=== PATIENT | female | born 1990 | race American Indian/Alaskan Native ===

== ENCOUNTER 2018-06-09 01:00 | Inpatient (IN) | payer MEDICAID ==
[2018-06-09] MEDS ORDERED: NACL 0.9% 1000 ML 1,000 ML IV ONE ×2 (01:14→07:24)
[2018-06-09 02:08] LABS: Basophils % (Auto) 0.2 % (0.0-1.8); Eosinophils % (Auto) 0.2 % (0.0-4.3); Hematocrit 37.5 % (30.3-42.9); Lymphocytes # (Auto) 1.6 K/mm3 (1.2-5.4); Lymphocytes % (Auto) 8.1 % (13.4-35.0); Mean Corpuscular HGB Conc 35 % (30-34); Mean Corpuscular Volume 82 fl (79-97); Monocytes # (Auto) 0.8 K/mm3 (0.0-0.8); Monocytes % (Auto) 4.1 % (0.0-7.3); Platelet Count 373 K/mm3 (140-440); Red Blood Count 4.61 M/mm3 (3.65-5.03); Red Cell Distribution Width 14.1 % (13.2-15.2)
[2018-06-09 02:34] LABS: Alanine Aminotransferase 7 units/L (7-56); Albumin 4.1 g/dL (3.9-5); BUN/Creatinine Ratio 11; Blood Urea Nitrogen 8 mg/dL (7-17); Calcium 9.5 mg/dL (8.4-10.2); Hemolysis Index 4
[2018-06-09 05:39] LABS: Bilirubin,Urine NEG (Negative); Blood,Urine LG (Negative); Color,Urine Amber (Yellow); Hyaline Casts,Urine 14 /LPF; Mucus,Urine 3+ /HPF
[2018-06-09 05:40] LABS: Protein,Urine >500 mg/dL (Negative)
[2018-06-09] MEDS ORDERED: MORPHINE IV ONE (07:24)
[2018-06-09] MEDS ORDERED: ZOFRAN IV ONE (07:24)
--- NOTE | 2018-06-09 07:38 | Emergency Department Report ---
<FELIBERTO BRIGHT - Last Filed: 06/09/18 09:35> ED Abdominal Pain HPI - General Chief Complaint: Abdominal Pain Stated Complaint: GENERAL ILLNESS x3 DAYS Time Seen by Provider: 06/09/18 07:15 - Related Data Allergies Allergy/AdvReac Type Severity Reaction Status Date / Time No Known Allergies Allergy Unverified 06/09/18 01:13 ED Medical Decision Making - Lab Data Result diagrams: 06/09/18 01:41 06/09/18 01:41 - Medical Decision Making Ms. Alonso is a 28 years old female with no significant past medical history. Patient presented to the emergency room with 3 day history of nausea vomiting an d abdominal pain. Patient found to have a white blood cells of 20,000 and significant abdominal tenderness. His CT abdomen and pelvis with IV contrast showed a right colon perforation. Patient received Zosyn. I discussed the patient with Dr. Handley, surgeon automotive collision estimator. He advised to admit the patient to a critical care bed and he stated that he is coming to examine the patient. Dr. Elliott will be admitting the patient. I personally examined the patient and took history from this patient. Critical Care Time: Yes Critical care time in (mins) excluding proc time.: 30 ED Disposition Clinical Impression: Colon perforation Disposition: - OP ADMIT IP TO THIS HOSP Condition: Stable Referrals: PRIMARY CARE, [Primary Care Provider] - 3-5 Days <JANAK KIM - Last Filed: 06/09/18 09:45> ED Abdominal Pain HPI - General Source: patient Mode of arrival: Ambulatory Limitations: No Limitations - History of Present Illness Initial Comments: This is a 28-year-old female nontoxic, well nourished in appearance, no acute signs of distress presents to the ED with c/o of nausea and vomiting and abdominal pain 3 days. Patient describes vomiting as food content and yellow gastric acid. Patient describes abdominal pain as cramping and aching with level of 8/10 diffuse. Patient denies chest pain, short of breath, fever, chills, headache, stiff neck, numbness or tingling. Patient denies any diarrhea or constipation. Patient denies any recent travels. Patient denies any allergies. MD Complaint: abdominal pain -: days(s) (3) Location: diffuse Radiation: none Migration to: no migration Severity: mild Severity scale (0 -10): 8 Quality: cramping, aching Consistency: constant Improves With: nothing Worsens With: nothing Associated Symptoms: nausea, vomiting. denies: diarrhea, fever, chills, constipation, dysuria, hematemesis, hematochezia, melena, hematuria, anorexia, syncope ED Review of Systems ROS: Stated complaint: GENERAL ILLNESS x3 DAYS Other details as noted in HPI Constitutional: denies: chills, fever Eyes: denies: eye pain, eye discharge, vision change ENT: denies: ear pain, throat pain Respiratory: denies: cough, shortness of breath, wheezing Cardiovascular: denies: chest pain, palpitations Endocrine: no symptoms reported Gastrointestinal: abdominal pain, nausea, vomiting. denies: diarrhea Genitourinary: denies: urgency, dysuria, discharge Musculoskeletal: denies: back pain, joint swelling, arthralgia Skin: denies: rash, lesions Neurological: denies: headache, weakness, paresthesias Psychiatric: denies: anxiety, depression Hematological/Lymphatic: denies: easy bleeding, easy bruising ED Past Medical Hx - Past Medical History Previous Medical History?: Yes Additional medical history: Sickle Cell Trait - Surgical History Past Surgical History?: No - Social History Smoking Status: Never Smoker Substance Use Type: None ED Physical Exam - General Limitations: No Limitations General appearance: alert, in no apparent distress - Head Head exam: Present: atraumatic, normocephalic - Eye Eye exam: Present: normal appearance - Neck Neck exam: Present: normal inspection, full ROM. Absent: tenderness, meningismus, lymphadenopathy - Respiratory Respiratory exam: Present: normal lung sounds bilaterally. Absent: respiratory distress, wheezes, rales, rhonchi, stridor, chest wall tenderness, accessory muscle use, decreased breath sounds, prolonged expiratory - Cardiovascular Cardiovascular Exam: Present: regular rate, normal rhythm, normal heart sounds. Absent: irregular rhythm, systolic murmur, diastolic murmur, rubs, gallop - GI/Abdominal GI/Abdominal exam: Present: soft, tenderness (diffuse), normal bowel sounds. Absent: distended, guarding, rebound, rigid, diminished bowel sounds - Expanded GI/Abdominal Exam Expanded GI/Abdominal exam: Absent: psoas sign, Moore's sign, Rovsing's sign, tenderness at Mcburney's Point, ascites - Extremities Exam Extremities exam: Present: normal inspection, full ROM, normal capillary refill - Back Exam Back exam: Present: normal inspection, full ROM. Absent: tenderness, CVA tenderness (R), CVA tenderness (L), muscle spasm, paraspinal tenderness, vertebral tenderness, rash noted - Neurological Exam Neurological exam: Present: alert, oriented X3, normal gait - Psychiatric Psychiatric exam: Present: normal affect, normal mood - Skin Skin exam: Present: warm, dry, intact, normal color. Absent: rash ED Course Vital Signs 06/09/18 06/09/18 01:04 08:09 Temperature 98.1 F 98.2 F Pulse Rate 118 H 92 H Respiratory 18 16 Rate Blood Pressure 132/91 Blood Pressure 104/68 [Left] O2 Sat by Pulse 99 92 Oximetry - Reevaluation(s) Reevaluation #1: 06/09/18 07:43 Patient is speaking in full sentences with no signs of distress noted. ED Medical Decision Making - Lab Data Result diagrams: 06/09/18 01:41 06/09/18 01:41 - Medical Decision Making This is a 28-year-old female that presents with right colon perforation. Patient is currently stable. I put patient nothing by mouth. Zosyn IV ordered. Sepsis protocol has been initiated with IV fluids and pain medication. Laboratory obtained. Patient was discussed with Dr. Bright and agrees to the ED plan of care. PAtient was discussed with Dr. Handley and agrees to the ED plan of care. Patient was discussed with Dr. Elliott (hospitalist) and accepts patient to services with bridge orders to critical care with admission and Dr. Paige. At time of admission, the patient does not seem toxic or ill in appearance. No acute signs of distress noted. Patient agrees to admission treatment plan of care. No further questions noted by the patient. Critical care attestation.: If time is entered above; I have spent that time in minutes in the direct care of this critically ill patient, excluding procedure time. ED Disposition Is pt being admited?: Yes
[2018-06-09] MEDS ORDERED: NACL 0.9% 1000 ML IV ONE (07:46)
[2018-06-09] MEDS ORDERED: ZOSYN/NS 4.5GM/100ML 4.5 GM/100 ML VIAL IV ONE (09:12)
--- NOTE | 2018-06-09 09:17 | Cat Scan Report ---
PROCEDURE: CT ABDOMEN PELVIS W CON TECHNIQUE: Computerized axial tomography of the abdomen and pelvis was performed after the IV inject ion of iodinated nonionic contrast. CT DOSE LENGTH PRODUCT: 1065.9 mGycm HISTORY: abd pain COMPARISONS: None . FINDINGS: Partially visualized intrathoracic contents are unremarkable. The liver, gallbladder, pancreas, spleen, and adrenal glands are unremarkable. Kidneys show no worrisome lesions, hydronephrosis, or calculi. Urinary bladder is unremarkable. Antev erted lobular uterus with multiple fibroids The right colon is perforated approximately 6 cm superior to the ileocecal valve on coronal images 42 -47. A trapped area of stool adjacent to the perforation measures 3.1 x 3 x 3.6 cm. Surrounding indur ated fat. No jenn pneumoperitoneum. Appendix is normal. No other focal abnormality seen within the g astrointestinal tract. Aorta is normal in course and caliber. Superficial soft tissues are unremarkable. No acute or aggressive appearing skeletal findings. IMPRESSION: Right colonic perforation with trapped area of stool measuring 3.6 x 3.1 x 3 cm. Abscess formation at this location is expected. No jenn pneumoperitoneum. No other focal abnormalities within the gastro intestinal tract are identified. Consider underlying immunocompromised state or inflammatory bowel di sease as potential etiologies. Dr. Ramirez discussed findings with Camilo Gonzáles NP at [address] Time on 06/09/2018 7:07 BATTERY RECHARGER immed iately following the examination. This document is electronically signed by Weston Ramirez MD., June 09 2018 09:15:35 AM ET
[2018-06-09] MEDS ORDERED: DILAUDID IV ONE (09:57)
[2018-06-09] MEDS ORDERED: DILAUDID ONE (10:01)
--- NOTE | 2018-06-09 10:52 | History and Physical Report ---
History of Present Illness Date of examination: 06/09/18 Date of admission: 06/09/18 Chief complaint: Abdominal pain History of present illness: Ms. Alonso is a 28 years old female with no significant past medical history presented to the emergency room with 3 day history of nausea vomiting and RLQ intense abdominal pain. Patient found to have a white blood cells of 20,000 and significant abdominal tenderness. Her CT abdomen and pelvis with IV contrast showed a right colon perforation. Patient was given Zosyn in the ER. Consulted Dr. Handley, surgeon in the ER. Patient is being admitted for further evaluation and management. Past medical History: h/o sickle cell trait Past surgical History: None Social History: Lives with family, denies any smoking, drinking and elicit drug abuse. Family History: No Significant for diabetes hypertension cancer or stroke Review of System: Constitutional: no fever, no chills, no weight loss Ears, eyes, nose, mouth and throat: no nasal congestion, no nasal discharge, no sinus pressure, no vision change, no red eye. Neck: No neck pain or rigidity. Cardiovascular: No chest pain, no orthopnea, no palpitations, no leg swelling Respiratory: No shortness of breath, no cough, no congestion, no wheezing Gastrointestinal: + abdominal pain, + nausea, + vomiting Genitourinary : no dysuria, no hematuria Musculoskeletal: no joint swelling or muscle ache Integumentary: no rash, no pruritis Neurological: no parathesias, no numbness, no tingling Endocrine: no cold or heat intolerance, no polyuria or polydipsia Hematologic/Lymphatic: no easy bruising, no easy bleeding, no gland swelling Allergic/Immunologic: no urticaria, no angioedema. Medications and Allergies Allergies Allergy/AdvReac Type Severity Reaction Status Date / Time No Known Allergies Allergy Unverified 06/09/18 01:13 Home Medications Medication Instructions Recorded Confirmed Last Taken Type No Known Home Medications [No 06/09/18 06/09/18 Unknown History Reported Home Medications] Exam - Constitutional Vitals: Temp Pulse Resp BP Pulse Ox 98.2 F 78 18 113/77 96 06/09/18 08:09 06/09/18 10:04 06/09/18 10:04 06/09/18 10:04 06/09/18 10:04 General appearance: Present: mild distress - EENT Eyes: Present: PERRL ENT: hearing intact, clear oral mucosa - Neck Neck: Present: supple, normal ROM - Respiratory Respiratory effort: normal Respiratory: bilateral: CTA - Cardiovascular Heart Sounds: Present: S1 & S2. Absent: rub, click - Extremities Extremities: pulses symmetrical, No edema Peripheral Pulses: within normal limits - Abdominal General gastrointestinal: Present: soft, non-distended, other (diminished BS) Localized gastrointestinal: guarding: RUQ - Integumentary Integumentary: Present: clear, warm, dry - Musculoskeletal Musculoskeletal: gait normal, strength equal bilaterally - Psychiatric Psychiatric: appropriate mood/affect, intact judgment & insight - Neurologic Neurologic: CNII-XII intact, moves all extremities Results - Labs CBC & Chem 7: 06/10/18 09:35 06/10/18 03:49 Labs: Abnormal lab results 06/09/18 06/09/18 06/09/18 Range/Units 01:41 01:41 04:41 WBC 19.5 H (4.5-11.0) K/mm3 MCHC 35 H (30-34) % Lymph % (Auto) 8.1 L (13.4-35.0) % Seg Neutrophils % 87.4 H (40.0-70.0) % Seg Neutrophils # 17.0 H (1.8-7.7) K/mm3 VBG pH (7.320-7.420) Sodium 135 L (137-145) mmol/L Potassium 3.4 L (3.6-5.0) mmol/L Chloride 96.7 L (98-107) mmol/L Carbon Dioxide 17 L (22-30) mmol/L Total Protein 8.8 H (6.3-8.2) g/dL Ur Specific [place] 1.040 H (1.003-1.030) Urine WBC (Auto) 9.0 H (0.0-6.0) /HPF 06/09/18 Range/Units 08:48 WBC (4.5-11.0) K/mm3 MCHC (30-34) % Lymph % (Auto) (13.4-35.0) % Seg Neutrophils % (40.0-70.0) % Seg Neutrophils # (1.8-7.7) K/mm3 VBG pH 7.318 L (7.320-7.420) Sodium (137-145) mmol/L Potassium (3.6-5.0) mmol/L Chloride (98-107) mmol/L Carbon Dioxide (22-30) mmol/L Total Protein (6.3-8.2) g/dL Ur Specific [place] (1.003-1.030) Urine WBC (Auto) (0.0-6.0) /HPF - Imaging and Cardiology CT scan - abdomen: report reviewed Assessment and Plan Microperforation of the right colon Hypokalemia, likely due to GI loss Sepsis, due to organ perforation Sickle cell trait DVT Px - admit to ICU - consult GS, cont iv abx, cont iv fluid - replete Kcl, ordered blood cx - monitor CBC, BMP - lovenox for DVT Px Radiological data: CT abdomen/pelvis; Right colonic perforation with trapped area of stool measuring 3.6 x 3.1 x 3 cm. Abscess formation at this location is expected. No jenn pneumoperitoneum. No other focal abnormalities within the gastrointestinal tract are identified. Consider underlying immunocompromised state or inflammatory bowel disease as potential etiologies.
[2018-06-09] MEDS ORDERED: NORMODYNE IV PRN (10:54)
[2018-06-09] MEDS ORDERED: ZOFRAN ONE (12:06)
[2018-06-09] MEDS: ZOFRAN IV PRN (12:06)
[2018-06-09] MEDS: D5W/NS W/KCL 20MEQ 20 MEQ/1,000 ML BAG IV SCH ×2 (14:20→22:20)
--- NOTE | 2018-06-09 14:47 | Progress Note ---
Assessment and Plan Full consult dictated. 28 y/o healthy female (sickle cell trait). 4 day hx of constipation. then significant abd pain. CT - contained cecal perforation. no free air or fluid. 20,000 wbc. pt currently comfortable. localized RLQ tenderness. L side of abd soft, non tender imp as above. pt prior to this episode, completely healthy. no previous hx of abd pain, constipation, diarrhea, hematochezia, wt loss etc. microperf of cecum secondary to ?. (appendix wnl on CT). rec: keep npo IVF hydration IV antibiotics ID eval may need CT guided drainage if abscess develops will hold off on any immediate surgical drainage as long as pt continues to clinically improve will follow Selected Entries 06/09/18 06/09/18 08:09 12:44 Temperature 98.2 F Pulse Rate 84 Respiratory 16 Rate Blood Pressure 117/96 [Left] Laboratory Tests 06/09/18 06/09/18 06/09/18 01:41 01:41 08:48 WBC 19.5 H Hgb 13.0 Hct 37.5 Sodium 135 L Potassium 3.4 L Chloride 96.7 L Carbon Dioxide 17 L BUN 8 Creatinine 0.7 Total Bilirubin 1.00 AST 11 ALT 7 Alkaline Phosphatase 65 Lipase 21 Objective Vital Signs - 12hr 06/09/18 06/09/18 06/09/18 08:09 09:47 10:04 Temperature 98.2 F Pulse Rate 92 H 78 Respiratory 16 20 18 Rate Blood Pressure 104/68 113/77 [Left] O2 Sat by Pulse 92 99 96 Oximetry 06/09/18 12:44 Temperature Pulse Rate 84 Respiratory 16 Rate Blood Pressure 117/96 [Left] O2 Sat by Pulse 97 Oximetry - Labs 06/09/18 01:41 06/09/18 01:41 Diabetes panel 06/09/18 Range/Units 01:41 Sodium 135 L (137-145) mmol/L Potassium 3.4 L (3.6-5.0) mmol/L Chloride 96.7 L (98-107) mmol/L Carbon Dioxide 17 L (22-30) mmol/L BUN 8 (7-17) mg/dL Creatinine 0.7 (0.7-1.2) mg/dL Glucose 89 (65-100) mg/dL Calcium 9.5 (8.4-10.2) mg/dL AST 11 (5-40) units/L ALT 7 (7-56) units/L Alkaline Phosphatase 65 (35-129) units/L Total Protein 8.8 H (6.3-8.2) g/dL Albumin 4.1 (3.9-5) g/dL Calcium panel 06/09/18 Range/Units 01:41 Calcium 9.5 (8.4-10.2) mg/dL Albumin 4.1 (3.9-5) g/dL Pituitary panel 06/09/18 Range/Units 01:41 Sodium 135 L (137-145) mmol/L Potassium 3.4 L (3.6-5.0) mmol/L Chloride 96.7 L (98-107) mmol/L Carbon Dioxide 17 L (22-30) mmol/L BUN 8 (7-17) mg/dL Creatinine 0.7 (0.7-1.2) mg/dL Glucose 89 (65-100) mg/dL Calcium 9.5 (8.4-10.2) mg/dL Adrenal panel 06/09/18 Range/Units 01:41 Sodium 135 L (137-145) mmol/L Potassium 3.4 L (3.6-5.0) mmol/L Chloride 96.7 L (98-107) mmol/L Carbon Dioxide 17 L (22-30) mmol/L BUN 8 (7-17) mg/dL Creatinine 0.7 (0.7-1.2) mg/dL Glucose 89 (65-100) mg/dL Calcium 9.5 (8.4-10.2) mg/dL Total Bilirubin 1.00 (0.1-1.2) mg/dL AST 11 (5-40) units/L ALT 7 (7-56) units/L Alkaline Phosphatase 65 (35-129) units/L Total Protein 8.8 H (6.3-8.2) g/dL Albumin 4.1 (3.9-5) g/dL
[2018-06-09] MEDS: ZOSYN/NS 3.375GM/50ML 3.375 GM/50 ML BAG IV SCH (18:59)
--- NOTE | 2018-06-09 23:06 | Consultation ---
REASON FOR CONSULTATION: Rule out contained a cecal perforation. HISTORY OF PRESENT ILLNESS: The patient is a pleasant 28-year-old female, who has been complaining of approximately 4-day history of constipation prior to her arrival to the emergency room. She states she had not moved her bowels in 4 days and then began taking some stool softener with minimal results. Subsequent to this, the patient's pain increased and thus her arrival to the Emergency Room. On arrival to the Emergency Room, a CBC showed a white count of approximately 20,000. A CT scan of the abdomen was also performed by which revealed what appears to be a contained cecal perforation. The appendix itself was described as normal. There is no evidence of any free air or free fluid in the peritoneal cavity. Thus, the perforation again being contained. PAST MEDICAL HISTORY: Pertinent for sickle cell trait. PAST SURGICAL HISTORY: Negative. ALLERGIES: No known allergies. MEDICATIONS: No medications. FAMILY HISTORY: Negative. The patient is adopted. SOCIAL HISTORY: Does smoke some marijuana. Occasional and very rare ethanol intake. Denies any cigarette smoking. PHYSICAL EXAMINATION: GENERAL: At this time reveals the patient to be awake, alert, cooperative, in no apparent distress. The patient states she is when she came in. VITAL SIGNS: Temperature is 98.2, blood pressure 117/96, pulse of 84, and respirations 16. ABDOMEN: Examination of the abdomen reveals localized right lower quadrant tenderness, some tenderness also noted in the right upper quadrant. The left side of the abdomen is soft and nontender at present. Bowel sounds are hypoactive to absent. LABORATORY DATA: Lab work at present includes a CBC, which shows a white count of 19.5, H and H is 13 and 37. Electrolytes are just borderline low with a sodium of 135, potassium 3.4, chloride is 96.7, and CO2 of 17. BUN is 8, creatinine is 0.7. Lactic acid is 0.8 that being within normal limits. LFTs were also within normal limits. Lipase is 21. CT scan of the abdomen was done, results of which have mentioned. IMPRESSION: 1. At this time is that of a previously healthy 28-year-old female other than her sickle cell trait history. 2. Contained microperforation of the cecum secondary to?. Again, appendix is described as normal on the CT. Possible inflammatory bowel disease?. Possible malignancy?. Possible ruptured diverticula?. RECOMMENDATIONS: At this time, would keep the patient n.p.o. Start IV fluid hydration as well as IV antibiotics. We will obtain Infectious Disease evaluation. The patient may need CT-guided drainage of the area of a true abscess develops. At present, would hold off of any immediate surgical intervention as the patient is clinically stable and the area appears to be contained. We will monitor closely with you. Thank you very much for consultation. JOB# [id number] ALAYNA/MASOUD
[2018-06-10] MEDS: ZOSYN/NS 3.375GM/50ML 3.375 GM/50 ML BAG IV SCH ×2 (01:41→10:35)
[2018-06-10] MEDS: ZOFRAN IV PRN ×3 (02:55→22:17)
[2018-06-10 04:31] LABS: Basophils % (Auto) 0.1 % (0.0-1.8); Eosinophils % (Auto) 0.1 % (0.0-4.3); Hematocrit 29.6 % (30.3-42.9); Hemoglobin 10.3 gm/dl (10.1-14.3); Lymphocytes # (Auto) 1.7 K/mm3 (1.2-5.4); Lymphocytes % (Auto) 9.9 % (13.4-35.0); Mean Corpuscular HGB Conc 35 % (30-34); Mean Corpuscular Volume 81 fl (79-97); Monocytes # (Auto) 0.8 K/mm3 (0.0-0.8); Monocytes % (Auto) 4.9 % (0.0-7.3); Platelet Count 303 K/mm3 (140-440); Red Blood Count 3.67 M/mm3 (3.65-5.03)
[2018-06-10 04:44] LABS: BUN/Creatinine Ratio 3; Blood Urea Nitrogen 2 mg/dL (7-17); Hemolysis Index 12
[2018-06-10] MEDS: D5W/NS W/KCL 20MEQ 20 MEQ/1,000 ML BAG IV SCH ×2 (06:52→17:43)
[2018-06-10] MEDS: MORPHINE IV PRN ×3 (07:32→22:12)
--- NOTE | 2018-06-10 08:00 | Progress Note ---
Assessment and Plan Pt sitting on commode. c/o localized RLQ abd pain Abd soft. localized RLQ tenderness reviewed CT [facility] radiologist. no diverticulae seen around ascending colon area. r/o inflammatory bowel disease? r/o colitis? lowered h/h and hypokalemia noted. repeat h/h this am supplement K as per PCP continue present care (NPO, IV antibiotics, clinical monitoring) await ID eval nothing to drain at present as everything appears to be inflammatory at present. no true fluid collection or abscess seen. will need f/u CT in 5 -7 days Selected Entries 06/10/18 06/10/18 06:15 06:51 Temperature 99.4 F Pulse Rate 95 H Respiratory 12 Rate Blood Pressure 119/80 Laboratory Tests 06/09/18 06/09/18 06/10/18 01:41 07:56 03:49 WBC 19.5 H 16.9 H Hgb 13.0 10.3 Hct 37.5 29.6 L D Potassium Lactic Acid 0.80 06/10/18 03:49 WBC Hgb Hct Potassium 3.2 L Lactic Acid Objective Vital Signs - 12hr 06/09/18 06/09/18 06/09/18 20:00 20:11 20:21 Temperature Pulse Rate 85 92 H 98 H Pulse Rate [ Apical] Pulse Rate [ Left Radial] Respiratory 18 19 15 Rate Blood Pressure 119/71 119/71 118/64 O2 Sat by Pulse 98 100 100 Oximetry 06/09/18 06/09/18 06/09/18 20:30 20:41 20:51 Temperature Pulse Rate 90 95 H 93 H Pulse Rate [ Apical] Pulse Rate [ Left Radial] Respiratory 22 14 20 Rate Blood Pressure 123/81 123/81 125/81 O2 Sat by Pulse 100 99 99 Oximetry 06/09/18 06/09/18 06/09/18 21:00 21:11 21:21 Temperature Pulse Rate 102 H 102 H 100 H Pulse Rate [ Apical] Pulse Rate [ Left Radial] Respiratory 19 19 18 Rate Blood Pressure 118/73 118/73 129/83 O2 Sat by Pulse 98 99 100 Oximetry 06/09/18 06/09/18 06/09/18 21:30 21:40 21:51 Temperature Pulse Rate 105 H 100 H 100 H Pulse Rate [ Apical] Pulse Rate [ Left Radial] Respiratory 18 21 18 Rate Blood Pressure 129/81 129/81 138/89 O2 Sat by Pulse 100 99 100 Oximetry 06/09/18 06/09/18 06/09/18 22:00 22:11 22:21 Temperature Pulse Rate 99 H 100 H 111 H Pulse Rate [ 109 H Apical] Pulse Rate [ 109 H Left Radial] Respiratory 19 21 18 Rate Blood Pressure 119/68 119/68 125/68 O2 Sat by Pulse 100 99 99 Oximetry 06/09/18 06/09/18 06/09/18 22:30 22:41 22:51 Temperature Pulse Rate 107 H 98 H 111 H Pulse Rate [ Apical] Pulse Rate [ Left Radial] Respiratory 20 22 23 Rate Blood Pressure 132/72 132/72 134/71 O2 Sat by Pulse 98 97 97 Oximetry 06/09/18 06/09/18 06/09/18 23:01 23:11 23:21 Temperature Pulse Rate 118 H 113 H 127 H Pulse Rate [ Apical] Pulse Rate [ Left Radial] Respiratory 15 21 16 Rate Blood Pressure 112/62 112/62 117/58 O2 Sat by Pulse 97 97 97 Oximetry 06/09/18 06/09/18 06/09/18 23:30 23:41 23:51 Temperature Pulse Rate 116 H 117 H 112 H Pulse Rate [ Apical] Pulse Rate [ Left Radial] Respiratory 21 23 21 Rate Blood Pressure 121/77 121/77 115/72 O2 Sat by Pulse 98 97 97 Oximetry 06/10/18 06/10/18 06/10/18 00:00 00:11 00:21 Temperature Pulse Rate 110 H 112 H 112 H Pulse Rate [ 111 H Apical] Pulse Rate [ 111 H Left Radial] Respiratory 18 22 23 Rate Blood Pressure 133/73 133/73 115/72 O2 Sat by Pulse 98 98 96 Oximetry 06/10/18 06/10/18 06/10/18 00:30 00:41 00:51 Temperature Pulse Rate 109 H 113 H 111 H Pulse Rate [ Apical] Pulse Rate [ Left Radial] Respiratory 18 22 23 Rate Blood Pressure 113/72 113/72 116/77 O2 Sat by Pulse 98 97 97 Oximetry 06/10/18 06/10/18 06/10/18 01:00 01:11 01:21 Temperature Pulse Rate 117 H 114 H 118 H Pulse Rate [ Apical] Pulse Rate [ Left Radial] Respiratory 17 22 22 Rate Blood Pressure 120/74 120/74 113/75 O2 Sat by Pulse 98 97 98 Oximetry 06/10/18 06/10/18 06/10/18 01:30 01:41 01:51 Temperature Pulse Rate 109 H 100 H 96 H Pulse Rate [ Apical] Pulse Rate [ Left Radial] Respiratory 20 12 14 Rate Blood Pressure 113/69 113/69 113/75 O2 Sat by Pulse 99 98 99 Oximetry 06/10/18 06/10/18 06/10/18 02:00 02:11 02:15 Temperature 100.5 F H Pulse Rate 103 H 108 H Pulse Rate [ 110 H Apical] Pulse Rate [ 110 H Left Radial] Respiratory 17 14 Rate Blood Pressure 118/73 117/70 O2 Sat by Pulse 96 99 Oximetry 06/10/18 06/10/18 06/10/18 02:21 02:30 02:41 Temperature Pulse Rate 103 H 112 H 115 H Pulse Rate [ Apical] Pulse Rate [ Left Radial] Respiratory 12 15 17 Rate Blood Pressure 122/80 118/70 118/70 O2 Sat by Pulse 98 99 98 Oximetry 06/10/18 06/10/18 06/10/18 02:51 03:00 03:11 Temperature Pulse Rate 108 H 94 H 103 H Pulse Rate [ Apical] Pulse Rate [ Left Radial] Respiratory 23 17 18 Rate Blood Pressure 122/80 117/75 117/75 O2 Sat by Pulse 100 99 98 Oximetry 06/10/18 06/10/18 06/10/18 03:21 03:30 03:41 Temperature Pulse Rate 107 H 102 H 106 H Pulse Rate [ Apical] Pulse Rate [ Left Radial] Respiratory 17 20 22 Rate Blood Pressure 117/75 129/88 129/88 O2 Sat by Pulse 100 99 99 Oximetry 06/10/18 06/10/18 06/10/18 03:51 04:00 04:11 Temperature Pulse Rate 116 H 103 H 99 H Pulse Rate [ Apical] Pulse Rate [ Left Radial] Respiratory 16 19 22 Rate Blood Pressure 129/88 118/71 118/71 O2 Sat by Pulse 97 99 98 Oximetry 06/10/18 06/10/18 06/10/18 04:21 04:30 04:41 Temperature Pulse Rate 101 H 104 H 108 H Pulse Rate [ Apical] Pulse Rate [ Left Radial] Respiratory 23 22 21 Rate Blood Pressure 118/68 123/73 123/73 O2 Sat by Pulse 98 96 98 Oximetry 06/10/18 06/10/18 06/10/18 04:51 05:00 05:11 Temperature Pulse Rate 105 H 109 H 104 H Pulse Rate [ Apical] Pulse Rate [ Left Radial] Respiratory 22 19 14 Rate Blood Pressure 113/76 123/82 123/82 O2 Sat by Pulse 97 97 99 Oximetry 06/10/18 06/10/18 06/10/18 05:21 05:30 05:41 Temperature Pulse Rate 108 H 119 H 104 H Pulse Rate [ Apical] Pulse Rate [ Left Radial] Respiratory 18 16 15 Rate Blood Pressure 133/107 130/88 130/88 O2 Sat by Pulse 99 98 97 Oximetry 06/10/18 06/10/18 06/10/18 05:51 06:00 06:11 Temperature Pulse Rate 97 H 96 H 102 H Pulse Rate [ Apical] Pulse Rate [ Left Radial] Respiratory 16 17 19 Rate Blood Pressure 111/67 111/70 111/70 O2 Sat by Pulse 98 98 99 Oximetry 06/10/18 06/10/18 06/10/18 06:12 06:15 06:21 Temperature 99.4 F Pulse Rate 94 H Pulse Rate [ 110 H Apical] Pulse Rate [ 110 H Left Radial] Respiratory 20 11 L Rate Blood Pressure 120/84 O2 Sat by Pulse 99 96 Oximetry 06/10/18 06/10/18 06/10/18 06:30 06:41 06:51 Temperature Pulse Rate 99 H 100 H 95 H Pulse Rate [ Apical] Pulse Rate [ Left Radial] Respiratory 15 24 12 Rate Blood Pressure 125/94 125/94 119/80 O2 Sat by Pulse 98 98 99 Oximetry 06/10/18 06/10/18 06/10/18 07:00 07:11 07:21 Temperature Pulse Rate 109 H 93 H 96 H Pulse Rate [ Apical] Pulse Rate [ Left Radial] Respiratory 18 10 L 19 Rate Blood Pressure 131/96 131/96 131/91 O2 Sat by Pulse 98 98 98 Oximetry 06/10/18 06/10/18 07:30 07:41 Temperature Pulse Rate 94 H 92 H Pulse Rate [ Apical] Pulse Rate [ Left Radial] Respiratory 14 17 Rate Blood Pressure 133/93 133/93 O2 Sat by Pulse 98 99 Oximetry - Labs 06/10/18 03:49 06/10/18 03:49 Diabetes panel 06/10/18 Range/Units 03:49 Sodium 142 D (137-145) mmol/L Potassium 3.2 L (3.6-5.0) mmol/L Chloride 108.9 H (98-107) mmol/L Carbon Dioxide 22 (22-30) mmol/L BUN 2 L (7-17) mg/dL Creatinine 0.7 (0.7-1.2) mg/dL Glucose 127 H (65-100) mg/dL Calcium 8.0 L D (8.4-10.2) mg/dL Calcium panel 06/10/18 Range/Units 03:49 Calcium 8.0 L D (8.4-10.2) mg/dL Pituitary panel 06/10/18 Range/Units 03:49 Sodium 142 D (137-145) mmol/L Potassium 3.2 L (3.6-5.0) mmol/L Chloride 108.9 H (98-107) mmol/L Carbon Dioxide 22 (22-30) mmol/L BUN 2 L (7-17) mg/dL Creatinine 0.7 (0.7-1.2) mg/dL Glucose 127 H (65-100) mg/dL Calcium 8.0 L D (8.4-10.2) mg/dL Adrenal panel 06/10/18 Range/Units 03:49 Sodium 142 D (137-145) mmol/L Potassium 3.2 L (3.6-5.0) mmol/L Chloride 108.9 H (98-107) mmol/L Carbon Dioxide 22 (22-30) mmol/L BUN 2 L (7-17) mg/dL Creatinine 0.7 (0.7-1.2) mg/dL Glucose 127 H (65-100) mg/dL Calcium 8.0 L D (8.4-10.2) mg/dL
[2018-06-10 09:50] LABS: Hematocrit 29.4 % (30.3-42.9); Hemoglobin 10.2 gm/dl (10.1-14.3); Mean Corpuscular HGB Conc 35 % (30-34); Mean Corpuscular Volume 81 fl (79-97); Platelet Count 295 K/mm3 (140-440); Red Blood Count 3.66 M/mm3 (3.65-5.03)
--- NOTE | 2018-06-10 11:50 | Consultation ---
History of Present Illness - Reason for Consult Consult date: 06/10/18 contained colon perf Requesting physician: ABELINO ALEXANDER - History of Present Illness 28 y/o female with history marihuana use; admitted on due to 3-day history of nausea, vomiting and abdominal pain. Patient reports she noted RLQ abdominal pain started 3 days before admission associated with nausea and vomiting x 1. Also noted SOB and dry cough for 24 hour before admission. 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 Denies tob, Etoh, drug abuse except for marihuana use. She denies history of previous diverticulitis or inflammatory bowel disease. No history of trauma or ingestion of foreign bodies. In the ED, temp 98.1, HR 118, R 19, O2 sat 99%, BP 132/91. WBC 19.5, Hg 13, Plat 373. Creat 0.7. LFTs normal. Lipase normal. UA neg. Blood culture 06/09/[address] abdomen showed perforated right colon approximately 6 cm superior to the ileocecal valve with trapped area of stool adjacent to the perforation measures 3.1 x 3 x 3.6 cm. Surrounding indurated fat. No jenn pneumoperitoneum. Review of Systems: General: no fever, chills, nightsweats, unintentional weight change, or change in appetite Cutaneous: no rash, pruritus Head: no headaches or injury Eyes: no changes in vision, eye pain, double vision Ears: no ear pain, ear discharge, ringing or hearing loss Nose: no nose bleeding, stuffiness Mouth & throat: no bleeding gums, no horseness, no dental problems, or swollen glands Neck: no pain, node enlargement/lumps, tyroid enlargement or tenderness Respiratory: no cough, wheezing, sputum, hemoptysis, pleuritic chest pain Cardiovascular: no chest pain, leg edema, cyanosis, WHITE, orthopnea Musculoskeletal: no decreased joint motion, bone or joint pain, joint swelling, muscle aches Gastrointestinal: + nausea, + vomiting, + abdominal pain, no hematemesis, diarrhea, constipation, melena, bright red blood in stools, fecal incontinence, jaundice Genitourinary/Reproductive: no frequent urination, dysuria, hematuria, incontinence Neurogical: no seizures, no headaches, no weakness, no paresthesias, no loss of speech or vision; no memory loss, no vertigo, no tremors, no numbness Psychiatric: stable mood; no excessive anxiety, sadness or moodiness Medications and Allergies Allergies Allergy/AdvReac Type Severity Reaction Status Date / Time No Known Allergies Allergy Unverified 06/09/18 01:13 Home Medications Medication Instructions Recorded Confirmed Last Taken Type No Known Home Medications [No 06/09/18 06/09/18 Unknown History Reported Home Medications] Active Meds: Active Medications Hydralazine HCl (Apresoline) 5 mg IV Q30MIN PRN PRN Reason: Hypertension Potassium Chloride/Dextrose/Sod Cl (D5w/Ns W/Kcl 20meq) 20 meq in 1,000 mls @ 125 mls/hr IV DIRECT DONNELL Last Admin: 06/10/18 06:52 Dose: 125 mls/hr Documented by: Piperacillin Sod/Tazobactam Sod (Zosyn/Ns 3.375gm/50ml) 3.375 gm in 50 mls @ 100 mls/hr IV Q8H DONNELL; Protocol Last Admin: 06/10/18 10:35 Dose: 100 mls/hr Documented by: Labetalol HCl (Normodyne) 10 mg IV Q4H PRN PRN Reason: Hypertension Morphine Sulfate (Morphine) 2 mg IV Q4H PRN PRN Reason: Pain, Moderate (4-6) Last Admin: 06/10/18 07:32 Dose: 2 mg Documented by: Ondansetron HCl (Zofran) 4 mg IV Q8H PRN PRN Reason: N/V unrelieved by Reglan Last Admin: 06/10/18 02:55 Dose: 4 mg Documented by: Physical Examination - Physical Exam Narrative exam: General appearance: Alert in NAD, conversant Eyes: anicteric sclerae, moist conjunctivae; no lid-lag; PERRLA HENT: Atraumatic; oropharynx clear with moist mucous membranes and no mucosal ulcerations/no oral thrush; normal hard and soft palate. Normal external ears. Neck: Trachea midline; supple, no thyromegaly or lymphadenopathy Lungs: CTA CV: RRR, no murmurs Abdomen: Soft, tender to palpation diffusely; no masses or hepatosplenomegaly Extremities: No peripheral edema or extremity lymphadenopathy Skin: Normal temperature, turgor and texture; no rash, ulcers or subcutaneous nodules Psych: Appropriate affect, alert and oriented to person, place and time. Neuro: alert and oriented x 3. Moving all extermities - Constitutional Vitals: Vital Signs Temp Pulse Resp BP Pulse Ox 99.4 F 90 19 110/72 98 06/10/18 06:15 06/10/18 10:11 06/10/18 10:11 06/10/18 10:11 06/10/18 10:11 Temperature -Last 24 Hours Temperature 99.4 F Temperature 100.5 F Temperature 98.2 F Results - Labs CBC & Chem 7: 06/10/18 09:35 06/10/18 03:49 Labs: Abnormal lab results 06/10/18 06/10/18 06/10/18 Range/Units 03:49 03:49 09:35 WBC 16.9 H 21.2 H (4.5-11.0) K/mm3 Hct 29.6 L D 29.4 L (30.3-42.9) % MCHC 35 H 35 H (30-34) % Lymph % (Auto) 9.9 L (13.4-35.0) % Seg Neutrophils % 85.0 H (40.0-70.0) % Seg Neutrophils # 14.4 H (1.8-7.7) K/mm3 Potassium 3.2 L (3.6-5.0) mmol/L Chloride 108.9 H (98-107) mmol/L BUN 2 L (7-17) mg/dL Glucose 127 H (65-100) mg/dL Calcium 8.0 L D (8.4-10.2) mg/dL Assessment and Plan Cultures: Blood culture 06/09/2018 no growth today Assessment: 28 y/o female with history marihuana use; admitted on due to 3-day history of nausea, vomiting and abdominal pain: 1) Sepsis: Present on admission, manifested by tachycardia, leukocytosis. Etiology most likely right colonic perforation. 2) Right colonic perforation: of unclear etiology. Patient denies history of previous diverticulitis or inflammatory bowel disease. No history of trauma or ingestion of foreign bodies. CT abdomen showed perforated right colon approximately 6 cm superior to the ileocecal valve with trapped area of stool adjacent to the perforation measures 3.1 x 3 x 3.6 cm. Surrounding indurated fat. No jenn pneumoperitoneum. No evidence of intra-abdominal abscess or fistula. Among infectious diseases causes of right sided colonic perforation are typhoid (no history of diarrhea), schistosomiasis (no recent travels to tropical areas), CMV. Other non ID etiologies: malignancy, connective tissue disease, vasculitis. Recommendations: - follow-up blood cultures - obtain procalcitonin, C-reactive protein (CRP) - check CARLOS MANUEL with reflex, C3, C4, ANCA - check HIV and CMV DNA PCR - agree with repeating CT in 3-5 days - stop zosyn (no need to cover Pseudomonas) - start ceftriaxone and flagyl Will follow. Zahra Fowler MD Infectious Diseases [facility] ([facility] M [phone] O [phone] colonic [phone]
[2018-06-10] MEDS ORDERED: KCL 10MEQ/100ML 10 MEQ/100 ML BAG IV ONE (13:00)
[2018-06-10] MEDS ORDERED: ROCEPHIN/NS 2 GM/100 ML 2 GM/100 ML BAG IV SCH (13:00)
--- NOTE | 2018-06-10 14:01 | Consultation ---
History of Present Illness Consult date: 06/10/18 Requesting physician: NARCISA STEPHENS Reason for consult: other (Perforated Viscus) History of present illness: PULMONARY/CCM CONSULT NOTE (Full dictation # [id number]) Please see dictated notes for full details Medications and Allergies Allergies Allergy/AdvReac Type Severity Reaction Status Date / Time No Known Allergies Allergy Unverified 06/09/18 01:13 Home Medications Medication Instructions Recorded Confirmed Last Taken Type No Known Home Medications [No 06/09/18 06/09/18 Unknown History Reported Home Medications] Active Meds: Active Medications Enoxaparin Sodium (Lovenox) 40 mg SUB-Q QDAY@2200 DONNELL Hydralazine HCl (Apresoline) 5 mg IV Q30MIN PRN PRN Reason: Hypertension Potassium Chloride/Dextrose/Sod Cl (D5w/Ns W/Kcl 20meq) 20 meq in 1,000 mls @ 125 mls/hr IV DIRECT DONNELL Last Admin: 06/10/18 06:52 Dose: 125 mls/hr Documented by: Ceftriaxone Sodium (Rocephin/Ns 2 Gm/100 Ml) 2 gm in 100 mls @ 200 mls/hr IV Q24HR DONNELL; Protocol Metronidazole (Flagyl 500 Mg/100 Ml) 500 mg in 100 mls @ 100 mls/hr IV Q8HR DONNELL; Protocol Labetalol HCl (Normodyne) 10 mg IV Q4H PRN PRN Reason: Hypertension Morphine Sulfate (Morphine) 2 mg IV Q4H PRN PRN Reason: Pain, Moderate (4-6) Last Admin: 06/10/18 07:32 Dose: 2 mg Documented by: Ondansetron HCl (Zofran) 4 mg IV Q8H PRN PRN Reason: N/V unrelieved by Reglan Last Admin: 06/10/18 02:55 Dose: 4 mg Documented by: Physical Examination Vital signs: Vital Signs Temp Pulse Resp BP Pulse Ox 98.1 F 118 H 18 132/91 99 06/09/18 01:04 06/09/18 01:04 06/09/18 01:04 06/09/18 01:04 06/09/18 01:04 Results - Laboratory Findings CBC and BMP: 06/10/18 09:35 06/10/18 03:49 Abnormal lab findings: Abnormal Labs 06/09/18 06/09/18 06/09/18 01:41 01:41 04:41 WBC 19.5 H Hct MCHC 35 H Lymph % (Auto) 8.1 L Seg Neutrophils % 87.4 H Seg Neutrophils # 17.0 H VBG pH Sodium 135 L Potassium 3.4 L Chloride 96.7 L Carbon Dioxide 17 L BUN Glucose Calcium C-Reactive Protein Total Protein 8.8 H Ur Specific [place] 1.040 H Urine WBC (Auto) 9.0 H 06/09/18 06/10/18 06/10/18 08:48 03:49 03:49 WBC 16.9 H Hct 29.6 L D MCHC 35 H Lymph % (Auto) 9.9 L Seg Neutrophils % 85.0 H Seg Neutrophils # 14.4 H VBG pH 7.318 L Sodium Potassium 3.2 L Chloride 108.9 H Carbon Dioxide BUN 2 L Glucose 127 H Calcium 8.0 L D C-Reactive Protein Total Protein Ur Specific [place] Urine WBC (Auto) 06/10/18 06/10/18 03:49 09:35 WBC 21.2 H Hct 29.4 L MCHC 35 H Lymph % (Auto) Seg Neutrophils % Seg Neutrophils # VBG pH Sodium Potassium Chloride Carbon Dioxide BUN Glucose Calcium C-Reactive Protein 14.90 H Total Protein Ur Specific [place] Urine WBC (Auto)
[2018-06-10 14:36] LABS: Band Neutrophils # (Manual) 0.2 K/mm3; Basophils % (Manual) 0 % (0.0-1.8); Platelet Estimate Consistent w Auto; Target Cells 1+; Total Cells Counted 100
[2018-06-10] MEDS: FLAGYL 500 MG/100 ML 500 MG/100 ML BAG IV SCH ×2 (14:54→22:12)
[2018-06-10] MEDS ORDERED: TYLENOL PR PRN (15:39)
[2018-06-10] MEDS: ROCEPHIN/NS 2 GM/100 ML 2 GM/100 ML BAG IV SCH (17:00)
--- NOTE | 2018-06-10 17:36 | Progress Note ---
Assessment and Plan Microperforation of the right colon Hypokalemia, likely due to GI loss Sepsis, due to organ perforation Sickle cell trait DVT Px - transfer to IMCU, keep NPO - consulted GS recommended medical Mx, cont iv abx, cont iv fluid - consulted ID for abx recommendation - cont to replete Kcl, follow blood cx - monitor CBC, BMP - lovenox for DVT Px Radiological data: CT abdomen/pelvis; Right colonic perforation with trapped area of stool measuring 3.6 x 3.1 x 3 cm. Abscess formation at this location is expected. No jenn pneumoperitoneum. No other focal abnormalities within the gastrointestinal tract are identified. Consider underlying immunocompromised state or inflammatory bowel disease as potential etiologies. Brief History: Ms. Alonso is a 28 years old female with no significant past medical history presented to the emergency room with 3 day history of nausea vomiting and RLQ intense abdominal pain. Patient found to have a white blood cells of 20,000 and significant abdominal tenderness. Her CT abdomen and pelvis with IV contrast showed a right colon perforation. Patient was given Zosyn in the ER. Consulted Dr. Handley, surgeon in the ER. Patient is being admitted for further evaluation and management. Subjective Date of service: 06/10/18 Interval history: Patient seen and examined cont to c/o abdominal pain, nausea spiking temp Objective - Exam Narrative Exam: General appearance: Present: mild distress - EENT Eyes: Present: PERRL ENT: hearing intact, clear oral mucosa - Neck Neck: Present: supple, normal ROM - Respiratory Respiratory effort: normal Respiratory: bilateral: CTA - Cardiovascular Heart Sounds: Present: S1 & S2. Absent: rub, click - Extremities Extremities: pulses symmetrical, No edema Peripheral Pulses: within normal limits - Abdominal General gastrointestinal: Present: soft, non-distended, other (diminished BS) Localized gastrointestinal: guarding: RUQ - Integumentary Integumentary: Present: clear, warm, dry - Musculoskeletal Musculoskeletal: gait normal, strength equal bilaterally - Psychiatric Psychiatric: appropriate mood/affect, intact judgment & insight - Neurologic Neurologic: CNII-XII intact, moves all extremities - Constitutional Vitals: Vital Signs - 12hr 06/10/18 06/10/18 06/10/18 05:41 05:51 06:00 Temperature Pulse Rate 104 H 97 H 96 H Pulse Rate [ Apical] Pulse Rate [ Left Radial] Respiratory 15 16 17 Rate Blood Pressure 130/88 111/67 111/70 O2 Sat by Pulse 97 98 98 Oximetry 06/10/18 06/10/18 06/10/18 06:11 06:12 06:15 Temperature 99.4 F Pulse Rate 102 H Pulse Rate [ 110 H Apical] Pulse Rate [ 110 H Left Radial] Respiratory 19 20 Rate Blood Pressure 111/70 O2 Sat by Pulse 99 99 Oximetry 06/10/18 06/10/18 06/10/18 06:21 06:30 06:41 Temperature Pulse Rate 94 H 99 H 100 H Pulse Rate [ Apical] Pulse Rate [ Left Radial] Respiratory 11 L 15 24 Rate Blood Pressure 120/84 125/94 125/94 O2 Sat by Pulse 96 98 98 Oximetry 06/10/18 06/10/18 06/10/18 06:51 07:00 07:11 Temperature Pulse Rate 95 H 109 H 93 H Pulse Rate [ Apical] Pulse Rate [ Left Radial] Respiratory 12 18 10 L Rate Blood Pressure 119/80 131/96 131/96 O2 Sat by Pulse 99 98 98 Oximetry 06/10/18 06/10/18 06/10/18 07:21 07:30 07:41 Temperature Pulse Rate 96 H 94 H 92 H Pulse Rate [ Apical] Pulse Rate [ Left Radial] Respiratory 19 14 17 Rate Blood Pressure 131/91 133/93 133/93 O2 Sat by Pulse 98 98 99 Oximetry 06/10/18 06/10/18 06/10/18 07:51 08:00 08:11 Temperature 98.5 F Pulse Rate 101 H 105 H 104 H Pulse Rate [ Apical] Pulse Rate [ Left Radial] Respiratory 11 L 22 19 Rate Blood Pressure 131/97 130/107 130/107 O2 Sat by Pulse Oximetry 06/10/18 06/10/18 06/10/18 08:15 08:21 08:31 Temperature Pulse Rate 90 93 H Pulse Rate [ Apical] Pulse Rate [ Left Radial] Respiratory 18 21 Rate Blood Pressure 125/74 130/107 O2 Sat by Pulse 99 98 99 Oximetry 06/10/18 06/10/18 06/10/18 08:41 08:51 09:00 Temperature Pulse Rate 92 H 113 H 98 H Pulse Rate [ Apical] Pulse Rate [ Left Radial] Respiratory 21 17 17 Rate Blood Pressure 130/107 130/107 121/80 O2 Sat by Pulse 98 99 100 Oximetry 0406/10/18 06/10/18 09:11 09:21 09:31 Temperature Pulse Rate 98 H 113 H 100 H Pulse Rate [ Apical] Pulse Rate [ Left Radial] Respiratory 19 21 18 Rate Blood Pressure 121/80 121/80 121/80 O2 Sat by Pulse 99 98 99 Oximetry 06/10/18 06/10/18 06/10/18 09:41 09:51 10:00 Temperature Pulse Rate 111 H 88 95 H Pulse Rate [ Apical] Pulse Rate [ Left Radial] Respiratory 18 20 16 Rate Blood Pressure 121/80 121/80 110/72 O2 Sat by Pulse 99 98 98 Oximetry 06/10/18 06/10/18 06/10/18 10:11 10:21 10:31 Temperature Pulse Rate 90 93 H 104 H Pulse Rate [ Apical] Pulse Rate [ Left Radial] Respiratory 19 20 20 Rate Blood Pressure 110/72 110/72 110/72 O2 Sat by Pulse 98 97 99 Oximetry 06/10/18 06/10/18 06/10/18 10:41 10:51 11:00 Temperature Pulse Rate 96 H 88 88 Pulse Rate [ Apical] Pulse Rate [ Left Radial] Respiratory 18 23 18 Rate Blood Pressure 110/72 110/72 112/72 O2 Sat by Pulse 98 100 99 Oximetry 06/10/18 06/10/18 06/10/18 11:11 11:21 11:31 Temperature Pulse Rate 89 80 86 Pulse Rate [ Apical] Pulse Rate [ Left Radial] Respiratory 20 20 24 Rate Blood Pressure 112/72 112/72 112/72 O2 Sat by Pulse 99 100 98 Oximetry 06/10/18 06/10/18 06/10/18 11:41 11:51 12:00 Temperature 100.6 F H Pulse Rate 85 95 H 102 H Pulse Rate [ Apical] Pulse Rate [ Left Radial] Respiratory 18 18 14 Rate Blood Pressure 112/72 112/72 126/86 O2 Sat by Pulse 99 98 100 Oximetry 06/10/18 06/10/18 06/10/18 12:11 12:21 12:31 Temperature Pulse Rate 96 H 98 H 99 H Pulse Rate [ Apical] Pulse Rate [ Left Radial] Respiratory 20 18 18 Rate Blood Pressure 112/72 112/72 112/72 O2 Sat by Pulse 99 100 99 Oximetry 06/10/18 06/10/18 06/10/18 12:41 12:51 13:00 Temperature Pulse Rate 87 87 98 H Pulse Rate [ Apical] Pulse Rate [ Left Radial] Respiratory 19 17 18 Rate Blood Pressure 126/86 126/86 120/83 O2 Sat by Pulse 100 100 100 Oximetry 06/10/18 06/10/18 06/10/18 13:11 13:21 13:31 Temperature Pulse Rate 110 H 117 H 95 H Pulse Rate [ Apical] Pulse Rate [ Left Radial] Respiratory 20 19 17 Rate Blood Pressure 120/83 120/83 120/83 O2 Sat by Pulse 99 98 99 Oximetry 06/10/18 06/10/18 06/10/18 13:41 13:51 14:01 Temperature Pulse Rate 101 H 124 H 114 H Pulse Rate [ Apical] Pulse Rate [ Left Radial] Respiratory 13 17 25 H Rate Blood Pressure 120/83 120/83 120/83 O2 Sat by Pulse 99 100 98 Oximetry 06/10/18 06/10/18 06/10/18 14:11 14:21 14:31 Temperature Pulse Rate 102 H 94 H 94 H Pulse Rate [ Apical] Pulse Rate [ Left Radial] Respiratory 18 23 23 Rate Blood Pressure 120/83 120/83 120/83 O2 Sat by Pulse 99 99 100 Oximetry 06/10/18 06/10/18 06/10/18 14:41 14:51 15:01 Temperature Pulse Rate 109 H 106 H 89 Pulse Rate [ Apical] Pulse Rate [ Left Radial] Respiratory 19 24 28 H Rate Blood Pressure 120/83 120/83 120/83 O2 Sat by Pulse 99 100 99 Oximetry 06/10/18 06/10/18 06/10/18 15:11 15:21 16:00 Temperature 101.2 F H Pulse Rate 92 H 91 H Pulse Rate [ Apical] Pulse Rate [ Left Radial] Respiratory 21 24 Rate Blood Pressure 118/78 118/78 O2 Sat by Pulse 99 99 Oximetry - Labs CBC & Chem 7: 06/10/18 09:35 06/10/18 03:49 Labs: Abnormal lab results 06/10/18 06/10/18 06/10/18 Range/Units 03:49 03:49 03:49 WBC 16.9 H (4.5-11.0) K/mm3 Hct 29.6 L D (30.3-42.9) % MCHC 35 H (30-34) % Lymph % (Auto) 9.9 L (13.4-35.0) % Seg Neutrophils % 85.0 H (40.0-70.0) % Seg Neuts % (Manual) (40.0-70.0) % Lymphocytes % (Manual) (13.4-35.0) % Seg Neutrophils # 14.4 H (1.8-7.7) K/mm3 Seg Neutrophils # Man (1.8-7.7) K/mm3 Lymphocytes # (Manual) (1.2-5.4) K/mm3 Potassium 3.2 L (3.6-5.0) mmol/L Chloride 108.9 H (98-107) mmol/L BUN 2 L (7-17) mg/dL Glucose 127 H (65-100) mg/dL Calcium 8.0 L D (8.4-10.2) mg/dL C-Reactive Protein 14.90 H (0.00-1.30) mg/dL 06/10/18 Range/Units 09:35 WBC 21.2 H (4.5-11.0) K/mm3 Hct 29.4 L (30.3-42.9) % MCHC 35 H (30-34) % Lymph % (Auto) (13.4-35.0) % Seg Neutrophils % (40.0-70.0) % Seg Neuts % (Manual) 92.0 H (40.0-70.0) % Lymphocytes % (Manual) 4.0 L (13.4-35.0) % Seg Neutrophils # (1.8-7.7) K/mm3 Seg Neutrophils # Man 19.5 H (1.8-7.7) K/mm3 Lymphocytes # (Manual) 0.8 L (1.2-5.4) K/mm3 Potassium (3.6-5.0) mmol/L Chloride (98-107) mmol/L BUN (7-17) mg/dL Glucose (65-100) mg/dL Calcium (8.4-10.2) mg/dL C-Reactive Protein (0.00-1.30) mg/dL
[2018-06-10] MEDS: KCL 10MEQ/100ML 10 MEQ/100 ML BAG IV SCH ×3 (17:53→22:35)
[2018-06-10] MEDS: LOVENOX SUB-Q SCH (22:12)
--- NOTE | 2018-06-10 23:03 | Consultation ---
PULMONARY CRITICAL CARE CONSULTATION NOTE CONSULTING PHYSICIAN: Rama Wei MD REASON FOR CONSULTATION: Perforated bowel. CHIEF COMPLAINT AND HISTORY OF PRESENT ILLNESS: The patient is a 28-year-old -[place] female with past medical history significant only for a diagnosis of sickle cell trait, who came into the Emergency Room complaining of a 3-day history of nausea, vomiting, abdominal pain. It was worse in the right lower quadrant area. She stated that she was taking [id number] medications to try and help things at home, but ultimately she had to come into the Emergency Room. In the Emergency Room, she was found to have leukocytosis, white cell count of greater than 20,000. A CT of the abdomen and pelvis was done, which revealed a right colonic perforation. Surgeon was called to assess the patient. After assessment, there was no acute indication for taking her to the OR for an exploratory laparotomy. In fact, the risk/benefit ratio suggested that a relatively conservative management is required. However, considering the real risk of acute deterioration, ICU admission was requested. When I stopped by to see her, she was sitting on the side of bed. She was having bowel movements that were nonbloody. She was still having intermittent pain diffusely, but mostly in the right lower quadrant. She denies fevers or chills. She denies any history of tobacco use or abuse whatsoever. This really is as much of the history of presentation as I have. She denied any trauma also. PAST MEDICAL HISTORY: Sickle cell trait. PAST SURGICAL HISTORY: Denies. MEDICATIONS: She was on at the time I stopped by to see her were reviewed. Pertinent medications included the following: Rocephin 1 gram IV daily, Lovenox 40 mg subQ daily, hydralazine p.r.n., labetalol 10 mg IV q.4 hours p.r.n. hypertension, Flagyl 500 mg IV q.8 hours, morphine 2 mg IV q.4 hours p.r.n. moderate pain, Zofran 4 mg IV q. 8 hours p.r.n. nausea and vomiting. She was on a dextrose saline drip with 20 mEq of KCl per liter run at 125 mL per hour. She received Zosyn earlier in the ER I believe. ALLERGIES: No known drug allergies. DIET: Well-built lady. Denied acute weight loss or gain in the preceding few weeks to months. FAMILY AND SOCIAL HISTORY: Apparently lives in the community. Denies alcohol, tobacco, or illicit drug use or abuse. Family history, otherwise, noncontributory in this context. REVIEW OF SYSTEMS: No loss of consciousness. No new onset seizures. No new onset focal weakness. No gross hematochezia or melena. No gross hematuria or dysuria. She denies hematemesis. She had episodes of emesis. No chest pains, no palpitations, no polydipsia or polyuria. She denies heat or cold intolerance. She denies any new onset focal weakness. No new onset seizures. She has the abdominal pain, nausea and vomiting. She denied any diarrhea. Complete 13-system review of systems is obtained. Pertinent positives and/or negatives are as in body of the history above. Otherwise, they are noncontributory. PHYSICAL EXAMINATION: VITAL SIGNS: At presentation, she was afebrile, temperature 98.1 degrees Fahrenheit with a pulse of 118, respiratory rate of 18, blood pressure 132/91, oxygen sats were 99%. Inspired oxygen concentration at that time was not recorded. When I stopped by to see her, her O2 sats were 98% and that was on room air. GENERAL: She is a young -[place] female, normocephalic, atraumatic, talking to me in slightly interrupted sentences with mild nonrespiratory distress. HEAD, EYES, EARS, NOSE AND THROAT: She was anicteric. No conjunctival erythema. Oropharynx was dry. Mallampati 2 oropharynx. NECK: No jugular venous distention, no thyromegaly. Grossly, there were no palpable lymph nodes in the supraclavicular or submandibular lymph node chains. LUNGS: Auscultations of both lung chester were unremarkable. Lungs were clear bilaterally. HEART: Heart sounds 1 and 2 were heard. They were regular in rate and rhythm at the time of my evaluation without rubs or murmurs. ABDOMEN: Soft, full, bowel sounds are hypoactive. She is diffusely mildly tender, but in particular in the right lower quadrant, she has moderate to severe tenderness without overt rebound. No palpable hepatosplenomegaly as best as I could evaluate. EXTREMITIES: Without overt digital clubbing, no cyanosis, no pedal edema. Pedal pulses are strong and palpable bilaterally. NEUROLOGIC: Pupils equal, round, about 4 mm, reactive to light. Extraocular muscle movements are intact. She moves all 4 extremities spontaneously. The skin is of normal turgor without overt cellulitis or rash. PSYCHIATRIC: Her mood is depressed. Affect is anxious. LABORATORY DATA: From my review are as follows: Admission white cell count 19,500 with a hemoglobin of 13, hematocrit of 37.5, platelet count 373. No manual differential. No band forms. Serum sodium was 135, potassium 3.4, chloride 97, bicarbonate 17, BUN 8, creatinine was 0.7, glucose was 89. Venous blood gas showed a pH of 7.32. At that time, lactic acid level was within normal limits. Liver function tests essentially within normal limits. Urine test was negative. Urinalysis showed large blood. However, it was negative for nitrites and leukocyte esterase, 9 white cells per high power field. Two sets of blood cultures were drawn, no growth to date. A CT scan of the abdomen and pelvis was done. It was reported as a right colonic perforation with the trapped area of stool measuring 3.6 x 3.1 x 3 cm. Abscess formation at this location was expected. No jenn pneumoperitoneum. ASSESSMENT AND PLAN: 1. Acute abdomen with right colonic perforation. 2. Systemic inflammatory response syndrome. 3. Leukocytosis. 4. Abdominal pain. 5. Mild metabolic acidosis at presentation. 6. Hyponatremia, present on arrival. 7. Hypokalemia, present on arrival. 7. Abnormal urinalysis. PLAN: I have discussed the case at length with the surgeon. We did watch her overnight in the intensive care unit. She has remained hemodynamically stable. She is on appropriate antibiotics. I believe the Infectious Disease physician has been consulted and they have seen her. The plan will be to move her to a step-down unit and continue to watch her closely with continuous hemodynamic monitoring. Otherwise, she has been started on GI prophylaxis. DVT prophylaxis will be in the form of SCDs. Flu and pneumonia vaccination will be addressed per protocol. We will continue the empiric antibiotic therapy. Deescalate based on results of clinical and microbiologic data. Thank you very much for the consult, Dr. Wei. We will follow along and will make further recommendations as picture progresses/becomes clearer. JOB# [id number] DRE/MASOUD CORONADO
[2018-06-11] MEDS ORDERED: NACL 0.9% IR ONE
[2018-06-11] MEDS: MORPHINE IV PRN ×4 (02:39→23:32)
[2018-06-11] MEDS: ZOFRAN IV PRN ×2 (02:40→07:50)
[2018-06-11] MEDS: D5W/NS W/KCL 20MEQ 20 MEQ/1,000 ML BAG IV SCH ×2 (02:41→19:40)
[2018-06-11 05:05] LABS: Hematocrit 29.2 % (30.3-42.9); Mean Corpuscular HGB Conc 34 % (30-34); Mean Corpuscular Volume 81 fl (79-97); Platelet Count 286 K/mm3 (140-440); Red Blood Count 3.62 M/mm3 (3.65-5.03); Red Cell Distribution Width 14.4 % (13.2-15.2)
[2018-06-11 05:27] LABS: Alanine Aminotransferase 6 units/L (7-56); Albumin 2.8 g/dL (3.9-5); Calcium 8.4 mg/dL (8.4-10.2); Hemolysis Index 3
[2018-06-11 05:31] LABS: BUN/Creatinine Ratio 2; Blood Urea Nitrogen < 1 mg/dL (7-17)
[2018-06-11] MEDS: KCL 10MEQ/100ML 10 MEQ/100 ML BAG IV SCH ×4 (07:51→16:52)
[2018-06-11 08:25] LABS: Basophils % (Manual) 0 % (0.0-1.8); Eosinophils % (Manual) 0 % (0.0-4.3); Total Cells Counted 100
[2018-06-11 08:26] LABS: Anisocytosis 1+; Platelet Estimate Consistent w Auto; Poikilocytosis 1+; Target Cells 1+
[2018-06-11] MEDS: ROCEPHIN/NS 2 GM/100 ML 2 GM/100 ML BAG IV SCH (09:30)
--- NOTE | 2018-06-11 10:07 | Progress Note ---
Assessment and Plan Cultures: Blood culture 06/09/2018 no growth today Assessment: 28 y/o female with history marihuana use; admitted on due to 3-day history of nausea, vomiting and abdominal pain: 1) Sepsis: still high fever, tachycardia and worsening leukocytosis. CRP=14. Etiology most likely right colonic perforation. 2) Right colonic perforation: of unclear etiology. Patient denies history of previous diverticulitis or inflammatory bowel disease. No history of trauma or ingestion of foreign bodies. CT abdomen showed perforated right colon approximately 6 cm superior to the ileocecal valve with trapped area of stool adjacent to the perforation measures 3.1 x 3 x 3.6 cm. Surrounding indurated fat. No jenn pneumoperitoneum. No evidence of intra-abdominal abscess or fistula. Among infectious diseases causes of right sided colonic perforation are typhoid (no history of diarrhea), schistosomiasis (no recent travels to tropical areas), CMV. Other non ID etiologies: malignancy, connective tissue disease, vasculitis. Recommendations: - repeat abdominal CT in light of worsening sepsis - follow-up blood cultures - follow-up CARLOS MANUEL with reflex, C3, C4, ANCA - follow-up HIV and CMV DNA PCR - continue ceftriaxone and flagyl D2 - add fluconazole IV Called Dr Handley's office, left message to call me. Will follow. Zahra Fowler MD Infectious Diseases [facility] ([facility] M [phone] O [phone] colonic [phone] Subjective Date of service: 06/11/18 Principal diagnosis: colonic perf Interval history: Remains feeling sick c/o abdominal pain, fever 101.9, tachycardic on monitor ROS: denies N/V/D. Objective - Exam Narrative Exam: General appearance: Alert in NAD, conversant Eyes: anicteric sclerae, moist conjunctivae; no lid-lag; PERRLA HENT: Atraumatic; oropharynx clear with moist mucous membranes and no mucosal ulcerations/no oral thrush; normal hard and soft palate. Normal external ears. Neck: Trachea midline; supple, no thyromegaly or lymphadenopathy Lungs: CTA CV: tachy Abdomen: Soft, tender to palpation diffusely; no masses or hepatosplenomegaly Extremities: No peripheral edema or extremity lymphadenopathy Skin: Normal temperature, turgor and texture; no rash, ulcers or subcutaneous nodules Psych: Appropriate affect, alert and oriented to person, place and time. Neuro: alert and oriented x 3. Moving all extermities - Constitutional Vitals: Vital Signs Temp Pulse Resp BP Pulse Ox 100.3 F H 96 H 15 118/80 100 06/11/18 07:52 06/11/18 08:30 06/11/18 08:30 06/11/18 08:30 06/11/18 08:30 Temperature -Last 24 Hours Temperature 100.3 F Temperature 101.4 F Temperature 101.5 F Temperature 101.9 F Temperature 101.2 F Temperature 100.6 F - Labs CBC & Chem 7: 06/11/18 04:44 06/11/18 04:44 Labs: Abnormal lab results 06/10/18 06/10/18 06/10/18 Range/Units 03:49 09:35 12:33 WBC 21.2 H (4.5-11.0) K/mm3 RBC (3.65-5.03) M/mm3 Hgb (10.1-14.3) gm/dl Hct 29.4 L (30.3-42.9) % MCHC 35 H (30-34) % Seg Neuts % (Manual) 92.0 H (40.0-70.0) % Lymphocytes % (Manual) 4.0 L (13.4-35.0) % Seg Neutrophils # Man 19.5 H (1.8-7.7) K/mm3 Lymphocytes # (Manual) 0.8 L (1.2-5.4) K/mm3 Potassium (3.6-5.0) mmol/L Chloride (98-107) mmol/L Carbon Dioxide (22-30) mmol/L BUN (7-17) mg/dL Creatinine (0.7-1.2) mg/dL Glucose (65-100) mg/dL POC Glucose 141 H (70-105) ALT (7-56) units/L C-Reactive Protein 14.90 H (0.00-1.30) mg/dL Albumin (3.9-5) g/dL 06/10/18 06/11/18 06/11/18 Range/Units 23:30 04:44 04:44 WBC 22.8 H (4.5-11.0) K/mm3 RBC 3.62 L (3.65-5.03) M/mm3 Hgb 10.0 L (10.1-14.3) gm/dl Hct 29.2 L (30.3-42.9) % MCHC (30-34) % Seg Neuts % (Manual) 97.0 H (40.0-70.0) % Lymphocytes % (Manual) 2.0 L (13.4-35.0) % Seg Neutrophils # Man 22.1 H (1.8-7.7) K/mm3 Lymphocytes # (Manual) 0.5 L (1.2-5.4) K/mm3 Potassium 3.2 L (3.6-5.0) mmol/L Chloride 108.3 H (98-107) mmol/L Carbon Dioxide 21 L (22-30) mmol/L BUN < 1 L (7-17) mg/dL Creatinine 0.6 L (0.7-1.2) mg/dL Glucose 128 H (65-100) mg/dL POC Glucose 106 H (70-105) ALT 6 L (7-56) units/L C-Reactive Protein (0.00-1.30) mg/dL Albumin 2.8 L (3.9-5) g/dL
--- NOTE | 2018-06-11 10:40 | Progress Note ---
Assessment and Plan Pt feeling worse. increased pain. elevated wbc. tachycardic Abd - increased tenderness and distention. imp - clincially worsening r/o sepsis and peritonitis will proceed with emergency expl lap. possible R hemicolectomy with distal ileal resection. possible ileostomy. High risks, indications and procedure reviewed with pt who understands and has signed her consent. condition guarded. Selected Entries 06/11/18 06/11/18 06/11/18 07:20 07:50 07:52 Temperature 100.3 F H Pulse Rate 105 H Respiratory 23 Rate Blood Pressure 118/80 Laboratory Tests 06/11/18 06/11/18 04:44 04:44 WBC 22.8 H Hgb 10.0 L Hct 29.2 L Sodium 141 Potassium 3.2 L Chloride 108.3 H Carbon Dioxide 21 L BUN < 1 L Creatinine 0.6 L Objective Vital Signs - 12hr 06/10/18 06/10/18 06/10/18 22:41 22:51 23:00 Temperature Pulse Rate 97 H 103 H 97 H Respiratory 21 10 L 18 Rate Blood Pressure 119/80 119/80 114/79 O2 Sat by Pulse 98 99 98 Oximetry 06/10/18 06/10/18 06/10/18 23:02 23:05 23:11 Temperature 101.5 F H Pulse Rate 94 H 98 H Respiratory 20 19 Rate Blood Pressure 114/79 114/79 O2 Sat by Pulse 98 99 Oximetry 06/10/18 06/10/18 06/10/18 23:21 23:30 23:41 Temperature Pulse Rate 94 H 95 H 88 Respiratory 17 15 20 Rate Blood Pressure 114/79 131/94 131/94 O2 Sat by Pulse 98 100 100 Oximetry 06/10/18 06/11/18 06/11/18 23:51 00:00 00:11 Temperature Pulse Rate 93 H 95 H 91 H Respiratory 20 18 21 Rate Blood Pressure 131/94 127/97 127/97 O2 Sat by Pulse 99 99 100 Oximetry 06/11/18 06/11/18 06/11/18 00:21 00:30 00:41 Temperature Pulse Rate 93 H 102 H 103 H Respiratory 22 18 23 Rate Blood Pressure 127/97 122/89 122/89 O2 Sat by Pulse 99 98 99 Oximetry 06/11/18 06/11/18 06/11/18 00:51 01:00 01:11 Temperature Pulse Rate 108 H 106 H 101 H Respiratory 18 18 22 Rate Blood Pressure 122/89 122/86 122/86 O2 Sat by Pulse 98 99 100 Oximetry 06/11/18 06/11/18 06/11/18 01:21 01:30 01:41 Temperature Pulse Rate 106 H 104 H 112 H Respiratory 29 H 24 21 Rate Blood Pressure 122/86 118/82 118/82 O2 Sat by Pulse 100 99 99 Oximetry 06/11/18 06/11/18 06/11/18 01:51 02:00 02:11 Temperature Pulse Rate 106 H 117 H 111 H Respiratory 20 21 23 Rate Blood Pressure 118/82 127/88 127/88 O2 Sat by Pulse 99 98 99 Oximetry 06/11/18 06/11/18 06/11/18 02:21 02:30 02:41 Temperature Pulse Rate 122 H 110 H 105 H Respiratory 15 14 12 Rate Blood Pressure 127/88 126/88 126/88 O2 Sat by Pulse 100 100 100 Oximetry 06/11/18 06/11/18 06/11/18 02:51 03:07 03:10 Temperature Pulse Rate 104 H 101 H 102 H Respiratory 26 H 21 21 Rate Blood Pressure 126/88 O2 Sat by Pulse 98 99 99 Oximetry 06/11/18 06/11/18 06/11/18 03:20 03:30 03:40 Temperature Pulse Rate 98 H 100 H 99 H Respiratory 20 19 20 Rate Blood Pressure 119/68 135/95 135/95 O2 Sat by Pulse 100 99 99 Oximetry 06/11/18 06/11/18 06/11/18 03:50 04:00 04:10 Temperature 101.4 F H Pulse Rate 102 H 101 H 91 H Respiratory 20 20 19 Rate Blood Pressure 135/95 132/92 132/92 O2 Sat by Pulse 99 100 100 Oximetry 06/11/18 06/11/18 06/11/18 04:20 04:30 04:40 Temperature Pulse Rate 96 H 101 H 101 H Respiratory 19 19 21 Rate Blood Pressure 132/92 130/89 130/89 O2 Sat by Pulse 100 99 99 Oximetry 06/11/18 06/11/18 06/11/18 04:50 05:00 05:10 Temperature Pulse Rate 111 H 107 H 103 H Respiratory 21 24 20 Rate Blood Pressure 130/89 105/67 105/67 O2 Sat by Pulse 100 99 99 Oximetry 06/11/18 06/11/18 06/11/18 05:20 05:30 05:40 Temperature Pulse Rate 103 H 109 H 105 H Respiratory 20 14 19 Rate Blood Pressure 105/67 127/90 127/90 O2 Sat by Pulse 98 99 100 Oximetry 06/11/18 06/11/18 06/11/18 05:50 06:00 06:10 Temperature Pulse Rate 122 H 96 H 94 H Respiratory 20 22 26 H Rate Blood Pressure 127/90 133/85 133/85 O2 Sat by Pulse 84 100 98 Oximetry 06/11/18 06/11/18 06/11/18 06:20 06:30 06:40 Temperature Pulse Rate 94 H 99 H 112 H Respiratory 22 19 12 Rate Blood Pressure 133/85 138/91 138/91 O2 Sat by Pulse 99 99 99 Oximetry 06/11/18 06/11/18 06/11/18 06:50 07:00 07:10 Temperature Pulse Rate 107 H 101 H 99 H Respiratory 16 18 23 Rate Blood Pressure 138/91 128/86 128/86 O2 Sat by Pulse 100 100 100 Oximetry 06/11/18 06/11/18 06/11/18 07:20 07:30 07:40 Temperature Pulse Rate 95 H 103 H 98 H Respiratory 23 18 21 Rate Blood Pressure 128/86 118/80 118/80 O2 Sat by Pulse 99 98 98 Oximetry 06/11/18 06/11/18 06/11/18 07:50 07:52 08:00 Temperature 100.3 F H Pulse Rate 105 H 116 H Respiratory 20 15 Rate Blood Pressure 118/80 129/87 O2 Sat by Pulse 98 99 Oximetry 06/11/18 06/11/18 06/11/18 08:10 08:20 08:30 Temperature Pulse Rate 110 H 112 H 96 H Respiratory 15 22 15 Rate Blood Pressure 129/87 129/87 118/80 O2 Sat by Pulse 100 99 100 Oximetry - Labs 06/11/18 04:44 06/11/18 04:44 Diabetes panel 06/11/18 Range/Units 04:44 Sodium 141 (137-145) mmol/L Potassium 3.2 L (3.6-5.0) mmol/L Chloride 108.3 H (98-107) mmol/L Carbon Dioxide 21 L (22-30) mmol/L BUN < 1 L (7-17) mg/dL Creatinine 0.6 L (0.7-1.2) mg/dL Glucose 128 H (65-100) mg/dL Calcium 8.4 (8.4-10.2) mg/dL AST 10 (5-40) units/L ALT 6 L (7-56) units/L Alkaline Phosphatase 55 (35-129) units/L Total Protein 6.6 D (6.3-8.2) g/dL Albumin 2.8 L (3.9-5) g/dL Calcium panel 06/11/18 Range/Units 04:44 Calcium 8.4 (8.4-10.2) mg/dL Albumin 2.8 L (3.9-5) g/dL Pituitary panel 06/11/18 Range/Units 04:44 Sodium 141 (137-145) mmol/L Potassium 3.2 L (3.6-5.0) mmol/L Chloride 108.3 H (98-107) mmol/L Carbon Dioxide 21 L (22-30) mmol/L BUN < 1 L (7-17) mg/dL Creatinine 0.6 L (0.7-1.2) mg/dL Glucose 128 H (65-100) mg/dL Calcium 8.4 (8.4-10.2) mg/dL Adrenal panel 06/11/18 Range/Units 04:44 Sodium 141 (137-145) mmol/L Potassium 3.2 L (3.6-5.0) mmol/L Chloride 108.3 H (98-107) mmol/L Carbon Dioxide 21 L (22-30) mmol/L BUN < 1 L (7-17) mg/dL Creatinine 0.6 L (0.7-1.2) mg/dL Glucose 128 H (65-100) mg/dL Calcium 8.4 (8.4-10.2) mg/dL Total Bilirubin 0.30 (0.1-1.2) mg/dL AST 10 (5-40) units/L ALT 6 L (7-56) units/L Alkaline Phosphatase 55 (35-129) units/L Total Protein 6.6 D (6.3-8.2) g/dL Albumin 2.8 L (3.9-5) g/dL
[2018-06-11 11:05] LABS: INR 1.56 (0.87-1.13); Partial Thromboplastin Time 29.6 Sec. (24.2-36.6)
[2018-06-11] MEDS ORDERED: SUBLIMAZE ONE ×3 (11:17→13:09)
[2018-06-11] MEDS ORDERED: DIPRIVAN 10 MG/ML IV ONE (11:18)
[2018-06-11 11:52] LABS: HCG Qualitative,Urine Negative (Negative)
[2018-06-11] MEDS ORDERED: SUBLIMAZE IV PRN (12:00)
[2018-06-11] MEDS ORDERED: ZOFRAN IV PRN (12:00)
[2018-06-11] MEDS ORDERED: VERSED ONE (12:00)
[2018-06-11] MEDS ORDERED: DILAUDID IV PRN (12:00)
--- NOTE | 2018-06-11 12:00 | Anesthesia Day of Surgery ---
Anesthesia Day of Surgery - Day of Surgery Patient Examined: Yes Patient H&P Reviewed: Yes Patient is NPO: Yes (X 6 days. Emergent case)
--- NOTE | 2018-06-11 12:02 | Anesthesia Consultation ---
Anesthesia Consult and Med Hx Date of service: 06/11/18 (Emergent Surgery) - Airway Anesthetic Teeth Evaluation: Chipped ROM Head & Neck: Adequate Mental/Hyoid Distance: Adequate Mallampati Class: Class II Intubation Access Assessment: Probably Good - Pre-Operative Health Status ASA Pre-Surgery Classification: ASA2, Emergency Proposed Anesthetic Plan: General - Pulmonary Hx Asthma: No COPD: No Hx Pneumonia: No - Central Nervous System Hx Psychiatric Problems: No - Endocrine Hx End Stage Renal Disease: No - Hematic Hx Anemia: No Hx Sickle Cell Disease: Yes (SC Trait)
[2018-06-11] MEDS ORDERED: DILAUDID ONE ×2 (12:57→14:02)
[2018-06-11] MEDS ORDERED: BREVIBLOC IV ONE (13:18)
--- NOTE | 2018-06-11 13:47 | Progress Note ---
Assessment and Plan Microperforation of the right colon Hypokalemia, likely due to GI loss Sepsis, due to organ perforation Sickle cell trait DVT Px - transfer to IMCU, keep NPO - consulted GS initially recommended medical Mx, cont iv abx, cont iv fluid - but has more pain tenderness and distension today - plan to take OR for exploratory laparotomy - consulted ID for abx recommendation - cont to replete Kcl, follow blood cx - monitor CBC, BMP - lovenox for DVT Px Radiological data: CT abdomen/pelvis; Right colonic perforation with trapped area of stool measuring 3.6 x 3.1 x 3 cm. Abscess formation at this location is expected. No jenn pneumoperitoneum. No other focal abnormalities within the gastrointestinal tract are identified. Consider underlying immunocompromised state or inflammatory bowel disease as potential etiologies. Brief History: Ms. Alonso is a 28 years old female with no significant past medical history presented to the emergency room with 3 day history of nausea vomiting and RLQ intense abdominal pain. Patient found to have a white blood cells of 20,000 and significant abdominal tenderness. Her CT abdomen and pelvis with IV contrast showed a right colon perforation. Patient was given Zosyn in the ER. Consulted Dr. Handley, surgeon in the ER. Patient is being admitted for further evaluation and management. Subjective Date of service: 06/11/18 Principal diagnosis: colonic perf Interval history: Patient seen and examined cont to c/o abdominal pain, nausea spiking temp, plan for OR today Objective - Exam Narrative Exam: General appearance: Present: mild distress - EENT Eyes: Present: PERRL ENT: hearing intact, clear oral mucosa - Neck Neck: Present: supple, normal ROM - Respiratory Respiratory effort: normal Respiratory: bilateral: CTA - Cardiovascular Heart Sounds: Present: S1 & S2. Absent: rub, click - Extremities Extremities: pulses symmetrical, No edema Peripheral Pulses: within normal limits - Abdominal General gastrointestinal: Present: tender, distended, other (diminished BS) Localized gastrointestinal: guarding: RUQ - Integumentary Integumentary: Present: clear, warm, dry - Musculoskeletal Musculoskeletal: gait normal, strength equal bilaterally - Psychiatric Psychiatric: appropriate mood/affect, intact judgment & insight - Neurologic Neurologic: CNII-XII intact, moves all extremities - Constitutional Vitals: Vital Signs - 12hr 06/11/18 06/11/18 06/11/18 01:51 02:00 02:11 Temperature Pulse Rate 106 H 117 H 111 H Respiratory 20 21 23 Rate Blood Pressure 118/82 127/88 127/88 O2 Sat by Pulse 99 98 99 Oximetry 06/11/18 06/11/18 06/11/18 02:21 02:30 02:41 Temperature Pulse Rate 122 H 110 H 105 H Respiratory 15 14 12 Rate Blood Pressure 127/88 126/88 126/88 O2 Sat by Pulse 100 100 100 Oximetry 06/11/18 06/11/18 06/11/18 02:51 03:07 03:10 Temperature Pulse Rate 104 H 101 H 102 H Respiratory 26 H 21 21 Rate Blood Pressure 126/88 O2 Sat by Pulse 98 99 99 Oximetry 06/11/18 06/11/18 06/11/18 03:20 03:30 03:40 Temperature Pulse Rate 98 H 100 H 99 H Respiratory 20 19 20 Rate Blood Pressure 119/68 135/95 135/95 O2 Sat by Pulse 100 99 99 Oximetry 06/11/18 06/11/18 06/11/18 03:50 04:00 04:10 Temperature 101.4 F H Pulse Rate 102 H 101 H 91 H Respiratory 20 20 19 Rate Blood Pressure 135/95 132/92 132/92 O2 Sat by Pulse 99 100 100 Oximetry 06/11/18 06/11/18 06/11/18 04:20 04:30 04:40 Temperature Pulse Rate 96 H 101 H 101 H Respiratory 19 19 21 Rate Blood Pressure 132/92 130/89 130/89 O2 Sat by Pulse 100 99 99 Oximetry 06/11/18 06/11/18 06/11/18 04:50 05:00 05:10 Temperature Pulse Rate 111 H 107 H 103 H Respiratory 21 24 20 Rate Blood Pressure 130/89 105/67 105/67 O2 Sat by Pulse 100 99 99 Oximetry 06/11/18 06/11/18 06/11/18 05:20 05:30 05:40 Temperature Pulse Rate 103 H 109 H 105 H Respiratory 20 14 19 Rate Blood Pressure 105/67 127/90 127/90 O2 Sat by Pulse 98 99 100 Oximetry 06/11/18 06/11/18 06/11/18 05:50 06:00 06:10 Temperature Pulse Rate 122 H 96 H 94 H Respiratory 20 22 26 H Rate Blood Pressure 127/90 133/85 133/85 O2 Sat by Pulse 84 100 98 Oximetry 06/11/18 06/11/18 06/11/18 06:20 06:30 06:40 Temperature Pulse Rate 94 H 99 H 112 H Respiratory 22 19 12 Rate Blood Pressure 133/85 138/91 138/91 O2 Sat by Pulse 99 99 99 Oximetry 06/11/18 06/11/18 06/11/18 06:50 07:00 07:10 Temperature Pulse Rate 107 H 101 H 99 H Respiratory 16 18 23 Rate Blood Pressure 138/91 128/86 128/86 O2 Sat by Pulse 100 100 100 Oximetry 06/11/18 06/11/18 06/11/18 07:20 07:30 07:40 Temperature Pulse Rate 95 H 103 H 98 H Respiratory 23 18 21 Rate Blood Pressure 128/86 118/80 118/80 O2 Sat by Pulse 99 98 98 Oximetry 06/11/18 06/11/18 06/11/18 07:50 07:52 08:00 Temperature 100.3 F H Pulse Rate 105 H 116 H Respiratory 20 15 Rate Blood Pressure 118/80 129/87 O2 Sat by Pulse 98 99 Oximetry 06/11/18 06/11/18 06/11/18 08:10 08:20 08:30 Temperature Pulse Rate 110 H 112 H 96 H Respiratory 15 22 15 Rate Blood Pressure 129/87 129/87 118/80 O2 Sat by Pulse 100 99 100 Oximetry 06/11/18 06/11/18 06/11/18 08:40 08:50 09:00 Temperature Pulse Rate 104 H 112 H 108 H Respiratory 22 15 15 Rate Blood Pressure 118/80 118/80 129/87 O2 Sat by Pulse 100 100 100 Oximetry 06/11/18 06/11/18 06/11/18 09:10 09:20 09:30 Temperature Pulse Rate 101 H 94 H 105 H Respiratory 22 25 H 19 Rate Blood Pressure 139/95 139/95 139/95 O2 Sat by Pulse 100 100 100 Oximetry 06/11/18 06/11/18 06/11/18 09:40 09:50 10:00 Temperature Pulse Rate 102 H 91 H 98 H Respiratory 19 22 21 Rate Blood Pressure 139/95 139/95 139/95 O2 Sat by Pulse 100 98 97 Oximetry 06/11/18 06/11/18 06/11/18 10:10 10:20 10:30 Temperature Pulse Rate 96 H 112 H 98 H Respiratory 25 H 23 16 Rate Blood Pressure 139/95 139/95 140/91 O2 Sat by Pulse 98 100 100 Oximetry 06/11/18 06/11/18 06/11/18 10:40 10:50 11:00 Temperature Pulse Rate 102 H 108 H 101 H Respiratory 21 11 L 16 Rate Blood Pressure 140/91 140/91 140/91 O2 Sat by Pulse 99 100 100 Oximetry 06/11/18 06/11/18 06/11/18 11:10 11:20 11:30 Temperature Pulse Rate 105 H 103 H 102 H Respiratory 14 18 14 Rate Blood Pressure 140/91 140/91 140/91 O2 Sat by Pulse 100 100 100 Oximetry - Labs CBC & Chem 7: 06/11/18 04:44 06/11/18 04:44 Labs: Abnormal lab results 06/10/18 06/10/18 06/10/18 Range/Units 09:35 12:33 23:30 WBC (4.5-11.0) K/mm3 RBC (3.65-5.03) M/mm3 Hgb (10.1-14.3) gm/dl Hct (30.3-42.9) % Seg Neuts % (Manual) 92.0 H (40.0-70.0) % Lymphocytes % (Manual) 4.0 L (13.4-35.0) % Seg Neutrophils # Man 19.5 H (1.8-7.7) K/mm3 Lymphocytes # (Manual) 0.8 L (1.2-5.4) K/mm3 PT (12.2-14.9) Sec. INR (0.87-1.13) Potassium (3.6-5.0) mmol/L Chloride (98-107) mmol/L Carbon Dioxide (22-30) mmol/L BUN (7-17) mg/dL Creatinine (0.7-1.2) mg/dL Glucose (65-100) mg/dL POC Glucose 141 H 106 H (70-105) ALT (7-56) units/L Albumin (3.9-5) g/dL 06/11/18 06/11/18 06/11/18 Range/Units 04:44 04:44 10:41 WBC 22.8 H (4.5-11.0) K/mm3 RBC 3.62 L (3.65-5.03) M/mm3 Hgb 10.0 L (10.1-14.3) gm/dl Hct 29.2 L (30.3-42.9) % Seg Neuts % (Manual) 97.0 H (40.0-70.0) % Lymphocytes % (Manual) 2.0 L (13.4-35.0) % Seg Neutrophils # Man 22.1 H (1.8-7.7) K/mm3 Lymphocytes # (Manual) 0.5 L (1.2-5.4) K/mm3 PT 19.7 H (12.2-14.9) Sec. INR 1.56 H (0.87-1.13) Potassium 3.2 L (3.6-5.0) mmol/L Chloride 108.3 H (98-107) mmol/L Carbon Dioxide 21 L (22-30) mmol/L BUN < 1 L (7-17) mg/dL Creatinine 0.6 L (0.7-1.2) mg/dL Glucose 128 H (65-100) mg/dL POC Glucose (70-105) ALT 6 L (7-56) units/L Albumin 2.8 L (3.9-5) g/dL
--- NOTE | 2018-06-11 13:48 | Progress Note ---
Assessment and Plan Acute abdomen with right colonic micro-perforation. Systemic inflammatory response syndrome. Leukocytosis. Abdominal pain. Sickle cell trait Mild metabolic acidosis at presentation. Hyponatremia, present on arrival. Hypokalemia, present on arrival. Abnormal urinalysis. - to OR today for Ex-lap - continue prn supplemental oxygen to keep sat's > 90% - continue NGT to LIS and keep NPO - continue empiric AB's per ID rec's - continue prn analgesia - continue IVF - continue GI & VTE prophylaxis with Pepcid & lovenox - PT/OT as tolerated ... re-evaluate post-op Subjective Date of service: 06/11/18 Principal diagnosis: Acute abdomen/R. colonic perforation; SIRS; Leukocytosis; Abd. pain Interval history: Patient is seen today for: Acute abdomen with right colonic perforation; S ystemic inflammatory response syndrome; Leukocytosis; Abdominal pain; Mild metabolic acidosis at presentation. Seen and examined at bedside; 24hour events reviewed; nursing and respiratory care staff consulted; no adverse overnight events reported to me; still with abdominal pain; still with leucocytosis; + nausea but no overt emesis; hemodynamically stable so far today though but tentatively to go to OR. Objective Vital Signs - 12hr 06/11/18 06/11/18 06/11/18 01:51 02:00 02:11 Temperature Pulse Rate 106 H 117 H 111 H Respiratory 20 21 23 Rate Blood Pressure 118/82 127/88 127/88 O2 Sat by Pulse 99 98 99 Oximetry 06/11/18 06/11/18 06/11/18 02:21 02:30 02:41 Temperature Pulse Rate 122 H 110 H 105 H Respiratory 15 14 12 Rate Blood Pressure 127/88 126/88 126/88 O2 Sat by Pulse 100 100 100 Oximetry 06/11/18 06/11/18 06/11/18 02:51 03:07 03:10 Temperature Pulse Rate 104 H 101 H 102 H Respiratory 26 H 21 21 Rate Blood Pressure 126/88 O2 Sat by Pulse 98 99 99 Oximetry 06/11/18 06/11/18 06/11/18 03:20 03:30 03:40 Temperature Pulse Rate 98 H 100 H 99 H Respiratory 20 19 20 Rate Blood Pressure 119/68 135/95 135/95 O2 Sat by Pulse 100 99 99 Oximetry 06/11/18 06/11/18 06/11/18 03:50 04:00 04:10 Temperature 101.4 F H Pulse Rate 102 H 101 H 91 H Respiratory 20 20 19 Rate Blood Pressure 135/95 132/92 132/92 O2 Sat by Pulse 99 100 100 Oximetry 06/11/18 06/11/18 06/11/18 04:20 04:30 04:40 Temperature Pulse Rate 96 H 101 H 101 H Respiratory 19 19 21 Rate Blood Pressure 132/92 130/89 130/89 O2 Sat by Pulse 100 99 99 Oximetry 06/11/18 06/11/18 06/11/18 04:50 05:00 05:10 Temperature Pulse Rate 111 H 107 H 103 H Respiratory 21 24 20 Rate Blood Pressure 130/89 105/67 105/67 O2 Sat by Pulse 100 99 99 Oximetry 06/11/18 06/11/18 06/11/18 05:20 05:30 05:40 Temperature Pulse Rate 103 H 109 H 105 H Respiratory 20 14 19 Rate Blood Pressure 105/67 127/90 127/90 O2 Sat by Pulse 98 99 100 Oximetry 06/11/18 06/11/18 06/11/18 05:50 06:00 06:10 Temperature Pulse Rate 122 H 96 H 94 H Respiratory 20 22 26 H Rate Blood Pressure 127/90 133/85 133/85 O2 Sat by Pulse 84 100 98 Oximetry 06/11/18 06/11/18 06/11/18 06:20 06:30 06:40 Temperature Pulse Rate 94 H 99 H 112 H Respiratory 22 19 12 Rate Blood Pressure 133/85 138/91 138/91 O2 Sat by Pulse 99 99 99 Oximetry 06/11/18 06/11/18 06/11/18 06:50 07:00 07:10 Temperature Pulse Rate 107 H 101 H 99 H Respiratory 16 18 23 Rate Blood Pressure 138/91 128/86 128/86 O2 Sat by Pulse 100 100 100 Oximetry 06/11/18 06/11/18 06/11/18 07:20 07:30 07:40 Temperature Pulse Rate 95 H 103 H 98 H Respiratory 23 18 21 Rate Blood Pressure 128/86 118/80 118/80 O2 Sat by Pulse 99 98 98 Oximetry 06/11/18 06/11/18 06/11/18 07:50 07:52 08:00 Temperature 100.3 F H Pulse Rate 105 H 116 H Respiratory 20 15 Rate Blood Pressure 118/80 129/87 O2 Sat by Pulse 98 99 Oximetry 06/11/18 06/11/18 06/11/18 08:10 08:20 08:30 Temperature Pulse Rate 110 H 112 H 96 H Respiratory 15 22 15 Rate Blood Pressure 129/87 129/87 118/80 O2 Sat by Pulse 100 99 100 Oximetry 06/11/18 06/11/18 06/11/18 08:40 08:50 09:00 Temperature Pulse Rate 104 H 112 H 108 H Respiratory 22 15 15 Rate Blood Pressure 118/80 118/80 129/87 O2 Sat by Pulse 100 100 100 Oximetry 06/11/18 06/11/18 06/11/18 09:10 09:20 09:30 Temperature Pulse Rate 101 H 94 H 105 H Respiratory 22 25 H 19 Rate Blood Pressure 139/95 139/95 139/95 O2 Sat by Pulse 100 100 100 Oximetry 06/11/18 06/11/18 06/11/18 09:40 09:50 10:00 Temperature Pulse Rate 102 H 91 H 98 H Respiratory 19 22 21 Rate Blood Pressure 139/95 139/95 139/95 O2 Sat by Pulse 100 98 97 Oximetry 06/11/18 06/11/18 06/11/18 10:10 10:20 10:30 Temperature Pulse Rate 96 H 112 H 98 H Respiratory 25 H 23 16 Rate Blood Pressure 139/95 139/95 140/91 O2 Sat by Pulse 98 100 100 Oximetry 06/11/18 06/11/18 06/11/18 10:40 10:50 11:00 Temperature Pulse Rate 102 H 108 H 101 H Respiratory 21 11 L 16 Rate Blood Pressure 140/91 140/91 140/91 O2 Sat by Pulse 99 100 100 Oximetry 06/11/18 06/11/18 06/11/18 11:10 11:20 11:30 Temperature Pulse Rate 105 H 103 H 102 H Respiratory 14 18 14 Rate Blood Pressure 140/91 140/91 140/91 O2 Sat by Pulse 100 100 100 Oximetry Constitutional: alert, appears uncomfortable, other (young AAF sitting uo in bed in moderate non-respiratory distress) Eyes: non-icteric ENT: oropharynx dry, other (Mallampati 2) Neck: supple, no lymphadenopathy, no JVD, other (no thyromegaly) Effort: mildly labored Ascultation: Bilateral: clear Percussion: Bilateral: not dull Cardiovascular: regular rate and rhythm Gastrointestinal: hypoactive bowel sounds, soft, tender (moderate), non- distended Integumentary: normal Extremities: no cyanosis, no edema, pulses normal, no ischemia or petechiae Neurologic: normal mental status, non-focal exam, pupils equal and round, CN II- XII normal, motor strength normal and Psychiatric: mood appropriate, anxious CBC and BMP: 06/12/18 05:41 06/12/18 05:41 ABG, PT/INR, D-dimer: PT/INR, D-dimer PT 19.7 Sec. (12.2-14.9) H 06/11/18 10:41 INR 1.56 (0.87-1.13) H 06/11/18 10:41 Abnormal lab findings: Abnormal Labs 06/09/18 06/09/18 06/09/18 01:41 01:41 04:41 WBC 19.5 H RBC Hgb Hct MCHC 35 H Lymph % (Auto) 8.1 L Seg Neutrophils % 87.4 H Seg Neuts % (Manual) Lymphocytes % (Manual) Seg Neutrophils # 17.0 H Seg Neutrophils # Man Lymphocytes # (Manual) PT INR VBG pH Sodium 135 L Potassium 3.4 L Chloride 96.7 L Carbon Dioxide 17 L BUN Creatinine Glucose POC Glucose Calcium ALT C-Reactive Protein Total Protein 8.8 H Albumin Ur Specific [place] 1.040 H Urine WBC (Auto) 9.0 H 06/09/18 06/10/18 06/10/18 08:48 03:49 03:49 WBC 16.9 H RBC Hgb Hct 29.6 L D MCHC 35 H Lymph % (Auto) 9.9 L Seg Neutrophils % 85.0 H Seg Neuts % (Manual) Lymphocytes % (Manual) Seg Neutrophils # 14.4 H Seg Neutrophils # Man Lymphocytes # (Manual) PT INR VBG pH 7.318 L Sodium Potassium 3.2 L Chloride 108.9 H Carbon Dioxide BUN 2 L Creatinine Glucose 127 H POC Glucose Calcium 8.0 L D ALT C-Reactive Protein Total Protein Albumin Ur Specific [place] Urine WBC (Auto) 06/10/18 06/10/18 06/10/18 03:49 09:35 12:33 WBC 21.2 H RBC Hgb Hct 29.4 L MCHC 35 H Lymph % (Auto) Seg Neutrophils % Seg Neuts % (Manual) 92.0 H Lymphocytes % (Manual) 4.0 L Seg Neutrophils # Seg Neutrophils # Man 19.5 H Lymphocytes # (Manual) 0.8 L PT INR VBG pH Sodium Potassium Chloride Carbon Dioxide BUN Creatinine Glucose POC Glucose 141 H Calcium ALT C-Reactive Protein 14.90 H Total Protein Albumin Ur Specific [place] Urine WBC (Auto) 06/10/18 06/11/18 06/11/18 23:30 04:44 04:44 WBC 22.8 H RBC 3.62 L Hgb 10.0 L Hct 29.2 L MCHC Lymph % (Auto) Seg Neutrophils % Seg Neuts % (Manual) 97.0 H Lymphocytes % (Manual) 2.0 L Seg Neutrophils # Seg Neutrophils # Man 22.1 H Lymphocytes # (Manual) 0.5 L PT INR VBG pH Sodium Potassium 3.2 L Chloride 108.3 H Carbon Dioxide 21 L BUN < 1 L Creatinine 0.6 L Glucose 128 H POC Glucose 106 H Calcium ALT 6 L C-Reactive Protein Total Protein Albumin 2.8 L Ur Specific [place] Urine WBC (Auto) 06/11/18 10:41 WBC RBC Hgb Hct MCHC Lymph % (Auto) Seg Neutrophils % Seg Neuts % (Manual) Lymphocytes % (Manual) Seg Neutrophils # Seg Neutrophils # Man Lymphocytes # (Manual) PT 19.7 H INR 1.56 H VBG pH Sodium Potassium Chloride Carbon Dioxide BUN Creatinine Glucose POC Glucose Calcium ALT C-Reactive Protein Total Protein Albumin Ur Specific [place] Urine WBC (Auto) Allied health notes reviewed: nursing
[2018-06-11] MEDS ORDERED: KCL 10MEQ/100ML 10 MEQ/100 ML BAG IV SCH ×2 (14:00→17:00)
--- NOTE | 2018-06-11 14:42 | Operative Report ---
PREOPERATIVE DIAGNOSIS: Rule out perforated cecum. POSTOPERATIVE DIAGNOSES: Very large cecal mass obstructing the colon. The mass extended out into the retroperitoneum as well as adjacent to the duodenum and kidney and superiorly adjacent to the stomach. PROCEDURE: Extended right hemicolectomy. SURGEON: Mario Handley MD CLAIM PROCESSOR: Dr. Ponce. ANESTHESIA: General. ESTIMATED BLOOD LOSS: 300 mL. DESCRIPTION OF PROCEDURE: The case was technically challenging and difficult due to the large size of the mass and the surrounding inflammatory process. The patient was taken up to the operating room, prepped and draped in usual sterile fashion. Midline incision was made and abdomen entered. Upon entrance into the abdomen, a large pericolonic mass was noted in the area of the hepatic flexure. The mass extended just proximal to the middle colic and inferiorly extended down towards the duodenum and kidney. The right colon was then slowly mobilized to an area past the mass. The mass had to be slowly and carefully dissected free from the duodenum and the stomach. Once completely mobilized, the GIAs were used to transect the transverse colon distal to the mass in the ileum proximal to the ileocolic valve. A mesentery was then secured with Harmonic scalpel. The ileocolic vessel as well as the right colic vessels were isolated and also secured with double ligatures. The middle colic also had to be transected and again secured with 2-0 Vicryl ties. The specimen was then removed and opened in a separate field, appeared to be an area of perforation with some tumor or mass extending through all layers of the colon. I am not sure if this was soft tissue/sarcoma type tumor or was a perforation with extensive inflammatory process sealing it off. Gloves were then changed. Ileocolic and functional end-to-end anastomosis was then performed using a LATONYA and a TA-55. The lumen was then palpated and noted to be wide open. A good blood supply was also seen and no tension noted. The anastomosis was also secured with some 3-0 Vicryl ties to reduce any tension on the staple lines, though none was seen. The mesentery was closed with interrupted 2-0 Vicryl suture. The entire abdomen was then copiously irrigated and suctioned dry. Checked for hemostasis and noted to be dry. NG tube was palpated and noted to be in proper position. The rest of the colon was palpated. No other gross masses noted. No other gross pathology was seen within the peritoneal cavity. The fascia was then closed with interrupted #1 Vicryl suture. Subcutaneous tissues irrigated and skin closed with estuardo. During the procedure, no stool or purulence was noted. Some transudate fluid was noted along the colonic gutter and aerobic and anaerobic cultures were taken. The patient tolerated the procedure well and left the OR in stable condition. [facility]# [id number] FP/NTS
[2018-06-11] MEDS ORDERED: LACTATED RINGERS 1,000 ML ONE (14:53)
[2018-06-11] MEDS: PEPCID IV SCH ×2 (16:24→21:40)
[2018-06-11] MEDS: FLAGYL 500 MG/100 ML 500 MG/100 ML BAG IV SCH ×5 (16:25→21:40)
[2018-06-11] MEDS: DIFLUCAN 200 ML IV SCH (16:41)
[2018-06-11] MEDS ORDERED: CEPACOL X STRENGTH ONE (20:04)
[2018-06-11] MEDS: APRESOLINE IV PRN (21:39)
[2018-06-11] MEDS: LOVENOX SUB-Q SCH (21:40)
[2018-06-12] MEDS: ZOFRAN IV PRN (01:29)
[2018-06-12] MEDS ORDERED: MORPHINE IV PRN ×2 (02:40→11:48)
[2018-06-12] MEDS: MORPHINE IV PRN ×2 (02:42→08:09)
[2018-06-12] MEDS: FLAGYL 500 MG/100 ML 500 MG/100 ML BAG IV SCH ×3 (05:42→21:41)
[2018-06-12 06:02] LABS: Hematocrit 28.6 % (30.3-42.9); Hemoglobin 9.8 gm/dl (10.1-14.3); Mean Corpuscular HGB Conc 34 % (30-34); Mean Corpuscular Volume 82 fl (79-97); Platelet Count 306 K/mm3 (140-440); Red Cell Distribution Width 14.7 % (13.2-15.2)
[2018-06-12 06:23] LABS: BUN/Creatinine Ratio 6; Blood Urea Nitrogen 3 mg/dL (7-17); Calcium 7.9 mg/dL (8.4-10.2); Hemolysis Index 2
[2018-06-12 07:06] LABS: Band Neutrophils # (Manual) 0.6 K/mm3; Basophils % (Manual) 0 % (0.0-1.8); Eosinophils % (Manual) 0 % (0.0-4.3); Platelet Estimate Consistent w Auto; Target Cells 1+; Total Cells Counted 100
--- NOTE | 2018-06-12 08:05 | Progress Note ---
Assessment and Plan Cultures: Blood culture 06/09/2018 no growth today Assessment: 28 y/o female with history marihuana use; admitted on due to 3-day history of nausea, vomiting and abdominal pain: 1) Sepsis: fever is better still tachycardia and leukocytosis. CRP=14. Etiology most likely right colonic mass and perforation. 2) Right large cecal mass with perforation: of unclear etiology. Patient denies history of previous diverticulitis or inflammatory bowel disease. No history of trauma or ingestion of foreign bodies. CT abdomen showed perforated right colon approximately 6 cm superior to the ileocecal valve with trapped area of stool adjacent to the perforation measures 3.1 x 3 x 3.6 cm. Surrounding indurated fat. No jenn pneumoperitoneum. No evidence of intra-abdominal abscess or fistula. Among infectious diseases causes of right sided colonic perforation are typhoid (no history of diarrhea), schistosomiasis (no recent travels to tropical areas), CMV. Other non ID etiologies: malignancy, connective tissue disease, vasculitis. S/p exlap on 06/12/2018 found to have a very large cecal mass. Recommendations: - follow-up path - follow-up CARLOS MANUEL with reflex, C3, C4, ANCA - follow-up HIV and CMV DNA PCR - continue ceftriaxone and flagyl D3 - continue fluconazole IV D2 Will follow. Zahra Fowler MD Infectious Diseases Motion Picture Narrator [facility] ([facility] M [phone] O [phone] colonic [phone] Subjective Date of service: 06/12/18 Principal diagnosis: colonic perf Interval history: Feels some better, went to the OR yesterday, c/o anuria, still abdominal pain, no fever for 12 h ROS: denies N/V/D. Objective - Exam Narrative Exam: General appearance: Alert in NAD, conversant Eyes: anicteric sclerae, moist conjunctivae; no lid-lag; PERRLA HENT: Atraumatic; oropharynx clear with moist mucous membranes and no mucosal ulcerations/no oral thrush; normal hard and soft palate. Normal external ears. Neck: Trachea midline; supple, no thyromegaly or lymphadenopathy Lungs: CTA CV: tachy Abdomen: Soft,midline wound with surg dressings Extremities: No peripheral edema or extremity lymphadenopathy Skin: Normal temperature, turgor and texture; no rash, ulcers or subcutaneous nodules Psych: Appropriate affect, alert and oriented to person, place and time. Neuro: alert and oriented x 3. Moving all extermities - Constitutional Vitals: Vital Signs Temp Pulse Resp BP Pulse Ox 98.9 F 71 17 154/106 100 06/12/18 00:00 06/12/18 06:00 06/12/18 06:00 06/12/18 06:00 06/12/18 06:00 Temperature -Last 24 Hours Temperature 98.9 F Temperature 97.8 F Temperature 97.8 F Temperature 98.9 F Temperature 98.9 F Temperature 98.9 F - Labs CBC & Chem 7: 06/12/18 05:41 06/12/18 05:41 Labs: Abnormal lab results 06/11/18 06/11/18 06/11/18 Range/Units 04:44 10:41 17:54 WBC (4.5-11.0) K/mm3 RBC (3.65-5.03) M/mm3 Hgb (10.1-14.3) gm/dl Hct (30.3-42.9) % Seg Neuts % (Manual) 97.0 H (40.0-70.0) % Lymphocytes % (Manual) 2.0 L (13.4-35.0) % Seg Neutrophils # Man 22.1 H (1.8-7.7) K/mm3 Lymphocytes # (Manual) 0.5 L (1.2-5.4) K/mm3 PT 19.7 H (12.2-14.9) Sec. INR 1.56 H (0.87-1.13) Potassium (3.6-5.0) mmol/L BUN (7-17) mg/dL Creatinine (0.7-1.2) mg/dL Glucose (65-100) mg/dL POC Glucose 151 H (70-105) Calcium (8.4-10.2) mg/dL 06/11/18 06/12/18 06/12/18 Range/Units 23:43 05:27 05:41 WBC 21.5 H (4.5-11.0) K/mm3 RBC 3.50 L (3.65-5.03) M/mm3 Hgb 9.8 L (10.1-14.3) gm/dl Hct 28.6 L (30.3-42.9) % Seg Neuts % (Manual) 92.0 H (40.0-70.0) % Lymphocytes % (Manual) 4.0 L (13.4-35.0) % Seg Neutrophils # Man 19.8 H (1.8-7.7) K/mm3 Lymphocytes # (Manual) 0.9 L (1.2-5.4) K/mm3 PT (12.2-14.9) Sec. INR (0.87-1.13) Potassium (3.6-5.0) mmol/L BUN (7-17) mg/dL Creatinine (0.7-1.2) mg/dL Glucose (65-100) mg/dL POC Glucose 168 H 160 H (70-105) Calcium (8.4-10.2) mg/dL 06/12/18 Range/Units 05:41 WBC (4.5-11.0) K/mm3 RBC (3.65-5.03) M/mm3 Hgb (10.1-14.3) gm/dl Hct (30.3-42.9) % Seg Neuts % (Manual) (40.0-70.0) % Lymphocytes % (Manual) (13.4-35.0) % Seg Neutrophils # Man (1.8-7.7) K/mm3 Lymphocytes # (Manual) (1.2-5.4) K/mm3 PT (12.2-14.9) Sec. INR (0.87-1.13) Potassium 3.5 L (3.6-5.0) mmol/L BUN 3 L (7-17) mg/dL Creatinine 0.5 L (0.7-1.2) mg/dL Glucose 159 H (65-100) mg/dL POC Glucose (70-105) Calcium 7.9 L (8.4-10.2) mg/dL
[2018-06-12] MEDS: D5W/NS W/KCL 20MEQ 20 MEQ/1,000 ML BAG IV SCH ×2 (08:36→19:30)
[2018-06-12] MEDS: ROCEPHIN/NS 2 GM/100 ML 2 GM/100 ML BAG IV SCH (11:07)
[2018-06-12] MEDS: DIFLUCAN 200 ML IV SCH (11:08)
[2018-06-12] MEDS: PEPCID IV SCH ×2 (11:08→21:40)
[2018-06-12] MEDS: APRESOLINE IV PRN (11:39)
--- NOTE | 2018-06-12 11:51 | Progress Note ---
Assessment and Plan POD # 1 Pt overall feeling well. c/o incisional pain Abd 1+ distended. dressings dry -BS h/h stable s/p extended R hemicolectomy. Large R colon mass await path await intra -op cults continue present care. Selected Entries 06/12/18 06/12/18 06/12/18 08:00 10:00 11:39 Temperature 98.4 F Pulse Rate 73 Respiratory 17 Rate Blood Pressure 179/104 Laboratory Tests 06/11/18 06/12/18 06/12/18 04:44 05:41 05:41 WBC 22.8 H 21.5 H Hgb 10.0 L 9.8 L Hct 29.2 L 28.6 L Sodium 139 Potassium 3.5 L Chloride 105.8 Carbon Dioxide 24 Anion Gap 13 BUN 3 L Creatinine 0.5 L Objective Vital Signs - 12hr 06/12/18 06/12/18 06/12/18 00:00 00:02 00:30 Temperature 98.9 F Pulse Rate 95 H 96 H Pulse Rate [ Apical] Pulse Rate [ 97 H Right Radial] Respiratory 16 24 16 Rate Blood Pressure 146/101 148/106 O2 Sat by Pulse 99 99 Oximetry 06/12/18 06/12/18 06/12/18 01:00 01:30 02:00 Temperature Pulse Rate 101 H 91 H 101 H Pulse Rate [ Apical] Pulse Rate [ Right Radial] Respiratory 17 23 17 Rate Blood Pressure 148/106 154/103 143/97 O2 Sat by Pulse 99 100 100 Oximetry 06/12/18 06/12/18 06/12/18 02:30 02:42 03:00 Temperature Pulse Rate 91 H 82 Pulse Rate [ Apical] Pulse Rate [ Right Radial] Respiratory 17 24 15 Rate Blood Pressure 160/105 150/99 O2 Sat by Pulse 99 99 Oximetry 06/12/18 06/12/18 06/12/18 03:12 03:30 04:00 Temperature Pulse Rate 96 H 84 Pulse Rate [ Apical] Pulse Rate [ 91 H Right Radial] Respiratory 17 16 18 Rate Blood Pressure 157/110 155/100 O2 Sat by Pulse 99 100 Oximetry 06/12/18 06/12/18 06/12/18 04:30 05:00 05:30 Temperature Pulse Rate 81 96 H 75 Pulse Rate [ Apical] Pulse Rate [ Right Radial] Respiratory 17 20 15 Rate Blood Pressure 148/104 153/102 157/100 O2 Sat by Pulse 99 99 99 Oximetry 06/12/18 06/12/18 06/12/18 06:00 06:30 07:00 Temperature Pulse Rate 71 85 80 Pulse Rate [ Apical] Pulse Rate [ Right Radial] Respiratory 17 19 13 Rate Blood Pressure 154/106 155/104 149/107 O2 Sat by Pulse 100 99 99 Oximetry 06/12/18 06/12/18 06/12/18 07:30 08:00 08:30 Temperature 98.4 F Pulse Rate 83 75 86 Pulse Rate [ 71 Apical] Pulse Rate [ Right Radial] Respiratory 17 23 17 Rate Blood Pressure 145/101 145/101 162/108 O2 Sat by Pulse 99 100 98 Oximetry 06/12/18 06/12/18 06/12/18 09:00 09:30 10:00 Temperature Pulse Rate 73 71 88 Pulse Rate [ Apical] Pulse Rate [ Right Radial] Respiratory 20 16 17 Rate Blood Pressure 153/101 162/105 153/113 O2 Sat by Pulse 99 100 99 Oximetry 06/12/18 11:39 Temperature Pulse Rate 73 Pulse Rate [ Apical] Pulse Rate [ Right Radial] Respiratory Rate Blood Pressure 179/104 O2 Sat by Pulse Oximetry - Labs 06/12/18 05:41 06/12/18 05:41 Diabetes panel 06/12/18 Range/Units 05:41 Sodium 139 (137-145) mmol/L Potassium 3.5 L (3.6-5.0) mmol/L Chloride 105.8 (98-107) mmol/L Carbon Dioxide 24 (22-30) mmol/L BUN 3 L (7-17) mg/dL Creatinine 0.5 L (0.7-1.2) mg/dL Glucose 159 H (65-100) mg/dL Calcium 7.9 L (8.4-10.2) mg/dL Calcium panel 06/12/18 Range/Units 05:41 Calcium 7.9 L (8.4-10.2) mg/dL Pituitary panel 06/12/18 Range/Units 05:41 Sodium 139 (137-145) mmol/L Potassium 3.5 L (3.6-5.0) mmol/L Chloride 105.8 (98-107) mmol/L Carbon Dioxide 24 (22-30) mmol/L BUN 3 L (7-17) mg/dL Creatinine 0.5 L (0.7-1.2) mg/dL Glucose 159 H (65-100) mg/dL Calcium 7.9 L (8.4-10.2) mg/dL Adrenal panel 06/12/18 Range/Units 05:41 Sodium 139 (137-145) mmol/L Potassium 3.5 L (3.6-5.0) mmol/L Chloride 105.8 (98-107) mmol/L Carbon Dioxide 24 (22-30) mmol/L BUN 3 L (7-17) mg/dL Creatinine 0.5 L (0.7-1.2) mg/dL Glucose 159 H (65-100) mg/dL Calcium 7.9 L (8.4-10.2) mg/dL
[2018-06-12] MEDS ORDERED: APRESOLINE IV PRN (12:02)
--- NOTE | 2018-06-12 12:37 | Progress Note ---
Assessment and Plan Microperforation of the right colon Hypokalemia, likely due to GI loss Sepsis, due to organ perforation Sickle cell trait DVT Px - transfer to IMCU, keep NPO - consulted GS initially recommended medical Mx, cont iv abx, cont iv fluid - but has more pain tenderness and distension today - s/p OR for exploratory laparotomy on 06/11/18 - consulted ID for abx recommendation - cont to replete Kcl, follow blood cx - monitor CBC, BMP - lovenox for DVT Px Radiological data: CT abdomen/pelvis; Right colonic perforation with trapped area of stool measuring 3.6 x 3.1 x 3 cm. Abscess formation at this location is expected. No jenn pneumoperitoneum. No other focal abnormalities within the gastrointestinal tract are identified. Consider underlying immunocompromised state or inflammatory bowel disease as potential etiologies. Brief History: Ms. Alonso is a 28 years old female with no significant past medical history presented to the emergency room with 3 day history of nausea vomiting and RLQ intense abdominal pain. Patient found to have a white blood cells of 20,000 and significant abdominal tenderness. Her CT abdomen and pelvis with IV contrast showed a right colon perforation. Patient was given Zosyn in the ER. Consulted Dr. Handley, surgeon in the ER. Patient is being admitted for further evaluation and management. Subjective Date of service: 06/12/18 Principal diagnosis: colonic perf Interval history: Patient seen and examined cont to c/o abdominal pain, nausea no acute issue o/n Objective - Exam Narrative Exam: General appearance: Present: mild distress - EENT Eyes: Present: PERRL ENT: hearing intact, clear oral mucosa - Neck Neck: Present: supple, normal ROM - Respiratory Respiratory effort: normal Respiratory: bilateral: CTA - Cardiovascular Heart Sounds: Present: S1 & S2. Absent: rub, click - Extremities Extremities: pulses symmetrical, No edema Peripheral Pulses: within normal limits - Abdominal General gastrointestinal: Present: tender, (diminished BS), surgical dressing on abdomen Localized gastrointestinal: guarding: RUQ - Integumentary Integumentary: Present: clear, warm, dry - Musculoskeletal Musculoskeletal: gait normal, strength equal bilaterally - Psychiatric Psychiatric: appropriate mood/affect, intact judgment & insight - Neurologic Neurologic: CNII-XII intact, moves all extremities - Constitutional Vitals: Vital Signs - 12hr 06/12/18 06/12/18 06/12/18 01:00 01:30 02:00 Temperature Pulse Rate 101 H 91 H 101 H Pulse Rate [ Apical] Pulse Rate [ Right Radial] Respiratory 17 23 17 Rate Blood Pressure 148/106 154/103 143/97 O2 Sat by Pulse 99 100 100 Oximetry 06/12/18 06/12/18 06/12/18 02:30 02:42 03:00 Temperature Pulse Rate 91 H 82 Pulse Rate [ Apical] Pulse Rate [ Right Radial] Respiratory 17 24 15 Rate Blood Pressure 160/105 150/99 O2 Sat by Pulse 99 99 Oximetry 06/12/18 06/12/18 06/12/18 03:12 03:30 04:00 Temperature Pulse Rate 96 H 84 Pulse Rate [ Apical] Pulse Rate [ 91 H Right Radial] Respiratory 17 16 18 Rate Blood Pressure 157/110 155/100 O2 Sat by Pulse 99 100 Oximetry 06/12/18 06/12/18 06/12/18 04:30 05:00 05:30 Temperature Pulse Rate 81 96 H 75 Pulse Rate [ Apical] Pulse Rate [ Right Radial] Respiratory 17 20 15 Rate Blood Pressure 148/104 153/102 157/100 O2 Sat by Pulse 99 99 99 Oximetry 06/12/18 06/12/18 06/12/18 06:00 06:30 07:00 Temperature Pulse Rate 71 85 80 Pulse Rate [ Apical] Pulse Rate [ Right Radial] Respiratory 17 19 13 Rate Blood Pressure 154/106 155/104 149/107 O2 Sat by Pulse 100 99 99 Oximetry 06/12/18 06/12/18 06/12/18 07:30 08:00 08:30 Temperature 98.4 F Pulse Rate 83 75 86 Pulse Rate [ 71 Apical] Pulse Rate [ Right Radial] Respiratory 17 23 17 Rate Blood Pressure 145/101 145/101 162/108 O2 Sat by Pulse 99 100 98 Oximetry 06/12/18 06/12/18 06/12/18 09:00 09:30 10:00 Temperature Pulse Rate 73 71 88 Pulse Rate [ Apical] Pulse Rate [ Right Radial] Respiratory 20 16 17 Rate Blood Pressure 153/101 162/105 153/113 O2 Sat by Pulse 99 100 99 Oximetry 06/12/18 06/12/18 11:39 12:00 Temperature 98.6 F Pulse Rate 73 Pulse Rate [ Apical] Pulse Rate [ Right Radial] Respiratory Rate Blood Pressure 179/104 O2 Sat by Pulse Oximetry - Labs CBC & Chem 7: 06/12/18 05:41 06/12/18 05:41 Labs: Abnormal lab results 06/11/18 06/11/18 06/12/18 Range/Units 17:54 23:43 05:27 WBC (4.5-11.0) K/mm3 RBC (3.65-5.03) M/mm3 Hgb (10.1-14.3) gm/dl Hct (30.3-42.9) % Seg Neuts % (Manual) (40.0-70.0) % Lymphocytes % (Manual) (13.4-35.0) % Seg Neutrophils # Man (1.8-7.7) K/mm3 Lymphocytes # (Manual) (1.2-5.4) K/mm3 Potassium (3.6-5.0) mmol/L BUN (7-17) mg/dL Creatinine (0.7-1.2) mg/dL Glucose (65-100) mg/dL POC Glucose 151 H 168 H 160 H (70-105) Calcium (8.4-10.2) mg/dL 06/12/18 06/12/18 06/12/18 Range/Units 05:41 05:41 12:04 WBC 21.5 H (4.5-11.0) K/mm3 RBC 3.50 L (3.65-5.03) M/mm3 Hgb 9.8 L (10.1-14.3) gm/dl Hct 28.6 L (30.3-42.9) % Seg Neuts % (Manual) 92.0 H (40.0-70.0) % Lymphocytes % (Manual) 4.0 L (13.4-35.0) % Seg Neutrophils # Man 19.8 H (1.8-7.7) K/mm3 Lymphocytes # (Manual) 0.9 L (1.2-5.4) K/mm3 Potassium 3.5 L (3.6-5.0) mmol/L BUN 3 L (7-17) mg/dL Creatinine 0.5 L (0.7-1.2) mg/dL Glucose 159 H (65-100) mg/dL POC Glucose 136 H (70-105) Calcium 7.9 L (8.4-10.2) mg/dL
[2018-06-12] MEDS: DILAUDID IV PRN ×2 (13:01→19:24)
[2018-06-12] MEDS: CEPACOL X STRENGTH MM PRN ×2 (13:06→19:45)
--- NOTE | 2018-06-12 13:18 | Progress Note ---
Assessment and Plan Acute abdomen with right colonic micro-perforation. Systemic inflammatory response syndrome. Leukocytosis. Abdominal pain. Sickle cell trait Mild metabolic acidosis at presentation. Hyponatremia, present on arrival. Hypokalemia, present on arrival. Abnormal urinalysis. - PT/OT/OOB to chair / increase ambulation as tolerated - Incentive spirometry - follow peritoneal cultures and path on cecal mass - replete electrolytes as indicated -continue prn supplemental oxygen to keep sat's > 90% -continue NGT to LIS and keep NPO - discontinue hurst catheter if ok with surgeon -Agree with evaluation for collagen vascular disease, and malignancy - continue prn analgesia - continue VTE prophylaxis lovenox - continue prn supplemental oxygen to keep sat's > 90% - continue NGT to LIS and keep NPO - continue empiric AB's per ID rec's - continue prn analgesia - continue IVF - continue GI & VTE prophylaxis with Pepcid & lovenox - continue other care per attending / other consultants ... re-evaluate in am & prn Subjective Date of service: 06/12/18 Principal diagnosis: Acute abdomen/R. colonic perforation; SIRS; Leukocytosis; Abd. pain Interval history: Patient is seen today for: Acute abdomen with right colonic perforation; Systemic inflammatory response syndrome; Leukocytosis; Abdominal pain; Mild me tabolic acidosis at presentation. Seen and examined at bedside; 24hour events reviewed; nursing and respiratory care staff consulted; no adverse overnight events reported to me; post-op day # 1; still with some abdominal pain; no vasopressors; denies N/V/F/C; no melena; denies acute chest pains or palpitations Objective Vital Signs - 12hr 06/12/18 06/12/18 06/12/18 01:30 02:00 02:30 Temperature Pulse Rate 91 H 101 H 91 H Pulse Rate [ Apical] Pulse Rate [ Right Radial] Respiratory 23 17 17 Rate Blood Pressure 154/103 143/97 160/105 O2 Sat by Pulse 100 100 99 Oximetry 06/12/18 06/12/18 06/12/18 02:42 03:00 03:12 Temperature Pulse Rate 82 Pulse Rate [ Apical] Pulse Rate [ Right Radial] Respiratory 24 15 17 Rate Blood Pressure 150/99 O2 Sat by Pulse 99 Oximetry 06/12/18 06/12/18 06/12/18 03:30 04:00 04:30 Temperature Pulse Rate 96 H 84 81 Pulse Rate [ Apical] Pulse Rate [ 91 H Right Radial] Respiratory 16 18 17 Rate Blood Pressure 157/110 155/100 148/104 O2 Sat by Pulse 99 100 99 Oximetry 06/12/18 06/12/18 06/12/18 05:00 05:30 06:00 Temperature Pulse Rate 96 H 75 71 Pulse Rate [ Apical] Pulse Rate [ Right Radial] Respiratory 20 15 17 Rate Blood Pressure 153/102 157/100 154/106 O2 Sat by Pulse 99 99 100 Oximetry 06/12/18 06/12/18 06/12/18 06:30 07:00 07:30 Temperature Pulse Rate 85 80 83 Pulse Rate [ Apical] Pulse Rate [ Right Radial] Respiratory 19 13 17 Rate Blood Pressure 155/104 149/107 145/101 O2 Sat by Pulse 99 99 99 Oximetry 06/12/18 06/12/18 06/12/18 08:00 08:30 09:00 Temperature 98.4 F Pulse Rate 75 86 73 Pulse Rate [ 71 Apical] Pulse Rate [ Right Radial] Respiratory 23 17 20 Rate Blood Pressure 145/101 162/108 153/101 O2 Sat by Pulse 100 98 99 Oximetry 06/12/18 06/12/18 06/12/18 09:30 10:00 11:39 Temperature Pulse Rate 71 88 73 Pulse Rate [ Apical] Pulse Rate [ Right Radial] Respiratory 16 17 Rate Blood Pressure 162/105 153/113 179/104 O2 Sat by Pulse 100 99 Oximetry 06/12/18 12:00 Temperature 98.6 F Pulse Rate Pulse Rate [ Apical] Pulse Rate [ Right Radial] Respiratory Rate Blood Pressure O2 Sat by Pulse Oximetry Constitutional: alert, appears uncomfortable, other (young AAF sitting uo in bed in moderate non-respiratory distress) Eyes: non-icteric ENT: oropharynx dry, other (Mallampati 2) Neck: supple, no lymphadenopathy, no JVD, other (no thyromegaly) Effort: mildly labored (non pulmonary distress) Ascultation: Bilateral: clear Percussion: Bilateral: not dull Cardiovascular: regular rate and rhythm Gastrointestinal: hypoactive bowel sounds, soft, tender (over operative site), non-distended Integumentary: normal Extremities: no cyanosis, no edema, pulses normal, no ischemia or petechiae Neurologic: normal mental status, non-focal exam, pupils equal and round, CN II- XII normal, motor strength normal and Psychiatric: mood appropriate, anxious CBC and BMP: 06/15/18 04:34 06/15/18 04:34 ABG, PT/INR, D-dimer: PT/INR, D-dimer PT 19.7 Sec. (12.2-14.9) H 06/11/18 10:41 INR 1.56 (0.87-1.13) H 06/11/18 10:41 Abnormal lab findings: Abnormal Labs 06/09/18 06/09/18 06/09/18 01:41 01:41 04:41 WBC 19.5 H RBC Hgb Hct MCHC 35 H Lymph % (Auto) 8.1 L Seg Neutrophils % 87.4 H Seg Neuts % (Manual) Lymphocytes % (Manual) Seg Neutrophils # 17.0 H Seg Neutrophils # Man Lymphocytes # (Manual) PT INR VBG pH Sodium 135 L Potassium 3.4 L Chloride 96.7 L Carbon Dioxide 17 L BUN Creatinine Glucose POC Glucose Calcium ALT C-Reactive Protein Total Protein 8.8 H Albumin Ur Specific Custer 1.040 H Urine WBC (Auto) 9.0 H 06/09/18 06/10/18 06/10/18 08:48 03:49 03:49 WBC 16.9 H RBC Hgb Hct 29.6 L D MCHC 35 H Lymph % (Auto) 9.9 L Seg Neutrophils % 85.0 H Seg Neuts % (Manual) Lymphocytes % (Manual) Seg Neutrophils # 14.4 H Seg Neutrophils # Man Lymphocytes # (Manual) PT INR VBG pH 7.318 L Sodium Potassium 3.2 L Chloride 108.9 H Carbon Dioxide BUN 2 L Creatinine Glucose 127 H POC Glucose Calcium 8.0 L D ALT C-Reactive Protein Total Protein Albumin Ur Specific [place] Urine WBC (Auto) 06/10/18 06/10/18 06/10/18 03:49 09:35 12:33 WBC 21.2 H RBC Hgb Hct 29.4 L MCHC 35 H Lymph % (Auto) Seg Neutrophils % Seg Neuts % (Manual) 92.0 H Lymphocytes % (Manual) 4.0 L Seg Neutrophils # Seg Neutrophils # Man 19.5 H Lymphocytes # (Manual) 0.8 L PT INR VBG pH Sodium Potassium Chloride Carbon Dioxide BUN Creatinine Glucose POC Glucose 141 H Calcium ALT C-Reactive Protein 14.90 H Total Protein Albumin Ur Specific [place] Urine WBC (Auto) 06/10/18 06/11/18 06/11/18 23:30 04:44 04:44 WBC 22.8 H RBC 3.62 L Hgb 10.0 L Hct 29.2 L MCHC Lymph % (Auto) Seg Neutrophils % Seg Neuts % (Manual) 97.0 H Lymphocytes % (Manual) 2.0 L Seg Neutrophils # Seg Neutrophils # Man 22.1 H Lymphocytes # (Manual) 0.5 L PT INR VBG pH Sodium Potassium 3.2 L Chloride 108.3 H Carbon Dioxide 21 L BUN < 1 L Creatinine 0.6 L Glucose 128 H POC Glucose 106 H Calcium ALT 6 L C-Reactive Protein Total Protein Albumin 2.8 L Ur Specific [place] Urine WBC (Auto) 06/11/18 06/11/18 06/11/18 10:41 17:54 23:43 WBC RBC Hgb Hct MCHC Lymph % (Auto) Seg Neutrophils % Seg Neuts % (Manual) Lymphocytes % (Manual) Seg Neutrophils # Seg Neutrophils # Man Lymphocytes # (Manual) PT 19.7 H INR 1.56 H VBG pH Sodium Potassium Chloride Carbon Dioxide BUN Creatinine Glucose POC Glucose 151 H 168 H Calcium ALT C-Reactive Protein Total Protein Albumin Ur Specific [place] Urine WBC (Auto) 06/12/18 06/12/18 06/12/18 05:27 05:41 05:41 WBC 21.5 H RBC 3.50 L Hgb 9.8 L Hct 28.6 L MCHC Lymph % (Auto) Seg Neutrophils % Seg Neuts % (Manual) 92.0 H Lymphocytes % (Manual) 4.0 L Seg Neutrophils # Seg Neutrophils # Man 19.8 H Lymphocytes # (Manual) 0.9 L PT INR VBG pH Sodium Potassium 3.5 L Chloride Carbon Dioxide BUN 3 L Creatinine 0.5 L Glucose 159 H POC Glucose 160 H Calcium 7.9 L ALT C-Reactive Protein Total Protein Albumin Ur Specific [place] Urine WBC (Auto) 06/12/18 12:04 WBC RBC Hgb Hct MCHC Lymph % (Auto) Seg Neutrophils % Seg Neuts % (Manual) Lymphocytes % (Manual) Seg Neutrophils # Seg Neutrophils # Man Lymphocytes # (Manual) PT INR VBG pH Sodium Potassium Chloride Carbon Dioxide BUN Creatinine Glucose POC Glucose 136 H Calcium ALT C-Reactive Protein Total Protein Albumin Ur Specific [place] Urine WBC (Auto) Allied health notes reviewed: nursing
[2018-06-12] MEDS ORDERED: LIDOCAINE VISCOUS 2% PO PRN (15:52)
[2018-06-12] MEDS: LOVENOX SUB-Q SCH (21:41)
[2018-06-13] MEDS: DILAUDID IV PRN ×5 (02:24→20:14)
[2018-06-13] MEDS: D5W/NS W/KCL 20MEQ 20 MEQ/1,000 ML BAG IV SCH ×2 (05:05→15:54)
[2018-06-13 05:26] LABS: Basophils % (Auto) 0.1 % (0.0-1.8); Hematocrit 25.2 % (30.3-42.9); Hemoglobin 8.7 gm/dl (10.1-14.3); Lymphocytes # (Auto) 1.9 K/mm3 (1.2-5.4); Mean Corpuscular HGB Conc 35 % (30-34); Mean Corpuscular Volume 82 fl (79-97); Monocytes # (Auto) 1.1 K/mm3 (0.0-0.8); Monocytes % (Auto) 5.8 % (0.0-7.3); Platelet Count 335 K/mm3 (140-440); Red Blood Count 3.09 M/mm3 (3.65-5.03); Red Cell Distribution Width 14.7 % (13.2-15.2)
[2018-06-13 05:38] LABS: BUN/Creatinine Ratio 6; Blood Urea Nitrogen 4 mg/dL (7-17); Hemolysis Index 1
[2018-06-13] MEDS: FLAGYL 500 MG/100 ML 500 MG/100 ML BAG IV SCH ×3 (06:08→23:44)
[2018-06-13] MEDS: CEPACOL X STRENGTH MM PRN (07:43)
--- NOTE | 2018-06-13 08:23 | Progress Note ---
Assessment and Plan Cultures: Blood culture 06/09/2018 no growth today Intraperitoneal culture 06/11/2018 no growth today Assessment: 28 y/o female with history marihuana use; admitted on due to 3-day history of nausea, vomiting and abdominal pain: 1) Sepsis: fever/tachycardia resolved and leukocytosis better. CRP=14. Etiology most likely right colonic mass and perforation. 2) Right large cecal mass with perforation: of unclear etiology. Patient denies history of previous diverticulitis or inflammatory bowel disease. No history of trauma or ingestion of foreign bodies. CT abdomen showed perforated right colon approximately 6 cm superior to the ileocecal valve with trapped area of stool adjacent to the perforation measures 3.1 x 3 x 3.6 cm. Surrounding indurated fat. No jenn pneumoperitoneum. No evidence of intra-abdominal abscess or fistula. Among infectious diseases causes of right sided colonic perforation are typhoid (no history of diarrhea), schistosomiasis (no recent travels to tropical areas), CMV. Other non ID etiologies: malignancy, connective tissue disease, vasculitis. S/p exlap on 06/12/2018 found to have a very large cecal mass. Recommendations: - follow-up path and intraperitoneal culture - follow-up CARLOS MANUEL with reflex, C3, C4, ANCA - follow-up HIV and CMV DNA PCR - continue ceftriaxone and flagyl D4 - continue fluconazole IV D3 Will follow. Zahra Fowler MD Infectious Diseases [place] [employer] ([facility]) M [phone] O [phone] colonic [phone] Subjective Date of service: 06/13/18 Principal diagnosis: colonic perf Interval history: Feels much better, abdominal pain is better, no fever for 48 h ROS: denies N/V/D. Objective - Exam Narrative Exam: General appearance: Alert in NAD, conversant Eyes: anicteric sclerae, moist conjunctivae; no lid-lag; PERRLA HENT: Atraumatic; oropharynx clear with moist mucous membranes and no mucosal ulcerations/no oral thrush; normal hard and soft palate. Normal external ears. Neck: Trachea midline; supple, no thyromegaly or lymphadenopathy Lungs: CTA CV: tachy Abdomen: Soft,midline wound with surg dressings Extremities: No peripheral edema or extremity lymphadenopathy Skin: Normal temperature, turgor and texture; no rash, ulcers or subcutaneous nodules Psych: Appropriate affect, alert and oriented to person, place and time. Neuro: alert and oriented x 3. Moving all extermities - Constitutional Vitals: Vital Signs Temp Pulse Resp BP Pulse Ox 98.1 F 72 17 141/92 98 06/13/18 04:00 06/13/18 05:00 06/13/18 05:00 06/13/18 05:00 06/13/18 05:00 Temperature -Last 24 Hours Temperature 98.1 F Temperature 98.2 F Temperature 98.7 F Temperature 98.2 F Temperature 98.6 F - Labs CBC & Chem 7: 06/13/18 04:47 06/13/18 04:47 Labs: Abnormal lab results 06/12/18 06/13/18 06/13/18 Range/Units 12:04 04:47 04:47 WBC 18.9 H (4.5-11.0) K/mm3 RBC 3.09 L (3.65-5.03) M/mm3 Hgb 8.7 L (10.1-14.3) gm/dl Hct 25.2 L (30.3-42.9) % MCHC 35 H (30-34) % Lymph % (Auto) 10.0 L (13.4-35.0) % [place] # 1.1 H (0.0-0.8) K/mm3 Seg Neutrophils % 84.1 H (40.0-70.0) % Seg Neutrophils # 15.9 H (1.8-7.7) K/mm3 Potassium 3.5 L (3.6-5.0) mmol/L BUN 4 L (7-17) mg/dL Glucose 104 H (65-100) mg/dL POC Glucose 136 H (70-105) Calcium 8.0 L (8.4-10.2) mg/dL
[2018-06-13] MEDS ORDERED: NACL 0.9% 500 ML 500 ML IV ONE ×2 (08:38→12:00)
--- NOTE | 2018-06-13 08:50 | Progress Note ---
Assessment and Plan POD # 2 Pt feeling better. less pain. Abd soft. dressings dry. neg BS stable lowering h/h transfuse I unit prbc today may transfer to surgical floor d/c aris davis c&s before d/c ambulate with PT as dominguez awaiting path report Selected Entries 06/13/18 06/13/18 04:00 05:00 Temperature 98.1 F Pulse Rate 72 Respiratory 17 Rate Blood Pressure 141/92 Laboratory Tests 06/12/18 06/13/18 06/13/18 05:41 04:47 04:47 WBC 21.5 H 18.9 H Hgb 9.8 L 8.7 L Hct 28.6 L 25.2 L Sodium 142 Potassium 3.5 L Chloride 106.7 Carbon Dioxide 26 Anion Gap 13 BUN 4 L Creatinine 0.7 Objective Vital Signs - 12hr 06/12/18 06/12/18 06/12/18 21:00 22:00 23:00 Temperature Pulse Rate 92 H 94 H 81 Respiratory 14 15 13 Rate Blood Pressure 123/79 126/81 121/83 O2 Sat by Pulse 99 99 99 Oximetry 06/13/18 06/13/18 06/13/18 00:00 00:01 01:00 Temperature 98.2 F Pulse Rate 81 75 Respiratory 14 14 Rate Blood Pressure 129/87 139/94 O2 Sat by Pulse 96 98 Oximetry 06/13/18 06/13/18 06/13/18 02:00 03:00 04:00 Temperature 98.1 F Pulse Rate 72 75 66 Respiratory 16 13 13 Rate Blood Pressure 135/96 111/80 117/78 O2 Sat by Pulse 98 97 97 Oximetry 06/13/18 05:00 Temperature Pulse Rate 72 Respiratory 17 Rate Blood Pressure 141/92 O2 Sat by Pulse 98 Oximetry - Labs 06/13/18 04:47 06/13/18 04:47 Diabetes panel 06/13/18 Range/Units 04:47 Sodium 142 (137-145) mmol/L Potassium 3.5 L (3.6-5.0) mmol/L Chloride 106.7 (98-107) mmol/L Carbon Dioxide 26 (22-30) mmol/L BUN 4 L (7-17) mg/dL Creatinine 0.7 (0.7-1.2) mg/dL Glucose 104 H (65-100) mg/dL Calcium 8.0 L (8.4-10.2) mg/dL Calcium panel 06/13/18 Range/Units 04:47 Calcium 8.0 L (8.4-10.2) mg/dL Pituitary panel 06/13/18 Range/Units 04:47 Sodium 142 (137-145) mmol/L Potassium 3.5 L (3.6-5.0) mmol/L Chloride 106.7 (98-107) mmol/L Carbon Dioxide 26 (22-30) mmol/L BUN 4 L (7-17) mg/dL Creatinine 0.7 (0.7-1.2) mg/dL Glucose 104 H (65-100) mg/dL Calcium 8.0 L (8.4-10.2) mg/dL Adrenal panel 06/13/18 Range/Units 04:47 Sodium 142 (137-145) mmol/L Potassium 3.5 L (3.6-5.0) mmol/L Chloride 106.7 (98-107) mmol/L Carbon Dioxide 26 (22-30) mmol/L BUN 4 L (7-17) mg/dL Creatinine 0.7 (0.7-1.2) mg/dL Glucose 104 H (65-100) mg/dL Calcium 8.0 L (8.4-10.2) mg/dL
--- NOTE | 2018-06-13 08:57 | Progress Note ---
Assessment and Plan Sepsis Acute abdomen with right colonic micro-perforation. Ceacal mass Leukocytosis. Abdominal pain. Sickle cell trait Mild metabolic acidosis at presentation. Hyponatremia, present on arrival. Hypokalemia, present on arrival. Abnormal urinalysis. Discontinue hurst catheter PT/OT/OOB to chair Incentive spirometry Follow peritoneal cultures and path on cecal mass -replete electrolytes as indicated -Nutritional consult,may need parenteral nutrition -continue prn supplemental oxygen to keep sat's > 90% -continue NGT to LIS and keep NPO - continue antibiotics per ID recommendations -Agree with evaluation for collagen vascular disease, and malignancy - continue prn analgesia - continue IVF - continue VTE prophylaxis lovenox Subjective Date of service: 06/13/18 Principal diagnosis: colonic perf Interval history: Patient is seen today for: Acute abdomen with right colonic perforation; S ystemic inflammatory response syndrome; Leukocytosis; Abdominal pain; Mild metabolic acidosis at presentation. Seen and examined at bedside; 24hour events reviewed; nursing and respiratory care staff consulted; no adverse overnight events reported to me;lying peacefully in bed, some abdominal pain, NGT to LIS, hurst catheter in place No fevers , no nausea or vomiting Objective Vital Signs - 12hr 06/12/18 06/12/18 06/12/18 21:00 22:00 23:00 Temperature Pulse Rate 92 H 94 H 81 Respiratory 14 15 13 Rate Blood Pressure 123/79 126/81 121/83 O2 Sat by Pulse 99 99 99 Oximetry 06/13/18 06/13/18 06/13/18 00:00 00:01 01:00 Temperature 98.2 F Pulse Rate 81 75 Respiratory 14 14 Rate Blood Pressure 129/87 139/94 O2 Sat by Pulse 96 98 Oximetry 06/13/18 06/13/18 06/13/18 02:00 03:00 04:00 Temperature 98.1 F Pulse Rate 72 75 66 Respiratory 16 13 13 Rate Blood Pressure 135/96 111/80 117/78 O2 Sat by Pulse 98 97 97 Oximetry 06/13/18 06/13/18 06/13/18 05:00 06:00 07:00 Temperature Pulse Rate 72 67 66 Respiratory 17 14 16 Rate Blood Pressure 141/92 141/92 133/88 O2 Sat by Pulse 98 98 98 Oximetry 06/13/18 08:00 Temperature Pulse Rate 75 Respiratory 12 Rate Blood Pressure 131/84 O2 Sat by Pulse 97 Oximetry Constitutional: alert, appears uncomfortable, other (young AAF lying in bed in no distress) Eyes: non-icteric ENT: oropharynx dry, other (NGT to LIS) Neck: supple, no lymphadenopathy, no JVD, other (no thyromegaly) Effort: mildly labored Ascultation: Bilateral: clear Percussion: Bilateral: not dull Cardiovascular: regular rate and rhythm Gastrointestinal: hypoactive bowel sounds, soft, tender (moderate), other (distended, clean dry dresing, hurst catheter) Integumentary: normal Extremities: no cyanosis, no edema, pulses normal, no ischemia or petechiae Neurologic: normal mental status, non-focal exam, pupils equal and round, CN II- XII normal, motor strength normal and Psychiatric: mood appropriate, anxious CBC and BMP: 06/13/18 04:47 06/13/18 04:47 ABG, PT/INR, D-dimer: PT/INR, D-dimer PT 19.7 Sec. (12.2-14.9) H 06/11/18 10:41 INR 1.56 (0.87-1.13) H 06/11/18 10:41 Abnormal lab findings: Abnormal Labs 06/09/18 06/09/18 06/09/18 01:41 01:41 04:41 WBC 19.5 H RBC Hgb Hct MCHC 35 H Lymph % (Auto) 8.1 L [place] # Seg Neutrophils % 87.4 H Seg Neuts % (Manual) Lymphocytes % (Manual) Seg Neutrophils # 17.0 H Seg Neutrophils # Man Lymphocytes # (Manual) PT INR VBG pH Sodium 135 L Potassium 3.4 L Chloride 96.7 L Carbon Dioxide 17 L BUN Creatinine Glucose POC Glucose Calcium ALT C-Reactive Protein Total Protein 8.8 H Albumin Ur Specific Oneco 1.040 H Urine WBC (Auto) 9.0 H Crossmatch 06/09/18 06/10/18 06/10/18 08:48 03:49 03:49 WBC 16.9 H RBC Hgb Hct 29.6 L D MCHC 35 H Lymph % (Auto) 9.9 L [place] # Seg Neutrophils % 85.0 H Seg Neuts % (Manual) Lymphocytes % (Manual) Seg Neutrophils # 14.4 H Seg Neutrophils # Man Lymphocytes # (Manual) PT INR VBG pH 7.318 L Sodium Potassium 3.2 L Chloride 108.9 H Carbon Dioxide BUN 2 L Creatinine Glucose 127 H POC Glucose Calcium 8.0 L D ALT C-Reactive Protein Total Protein Albumin Ur Specific Oneco Urine WBC (Auto) Crossmatch 06/10/18 06/10/18 06/10/18 03:49 09:35 12:33 WBC 21.2 H RBC Hgb Hct 29.4 L MCHC 35 H Lymph % (Auto) [place] # Seg Neutrophils % Seg Neuts % (Manual) 92.0 H Lymphocytes % (Manual) 4.0 L Seg Neutrophils # Seg Neutrophils # Man 19.5 H Lymphocytes # (Manual) 0.8 L PT INR VBG pH Sodium Potassium Chloride Carbon Dioxide BUN Creatinine Glucose POC Glucose 141 H Calcium ALT C-Reactive Protein 14.90 H Total Protein Albumin Ur Specific Oneco Urine WBC (Auto) Crossmatch 06/10/18 06/11/18 06/11/18 23:30 04:44 04:44 WBC 22.8 H RBC 3.62 L Hgb 10.0 L Hct 29.2 L MCHC Lymph % (Auto) [place] # Seg Neutrophils % Seg Neuts % (Manual) 97.0 H Lymphocytes % (Manual) 2.0 L Seg Neutrophils # Seg Neutrophils # Man 22.1 H Lymphocytes # (Manual) 0.5 L PT INR VBG pH Sodium Potassium 3.2 L Chloride 108.3 H Carbon Dioxide 21 L BUN < 1 L Creatinine 0.6 L Glucose 128 H POC Glucose 106 H Calcium ALT 6 L C-Reactive Protein Total Protein Albumin 2.8 L Ur Specific Oneco Urine WBC (Auto) Crossmatch 06/11/18 06/11/18 06/11/18 10:41 10:41 17:54 WBC RBC Hgb Hct MCHC Lymph % (Auto) [place] # Seg Neutrophils % Seg Neuts % (Manual) Lymphocytes % (Manual) Seg Neutrophils # Seg Neutrophils # Man Lymphocytes # (Manual) PT 19.7 H INR 1.56 H VBG pH Sodium Potassium Chloride Carbon Dioxide BUN Creatinine Glucose POC Glucose 151 H Calcium ALT C-Reactive Protein Total Protein Albumin Ur Specific Oneco Urine WBC (Auto) Crossmatch See Detail 06/11/18 06/12/18 06/12/18 23:43 05:27 05:41 WBC 21.5 H RBC 3.50 L Hgb 9.8 L Hct 28.6 L MCHC Lymph % (Auto) [place] # Seg Neutrophils % Seg Neuts % (Manual) 92.0 H Lymphocytes % (Manual) 4.0 L Seg Neutrophils # Seg Neutrophils # Man 19.8 H Lymphocytes # (Manual) 0.9 L PT INR VBG pH Sodium Potassium Chloride Carbon Dioxide BUN Creatinine Glucose POC Glucose 168 H 160 H Calcium ALT C-Reactive Protein Total Protein Albumin Ur Specific Oneco Urine WBC (Auto) Crossmatch 06/12/18 06/12/18 06/13/18 05:41 12:04 04:47 WBC 18.9 H RBC 3.09 L Hgb 8.7 L Hct 25.2 L MCHC 35 H Lymph % (Auto) 10.0 L [place] # 1.1 H Seg Neutrophils % 84.1 H Seg Neuts % (Manual) Lymphocytes % (Manual) Seg Neutrophils # 15.9 H Seg Neutrophils # Man Lymphocytes # (Manual) PT INR VBG pH Sodium Potassium 3.5 L Chloride Carbon Dioxide BUN 3 L Creatinine 0.5 L Glucose 159 H POC Glucose 136 H Calcium 7.9 L ALT C-Reactive Protein Total Protein Albumin Ur Specific Oneco Urine WBC (Auto) Crossmatch 06/13/18 04:47 WBC RBC Hgb Hct MCHC Lymph % (Auto) [place] # Seg Neutrophils % Seg Neuts % (Manual) Lymphocytes % (Manual) Seg Neutrophils # Seg Neutrophils # Man Lymphocytes # (Manual) PT INR VBG pH Sodium Potassium 3.5 L Chloride Carbon Dioxide BUN 4 L Creatinine Glucose 104 H POC Glucose Calcium 8.0 L ALT C-Reactive Protein Total Protein Albumin Ur Specific Oneco Urine WBC (Auto) Crossmatch Allied health notes reviewed: nursing
[2018-06-13] MEDS: DIFLUCAN 200 ML IV SCH (11:04)
[2018-06-13] MEDS: PEPCID IV SCH ×2 (11:04→21:51)
[2018-06-13] MEDS: ROCEPHIN/NS 2 GM/100 ML 2 GM/100 ML BAG IV SCH (11:04)
[2018-06-13 12:15] LABS: Bilirubin,Urine NEG (Negative); Blood,Urine SM (Negative); Color,Urine Yellow (Yellow); Mucus,Urine FEW /HPF; Protein,Urine <15 mg/dL mg/dL (Negative); Urobilinogen,Urine < 2.0 mg/dL (<2.0)
--- NOTE | 2018-06-13 14:09 | Progress Note ---
Assessment and Plan Microperforation of the right colon Hypokalemia, likely due to GI loss Sepsis, due to organ perforation Sickle cell trait DVT Px - transfer to IMCU, keep NPO - consulted GS initially recommended medical Mx, cont iv abx, cont iv fluid - but has more pain tenderness and distension today - s/p OR for exploratory laparotomy on 06/11/18 - consulted ID for abx recommendation - cont to replete Kcl, follow blood cx - monitor CBC, BMP - lovenox for DVT Px - transfer to surgical unit today Radiological data: CT abdomen/pelvis; Right colonic perforation with trapped area of stool measuring 3.6 x 3.1 x 3 cm. Abscess formation at this location is expected. No jenn pneumoperitoneum. No other focal abnormalities within the gastrointestinal tract are identified. Consider underlying immunocompromised state or inflammatory bowel disease as potential etiologies. Brief History: Ms. Alonso is a 28 years old female with no significant past medical history presented to the emergency room with 3 day history of nausea vomiting and RLQ intense abdominal pain. Patient found to have a white blood cells of 20,000 and significant abdominal tenderness. Her CT abdomen and pelvis with IV contrast showed a right colon perforation. Patient was given Zosyn in the ER. Consulted Dr. Handley, surgeon in the ER. Patient is being admitted for further evaluation and management. Subjective Date of service: 06/13/18 Principal diagnosis: colonic perf Interval history: Patient seen and examined improved abdominal pain and nausea no acute issue o/n Objective - Exam Narrative Exam: General appearance: Present: mild distress - EENT Eyes: Present: PERRL ENT: hearing intact, clear oral mucosa - Neck Neck: Present: supple, normal ROM - Respiratory Respiratory effort: normal Respiratory: bilateral: CTA - Cardiovascular Heart Sounds: Present: S1 & S2. Absent: rub, click - Extremities Extremities: pulses symmetrical, No edema Peripheral Pulses: within normal limits - Abdominal General gastrointestinal: Present: tender, (diminished BS), surgical dressing on abdomen Localized gastrointestinal: guarding: RUQ - Integumentary Integumentary: Present: clear, warm, dry - Musculoskeletal Musculoskeletal: gait normal, strength equal bilaterally - Psychiatric Psychiatric: appropriate mood/affect, intact judgment & insight - Neurologic Neurologic: CNII-XII intact, moves all extremities - Constitutional Vitals: Vital Signs - 12hr 06/13/18 06/13/18 06/13/18 03:00 04:00 05:00 Temperature 98.1 F Pulse Rate 75 66 72 Respiratory 13 13 17 Rate Blood Pressure 111/80 117/78 141/92 O2 Sat by Pulse 97 97 98 Oximetry 06/13/18 06/13/18 06/13/18 06:00 07:00 08:00 Temperature 97.6 F Pulse Rate 67 66 75 Respiratory 14 16 12 Rate Blood Pressure 141/92 133/88 131/84 O2 Sat by Pulse 98 98 97 Oximetry 06/13/18 06/13/18 06/13/18 08:56 09:00 10:00 Temperature Pulse Rate 73 72 Respiratory 15 12 Rate Blood Pressure 143/88 146/94 O2 Sat by Pulse 100 100 100 Oximetry 06/13/18 06/13/18 06/13/18 11:00 12:00 12:31 Temperature 97.7 F 97.7 F Pulse Rate 66 71 79 Respiratory 14 11 L 12 Rate Blood Pressure 158/92 149/93 139/92 O2 Sat by Pulse 99 100 100 Oximetry 06/13/18 06/13/18 06/13/18 12:45 12:46 13:00 Temperature 97.8 F Pulse Rate 75 81 Respiratory 13 12 13 Rate Blood Pressure 156/103 151/107 O2 Sat by Pulse 98 99 Oximetry 06/13/18 06/13/18 06/13/18 13:16 13:33 13:46 Temperature 98.1 F 97.8 F Pulse Rate 96 H 72 98 H Respiratory 17 21 Rate Blood Pressure 160/104 161/104 142/102 O2 Sat by Pulse 99 98 Oximetry - Labs CBC & Chem 7: 06/13/18 04:47 06/13/18 04:47 Labs: Abnormal lab results 06/11/18 06/13/18 06/13/18 Range/Units 10:41 04:47 04:47 WBC 18.9 H (4.5-11.0) K/mm3 RBC 3.09 L (3.65-5.03) M/mm3 Hgb 8.7 L (10.1-14.3) gm/dl Hct 25.2 L (30.3-42.9) % MCHC 35 H (30-34) % Lymph % (Auto) 10.0 L (13.4-35.0) % [place] # 1.1 H (0.0-0.8) K/mm3 Seg Neutrophils % 84.1 H (40.0-70.0) % Seg Neutrophils # 15.9 H (1.8-7.7) K/mm3 Potassium 3.5 L (3.6-5.0) mmol/L BUN 4 L (7-17) mg/dL Glucose 104 H (65-100) mg/dL Calcium 8.0 L (8.4-10.2) mg/dL Crossmatch See Detail
[2018-06-13] MEDS: ZOFRAN IV PRN (15:54)
[2018-06-13] MEDS ORDERED: TPN ADULT 2,400 ML IV SCH (20:00)
[2018-06-13] MEDS: LOVENOX SUB-Q SCH (21:50)
[2018-06-14] MEDS: DILAUDID IV PRN ×6 (03:13→21:37)
--- NOTE | 2018-06-14 03:28 | XRay Report ---
PROCEDURE: XR ABDOMEN 1V AP TECHNIQUE: A portable upright view of the abdomen was obtained. HISTORY: tube placement COMPARISONS: CT scan abdomen and pelvis 06/09/2018 FINDINGS: The NG tube is in good position in the upper stomach. The bowel gas pattern is unremarkable. There ar e skin estuardo noted. The lung bases are clear. IMPRESSION: Satisfactory placement of NG tube. Unremarkable postoperative bowel gas pattern.. This document is electronically signed by Tang Bearden MD., June 14 2018 03:26:31 AM ET
[2018-06-14] MEDS: FLAGYL 500 MG/100 ML 500 MG/100 ML BAG IV SCH ×3 (06:11→23:02)
[2018-06-14 06:33] LABS: Basophils % (Auto) 0.3 % (0.0-1.8); Eosinophils # (Auto) 0.1 K/mm3 (0.0-0.4); Eosinophils % (Auto) 0.4 % (0.0-4.3); Hematocrit 30.8 % (30.3-42.9); Hemoglobin 10.8 gm/dl (10.1-14.3); Lymphocytes # (Auto) 3.9 K/mm3 (1.2-5.4); Mean Corpuscular HGB Conc 35 % (30-34); Mean Corpuscular Volume 80 fl (79-97); Monocytes # (Auto) 1.3 K/mm3 (0.0-0.8); Monocytes % (Auto) 9.9 % (0.0-7.3); Platelet Count 372 K/mm3 (140-440); Red Blood Count 3.87 M/mm3 (3.65-5.03); Red Cell Distribution Width 14.9 % (13.2-15.2)
[2018-06-14 07:01] LABS: BUN/Creatinine Ratio 8; Blood Urea Nitrogen 5 mg/dL (7-17); Calcium 8.3 mg/dL (8.4-10.2); Hemolysis Index 5
[2018-06-14] MEDS: ZOFRAN IV PRN (09:20)
[2018-06-14] MEDS: PEPCID IV SCH ×2 (09:22→21:59)
--- NOTE | 2018-06-14 11:16 | Progress Note ---
Assessment and Plan Microperforation of the right colon Right Cecal Mass Hypokalemia, likely due to GI loss Sepsis, due to organ perforation Sickle cell trait DVT Px - keep NPO - cont iv abx, cont iv fluid/TPN - s/p OR for exploratory laparotomy on 06/11/18 with right hemicolectomy and cecal mass removal - consulted ID for abx recommendation - cont to replete Kcl, follow blood cx - monitor CBC, BMP - lovenox for DVT Px - transfer to surgical unit today Radiological data: CT abdomen/pelvis; Right colonic perforation with trapped area of stool measuring 3.6 x 3.1 x 3 cm. Abscess formation at this location is expected. No jenn pneumoperitoneum. No other focal abnormalities within the gastrointestinal tract are identified. Consider underlying immunocompromised state or inflammatory bowel disease as potential etiologies. Brief History: Ms. Alonso is a 28 years old female with no significant past medical history presented to the emergency room with 3 day history of nausea vomiting and RLQ intense abdominal pain. Patient found to have a white blood cells of 20,000 and significant abdominal tenderness. Her CT abdomen and pelvis with IV contrast showed a right colon perforation. Patient was given Zosyn in the ER. Consulted Dr. Handley, surgeon in the ER. Patient was admitted for further evaluation and management. Subjective Date of service: 06/14/18 Principal diagnosis: colonic perf Interval history: Patient seen and examined improved abdominal pain and nausea no acute issue o/n , started on TPN Objective - Exam Narrative Exam: General appearance: Present: mild distress - EENT Eyes: Present: PERRL ENT: hearing intact, clear oral mucosa - Neck Neck: Present: supple, normal ROM - Respiratory Respiratory effort: normal Respiratory: bilateral: CTA - Cardiovascular Heart Sounds: Present: S1 & S2. Absent: rub, click - Extremities Extremities: pulses symmetrical, No edema Peripheral Pulses: within normal limits - Abdominal General gastrointestinal: Present: tender, (diminished BS), surgical dressing on abdomen Localized gastrointestinal: guarding: RUQ - Integumentary Integumentary: Present: clear, warm, dry - Musculoskeletal Musculoskeletal: gait normal, strength equal bilaterally - Psychiatric Psychiatric: appropriate mood/affect, intact judgment & insight - Neurologic Neurologic: CNII-XII intact, moves all extremities - Constitutional Vitals: Vital Signs - 12hr 04/26/19 04/26/19 04/26/19 00:35 04:00 04:51 Temperature 97.4 F L 97.4 F L 97.7 F Pulse Rate [ 114 H 114 H 110 H Left] Respiratory 17 17 18 Rate Blood Pressure 140/94 140/94 137/93 O2 Sat by Pulse 98 98 97 Oximetry 06/14/18 06/14/18 07:20 08:43 Temperature 97.5 F L Pulse Rate [ 80 Left] Respiratory 20 Rate Blood Pressure 137/90 O2 Sat by Pulse 97 99 Oximetry - Labs CBC & Chem 7: 06/14/18 06:18 06/14/18 06:18 Labs: Abnormal lab results 06/11/18 06/11/18 06/14/18 Range/Units 08:27 10:41 06:18 WBC 13.5 H (4.5-11.0) K/mm3 MCHC 35 H (30-34) % [place] % (Auto) 9.9 H (0.0-7.3) % [place] # 1.3 H (0.0-0.8) K/mm3 Seg Neutrophils # 8.1 H (1.8-7.7) K/mm3 Potassium (3.6-5.0) mmol/L BUN (7-17) mg/dL Creatinine (0.7-1.2) mg/dL Calcium (8.4-10.2) mg/dL Miscellaneous Test Flexitest 1 H Crossmatch See Detail 06/14/18 Range/Units 06:18 WBC (4.5-11.0) K/mm3 MCHC (30-34) % [place] % (Auto) (0.0-7.3) % [place] # (0.0-0.8) K/mm3 Seg Neutrophils # (1.8-7.7) K/mm3 Potassium 3.2 L (3.6-5.0) mmol/L BUN 5 L (7-17) mg/dL Creatinine 0.6 L (0.7-1.2) mg/dL Calcium 8.3 L (8.4-10.2) mg/dL Miscellaneous Test Crossmatch
--- NOTE | 2018-06-14 11:50 | Progress Note ---
Assessment and Plan Sepsis Acute abdomen with right colonic micro-perforation. Ceacal mass Leukocytosis. Abdominal pain. Sickle cell trait Mild metabolic acidosis at presentation. Hyponatremia, present on arrival. Hypokalemia, present on arrival. Abnormal urinalysis. PT/OT/OOB to chair Incentive spirometry Follow peritoneal cultures (NGTD) and path on cecal mass( no malignancy) -I suspect she had an acute appendicitis, that ruptured and walled itself off. Nodes are also negative for any malignancy -replete electrolytes as indicated. Keep potassium at 4, for respiratory and digestive muscle function -Continue parenteral nutrition -continue prn supplemental oxygen to keep sat's > 90% -continue NGT to LIS and keep NPO - continue antibiotics per ID recommendations -Follow up on collagen vascular screening studies - continue prn analgesia - continue VTE prophylaxis lovenox Subjective Date of service: 06/14/18 Principal diagnosis: colonic perf Interval history: Patient is seen today for: Acute abdomen with right colonic perforation; Systemic inflammatory response syndrome; Leukocytosis; Abdominal pain; Mild metabolic acidosis at presentation. Seen and examined at bedside; 24hour events reviewed; nursing and respiratory care staff consulted; no adverse overnight events reported to me;lying peacefully in bed, some abdominal pain, NGT to LIS, ambulated with PT. Slept well last night. Wants to know when she can have NGT out. Nutritional support via PPN, RUExt midline line No fevers , no nausea or vomiting. Has not passed flatus or had a bowel movement Objective Vital Signs - 12hr 06/14/18 06/14/18 06/14/18 00:35 04:00 04:51 Temperature 97.4 F L 97.4 F L 97.7 F Pulse Rate [ 114 H 114 H 110 H Left] Respiratory 17 17 18 Rate Blood Pressure 140/94 140/94 137/93 O2 Sat by Pulse 98 98 97 Oximetry 06/14/18 06/14/18 07:20 08:43 Temperature 97.5 F L Pulse Rate [ 80 Left] Respiratory 20 Rate Blood Pressure 137/90 O2 Sat by Pulse 97 99 Oximetry Constitutional: alert, other (young AAF lying in bed in no distress) Eyes: non-icteric ENT: oropharynx dry, other (NGT to LIS) Neck: supple, no lymphadenopathy, no JVD, other (no thyromegaly) Effort: normal Ascultation: Bilateral: clear, diminished breath sounds (at the bases) Percussion: Bilateral: not dull Cardiovascular: regular rate and rhythm, other (S1,S2, no murmurs, gallops or rubs) Gastrointestinal: hypoactive bowel sounds, soft, tender (moderate), other (distended, clean dry dresing, hurst catheter) Integumentary: normal Extremities: no cyanosis, no edema, pulses normal, no ischemia or petechiae Neurologic: normal mental status, non-focal exam, pupils equal and round, CN II- XII normal, motor strength normal and Psychiatric: mood appropriate, affect normal CBC and BMP: 06/14/18 06:18 06/14/18 06:18 ABG, PT/INR, D-dimer: PT/INR, D-dimer PT 19.7 Sec. (12.2-14.9) H 06/11/18 10:41 INR 1.56 (0.87-1.13) H 06/11/18 10:41 Abnormal lab findings: Abnormal Labs 06/09/18 06/09/18 06/09/18 01:41 01:41 04:41 WBC 19.5 H RBC Hgb Hct MCHC 35 H Lymph % (Auto) 8.1 L [place] % (Auto) [place] # Seg Neutrophils % 87.4 H Seg Neuts % (Manual) Lymphocytes % (Manual) Seg Neutrophils # 17.0 H Seg Neutrophils # Man Lymphocytes # (Manual) PT INR VBG pH Sodium 135 L Potassium 3.4 L Chloride 96.7 L Carbon Dioxide 17 L BUN Creatinine Glucose POC Glucose Calcium ALT C-Reactive Protein Total Protein 8.8 H Albumin Ur Specific [place] 1.040 H Urine WBC (Auto) 9.0 H Miscellaneous Test Crossmatch 06/09/18 06/10/18 06/10/18 08:48 03:49 03:49 WBC 16.9 H RBC Hgb Hct 29.6 L D MCHC 35 H Lymph % (Auto) 9.9 L [place] % (Auto) [place] # Seg Neutrophils % 85.0 H Seg Neuts % (Manual) Lymphocytes % (Manual) Seg Neutrophils # 14.4 H Seg Neutrophils # Man Lymphocytes # (Manual) PT INR VBG pH 7.318 L Sodium Potassium 3.2 L Chloride 108.9 H Carbon Dioxide BUN 2 L Creatinine Glucose 127 H POC Glucose Calcium 8.0 L D ALT C-Reactive Protein Total Protein Albumin Ur Specific [place] Urine WBC (Auto) Miscellaneous Test Crossmatch 06/10/18 06/10/18 06/10/18 03:49 09:35 12:33 WBC 21.2 H RBC Hgb Hct 29.4 L MCHC 35 H Lymph % (Auto) [place] % (Auto) [place] # Seg Neutrophils % Seg Neuts % (Manual) 92.0 H Lymphocytes % (Manual) 4.0 L Seg Neutrophils # Seg Neutrophils # Man 19.5 H Lymphocytes # (Manual) 0.8 L PT INR VBG pH Sodium Potassium Chloride Carbon Dioxide BUN Creatinine Glucose POC Glucose 141 H Calcium ALT C-Reactive Protein 14.90 H Total Protein Albumin Ur Specific [place] Urine WBC (Auto) Miscellaneous Test Crossmatch 06/10/18 06/11/18 06/11/18 23:30 04:44 04:44 WBC 22.8 H RBC 3.62 L Hgb 10.0 L Hct 29.2 L MCHC Lymph % (Auto) [place] % (Auto) [place] # Seg Neutrophils % Seg Neuts % (Manual) 97.0 H Lymphocytes % (Manual) 2.0 L Seg Neutrophils # Seg Neutrophils # Man 22.1 H Lymphocytes # (Manual) 0.5 L PT INR VBG pH Sodium Potassium 3.2 L Chloride 108.3 H Carbon Dioxide 21 L BUN < 1 L Creatinine 0.6 L Glucose 128 H POC Glucose 106 H Calcium ALT 6 L C-Reactive Protein Total Protein Albumin 2.8 L Ur Specific [place] Urine WBC (Auto) Miscellaneous Test Crossmatch 06/11/18 06/11/18 06/11/18 08:27 10:41 10:41 WBC RBC Hgb Hct MCHC Lymph % (Auto) [place] % (Auto) [place] # Seg Neutrophils % Seg Neuts % (Manual) Lymphocytes % (Manual) Seg Neutrophils # Seg Neutrophils # Man Lymphocytes # (Manual) PT 19.7 H INR 1.56 H VBG pH Sodium Potassium Chloride Carbon Dioxide BUN Creatinine Glucose POC Glucose Calcium ALT C-Reactive Protein Total Protein Albumin Ur Specific [place] Urine WBC (Auto) Miscellaneous Test Flexitest 1 H Crossmatch See Detail 06/11/18 06/11/18 06/12/18 17:54 23:43 05:27 WBC RBC Hgb Hct MCHC Lymph % (Auto) [place] % (Auto) [place] # Seg Neutrophils % Seg Neuts % (Manual) Lymphocytes % (Manual) Seg Neutrophils # Seg Neutrophils # Man Lymphocytes # (Manual) PT INR VBG pH Sodium Potassium Chloride Carbon Dioxide BUN Creatinine Glucose POC Glucose 151 H 168 H 160 H Calcium ALT C-Reactive Protein Total Protein Albumin Ur Specific [place] Urine WBC (Auto) Miscellaneous Test Crossmatch 06/12/18 06/12/18 06/12/18 05:41 05:41 12:04 WBC 21.5 H RBC 3.50 L Hgb 9.8 L Hct 28.6 L MCHC Lymph % (Auto) [place] % (Auto) [place] # Seg Neutrophils % Seg Neuts % (Manual) 92.0 H Lymphocytes % (Manual) 4.0 L Seg Neutrophils # Seg Neutrophils # Man 19.8 H Lymphocytes # (Manual) 0.9 L PT INR VBG pH Sodium Potassium 3.5 L Chloride Carbon Dioxide BUN 3 L Creatinine 0.5 L Glucose 159 H POC Glucose 136 H Calcium 7.9 L ALT C-Reactive Protein Total Protein Albumin Ur Specific [place] Urine WBC (Auto) Miscellaneous Test Crossmatch 06/13/18 06/13/18 06/14/18 04:47 04:47 06:18 WBC 18.9 H 13.5 H RBC 3.09 L Hgb 8.7 L Hct 25.2 L MCHC 35 H 35 H Lymph % (Auto) 10.0 L [place] % (Auto) 9.9 H [place] # 1.1 H 1.3 H Seg Neutrophils % 84.1 H Seg Neuts % (Manual) Lymphocytes % (Manual) Seg Neutrophils # 15.9 H 8.1 H Seg Neutrophils # Man Lymphocytes # (Manual) PT INR VBG pH Sodium Potassium 3.5 L Chloride Carbon Dioxide BUN 4 L Creatinine Glucose 104 H POC Glucose Calcium 8.0 L ALT C-Reactive Protein Total Protein Albumin Ur Specific [place] Urine WBC (Auto) Miscellaneous Test Crossmatch 06/14/18 06:18 WBC RBC Hgb Hct MCHC Lymph % (Auto) [place] % (Auto) [place] # Seg Neutrophils % Seg Neuts % (Manual) Lymphocytes % (Manual) Seg Neutrophils # Seg Neutrophils # Man Lymphocytes # (Manual) PT INR VBG pH Sodium Potassium 3.2 L Chloride Carbon Dioxide BUN 5 L Creatinine 0.6 L Glucose POC Glucose Calcium 8.3 L ALT C-Reactive Protein Total Protein Albumin Ur Specific [place] Urine WBC (Auto) Miscellaneous Test Crossmatch Allied health notes reviewed: nursing
[2018-06-14] MEDS: ROCEPHIN/NS 2 GM/100 ML 2 GM/100 ML BAG IV SCH (12:28)
[2018-06-14] MEDS: KCL 10MEQ/100ML 10 MEQ/100 ML BAG IV SCH ×3 (13:51→15:58)
[2018-06-14] MEDS: CEPACOL X STRENGTH MM PRN ×2 (14:58→21:59)
--- NOTE | 2018-06-14 18:59 | Progress Note ---
Assessment and Plan Cultures: Blood culture 06/09/2018 no growth today Intraperitoneal culture 06/11/2018 no growth today Assessment: 28 y/o female with history marihuana use; admitted on due to 3-day history of nausea, vomiting and abdominal pain: 1) Sepsis: fever/tachycardia resolved and leukocytosis better. CRP=14. Etiology most likely right colonic mass and perforation. 2) Right large cecal mass with perforation: of unclear etiology. Patient denies history of previous diverticulitis or inflammatory bowel disease. No history of trauma or ingestion of foreign bodies. CT abdomen showed perforated right colon approximately 6 cm superior to the ileocecal valve with trapped area of stool adjacent to the perforation measures 3.1 x 3 x 3.6 cm. Surrounding indurated fat. No jenn pneumoperitoneum. No evidence of intra-abdominal abscess or fistula. Among infectious diseases causes of right sided colonic perforation are typhoid (no history of diarrhea), schistosomiasis (no recent travels to tropical areas), CMV. Other non ID etiologies: malignancy, connective tissue disease, vasculitis. S/p exlap on 06/12/2018 found to have a very large cecal mass. Recommendations: - follow-up intraperitoneal culture - follow-up CARLOS MANUEL with reflex, C3, C4, ANCA - follow-up HIV and CMV DNA PCR - continue ceftriaxone and flagyl D5 - continue fluconazole IV D4 Will follow. Zahra Fowler MD Infectious Diseases Latent Fingerprint Examiner [facility] M [phone] O [phone] colonic [phone] Subjective Date of service: 06/14/18 Principal diagnosis: colonic perf Interval history: Feels much better, some dysuria after hurst removed abdominal pain is better, no fever ROS: denies N/V/D. Objective - Exam Narrative Exam: General appearance: Alert in NAD, conversant Eyes: anicteric sclerae, moist conjunctivae; no lid-lag; PERRLA HENT: Atraumatic; oropharynx clear with moist mucous membranes and no mucosal ulcerations/no oral thrush; normal hard and soft palate. Normal external ears. Neck: Trachea midline; supple, no thyromegaly or lymphadenopathy Lungs: CTA CV: tachy Abdomen: Soft,midline wound with surg dressings Extremities: No peripheral edema or extremity lymphadenopathy Skin: Normal temperature, turgor and texture; no rash, ulcers or subcutaneous nodules Psych: Appropriate affect, alert and oriented to person, place and time. Neuro: alert and oriented x 3. Moving all extermities - Constitutional Vitals: Vital Signs Temp Pulse Resp BP Pulse Ox 98.3 F 81 18 131/87 97 06/14/18 15:50 06/14/18 15:50 06/14/18 15:50 06/14/18 15:50 06/14/18 15:50 Temperature -Last 24 Hours Temperature 98.3 F Temperature 98.1 F Temperature 97.5 F Temperature 97.7 F Temperature 97.4 F Temperature 97.4 F Temperature 99 F - Labs CBC & Chem 7: 06/14/18 06:18 06/14/18 06:18 Labs: Abnormal lab results 06/14/18 06/14/18 Range/Units 06:18 06:18 WBC 13.5 H (4.5-11.0) K/mm3 MCHC 35 H (30-34) % [place] % (Auto) 9.9 H (0.0-7.3) % [place] # 1.3 H (0.0-0.8) K/mm3 Seg Neutrophils # 8.1 H (1.8-7.7) K/mm3 Potassium 3.2 L (3.6-5.0) mmol/L BUN 5 L (7-17) mg/dL Creatinine 0.6 L (0.7-1.2) mg/dL Calcium 8.3 L (8.4-10.2) mg/dL
[2018-06-14] MEDS ORDERED: TPN ADULT 2,400 ML IV SCH (20:00)
--- NOTE | 2018-06-14 21:40 | Progress Note ---
Assessment and Plan POD # 3 Pt feeling better. less pain. neg flatus NG 250 cc/24 hrs Abd soft. dressings dry stable path - benign perforation. no malignancy noted. Great news! clinically stable ambulation supplement K continue present care Selected Entries 06/14/18 15:50 Temperature 98.3 F Pulse Rate [ 81 Left] Respiratory 18 Rate Blood Pressure 131/87 Laboratory Tests 06/13/18 06/14/18 06/14/18 04:47 06:18 06:18 WBC 13.5 H Hgb 8.7 L 10.8 Hct 25.2 L 30.8 Potassium 3.2 L Objective Vital Signs - 12hr 06/14/18 06/14/18 06/14/18 12:10 15:29 15:50 Temperature 98.1 F 98.3 F Pulse Rate [ 88 81 Left] Respiratory 24 18 18 Rate Blood Pressure 141/98 131/87 O2 Sat by Pulse 97 Oximetry - Labs 06/14/18 06:18 06/14/18 06:18 Diabetes panel 06/14/18 Range/Units 06:18 Sodium 142 (137-145) mmol/L Potassium 3.2 L (3.6-5.0) mmol/L Chloride 102.1 (98-107) mmol/L Carbon Dioxide 28 (22-30) mmol/L BUN 5 L (7-17) mg/dL Creatinine 0.6 L (0.7-1.2) mg/dL Glucose 90 (65-100) mg/dL Calcium 8.3 L (8.4-10.2) mg/dL Calcium panel 06/14/18 Range/Units 06:18 Calcium 8.3 L (8.4-10.2) mg/dL Phosphorus 3.70 (2.5-4.5) mg/dL Pituitary panel 06/14/18 Range/Units 06:18 Sodium 142 (137-145) mmol/L Potassium 3.2 L (3.6-5.0) mmol/L Chloride 102.1 (98-107) mmol/L Carbon Dioxide 28 (22-30) mmol/L BUN 5 L (7-17) mg/dL Creatinine 0.6 L (0.7-1.2) mg/dL Glucose 90 (65-100) mg/dL Calcium 8.3 L (8.4-10.2) mg/dL Adrenal panel 06/14/18 Range/Units 06:18 Sodium 142 (137-145) mmol/L Potassium 3.2 L (3.6-5.0) mmol/L Chloride 102.1 (98-107) mmol/L Carbon Dioxide 28 (22-30) mmol/L BUN 5 L (7-17) mg/dL Creatinine 0.6 L (0.7-1.2) mg/dL Glucose 90 (65-100) mg/dL Calcium 8.3 L (8.4-10.2) mg/dL
[2018-06-14] MEDS: DIFLUCAN 200 ML IV SCH (21:52)
[2018-06-14] MEDS: LOVENOX SUB-Q SCH (21:55)
[2018-06-15] MEDS: DILAUDID IV PRN ×7 (00:48→22:49)
[2018-06-15 04:49] LABS: Basophils # (Auto) 0.1 K/mm3 (0.0-0.1); Basophils % (Auto) 0.7 % (0.0-1.8); Eosinophils # (Auto) 0.1 K/mm3 (0.0-0.4); Hematocrit 34.2 % (30.3-42.9); Hemoglobin 11.7 gm/dl (10.1-14.3); Lymphocytes # (Auto) 3.2 K/mm3 (1.2-5.4); Lymphocytes % (Auto) 24.1 % (13.4-35.0); Mean Corpuscular HGB Conc 34 % (30-34); Mean Corpuscular Volume 81 fl (79-97); Monocytes % (Auto) 7.2 % (0.0-7.3); Platelet Count 455 K/mm3 (140-440); Red Blood Count 4.25 M/mm3 (3.65-5.03); Red Cell Distribution Width 14.6 % (13.2-15.2)
[2018-06-15 05:07] LABS: BUN/Creatinine Ratio 14; Blood Urea Nitrogen 7 mg/dL (7-17); Calcium 8.8 mg/dL (8.4-10.2); Hemolysis Index 2
[2018-06-15] MEDS: ZOFRAN IV PRN ×2 (06:06→20:46)
[2018-06-15] MEDS: FLAGYL 500 MG/100 ML 500 MG/100 ML BAG IV SCH ×3 (06:20→21:03)
[2018-06-15] MEDS: CEPACOL X STRENGTH MM PRN ×2 (09:18→20:23)
[2018-06-15] MEDS: ROCEPHIN/NS 2 GM/100 ML 2 GM/100 ML BAG IV SCH (09:20)
[2018-06-15] MEDS: PEPCID IV SCH ×2 (09:32→21:00)
[2018-06-15] MEDS: DIFLUCAN 200 ML IV SCH (11:16)
--- NOTE | 2018-06-15 12:51 | Progress Note ---
Assessment and Plan Acute abdomen with right colonic micro-perforation. Systemic inflammatory response syndrome. Leukocytosis. Abdominal pain. Sickle cell trait Mild metabolic acidosis at presentation. Hyponatremia, present on arrival. Hypokalemia, present on arrival. Abnormal urinalysis. - PT/OT/OOB to chair / increase ambulation as tolerated - Incentive spirometry - cecal mass pathology negative for malignancy - continue prn supplemental oxygen to keep sat's > 90% - continue NGT to LIS and keep NPO - continue prn analgesia - continue VTE prophylaxis lovenox - complete empiric antiinfective's per ID rec's (remains on diflucan) - continue prn analgesia - continue IVF - continue GI & VTE prophylaxis with Pepcid & lovenox - continue other care per attending / other consultants ... re-evaluate in am & prn Subjective Date of service: 06/15/18 Principal diagnosis: Acute abdomen/R. colonic perforation; SIRS; Leukocytosis; Abd. pain Interval history: Patient is seen today for: Acute abdomen with right colonic perforation; Systemic inflammatory response syndrome; Leukocytosis; Abdominal pain; Mild metabolic acidosis at presentation. Seen and examined at bedside; 24hour events reviewed; nursing and respiratory care staff consulted; no adverse overnight events reported to me; resting peac efully in bed; denies acute chest pains or palpitations; NO N/V/F/C; remains NPO and on TPN Objective Vital Signs - 12hr 06/15/18 06/15/18 04:07 07:37 Temperature 97.9 F 98.5 F Pulse Rate 90 95 H Respiratory 17 18 Rate Blood Pressure 133/98 125/88 O2 Sat by Pulse 98 95 Oximetry Constitutional: alert, appears uncomfortable, other (young AAF sitting uo in bed in moderate non-respiratory distress) Eyes: non-icteric ENT: oropharynx dry, other (Mallampati 2) Neck: supple, no lymphadenopathy, no JVD, other (no thyromegaly) Effort: normal Ascultation: Bilateral: clear, diminished breath sounds (at the bases) Percussion: Bilateral: not dull Cardiovascular: regular rate and rhythm Gastrointestinal: hypoactive bowel sounds, soft, tender (mild), non-distended Integumentary: normal Extremities: no cyanosis, no edema, pulses normal, no ischemia or petechiae Neurologic: normal mental status, non-focal exam, pupils equal and round, CN II- XII normal, motor strength normal and Psychiatric: mood appropriate, affect normal CBC and BMP: 06/15/18 04:34 06/16/18 04:32 ABG, PT/INR, D-dimer: PT/INR, D-dimer PT 19.7 Sec. (12.2-14.9) H 06/11/18 10:41 INR 1.56 (0.87-1.13) H 06/11/18 10:41 Abnormal lab findings: Abnormal Labs 06/09/18 06/09/18 06/09/18 01:41 01:41 04:41 WBC 19.5 H RBC Hgb Hct MCH MCHC 35 H Plt Count Lymph % (Auto) 8.1 L [place] % (Auto) [place] # Seg Neutrophils % 87.4 H Seg Neuts % (Manual) Lymphocytes % (Manual) Seg Neutrophils # 17.0 H Seg Neutrophils # Man Lymphocytes # (Manual) PT INR VBG pH Sodium 135 L Potassium 3.4 L Chloride 96.7 L Carbon Dioxide 17 L BUN Creatinine Glucose POC Glucose Calcium Phosphorus ALT C-Reactive Protein Total Protein 8.8 H Albumin Ur Specific [place] 1.040 H Urine WBC (Auto) 9.0 H Miscellaneous Test Crossmatch 06/09/18 06/10/18 06/10/18 08:48 03:49 03:49 WBC 16.9 H RBC Hgb Hct 29.6 L D MCH MCHC 35 H Plt Count Lymph % (Auto) 9.9 L [place] % (Auto) [place] # Seg Neutrophils % 85.0 H Seg Neuts % (Manual) Lymphocytes % (Manual) Seg Neutrophils # 14.4 H Seg Neutrophils # Man Lymphocytes # (Manual) PT INR VBG pH 7.318 L Sodium Potassium 3.2 L Chloride 108.9 H Carbon Dioxide BUN 2 L Creatinine Glucose 127 H POC Glucose Calcium 8.0 L D Phosphorus ALT C-Reactive Protein Total Protein Albumin Ur Specific [place] Urine WBC (Auto) Miscellaneous Test Crossmatch 06/10/18 06/10/18 06/10/18 03:49 09:35 12:33 WBC 21.2 H RBC Hgb Hct 29.4 L MCH MCHC 35 H Plt Count Lymph % (Auto) [place] % (Auto) [place] # Seg Neutrophils % Seg Neuts % (Manual) 92.0 H Lymphocytes % (Manual) 4.0 L Seg Neutrophils # Seg Neutrophils # Man 19.5 H Lymphocytes # (Manual) 0.8 L PT INR VBG pH Sodium Potassium Chloride Carbon Dioxide BUN Creatinine Glucose POC Glucose 141 H Calcium Phosphorus ALT C-Reactive Protein 14.90 H Total Protein Albumin Ur Specific [place] Urine WBC (Auto) Miscellaneous Test Crossmatch 06/10/18 06/11/18 06/11/18 23:30 04:44 04:44 WBC 22.8 H RBC 3.62 L Hgb 10.0 L Hct 29.2 L MCH MCHC Plt Count Lymph % (Auto) [place] % (Auto) [place] # Seg Neutrophils % Seg Neuts % (Manual) 97.0 H Lymphocytes % (Manual) 2.0 L Seg Neutrophils # Seg Neutrophils # Man 22.1 H Lymphocytes # (Manual) 0.5 L PT INR VBG pH Sodium Potassium 3.2 L Chloride 108.3 H Carbon Dioxide 21 L BUN < 1 L Creatinine 0.6 L Glucose 128 H POC Glucose 106 H Calcium Phosphorus ALT 6 L C-Reactive Protein Total Protein Albumin 2.8 L Ur Specific [place] Urine WBC (Auto) Miscellaneous Test Crossmatch 06/11/18 06/11/18 06/11/18 08:27 10:41 10:41 WBC RBC Hgb Hct MCH MCHC Plt Count Lymph % (Auto) [place] % (Auto) [place] # Seg Neutrophils % Seg Neuts % (Manual) Lymphocytes % (Manual) Seg Neutrophils # Seg Neutrophils # Man Lymphocytes # (Manual) PT 19.7 H INR 1.56 H VBG pH Sodium Potassium Chloride Carbon Dioxide BUN Creatinine Glucose POC Glucose Calcium Phosphorus ALT C-Reactive Protein Total Protein Albumin Ur Specific [place] Urine WBC (Auto) Miscellaneous Test Flexitest 1 H Crossmatch See Detail 06/11/18 06/11/18 06/12/18 17:54 23:43 05:27 WBC RBC Hgb Hct MCH MCHC Plt Count Lymph % (Auto) [place] % (Auto) [place] # Seg Neutrophils % Seg Neuts % (Manual) Lymphocytes % (Manual) Seg Neutrophils # Seg Neutrophils # Man Lymphocytes # (Manual) PT INR VBG pH Sodium Potassium Chloride Carbon Dioxide BUN Creatinine Glucose POC Glucose 151 H 168 H 160 H Calcium Phosphorus ALT C-Reactive Protein Total Protein Albumin Ur Specific [place] Urine WBC (Auto) Miscellaneous Test Crossmatch 04/06/12/18 06/12/18 05:41 05:41 12:04 WBC 21.5 H RBC 3.50 L Hgb 9.8 L Hct 28.6 L MCH MCHC Plt Count Lymph % (Auto) [place] % (Auto) [place] # Seg Neutrophils % Seg Neuts % (Manual) 92.0 H Lymphocytes % (Manual) 4.0 L Seg Neutrophils # Seg Neutrophils # Man 19.8 H Lymphocytes # (Manual) 0.9 L PT INR VBG pH Sodium Potassium 3.5 L Chloride Carbon Dioxide BUN 3 L Creatinine 0.5 L Glucose 159 H POC Glucose 136 H Calcium 7.9 L Phosphorus ALT C-Reactive Protein Total Protein Albumin Ur Specific [place] Urine WBC (Auto) Miscellaneous Test Crossmatch 06/13/18 06/13/18 06/14/18 04:47 04:47 06:18 WBC 18.9 H 13.5 H RBC 3.09 L Hgb 8.7 L Hct 25.2 L MCH MCHC 35 H 35 H Plt Count Lymph % (Auto) 10.0 L [place] % (Auto) 9.9 H [place] # 1.1 H 1.3 H Seg Neutrophils % 84.1 H Seg Neuts % (Manual) Lymphocytes % (Manual) Seg Neutrophils # 15.9 H 8.1 H Seg Neutrophils # Man Lymphocytes # (Manual) PT INR VBG pH Sodium Potassium 3.5 L Chloride Carbon Dioxide BUN 4 L Creatinine Glucose 104 H POC Glucose Calcium 8.0 L Phosphorus ALT C-Reactive Protein Total Protein Albumin Ur Specific [place] Urine WBC (Auto) Miscellaneous Test Crossmatch 06/14/18 06/15/18 06/15/18 06:18 04:34 04:34 WBC 13.5 H RBC Hgb Hct MCH 27 L MCHC Plt Count 455 H Lymph % (Auto) [place] % (Auto) [place] # 1.0 H Seg Neutrophils % Seg Neuts % (Manual) Lymphocytes % (Manual) Seg Neutrophils # 9.0 H Seg Neutrophils # Man Lymphocytes # (Manual) PT INR VBG pH Sodium Potassium 3.2 L 3.3 L Chloride 97.8 L Carbon Dioxide BUN 5 L Creatinine 0.6 L 0.5 L Glucose POC Glucose Calcium 8.3 L Phosphorus 5.00 H D ALT C-Reactive Protein Total Protein Albumin Ur Specific [place] Urine WBC (Auto) Miscellaneous Test Crossmatch Allied health notes reviewed: nursing
--- NOTE | 2018-06-15 14:25 | Progress Note ---
Assessment and Plan Assessment and plan: Patient is a 28 yo woman who is a [employer] without chronic medical problems who presented to [facility] ED on 06/09/18 with n/v/abd pains. In the ED, temp 98.1, HR 118, R 19, O2 sat 99%, BP 132/91. WBC 19.5, Hg 13, Plat 373. Creat 0.7. LFTs normal. Lipase normal. UA neg. Blood culture 06/09/[address] abdomen showed perforated right colon approximately 6 cm superior to the ileocecal valve with trapped area of stool adjacent to the perforation measures 3.1 x 3 x 3.6 cm. Surrounding indurated fat. No jenn pneumoperitoneum. She went for sugery on 06/11/[address] Handley found a very large cecal mass obstructing the colon, extending out into the retroperitoneum as well as adjacent to the duodenum, kidney and superiorly adjacent to the stomach, so he did a Extended right hemicolectomy. The pathology came back as non-cancerous. Microperforation of the right colon s/p right hemicolectomy: Keep NPO- cont iv abx, cont iv fluid/TPN Right Cecal Mass s/p resection: GS is following Hypokalemia, likely due to GI loss: replace in TPN, continue to monitor Sepsis, due to organ perforation- consulted ID for abx recommendation DVT Px History Interval history: Patient was seen and examined. Follow-up on current diagnosis. Overnight uneventful. Patient denies any chest pain, shortness breath, nausea/vomiting or severe headaches. Imaging, nursing note, chart, labs and old chart reviewed. Discussed with patient. Hospitalist Physical - Physical exam Narrative exam: Gen: thin frail, NAD, Awake, Alert, Orientated x 3 HEENT: NCAT, EOMI, PERRL, OP Clear Neck: supple, no adenopathy, no thyromegaly, no JVD CVS/Heart: Regular tachycardia, normal S1S2, pulses present bilaterally Chest/Lungs: CTA B, Symmetrical chest expansion, good air entry bilaterally GI/Abdomen: quite bowel sounds, binder and surgical dsg still in place /Bladder: no suprapubic tenderness, no CVA or paraspinal tenderness Extermity/Skin: no c/c/e, no obvious rash MSK: FROM x 4 Neuro: CN 2-12 grossly intact, no new focal deficits Psych: calm - Constitutional Vitals: Temp Pulse Resp BP Pulse Ox 97.9 F 103 H 18 137/101 95 06/15/18 11:50 06/15/18 11:50 06/15/18 11:50 06/15/18 11:50 06/15/18 11:50 General appearance: Present: mild distress Results - Labs CBC & Chem 7: 06/15/18 04:34 06/15/18 04:34 Labs: Laboratory Last Values WBC 13.5 K/mm3 (4.5-11.0) H 06/15/18 04:34 RBC 4.25 M/mm3 (3.65-5.03) 06/15/18 04:34 Hgb 11.7 gm/dl (10.1-14.3) 06/15/18 04:34 Hct 34.2 % (30.3-42.9) 06/15/18 04:34 MCV 81 fl (79-97) 06/15/18 04:34 MCH 27 pg (28-32) L 06/15/18 04:34 MCHC 34 % (30-34) 06/15/18 04:34 RDW 14.6 % (13.2-15.2) 06/15/18 04:34 Plt Count 455 K/mm3 (140-440) H 06/15/18 04:34 Lymph % (Auto) 24.1 % (13.4-35.0) 06/15/18 04:34 [place] % (Auto) 7.2 % (0.0-7.3) 06/15/18 04:34 Eos % (Auto) 1.0 % (0.0-4.3) 06/15/18 04:34 Baso % (Auto) 0.7 % (0.0-1.8) 06/15/18 04:34 Lymph # 3.2 K/mm3 (1.2-5.4) 06/15/18 04:34 [place] # 1.0 K/mm3 (0.0-0.8) H 06/15/18 04:34 Eos # 0.1 K/mm3 (0.0-0.4) 06/15/18 04:34 Baso # 0.1 K/mm3 (0.0-0.1) 06/15/18 04:34 Add Manual Diff Complete 06/12/18 05:41 Total Counted 100 06/12/18 05:41 Seg Neutrophils % 67.0 % (40.0-70.0) 06/15/18 04:34 Seg Neuts % (Manual) 92.0 % (40.0-70.0) H 06/12/18 05:41 Band Neutrophils % 3.0 % 06/12/18 05:41 Lymphocytes % (Manual) 4.0 % (13.4-35.0) L 06/12/18 05:41 Reactive Lymphs % (Man) 0 % 06/12/18 05:41 Monocytes % (Manual) 1.0 % (0.0-7.3) 06/12/18 05:41 Eosinophils % (Manual) 0 % (0.0-4.3) 06/12/18 05:41 Basophils % (Manual) 0 % (0.0-1.8) 06/12/18 05:41 Metamyelocytes % 0 % 06/12/18 05:41 Myelocytes % 0 % 06/12/18 05:41 Promyelocytes % 0 % 06/12/18 05:41 Blast Cells % 0 % 06/12/18 05:41 Nucleated RBC % Not Reportable 06/12/18 05:41 Seg Neutrophils # 9.0 K/mm3 (1.8-7.7) H 06/15/18 04:34 Seg Neutrophils # Man 19.8 K/mm3 (1.8-7.7) H 06/12/18 05:41 Band Neutrophils # 0.6 K/mm3 06/12/18 05:41 Lymphocytes # (Manual) 0.9 K/mm3 (1.2-5.4) L 06/12/18 05:41 Abs React Lymphs (Man) 0.0 K/mm3 06/12/18 05:41 Monocytes # (Manual) 0.2 K/mm3 (0.0-0.8) 06/12/18 05:41 Eosinophils # (Manual) 0.0 K/mm3 (0.0-0.4) 06/12/18 05:41 Basophils # (Manual) 0.0 K/mm3 (0.0-0.1) 06/12/18 05:41 Metamyelocytes # 0.0 K/mm3 06/12/18 05:41 Myelocytes # 0.0 K/mm3 06/12/18 05:41 Promyelocytes # 0.0 K/mm3 06/12/18 05:41 Blast Cells # 0.0 K/mm3 06/12/18 05:41 WBC Morphology Not Reportable 06/12/18 05:41 Hypersegmented Neuts Not Reportable 06/12/18 05:41 Hyposegmented Neuts Not Reportable 06/12/18 05:41 Hypogranular Neuts Not Reportable 06/12/18 05:41 Smudge Cells Not Reportable 06/12/18 05:41 Toxic Granulation Not Reportable 06/12/18 05:41 Toxic Vacuolation Not Reportable 06/12/18 05:41 Dohle Bodies Not Reportable 06/12/18 05:41 Pelger-Huet Anomaly Not Reportable 06/12/18 05:41 Verenice Rods Not Reportable 06/12/18 05:41 Platelet Estimate Consistent w auto 06/12/18 05:41 Clumped Platelets Not Reportable 06/12/18 05:41 Plt Clumps, EDTA Not Reportable 06/12/18 05:41 Large Platelets Not Reportable 06/12/18 05:41 Giant Platelets Not Reportable 06/12/18 05:41 Platelet Satelliting Not Reportable 06/12/18 05:41 Plt Morphology Comment Not Reportable 06/12/18 05:41 RBC Morphology Not Reportable 06/12/18 05:41 Dimorphic RBCs Not Reportable 06/12/18 05:41 Polychromasia Not Reportable 06/12/18 05:41 Hypochromasia Not Reportable 06/12/18 05:41 Poikilocytosis Not Reportable 06/12/18 05:41 Anisocytosis Not Reportable 06/12/18 05:41 Microcytosis Not Reportable 06/12/18 05:41 Macrocytosis Not Reportable 06/12/18 05:41 Spherocytes Not Reportable 06/12/18 05:41 Pappenheimer Bodies Not Reportable 06/12/18 05:41 Sickle Cells Not Reportable 06/12/18 05:41 Target Cells 1+ 06/12/18 05:41 Tear Drop Cells Not Reportable 06/12/18 05:41 Ovalocytes Not Reportable 06/12/18 05:41 Helmet Cells Not Reportable 06/12/18 05:41 [place] Bodies Not Reportable 06/12/18 05:41 Ruso Rings Not Reportable 06/12/18 05:41 Union Cells Not Reportable 06/12/18 05:41 Bite Cells Not Reportable 06/12/18 05:41 Crenated Cell Not Reportable 06/12/18 05:41 Elliptocytes Not Reportable 06/12/18 05:41 Acanthocytes (Spur) Not Reportable 06/12/18 05:41 Rouleaux Not Reportable 06/12/18 05:41 Hemoglobin C Crystals Not Reportable 06/12/18 05:41 Schistocytes Not Reportable 06/12/18 05:41 Malaria parasites Not Reportable 06/12/18 05:41 Tom Bodies Not Reportable 06/12/18 05:41 Hem Pathologist Commnt No 06/12/18 05:41 PT 19.7 Sec. (12.2-14.9) H 06/11/18 10:41 INR 1.56 (0.87-1.13) H 06/11/18 10:41 APTT 29.6 Sec. (24.2-36.6) 06/11/18 10:41 VBG pH 7.318 (7.320-7.420) L 06/09/18 08:48 Sodium 139 mmol/L (137-145) 06/15/18 04:34 Potassium 3.3 mmol/L (3.6-5.0) L 06/15/18 04:34 Chloride 97.8 mmol/L (98-107) L 06/15/18 04:34 Carbon Dioxide 29 mmol/L (22-30) 06/15/18 04:34 Anion Gap 16 mmol/L 06/15/18 04:34 BUN 7 mg/dL (7-17) 06/15/18 04:34 Creatinine 0.5 mg/dL (0.7-1.2) L 06/15/18 04:34 Estimated GFR > 60 ml/min 06/15/18 04:34 BUN/Creatinine Ratio 14 % 06/15/18 04:34 Glucose 89 mg/dL (65-100) 06/15/18 04:34 POC Glucose 90 (70-105) 06/15/18 07:43 Lactic Acid 0.80 mmol/L (0.7-2.0) 06/09/18 07:56 Calcium 8.8 mg/dL (8.4-10.2) 06/15/18 04:34 Phosphorus 5.00 mg/dL (2.5-4.5) H D 06/15/18 04:34 Magnesium 1.90 mg/dL (1.7-2.3) 06/15/18 04:34 Total Bilirubin 0.30 mg/dL (0.1-1.2) 06/11/18 04:44 AST 10 units/L (5-40) 06/11/18 04:44 ALT 6 units/L (7-56) L 06/11/18 04:44 Alkaline Phosphatase 55 units/L (35-129) 06/11/18 04:44 C-Reactive Protein 14.90 mg/dL (0.00-1.30) H 06/10/18 03:49 Total Protein 6.6 g/dL (6.3-8.2) D 06/11/18 04:44 Albumin 2.8 g/dL (3.9-5) L 06/11/18 04:44 Albumin/Globulin Ratio 0.7 % 06/11/18 04:44 Lipase 21 units/L (13-60) 06/09/18 08:48 HCG, Qual Negative (Negative) 06/09/18 01:41 Urine Color Yellow (Yellow) 06/13/18 11:30 Urine Turbidity Clear (Clear) 06/13/18 11:30 Urine pH 7.0 (5.0-7.0) 06/13/18 11:30 Ur Specific [place] 1.020 (1.003-1.030) 06/13/18 11:30 Urine Protein <15 mg/dl mg/dL (Negative) 06/13/18 11:30 Urine Glucose (UA) Neg mg/dL (Negative) 06/13/18 11:30 Urine Ketones Neg mg/dL (Negative) 06/13/18 11:30 Urine Blood Sm (Negative) 06/13/18 11:30 Urine Nitrite Neg (Negative) 06/13/18 11:30 Urine Bilirubin Neg (Negative) 06/13/18 11:30 Urine Urobilinogen < 2.0 mg/dL (<2.0) 06/13/18 11:30 Ur Leukocyte Esterase Sm (Negative) 06/13/18 11:30 Urine WBC (Auto) 6.0 /HPF (0.0-6.0) 06/13/18 11:30 Urine RBC (Auto) 16.0 /HPF (0.0-6.0) 06/13/18 11:30 U Epithel Cells (Auto) < 1.0 /HPF (0-13.0) 06/13/18 11:30 Hyaline Casts 14 /LPF 06/09/18 04:41 Urine Mucus Few /HPF 06/13/18 11:30 Urine HCG, Qual Negative (Negative) 06/11/18 11:30 Complement C3 178 mg/dL (83-193) 06/10/18 13:37 Complement C4 30 mg/dL (15-57) 06/10/18 13:37 Miscellaneous Test Flexitest 1 H 06/11/18 08:27 Blood Type B POSITIVE 06/11/18 10:41 Antibody Screen Negative 06/11/18 10:41 Crossmatch See Detail 06/11/18 10:41 Active Medications - Current Medications Current Medications: Generic Name Dose Route Start Last Admin Trade Name Freq PRN Reason Stop Dose Admin Acetaminophen 650 mg 06/10/18 15:39 Tylenol CO Q4H PRN Fever >101 Benzocaine/Menthol 1 each 06/11/18 20:17 06/15/18 09:18 Cepacol X Strength MM 1 each Q2HR PRN Administration Sore Throat Enoxaparin Sodium 40 mg 06/10/18 22:00 06/14/18 21:55 Lovenox SUB-Q 40 mg QDAY@2200 DONNELL Administration Famotidine 20 mg 06/11/18 16:00 06/15/18 09:32 Pepcid IV 20 mg BID DONNELL Administration Hydralazine HCl 10 mg 06/12/18 12:02 06/13/18 13:33 Apresoline IV 10 mg Q4HR PRN Administration Blood Pressure Hydromorphone HCl 1 mg 06/12/18 12:13 06/15/18 11:27 Dilaudid IV 1 mg Q2H PRN Administration Pain , Severe (7-10) Metronidazole 500 mg in 100 mls @ 100 mls/hr 06/10/18 14:00 06/15/18 06:20 Flagyl 500 Mg/100 Ml IV 100 mls/hr Q8HR DONNELL Administration Protocol Ceftriaxone Sodium 2 gm in 100 mls @ 200 mls/hr 06/10/18 16:00 06/15/18 09:20 Rocephin/Ns 2 Gm/100 Ml IV 200 mls/hr Q24HR DONNELL Administration Protocol Fluconazole 200 mls @ 100 mls/hr 06/11/18 11:00 06/15/18 11:16 Diflucan IV 100 mls/hr Q24HR DONNELL Administration Protocol Amino Acids/Electrolytes/Dextrose 2,400 mls @ 100 mls/hr 06/14/18 20:00 06/14/18 21:40 Tpn Adult IV 06/15/18 19:59 100 mls/hr DAILY@1999 [facility] Administration Protocol Amino Acids/Electrolytes/Dextrose 2,016 mls @ 84 mls/hr 06/15/18 20:00 Tpn Adult IV 06/16/18 19:59 DAILY@1999 [facility] Protocol Labetalol HCl 10 mg 06/09/18 10:54 06/11/18 16:21 Normodyne IV 10 mg Q4H PRN Administration Hypertension Lidocaine HCl 15 ml 06/12/18 15:52 06/12/18 20:14 Lidocaine Viscous 2% PO 15 ml Q8HR PRN Administration Mouth Pain Morphine Sulfate 2 mg 06/09/18 10:54 06/12/18 08:09 Morphine IV 2 mg Q4H PRN Administration Pain, Moderate (4-6) Ondansetron HCl 4 mg 06/10/18 22:29 06/15/18 06:06 Zofran IV 4 mg Q4H PRN Administration Nausea And Vomiting Nutrition/Malnutrition Assess - Dietary Evaluation Nutrition/Malnutrition Findings: Nutrition Notes Start: 06/13/18 10:26 Freq: Status: Active Protocol: Document 06/15/18 10:30 LP (Rec: 06/15/18 10:35 LP [id number]) Nutrition Notes Initial or Follow up Reassessment Other Pertinent Diagnosis Large Colon Mass s/p extended hemicolectomy Current Diet PPN at 84ml/hr Labs/Tests K 3.3 Phos 5 Pertinent Medications Reviewed Height 5 ft 2 in Weight 60.555 kg [place] Body Weight (kg) 50.00 BMI 24.4 Subjective/Other Information PPN day 3. NGT to LIS. Pt complains of abdominal pain. Percent of energy/protein needs met: 50%/100% Burn Absent Trauma Absent #1 Nutrition Diagnosis Inadequate oral intake Diagnosis Progress(for reassessment Continues documentation) Is patient on ventilator? No Is Patient Ambulatory and/or Out of Bed No REE-([facility]-confined to bed) 1548.516 Calculation Used for Recommendations [facility] Additional Notes Protein:73-91g/day (1.2-1.5g/ kg) Fluid: 1 ml/kcal Nutrition Intervention Change Diet Order: PPN Nutrition Support: Reduce PPN to 84ml/hr: 6% dextrose, 4.5% amino acid, 84mEq Na, 99mEq K, 8mEq Mg, 4mEq Ca, 0mmol phos, MVI. Thiamine Kcal 772 Protein (gm) 91 Carbohydrates (gm) 120 Fat (gm) 0 Fluid (mL) 2,016 Fiber (gm) 0 Goal #1 Meet at least 75% of kcal and pro needs via PPN or as best as possible Anticipated Discharge Needs: unable to determine at this time Follow-Up By: 06/16/18 Additional Comments Labs in AM: BMP, Mg, phos
[2018-06-15] MEDS ORDERED: TPN ADULT 2,016 ML IV SCH (20:00)
[2018-06-15] MEDS: LOVENOX SUB-Q SCH (21:01)
[2018-06-16] MEDS: DILAUDID IV PRN ×6 (02:01→20:53)
[2018-06-16] MEDS: CEPACOL X STRENGTH MM PRN ×5 (02:04→20:53)
[2018-06-16] MEDS: ZOFRAN IV PRN ×4 (02:06→17:20)
[2018-06-16 05:12] LABS: BUN/Creatinine Ratio 16; Blood Urea Nitrogen 11 mg/dL (7-17); Calcium 8.6 mg/dL (8.4-10.2); Hemolysis Index 0
[2018-06-16] MEDS: FLAGYL 500 MG/100 ML 500 MG/100 ML BAG IV SCH ×3 (05:21→21:01)
[2018-06-16] MEDS: ROCEPHIN/NS 2 GM/100 ML 2 GM/100 ML BAG IV SCH (09:49)
[2018-06-16] MEDS: PEPCID IV SCH ×2 (09:49→21:01)
[2018-06-16] MEDS: DIFLUCAN 200 ML IV SCH (10:40)
--- NOTE | 2018-06-16 12:05 | Progress Note ---
Assessment and Plan POD # 5 Pt feeling well. no compl. neg flatus "but can feel the gas moving" Abd non tender. hypoactive BS stable ambulate down halls continue present care Selected Entries 06/16/18 06/16/18 04:05 09:48 Temperature 97.6 F Pulse Rate 92 H Respiratory 20 Rate Blood Pressure 115/77 Laboratory Tests 06/15/18 06/16/18 04:34 04:32 WBC 13.5 H Potassium 3.9 Objective Vital Signs - 12hr 06/16/18 06/16/18 04:05 09:48 Temperature 97.6 F Pulse Rate 92 H Respiratory 18 20 Rate Blood Pressure 115/77 O2 Sat by Pulse 95 Oximetry - Labs 06/15/18 04:34 06/16/18 04:32 Diabetes panel 06/16/18 Range/Units 04:32 Sodium 140 (137-145) mmol/L Potassium 3.9 (3.6-5.0) mmol/L Chloride 100.4 (98-107) mmol/L Carbon Dioxide 29 (22-30) mmol/L BUN 11 (7-17) mg/dL Creatinine 0.7 (0.7-1.2) mg/dL Glucose 102 H (65-100) mg/dL Calcium 8.6 (8.4-10.2) mg/dL Calcium panel 06/16/18 Range/Units 04:32 Calcium 8.6 (8.4-10.2) mg/dL Phosphorus 4.30 (2.5-4.5) mg/dL Pituitary panel 06/16/18 Range/Units 04:32 Sodium 140 (137-145) mmol/L Potassium 3.9 (3.6-5.0) mmol/L Chloride 100.4 (98-107) mmol/L Carbon Dioxide 29 (22-30) mmol/L BUN 11 (7-17) mg/dL Creatinine 0.7 (0.7-1.2) mg/dL Glucose 102 H (65-100) mg/dL Calcium 8.6 (8.4-10.2) mg/dL Adrenal panel 06/16/18 Range/Units 04:32 Sodium 140 (137-145) mmol/L Potassium 3.9 (3.6-5.0) mmol/L Chloride 100.4 (98-107) mmol/L Carbon Dioxide 29 (22-30) mmol/L BUN 11 (7-17) mg/dL Creatinine 0.7 (0.7-1.2) mg/dL Glucose 102 H (65-100) mg/dL Calcium 8.6 (8.4-10.2) mg/dL
[2018-06-16 12:51] LABS: Myeloperoxidase Antibody <1.0 AI (<1.0)
--- NOTE | 2018-06-16 13:52 | Progress Note ---
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 In the ED, temp 98.1, HR 118, R 19, O2 sat 99%, BP 132/91. WBC 19.5, Hg 13, Plat 373. Creat 0.7. LFTs normal. Lipase normal. UA neg. Blood culture 06/09/[address] abdomen showed perforated right colon approximately 6 cm superior to the ileocecal valve with trapped area of stool adjacent to the perforation measures 3.1 x 3 x 3.6 cm. Surrounding indurated fat. No jenn pneumoperitoneum. She went for sugery on 06/11/[address] Handley found a very large cecal mass obstructing the colon, extending out into the retroperitoneum as well as adjacent to the duodenum, kidney and superiorly adjacent to the stomach, so he did a Extended right hemicolectomy. The pathology came back as non-cancerous. Microperforation of the right colon s/p right hemicolectomy: Keep NPO- cont iv abx, cont iv fluid/TPN Right Cecal Mass s/p resection: GS is following Hypokalemia, likely due to GI loss: replace in TPN, continue to monitor Sepsis, due to organ perforation- consulted ID for abx recommendation DVT Px History Interval history: Patient was seen and examined. Follow-up on current diagnosis. Overnight uneventful. Patient denies any chest pain, shortness breath, nausea/vomiting or severe headaches. Imaging, nursing note, chart, labs and old chart reviewed. Discussed with patient. Hospitalist Physical - Physical exam Narrative exam: Gen: thin frail, NAD, Awake, Alert, Orientated x 3 HEENT: NCAT, EOMI, PERRL, OP Clear Neck: supple, no adenopathy, no thyromegaly, no JVD CVS/Heart: Regular tachycardia, normal S1S2, pulses present bilaterally Chest/Lungs: CTA B, Symmetrical chest expansion, good air entry bilaterally GI/Abdomen: quite bowel sounds, binder and surgical dsg still in place /Bladder: no suprapubic tenderness, no CVA or paraspinal tenderness Extermity/Skin: no c/c/e, no obvious rash MSK: FROM x 4 Neuro: CN 2-12 grossly intact, no new focal deficits Psych: calm - Constitutional Vitals: Temp Pulse Resp BP Pulse Ox 97.6 F 92 H 20 115/77 95 06/16/18 04:05 06/16/18 04:05 06/16/18 13:31 06/16/18 04:05 06/16/18 04:05 Results - Labs CBC & Chem 7: 06/15/18 04:34 06/16/18 04:32 Labs: Laboratory Last Values WBC 13.5 K/mm3 (4.5-11.0) H 06/15/18 04:34 RBC 4.25 M/mm3 (3.65-5.03) 06/15/18 04:34 Hgb 11.7 gm/dl (10.1-14.3) 06/15/18 04:34 Hct 34.2 % (30.3-42.9) 06/15/18 04:34 MCV 81 fl (79-97) 06/15/18 04:34 MCH 27 pg (28-32) L 06/15/18 04:34 MCHC 34 % (30-34) 06/15/18 04:34 RDW 14.6 % (13.2-15.2) 06/15/18 04:34 Plt Count 455 K/mm3 (140-440) H 06/15/18 04:34 Lymph % (Auto) 24.1 % (13.4-35.0) 06/15/18 04:34 [place] % (Auto) 7.2 % (0.0-7.3) 06/15/18 04:34 Eos % (Auto) 1.0 % (0.0-4.3) 06/15/18 04:34 Baso % (Auto) 0.7 % (0.0-1.8) 06/15/18 04:34 Lymph # 3.2 K/mm3 (1.2-5.4) 06/15/18 04:34 [place] # 1.0 K/mm3 (0.0-0.8) H 06/15/18 04:34 Eos # 0.1 K/mm3 (0.0-0.4) 06/15/18 04:34 Baso # 0.1 K/mm3 (0.0-0.1) 06/15/18 04:34 Add Manual Diff Complete 06/12/18 05:41 Total Counted 100 06/12/18 05:41 Seg Neutrophils % 67.0 % (40.0-70.0) 06/15/18 04:34 Seg Neuts % (Manual) 92.0 % (40.0-70.0) H 06/12/18 05:41 Band Neutrophils % 3.0 % 06/12/18 05:41 Lymphocytes % (Manual) 4.0 % (13.4-35.0) L 06/12/18 05:41 Reactive Lymphs % (Man) 0 % 06/12/18 05:41 Monocytes % (Manual) 1.0 % (0.0-7.3) 06/12/18 05:41 Eosinophils % (Manual) 0 % (0.0-4.3) 06/12/18 05:41 Basophils % (Manual) 0 % (0.0-1.8) 06/12/18 05:41 Metamyelocytes % 0 % 06/12/18 05:41 Myelocytes % 0 % 06/12/18 05:41 Promyelocytes % 0 % 06/12/18 05:41 Blast Cells % 0 % 06/12/18 05:41 Nucleated RBC % Not Reportable 06/12/18 05:41 Seg Neutrophils # 9.0 K/mm3 (1.8-7.7) H 06/15/18 04:34 Seg Neutrophils # Man 19.8 K/mm3 (1.8-7.7) H 06/12/18 05:41 Band Neutrophils # 0.6 K/mm3 06/12/18 05:41 Lymphocytes # (Manual) 0.9 K/mm3 (1.2-5.4) L 06/12/18 05:41 Abs React Lymphs (Man) 0.0 K/mm3 06/12/18 05:41 Monocytes # (Manual) 0.2 K/mm3 (0.0-0.8) 06/12/18 05:41 Eosinophils # (Manual) 0.0 K/mm3 (0.0-0.4) 06/12/18 05:41 Basophils # (Manual) 0.0 K/mm3 (0.0-0.1) 06/12/18 05:41 Metamyelocytes # 0.0 K/mm3 06/12/18 05:41 Myelocytes # 0.0 K/mm3 06/12/18 05:41 Promyelocytes # 0.0 K/mm3 06/12/18 05:41 Blast Cells # 0.0 K/mm3 06/12/18 05:41 WBC Morphology Not Reportable 06/12/18 05:41 Hypersegmented Neuts Not Reportable 06/12/18 05:41 Hyposegmented Neuts Not Reportable 06/12/18 05:41 Hypogranular Neuts Not Reportable 06/12/18 05:41 Smudge Cells Not Reportable 06/12/18 05:41 Toxic Granulation Not Reportable 06/12/18 05:41 Toxic Vacuolation Not Reportable 06/12/18 05:41 Dohle Bodies Not Reportable 06/12/18 05:41 Pelger-Huet Anomaly Not Reportable 06/12/18 05:41 Verenice Rods Not Reportable 06/12/18 05:41 Platelet Estimate Consistent w auto 06/12/18 05:41 Clumped Platelets Not Reportable 06/12/18 05:41 Plt Clumps, EDTA Not Reportable 06/12/18 05:41 Large Platelets Not Reportable 06/12/18 05:41 Giant Platelets Not Reportable 06/12/18 05:41 Platelet Satelliting Not Reportable 06/12/18 05:41 Plt Morphology Comment Not Reportable 06/12/18 05:41 RBC Morphology Not Reportable 06/12/18 05:41 Dimorphic RBCs Not Reportable 06/12/18 05:41 Polychromasia Not Reportable 06/12/18 05:41 Hypochromasia Not Reportable 06/12/18 05:41 Poikilocytosis Not Reportable 06/12/18 05:41 Anisocytosis Not Reportable 06/12/18 05:41 Microcytosis Not Reportable 06/12/18 05:41 Macrocytosis Not Reportable 06/12/18 05:41 Spherocytes Not Reportable 06/12/18 05:41 Pappenheimer Bodies Not Reportable 06/12/18 05:41 Sickle Cells Not Reportable 06/12/18 05:41 Target Cells 1+ 06/12/18 05:41 Tear Drop Cells Not Reportable 06/12/18 05:41 Ovalocytes Not Reportable 06/12/18 05:41 Helmet Cells Not Reportable 06/12/18 05:41 [place] Bodies Not Reportable 06/12/18 05:41 [place] Rings Not Reportable 06/12/18 05:41 [place] Cells Not Reportable 06/12/18 05:41 Bite Cells Not Reportable 06/12/18 05:41 Crenated Cell Not Reportable 06/12/18 05:41 Elliptocytes Not Reportable 06/12/18 05:41 Acanthocytes (Spur) Not Reportable 06/12/18 05:41 Rouleaux Not Reportable 06/12/18 05:41 Hemoglobin C Crystals Not Reportable 06/12/18 05:41 Schistocytes Not Reportable 06/12/18 05:41 Malaria parasites Not Reportable 06/12/18 05:41 Tom Bodies Not Reportable 06/12/18 05:41 Hem Pathologist Commnt No 06/12/18 05:41 PT 19.7 Sec. (12.2-14.9) H 06/11/18 10:41 INR 1.56 (0.87-1.13) H 06/11/18 10:41 APTT 29.6 Sec. (24.2-36.6) 06/11/18 10:41 VBG pH 7.318 (7.320-7.420) L 06/09/18 08:48 Sodium 140 mmol/L (137-145) 06/16/18 04:32 Potassium 3.9 mmol/L (3.6-5.0) 06/16/18 04:32 Chloride 100.4 mmol/L (98-107) 06/16/18 04:32 Carbon Dioxide 29 mmol/L (22-30) 06/16/18 04:32 Anion Gap 15 mmol/L 06/16/18 04:32 BUN 11 mg/dL (7-17) 06/16/18 04:32 Creatinine 0.7 mg/dL (0.7-1.2) 06/16/18 04:32 Estimated GFR > 60 ml/min 06/16/18 04:32 BUN/Creatinine Ratio 16 % 06/16/18 04:32 Glucose 102 mg/dL (65-100) H 06/16/18 04:32 POC Glucose 91 (70-105) 06/16/18 12:32 Lactic Acid 0.80 mmol/L (0.7-2.0) 06/09/18 07:56 Calcium 8.6 mg/dL (8.4-10.2) 06/16/18 04:32 Phosphorus 4.30 mg/dL (2.5-4.5) 06/16/18 04:32 Magnesium 2.10 mg/dL (1.7-2.3) 06/16/18 04:32 Total Bilirubin 0.30 mg/dL (0.1-1.2) 06/11/18 04:44 AST 10 units/L (5-40) 06/11/18 04:44 ALT 6 units/L (7-56) L 06/11/18 04:44 Alkaline Phosphatase 55 units/L (35-129) 06/11/18 04:44 C-Reactive Protein 14.90 mg/dL (0.00-1.30) H 06/10/18 03:49 Total Protein 6.6 g/dL (6.3-8.2) D 06/11/18 04:44 Albumin 2.8 g/dL (3.9-5) L 06/11/18 04:44 Albumin/Globulin Ratio 0.7 % 06/11/18 04:44 Lipase 21 units/L (13-60) 06/09/18 08:48 HCG, Qual Negative (Negative) 06/09/18 01:41 Urine Color Yellow (Yellow) 06/13/18 11:30 Urine Turbidity Clear (Clear) 06/13/18 11:30 Urine pH 7.0 (5.0-7.0) 06/13/18 11:30 Ur Specific [place] 1.020 (1.003-1.030) 06/13/18 11:30 Urine Protein <15 mg/dl mg/dL (Negative) 06/13/18 11:30 Urine Glucose (UA) Neg mg/dL (Negative) 06/13/18 11:30 Urine Ketones Neg mg/dL (Negative) 06/13/18 11:30 Urine Blood Sm (Negative) 06/13/18 11:30 Urine Nitrite Neg (Negative) 06/13/18 11:30 Urine Bilirubin Neg (Negative) 06/13/18 11:30 Urine Urobilinogen < 2.0 mg/dL (<2.0) 06/13/18 11:30 Ur Leukocyte Esterase Sm (Negative) 06/13/18 11:30 Urine WBC (Auto) 6.0 /HPF (0.0-6.0) 06/13/18 11:30 Urine RBC (Auto) 16.0 /HPF (0.0-6.0) 06/13/18 11:30 U Epithel Cells (Auto) < 1.0 /HPF (0-13.0) 06/13/18 11:30 Hyaline Casts 14 /LPF 06/09/18 04:41 Urine Mucus Few /HPF 06/13/18 11:30 Urine HCG, Qual Negative (Negative) 06/11/18 11:30 Proteinase 3 (PR3) Ab <1.0 AI (<1.0) 06/10/18 13:37 Myeloperoxidase Ab <1.0 AI (<1.0) 06/10/18 13:37 Complement C3 178 mg/dL (83-193) 06/10/18 13:37 Complement C4 30 mg/dL (15-57) 06/10/18 13:37 Miscellaneous Test Flexitest 1 H 06/11/18 08:27 Blood Type B POSITIVE 06/11/18 10:41 Antibody Screen Negative 06/11/18 10:41 Crossmatch See Detail 06/11/18 10:41 Active Medications - Current Medications Current Medications: Generic Name Dose Route Start Last Admin Trade Name Freq PRN Reason Stop Dose Admin Acetaminophen 650 mg 06/10/18 15:39 Tylenol TN Q4H PRN Fever >101 Benzocaine/Menthol 1 each 06/11/18 20:17 06/16/18 13:29 Cepacol X Strength MM 1 each Q2HR PRN Administration Sore Throat Enoxaparin Sodium 40 mg 06/10/18 22:00 06/15/18 21:01 Lovenox SUB-Q 40 mg QDAY@2200 DONNELL Administration Famotidine 20 mg 06/11/18 16:00 06/16/18 09:49 Pepcid IV 20 mg BID DONNELL Administration Hydralazine HCl 10 mg 06/12/18 12:02 06/13/18 13:33 Apresoline IV 10 mg Q4HR PRN Administration Blood Pressure Hydromorphone HCl 1 mg 06/12/18 12:13 06/16/18 13:31 Dilaudid IV 1 mg Q2H PRN Administration Pain , Severe (7-10) Metronidazole 500 mg in 100 mls @ 100 mls/hr 06/10/18 14:00 06/16/18 13:29 Flagyl 500 Mg/100 Ml IV 100 mls/hr Q8HR DONNELL Administration Protocol Ceftriaxone Sodium 2 gm in 100 mls @ 200 mls/hr 06/10/18 16:00 06/16/18 09:49 Rocephin/Ns 2 Gm/100 Ml IV 200 mls/hr Q24HR DONNELL Administration Protocol Fluconazole 200 mls @ 100 mls/hr 06/11/18 11:00 06/16/18 10:40 Diflucan IV 100 mls/hr Q24HR DONNELL Administration Protocol Amino Acids/Electrolytes/Dextrose 2,016 mls @ 84 mls/hr 06/15/18 20:00 06/15/18 20:24 Tpn Adult IV 06/16/18 19:59 84 mls/hr DAILY@1999 [facility] Administration Protocol Amino Acids/Electrolytes/Dextrose 2,016 mls @ 84 mls/hr 06/16/18 20:00 Tpn Adult IV 06/17/18 19:59 DAILY@1999 [facility] Protocol Labetalol HCl 10 mg 06/09/18 10:54 06/11/18 16:21 Normodyne IV 10 mg Q4H PRN Administration Hypertension Lidocaine HCl 15 ml 06/12/18 15:52 06/12/18 20:14 Lidocaine Viscous 2% PO 15 ml Q8HR PRN Administration Mouth Pain Morphine Sulfate 2 mg 06/09/18 10:54 06/12/18 08:09 Morphine IV 2 mg Q4H PRN Administration Pain, Moderate (4-6) Ondansetron HCl 4 mg 06/10/18 22:29 06/16/18 09:49 Zofran IV 4 mg Q4H PRN Administration Nausea And Vomiting Nutrition/Malnutrition Assess - Dietary Evaluation Nutrition/Malnutrition Findings: Nutrition Notes Start: 06/13/18 10:26 Freq: Status: Active Protocol: Document 06/16/18 09:17 LP (Rec: 06/16/18 09:20 LP [id number]) Nutrition Notes Initial or Follow up Reassessment Other Pertinent Diagnosis Large Colon Mass s/p extended hemicolectomy Current Diet PPN at 84ml/hr Labs/Tests Reviewed Pertinent Medications Reviewed Height 5 ft 2 in Weight 60.555 kg [place] Body Weight (kg) 50.00 BMI 24.4 Subjective/Other Information PPN day 4. Percent of energy/protein needs met: 50%/100% Burn Absent Trauma Absent #1 Nutrition Diagnosis Inadequate oral intake Diagnosis Progress(for reassessment Continues documentation) Is patient on ventilator? No Is Patient Ambulatory and/or Out of Bed No REE-([facility]-confined to bed) 0338.516 Calculation Used for Recommendations [facility] Additional Notes Protein:73-91g/day (1.2-1.5g/ kg) Fluid: 1 ml/kcal Nutrition Intervention Change Diet Order: PPN Nutrition Support: Reduce PPN to 84ml/hr: 7% dextrose, 4mEq Mg, MVI. Kcal 823 Protein (gm) 91 Carbohydrates (gm) 120 Fat (gm) 0 Fluid (mL) 2,016 Fiber (gm) 0 Goal #1 Meet at least 75% of kcal and pro needs via PPN or as best as possible Anticipated Discharge Needs: unable to determine at this time Follow-Up By: 06/17/18 Additional Comments Labs in AM: BMP, Mg, Phos
--- NOTE | 2018-06-16 14:24 | Progress Note ---
Assessment and Plan Acute abdomen with right colonic micro-perforation. Systemic inflammatory response syndrome. Leukocytosis. Abdominal pain. Sickle cell trait Mild metabolic acidosis at presentation. Hyponatremia, present on arrival. Hypokalemia, present on arrival. Abnormal urinalysis. - continue NGT to LIS and keep NPO - TPN in short term - continue incentive spirometry - cecal mass pathology negative for malignancy - continue prn supplemental oxygen to keep sat's > 90% - PT/OT/OOB to chair / increase ambulation as tolerated - continue prn analgesia - continue VTE prophylaxis lovenox - complete empiric antiinfective's per ID rec's (remains on diflucan) - continue prn analgesia - continue IVF - continue GI & VTE prophylaxis with Pepcid & lovenox - continue other care per attending / other consultants ... re-evaluate in am & prn Subjective Date of service: 06/16/18 Principal diagnosis: Acute abdomen/R. colonic perforation; SIRS; Leukocytosis; Abd. pain Interval history: Patient is seen today for: Acute abdomen with right colonic perforation; Systemic inflammatory response syndrome; Leukocytosis; Abdominal pain; Mild metabolic acidosis at presentation. Seen and examined at bedside; 24hour events reviewed; nursing and respiratory care staff consulted; no adverse overnight events reported to me; resting peacefully in bed; still with intermittent abd pain and Nausea; no emesis; remains NPO; denies acute chest pains or palpitations Objective Vital Signs - 12hr 06/16/18 06/16/18 06/16/18 04:05 09:48 13:31 Temperature 97.6 F Pulse Rate 92 H Respiratory 18 20 20 Rate Blood Pressure 115/77 O2 Sat by Pulse 95 Oximetry Constitutional: alert, appears uncomfortable, other (young AAF sitting uo in bed in moderate non-respiratory distress) Eyes: non-icteric ENT: oropharynx dry, other (Mallampati 2) Neck: supple, no lymphadenopathy, no JVD, other (no thyromegaly) Effort: normal Ascultation: Bilateral: clear Percussion: Bilateral: not dull Cardiovascular: regular rate and rhythm Gastrointestinal: hypoactive bowel sounds, soft, tender (mild), non-distended Integumentary: normal Extremities: no cyanosis, no edema, pulses normal, no ischemia or petechiae Neurologic: normal mental status, non-focal exam, pupils equal and round, CN II- XII normal, motor strength normal and Psychiatric: mood appropriate, affect normal CBC and BMP: 06/19/18 00:52 06/20/18 07:08 ABG, PT/INR, D-dimer: PT/INR, D-dimer PT 19.7 Sec. (12.2-14.9) H 06/11/18 10:41 INR 1.56 (0.87-1.13) H 06/11/18 10:41 Abnormal lab findings: Abnormal Labs 06/09/18 06/09/18 06/09/18 01:41 01:41 04:41 WBC 19.5 H RBC Hgb Hct MCH MCHC 35 H Plt Count Lymph % (Auto) 8.1 L [place] % (Auto) [place] # Seg Neutrophils % 87.4 H Seg Neuts % (Manual) Lymphocytes % (Manual) Seg Neutrophils # 17.0 H Seg Neutrophils # Man Lymphocytes # (Manual) PT INR VBG pH Sodium 135 L Potassium 3.4 L Chloride 96.7 L Carbon Dioxide 17 L BUN Creatinine Glucose POC Glucose Calcium Phosphorus ALT C-Reactive Protein Total Protein 8.8 H Albumin Ur Specific [place] 1.040 H Urine WBC (Auto) 9.0 H Miscellaneous Test Crossmatch 06/09/18 06/10/18 06/10/18 08:48 03:49 03:49 WBC 16.9 H RBC Hgb Hct 29.6 L D MCH MCHC 35 H Plt Count Lymph % (Auto) 9.9 L [place] % (Auto) [place] # Seg Neutrophils % 85.0 H Seg Neuts % (Manual) Lymphocytes % (Manual) Seg Neutrophils # 14.4 H Seg Neutrophils # Man Lymphocytes # (Manual) PT INR VBG pH 7.318 L Sodium Potassium 3.2 L Chloride 108.9 H Carbon Dioxide BUN 2 L Creatinine Glucose 127 H POC Glucose Calcium 8.0 L D Phosphorus ALT C-Reactive Protein Total Protein Albumin Ur Specific [place] Urine WBC (Auto) Miscellaneous Test Crossmatch 06/10/18 06/10/18 06/10/18 03:49 09:35 12:33 WBC 21.2 H RBC Hgb Hct 29.4 L MCH MCHC 35 H Plt Count Lymph % (Auto) [place] % (Auto) [place] # Seg Neutrophils % Seg Neuts % (Manual) 92.0 H Lymphocytes % (Manual) 4.0 L Seg Neutrophils # Seg Neutrophils # Man 19.5 H Lymphocytes # (Manual) 0.8 L PT INR VBG pH Sodium Potassium Chloride Carbon Dioxide BUN Creatinine Glucose POC Glucose 141 H Calcium Phosphorus ALT C-Reactive Protein 14.90 H Total Protein Albumin Ur Specific [place] Urine WBC (Auto) Miscellaneous Test Crossmatch 06/10/18 06/11/18 06/11/18 23:30 04:44 04:44 WBC 22.8 H RBC 3.62 L Hgb 10.0 L Hct 29.2 L MCH MCHC Plt Count Lymph % (Auto) [place] % (Auto) [place] # Seg Neutrophils % Seg Neuts % (Manual) 97.0 H Lymphocytes % (Manual) 2.0 L Seg Neutrophils # Seg Neutrophils # Man 22.1 H Lymphocytes # (Manual) 0.5 L PT INR VBG pH Sodium Potassium 3.2 L Chloride 108.3 H Carbon Dioxide 21 L BUN < 1 L Creatinine 0.6 L Glucose 128 H POC Glucose 106 H Calcium Phosphorus ALT 6 L C-Reactive Protein Total Protein Albumin 2.8 L Ur Specific [place] Urine WBC (Auto) Miscellaneous Test Crossmatch 06/11/18 06/11/18 06/11/18 08:27 10:41 10:41 WBC RBC Hgb Hct MCH MCHC Plt Count Lymph % (Auto) [place] % (Auto) [place] # Seg Neutrophils % Seg Neuts % (Manual) Lymphocytes % (Manual) Seg Neutrophils # Seg Neutrophils # Man Lymphocytes # (Manual) PT 19.7 H INR 1.56 H VBG pH Sodium Potassium Chloride Carbon Dioxide BUN Creatinine Glucose POC Glucose Calcium Phosphorus ALT C-Reactive Protein Total Protein Albumin Ur Specific [place] Urine WBC (Auto) Miscellaneous Test Flexitest 1 H Crossmatch See Detail 06/11/18 06/11/18 06/12/18 17:54 23:43 05:27 WBC RBC Hgb Hct MCH MCHC Plt Count Lymph % (Auto) [place] % (Auto) [place] # Seg Neutrophils % Seg Neuts % (Manual) Lymphocytes % (Manual) Seg Neutrophils # Seg Neutrophils # Man Lymphocytes # (Manual) PT INR VBG pH Sodium Potassium Chloride Carbon Dioxide BUN Creatinine Glucose POC Glucose 151 H 168 H 160 H Calcium Phosphorus ALT C-Reactive Protein Total Protein Albumin Ur Specific [place] Urine WBC (Auto) Miscellaneous Test Crossmatch 06/12/18 06/12/18 06/12/18 05:41 05:41 12:04 WBC 21.5 H RBC 3.50 L Hgb 9.8 L Hct 28.6 L MCH MCHC Plt Count Lymph % (Auto) [place] % (Auto) [place] # Seg Neutrophils % Seg Neuts % (Manual) 92.0 H Lymphocytes % (Manual) 4.0 L Seg Neutrophils # Seg Neutrophils # Man 19.8 H Lymphocytes # (Manual) 0.9 L PT INR VBG pH Sodium Potassium 3.5 L Chloride Carbon Dioxide BUN 3 L Creatinine 0.5 L Glucose 159 H POC Glucose 136 H Calcium 7.9 L Phosphorus ALT C-Reactive Protein Total Protein Albumin Ur Specific [place] Urine WBC (Auto) Miscellaneous Test Crossmatch 06/13/18 06/13/18 06/14/18 04:47 04:47 06:18 WBC 18.9 H 13.5 H RBC 3.09 L Hgb 8.7 L Hct 25.2 L MCH MCHC 35 H 35 H Plt Count Lymph % (Auto) 10.0 L [place] % (Auto) 9.9 H [place] # 1.1 H 1.3 H Seg Neutrophils % 84.1 H Seg Neuts % (Manual) Lymphocytes % (Manual) Seg Neutrophils # 15.9 H 8.1 H Seg Neutrophils # Man Lymphocytes # (Manual) PT INR VBG pH Sodium Potassium 3.5 L Chloride Carbon Dioxide BUN 4 L Creatinine Glucose 104 H POC Glucose Calcium 8.0 L Phosphorus ALT C-Reactive Protein Total Protein Albumin Ur Specific [place] Urine WBC (Auto) Miscellaneous Test Crossmatch 06/14/18 06/15/18 06/15/18 06:18 04:34 04:34 WBC 13.5 H RBC Hgb Hct MCH 27 L MCHC Plt Count 455 H Lymph % (Auto) [place] % (Auto) [place] # 1.0 H Seg Neutrophils % Seg Neuts % (Manual) Lymphocytes % (Manual) Seg Neutrophils # 9.0 H Seg Neutrophils # Man Lymphocytes # (Manual) PT INR VBG pH Sodium Potassium 3.2 L 3.3 L Chloride 97.8 L Carbon Dioxide BUN 5 L Creatinine 0.6 L 0.5 L Glucose POC Glucose Calcium 8.3 L Phosphorus 5.00 H D ALT C-Reactive Protein Total Protein Albumin Ur Specific [place] Urine WBC (Auto) Miscellaneous Test Crossmatch 06/16/18 04:32 WBC RBC Hgb Hct MCH MCHC Plt Count Lymph % (Auto) [place] % (Auto) [place] # Seg Neutrophils % Seg Neuts % (Manual) Lymphocytes % (Manual) Seg Neutrophils # Seg Neutrophils # Man Lymphocytes # (Manual) PT INR VBG pH Sodium Potassium Chloride Carbon Dioxide BUN Creatinine Glucose 102 H POC Glucose Calcium Phosphorus ALT C-Reactive Protein Total Protein Albumin Ur Specific [place] Urine WBC (Auto) Miscellaneous Test Crossmatch Chest x-ray: image reviewed Allied health notes reviewed: nursing
[2018-06-16] MEDS ORDERED: TPN ADULT 2,016 ML IV SCH (20:00)
[2018-06-16] MEDS: LOVENOX SUB-Q SCH (21:01)
[2018-06-17] MEDS: DILAUDID IV PRN ×4 (02:03→21:53)
[2018-06-17] MEDS: FLAGYL 500 MG/100 ML 500 MG/100 ML BAG IV SCH ×3 (06:14→21:59)
[2018-06-17] MEDS ORDERED: DULCOLAX PR PRN (10:00)
[2018-06-17] MEDS: ROCEPHIN/NS 2 GM/100 ML 2 GM/100 ML BAG IV SCH (10:17)
[2018-06-17] MEDS: PEPCID IV SCH ×2 (10:38→21:59)
[2018-06-17 10:49] LABS: BUN/Creatinine Ratio 23; Blood Urea Nitrogen 14 mg/dL (7-17); Calcium 8.9 mg/dL (8.4-10.2); Hemolysis Index 2
--- NOTE | 2018-06-17 11:42 | Progress Note ---
<DELLA CLARK - Last Filed: 06/17/18 11:44> Assessment and Plan Assessment and plan: Ms. Alonso is a 28 y.o. -[place] woman who is a [employer] without chronic medical problems who presented to [facility] ED on 06/09/18 with n/v/ and abd pains. In the ED, temp 98.1, HR 118, R 19, O2 sat 99%, BP 132/91. WBC 19.5, Hg 13, Plat 373. Creat 0.7. LFTs normal. Lipase normal. UA neg. Blood culture 06/09/2018 no growth to date. CT abdomen showed perforated right colon approximately 6 cm superior to the ileocecal valve with trapped area of stool adjacent to the perforation measures 3.1 x 3 x 3.6 cm. Surrounding indurated fat. No jenn pneumoperitoneum. She went for sugery on 06/11/[address] Handley found a very large cecal mass obstructing the colon, extending out into the retroperitoneum as well as adjacent to the duodenum, kidney and superiorly adjacent to the stomach, so he did a Extended right hemicolectomy. The pathology came back as non-cancerous. Sepsis secondary to micro perforation of right colon On Rocephin 2gm daily, Flagyl 500mg daily, and Diflucan 400mg daily Leukocytosis resolving 13.5 ID Following and managing Micro perforation of right colon S/P right hemicolectomy on 06/12 Continue NPO Receving TPN NG to LIS Gen Surg following and managing Right Cecal Mass S/P resection on 06/12 Gen Surg following and managing Hypokalemia- resolved repleated potassium this am 3.9 Constipation Dulcolax suppository PRN DVT PPX On Lovenox History Interval history: Ms. Alonso is seen today on the surgical floor. Pt c/o of constipation and dry mouth overnight. Hospitalist Physical - Constitutional Vitals: Temp Pulse Resp BP Pulse Ox 97.8 F 160 H 18 173/116 98 06/16/18 20:39 06/16/18 20:36 06/16/18 20:36 06/16/18 20:36 06/16/18 20:36 General appearance: Present: no acute distress, mild distress - EENT Eyes: Present: PERRL, EOM intact ENT: hearing intact, clear oral mucosa, dentition normal - Neck Neck: Present: supple, normal ROM - Respiratory Respiratory effort: normal Respiratory: bilateral: CTA - Cardiovascular Heart rate: 90 (bpm) Rhythm: regular Heart Sounds: Present: S1 & S2. Absent: rub - Extremities Extremities: no ischemia, pulses intact - Abdominal General gastrointestinal: soft, tender, hypoactive bowel sounds Localized gastrointestinal: tender: diffuse - Integumentary Integumentary: Present: warm, dry - Psychiatric Psychiatric: cooperative, depressed - Neurologic Neurologic: CNII-XII intact, moves all extremities - Allied Health Allied health notes reviewed: nursing Results - Labs CBC & Chem 7: 06/15/18 04:34 06/17/18 10:09 Labs: Laboratory Last Values WBC 13.5 K/mm3 (4.5-11.0) H 06/15/18 04:34 RBC 4.25 M/mm3 (3.65-5.03) 06/15/18 04:34 Hgb 11.7 gm/dl (10.1-14.3) 06/15/18 04:34 Hct 34.2 % (30.3-42.9) 06/15/18 04:34 MCV 81 fl (79-97) 06/15/18 04:34 MCH 27 pg (28-32) L 06/15/18 04:34 MCHC 34 % (30-34) 06/15/18 04:34 RDW 14.6 % (13.2-15.2) 06/15/18 04:34 Plt Count 455 K/mm3 (140-440) H 06/15/18 04:34 Lymph % (Auto) 24.1 % (13.4-35.0) 06/15/18 04:34 Labette % (Auto) 7.2 % (0.0-7.3) 06/15/18 04:34 Eos % (Auto) 1.0 % (0.0-4.3) 06/15/18 04:34 Baso % (Auto) 0.7 % (0.0-1.8) 06/15/18 04:34 Lymph # 3.2 K/mm3 (1.2-5.4) 06/15/18 04:34 Labette # 1.0 K/mm3 (0.0-0.8) H 06/15/18 04:34 Eos # 0.1 K/mm3 (0.0-0.4) 06/15/18 04:34 Baso # 0.1 K/mm3 (0.0-0.1) 06/15/18 04:34 Add Manual Diff Complete 06/12/18 05:41 Total Counted 100 06/12/18 05:41 Seg Neutrophils % 67.0 % (40.0-70.0) 06/15/18 04:34 Seg Neuts % (Manual) 92.0 % (40.0-70.0) H 06/12/18 05:41 Band Neutrophils % 3.0 % 06/12/18 05:41 Lymphocytes % (Manual) 4.0 % (13.4-35.0) L 06/12/18 05:41 Reactive Lymphs % (Man) 0 % 06/12/18 05:41 Monocytes % (Manual) 1.0 % (0.0-7.3) 06/12/18 05:41 Eosinophils % (Manual) 0 % (0.0-4.3) 06/12/18 05:41 Basophils % (Manual) 0 % (0.0-1.8) 06/12/18 05:41 Metamyelocytes % 0 % 06/12/18 05:41 Myelocytes % 0 % 06/12/18 05:41 Promyelocytes % 0 % 06/12/18 05:41 Blast Cells % 0 % 06/12/18 05:41 Nucleated RBC % Not Reportable 06/12/18 05:41 Seg Neutrophils # 9.0 K/mm3 (1.8-7.7) H 06/15/18 04:34 Seg Neutrophils # Man 19.8 K/mm3 (1.8-7.7) H 06/12/18 05:41 Band Neutrophils # 0.6 K/mm3 06/12/18 05:41 Lymphocytes # (Manual) 0.9 K/mm3 (1.2-5.4) L 06/12/18 05:41 Abs React Lymphs (Man) 0.0 K/mm3 06/12/18 05:41 Monocytes # (Manual) 0.2 K/mm3 (0.0-0.8) 06/12/18 05:41 Eosinophils # (Manual) 0.0 K/mm3 (0.0-0.4) 06/12/18 05:41 Basophils # (Manual) 0.0 K/mm3 (0.0-0.1) 06/12/18 05:41 Metamyelocytes # 0.0 K/mm3 06/12/18 05:41 Myelocytes # 0.0 K/mm3 06/12/18 05:41 Promyelocytes # 0.0 K/mm3 06/12/18 05:41 Blast Cells # 0.0 K/mm3 06/12/18 05:41 WBC Morphology Not Reportable 06/12/18 05:41 Hypersegmented Neuts Not Reportable 06/12/18 05:41 Hyposegmented Neuts Not Reportable 06/12/18 05:41 Hypogranular Neuts Not Reportable 06/12/18 05:41 Smudge Cells Not Reportable 06/12/18 05:41 Toxic Granulation Not Reportable 06/12/18 05:41 Toxic Vacuolation Not Reportable 06/12/18 05:41 Dohle Bodies Not Reportable 06/12/18 05:41 Pelger-Huet Anomaly Not Reportable 06/12/18 05:41 Verenice Rods Not Reportable 06/12/18 05:41 Platelet Estimate Consistent w auto 06/12/18 05:41 Clumped Platelets Not Reportable 06/12/18 05:41 Plt Clumps, EDTA Not Reportable 06/12/18 05:41 Large Platelets Not Reportable 06/12/18 05:41 Giant Platelets Not Reportable 06/12/18 05:41 Platelet Satelliting Not Reportable 06/12/18 05:41 Plt Morphology Comment Not Reportable 06/12/18 05:41 RBC Morphology Not Reportable 06/12/18 05:41 Dimorphic RBCs Not Reportable 06/12/18 05:41 Polychromasia Not Reportable 06/12/18 05:41 Hypochromasia Not Reportable 06/12/18 05:41 Poikilocytosis Not Reportable 06/12/18 05:41 Anisocytosis Not Reportable 06/12/18 05:41 Microcytosis Not Reportable 06/12/18 05:41 Macrocytosis Not Reportable 06/12/18 05:41 Spherocytes Not Reportable 06/12/18 05:41 Pappenheimer Bodies Not Reportable 06/12/18 05:41 Sickle Cells Not Reportable 06/12/18 05:41 Target Cells 1+ 06/12/18 05:41 Tear Drop Cells Not Reportable 06/12/18 05:41 Ovalocytes Not Reportable 06/12/18 05:41 Helmet Cells Not Reportable 06/12/18 05:41 [place] Bodies Not Reportable 06/12/18 05:41 [place] Rings Not Reportable 06/12/18 05:41 Alyssa Cells Not Reportable 06/12/18 05:41 Bite Cells Not Reportable 06/12/18 05:41 Crenated Cell Not Reportable 06/12/18 05:41 Elliptocytes Not Reportable 06/12/18 05:41 Acanthocytes (Spur) Not Reportable 06/12/18 05:41 Rouleaux Not Reportable 06/12/18 05:41 Hemoglobin C Crystals Not Reportable 06/12/18 05:41 Schistocytes Not Reportable 06/12/18 05:41 Malaria parasites Not Reportable 06/12/18 05:41 Tom Bodies Not Reportable 06/12/18 05:41 Hem Pathologist Commnt No 06/12/18 05:41 PT 19.7 Sec. (12.2-14.9) H 06/11/18 10:41 INR 1.56 (0.87-1.13) H 06/11/18 10:41 APTT 29.6 Sec. (24.2-36.6) 06/11/18 10:41 VBG pH 7.318 (7.320-7.420) L 06/09/18 08:48 Sodium 140 mmol/L (137-145) 06/17/18 10:09 Potassium 4.0 mmol/L (3.6-5.0) 06/17/18 10:09 Chloride 99.2 mmol/L (98-107) 06/17/18 10:09 Carbon Dioxide 28 mmol/L (22-30) 06/17/18 10:09 Anion Gap 17 mmol/L 06/17/18 10:09 BUN 14 mg/dL (7-17) 06/17/18 10:09 Creatinine 0.6 mg/dL (0.7-1.2) L 06/17/18 10:09 Estimated GFR > 60 ml/min 06/17/18 10:09 BUN/Creatinine Ratio 23 % 06/17/18 10:09 Glucose 102 mg/dL (65-100) H 06/17/18 10:09 POC Glucose 101 (70-105) 06/16/18 22:46 Lactic Acid 0.80 mmol/L (0.7-2.0) 06/09/18 07:56 Calcium 8.9 mg/dL (8.4-10.2) 06/17/18 10:09 Phosphorus 3.60 mg/dL (2.5-4.5) 06/17/18 10:09 Magnesium 2.00 mg/dL (1.7-2.3) 06/17/18 10:09 Total Bilirubin 0.30 mg/dL (0.1-1.2) 06/11/18 04:44 AST 10 units/L (5-40) 06/11/18 04:44 ALT 6 units/L (7-56) L 06/11/18 04:44 Alkaline Phosphatase 55 units/L (35-129) 06/11/18 04:44 C-Reactive Protein 14.90 mg/dL (0.00-1.30) H 06/10/18 03:49 Total Protein 6.6 g/dL (6.3-8.2) D 06/11/18 04:44 Albumin 2.8 g/dL (3.9-5) L 06/11/18 04:44 Albumin/Globulin Ratio 0.7 % 06/11/18 04:44 Lipase 21 units/L (13-60) 06/09/18 08:48 HCG, Qual Negative (Negative) 06/09/18 01:41 Urine Color Yellow (Yellow) 06/13/18 11:30 Urine Turbidity Clear (Clear) 06/13/18 11:30 Urine pH 7.0 (5.0-7.0) 06/13/18 11:30 Ur Specific [place] 1.020 (1.003-1.030) 06/13/18 11:30 Urine Protein <15 mg/dl mg/dL (Negative) 06/13/18 11:30 Urine Glucose (UA) Neg mg/dL (Negative) 06/13/18 11:30 Urine Ketones Neg mg/dL (Negative) 06/13/18 11:30 Urine Blood Sm (Negative) 06/13/18 11:30 Urine Nitrite Neg (Negative) 06/13/18 11:30 Urine Bilirubin Neg (Negative) 06/13/18 11:30 Urine Urobilinogen < 2.0 mg/dL (<2.0) 06/13/18 11:30 Ur Leukocyte Esterase Sm (Negative) 06/13/18 11:30 Urine WBC (Auto) 6.0 /HPF (0.0-6.0) 06/13/18 11:30 Urine RBC (Auto) 16.0 /HPF (0.0-6.0) 06/13/18 11:30 U Epithel Cells (Auto) < 1.0 /HPF (0-13.0) 06/13/18 11:30 Hyaline Casts 14 /LPF 06/09/18 04:41 Urine Mucus Few /HPF 06/13/18 11:30 Urine HCG, Qual Negative (Negative) 06/11/18 11:30 Proteinase 3 (PR3) Ab <1.0 AI (<1.0) 06/10/18 13:37 Myeloperoxidase Ab <1.0 AI (<1.0) 06/10/18 13:37 Complement C3 178 mg/dL (83-193) 06/10/18 13:37 Complement C4 30 mg/dL (15-57) 06/10/18 13:37 Miscellaneous Test Flexitest 1 H 06/11/18 08:27 Blood Type B POSITIVE 06/11/18 10:41 Antibody Screen Negative 06/11/18 10:41 Crossmatch See Detail 06/11/18 10:41 BMP 06/17/18 10:09 Sodium 140 Potassium 4.0 Chloride 99.2 Carbon Dioxide 28 BUN 14 Creatinine 0.6 L Glucose 102 H Calcium 8.9 Active Medications - Current Medications Current Medications: Generic Name Dose Route Start Last Admin Trade Name Freq PRN Reason Stop Dose Admin Acetaminophen 650 mg 06/10/18 15:[address] Q4H PRN Fever >101 Benzocaine/Menthol 1 each 06/11/18 20:17 06/16/18 20:53 Cepacol X Strength MM 1 each Q2HR PRN Administration Sore Throat Bisacodyl 10 mg 06/17/18 10:00 06/17/18 10:[address] 10 mg QDAY PRN Administration Constipation Enoxaparin Sodium 40 mg 06/10/18 22:00 06/16/18 21:01 Lovenox SUB-Q 40 mg QDAY@2200 DONNELL Administration Famotidine 20 mg 06/11/18 16:00 06/17/18 10:38 Pepcid IV 20 mg BID DONNELL Administration Hydralazine HCl 10 mg 06/12/18 12:02 06/13/18 13:33 Apresoline IV 10 mg Q4HR PRN Administration Blood Pressure Hydromorphone HCl 1 mg 06/12/18 12:13 06/17/18 09:52 Dilaudid IV 1 mg Q2H PRN Administration Pain , Severe (7-10) Metronidazole 500 mg in 100 mls @ 100 mls/hr 06/10/18 14:00 06/17/18 06:14 Flagyl 500 Mg/100 Ml IV 100 mls/hr Q8HR DONNELL Administration Protocol Ceftriaxone Sodium 2 gm in 100 mls @ 200 mls/hr 06/10/18 16:00 06/17/18 10:17 Rocephin/Ns 2 Gm/100 Ml IV 200 mls/hr Q24HR DONNELL Administration Protocol Fluconazole 200 mls @ 100 mls/hr 06/11/18 11:00 06/16/18 10:40 Diflucan IV 100 mls/hr Q24HR DONNELL Administration Protocol Amino Acids/Electrolytes/Dextrose 2,016 mls @ 84 mls/hr 06/16/18 20:00 06/16/18 21:02 Tpn Adult IV 06/17/18 19:59 84 mls/hr DAILY@2000 DONNELL Administration Protocol Labetalol HCl 10 mg 06/09/18 10:54 06/11/18 16:21 Normodyne IV 10 mg Q4H PRN Administration Hypertension Lidocaine HCl 15 ml 06/12/18 15:52 06/12/18 20:14 Lidocaine Viscous 2% PO 15 ml Q8HR PRN Administration Mouth Pain Morphine Sulfate 2 mg 06/09/18 10:54 06/12/18 08:09 Morphine IV 2 mg Q4H PRN Administration Pain, Moderate (4-6) Ondansetron HCl 4 mg 06/10/18 22:29 06/16/18 17:20 Zofran IV 4 mg Q4H PRN Administration Nausea And Vomiting Nutrition/Malnutrition Assess - Dietary Evaluation Nutrition/Malnutrition Findings: Nutrition Notes Start: 06/13/18 10:26 Freq: Status: Active Protocol: Document 06/16/18 09:17 LP (Rec: 06/16/18 09:20 LP [id number]) Nutrition Notes Initial or Follow up Reassessment Other Pertinent Diagnosis Large Colon Mass s/p extended hemicolectomy Current Diet PPN at 84ml/hr Labs/Tests Reviewed Pertinent Medications Reviewed Height 5 ft 2 in Weight 60.555 kg [place] Body Weight (kg) 50.00 BMI 24.4 Subjective/Other Information PPN day 4. Percent of energy/protein needs met: 50%/100% Burn Absent Trauma Absent #1 Nutrition Diagnosis Inadequate oral intake Diagnosis Progress(for reassessment Continues documentation) Is patient on ventilator? No Is Patient Ambulatory and/or Out of Bed No REE-([facility]-confined to bed) 1548.516 Calculation Used for Recommendations [facility] Additional Notes Protein:73-91g/day (1.2-1.5g/ kg) Fluid: 1 ml/kcal Nutrition Intervention Change Diet Order: PPN Nutrition Support: Reduce PPN to 84ml/hr: 7% dextrose, 4mEq Mg, MVI. Kcal 823 Protein (gm) 91 Carbohydrates (gm) 120 Fat (gm) 0 Fluid (mL) 2,016 Fiber (gm) 0 Goal #1 Meet at least 75% of kcal and pro needs via PPN or as best as possible Anticipated Discharge Needs: unable to determine at this time Follow-Up By: 06/17/18 Additional Comments Labs in AM: BMP, Mg, Phos <DAYNE ROSALES R - Last Filed: 06/17/18 13:27> Assessment and Plan Assessment and plan: I saw and evaluated the patient. I agree with the findings and the plan of care as documented in the Nurse Practitioner's~note, with the following corrections and additions. had a very small bm this morning, she saved it in the trash. Hospitalist Physical - Constitutional Vitals: Temp Pulse Resp BP Pulse Ox 97.8 F 160 H 18 173/116 98 06/16/18 20:39 06/16/18 20:36 06/16/18 20:36 06/16/18 20:36 06/16/18 20:36 Results - Labs CBC & Chem 7: 06/15/18 04:34 06/17/18 10:09 Labs: Laboratory Last Values WBC 13.5 K/mm3 (4.5-11.0) H 06/15/18 04:34 RBC 4.25 M/mm3 (3.65-5.03) 06/15/18 04:34 Hgb 11.7 gm/dl (10.1-14.3) 06/15/18 04:34 Hct 34.2 % (30.3-42.9) 06/15/18 04:34 MCV 81 fl (79-97) 06/15/18 04:34 MCH 27 pg (28-32) L 06/15/18 04:34 MCHC 34 % (30-34) 06/15/18 04:34 RDW 14.6 % (13.2-15.2) 06/15/18 04:34 Plt Count 455 K/mm3 (140-440) H 06/15/18 04:34 Lymph % (Auto) 24.1 % (13.4-35.0) 06/15/18 04:34 Labette % (Auto) 7.2 % (0.0-7.3) 06/15/18 04:34 Eos % (Auto) 1.0 % (0.0-4.3) 06/15/18 04:34 Baso % (Auto) 0.7 % (0.0-1.8) 06/15/18 04:34 Lymph # 3.2 K/mm3 (1.2-5.4) 06/15/18 04:34 Labette # 1.0 K/mm3 (0.0-0.8) H 06/15/18 04:34 Eos # 0.1 K/mm3 (0.0-0.4) 06/15/18 04:34 Baso # 0.1 K/mm3 (0.0-0.1) 06/15/18 04:34 Add Manual Diff Complete 06/12/18 05:41 Total Counted 100 06/12/18 05:41 Seg Neutrophils % 67.0 % (40.0-70.0) 06/15/18 04:34 Seg Neuts % (Manual) 92.0 % (40.0-70.0) H 06/12/18 05:41 Band Neutrophils % 3.0 % 06/12/18 05:41 Lymphocytes % (Manual) 4.0 % (13.4-35.0) L 06/12/18 05:41 Reactive Lymphs % (Man) 0 % 06/12/18 05:41 Monocytes % (Manual) 1.0 % (0.0-7.3) 06/12/18 05:41 Eosinophils % (Manual) 0 % (0.0-4.3) 06/12/18 05:41 Basophils % (Manual) 0 % (0.0-1.8) 06/12/18 05:41 Metamyelocytes % 0 % 06/12/18 05:41 Myelocytes % 0 % 06/12/18 05:41 Promyelocytes % 0 % 06/12/18 05:41 Blast Cells % 0 % 06/12/18 05:41 Nucleated RBC % Not Reportable 06/12/18 05:41 Seg Neutrophils # 9.0 K/mm3 (1.8-7.7) H 06/15/18 04:34 Seg Neutrophils # Man 19.8 K/mm3 (1.8-7.7) H 06/12/18 05:41 Band Neutrophils # 0.6 K/mm3 06/12/18 05:41 Lymphocytes # (Manual) 0.9 K/mm3 (1.2-5.4) L 06/12/18 05:41 Abs React Lymphs (Man) 0.0 K/mm3 06/12/18 05:41 Monocytes # (Manual) 0.2 K/mm3 (0.0-0.8) 06/12/18 05:41 Eosinophils # (Manual) 0.0 K/mm3 (0.0-0.4) 06/12/18 05:41 Basophils # (Manual) 0.0 K/mm3 (0.0-0.1) 06/12/18 05:41 Metamyelocytes # 0.0 K/mm3 06/12/18 05:41 Myelocytes # 0.0 K/mm3 06/12/18 05:41 Promyelocytes # 0.0 K/mm3 06/12/18 05:41 Blast Cells # 0.0 K/mm3 06/12/18 05:41 WBC Morphology Not Reportable 06/12/18 05:41 Hypersegmented Neuts Not Reportable 06/12/18 05:41 Hyposegmented Neuts Not Reportable 06/12/18 05:41 Hypogranular Neuts Not Reportable 06/12/18 05:41 Smudge Cells Not Reportable 06/12/18 05:41 Toxic Granulation Not Reportable 06/12/18 05:41 Toxic Vacuolation Not Reportable 06/12/18 05:41 Dohle Bodies Not Reportable 06/12/18 05:41 Pelger-Huet Anomaly Not Reportable 06/12/18 05:41 Verencie Rods Not Reportable 06/12/18 05:41 Platelet Estimate Consistent w auto 06/12/18 05:41 Clumped Platelets Not Reportable 06/12/18 05:41 Plt Clumps, EDTA Not Reportable 06/12/18 05:41 Large Platelets Not Reportable 06/12/18 05:41 Giant Platelets Not Reportable 06/12/18 05:41 Platelet Satelliting Not Reportable 06/12/18 05:41 Plt Morphology Comment Not Reportable 06/12/18 05:41 RBC Morphology Not Reportable 06/12/18 05:41 Dimorphic RBCs Not Reportable 06/12/18 05:41 Polychromasia Not Reportable 06/12/18 05:41 Hypochromasia Not Reportable 06/12/18 05:41 Poikilocytosis Not Reportable 06/12/18 05:41 Anisocytosis Not Reportable 06/12/18 05:41 Microcytosis Not Reportable 06/12/18 05:41 Macrocytosis Not Reportable 06/12/18 05:41 Spherocytes Not Reportable 06/12/18 05:41 Pappenheimer Bodies Not Reportable 06/12/18 05:41 Sickle Cells Not Reportable 06/12/18 05:41 Target Cells 1+ 06/12/18 05:41 Tear Drop Cells Not Reportable 06/12/18 05:41 Ovalocytes Not Reportable 06/12/18 05:41 Helmet Cells Not Reportable 06/12/18 05:41 [place] Bodies Not Reportable 06/12/18 05:41 [place] Rings Not Reportable 06/12/18 05:41 Alyssa Cells Not Reportable 06/12/18 05:41 Bite Cells Not Reportable 06/12/18 05:41 Crenated Cell Not Reportable 06/12/18 05:41 Elliptocytes Not Reportable 06/12/18 05:41 Acanthocytes (Spur) Not Reportable 06/12/18 05:41 Rouleaux Not Reportable 06/12/18 05:41 Hemoglobin C Crystals Not Reportable 06/12/18 05:41 Schistocytes Not Reportable 06/12/18 05:41 Malaria parasites Not Reportable 06/12/18 05:41 Tom Bodies Not Reportable 06/12/18 05:41 Hem Pathologist Commnt No 06/12/18 05:41 PT 19.7 Sec. (12.2-14.9) H 06/11/18 10:41 INR 1.56 (0.87-1.13) H 06/11/18 10:41 APTT 29.6 Sec. (24.2-36.6) 06/11/18 10:41 VBG pH 7.318 (7.320-7.420) L 06/09/18 08:48 Sodium 140 mmol/L (137-145) 06/17/18 10:09 Potassium 4.0 mmol/L (3.6-5.0) 06/17/18 10:09 Chloride 99.2 mmol/L (98-107) 06/17/18 10:09 Carbon Dioxide 28 mmol/L (22-30) 06/17/18 10:09 Anion Gap 17 mmol/L 06/17/18 10:09 BUN 14 mg/dL (7-17) 06/17/18 10:09 Creatinine 0.6 mg/dL (0.7-1.2) L 06/17/18 10:09 Estimated GFR > 60 ml/min 06/17/18 10:09 BUN/Creatinine Ratio 23 % 06/17/18 10:09 Glucose 102 mg/dL (65-100) H 06/17/18 10:09 POC Glucose 101 (70-105) 06/16/18 22:46 Lactic Acid 0.80 mmol/L (0.7-2.0) 06/09/18 07:56 Calcium 8.9 mg/dL (8.4-10.2) 06/17/18 10:09 Phosphorus 3.60 mg/dL (2.5-4.5) 06/17/18 10:09 Magnesium 2.00 mg/dL (1.7-2.3) 06/17/18 10:09 Total Bilirubin 0.30 mg/dL (0.1-1.2) 06/11/18 04:44 AST 10 units/L (5-40) 06/11/18 04:44 ALT 6 units/L (7-56) L 06/11/18 04:44 Alkaline Phosphatase 55 units/L (35-129) 06/11/18 04:44 C-Reactive Protein 14.90 mg/dL (0.00-1.30) H 06/10/18 03:49 Total Protein 6.6 g/dL (6.3-8.2) D 06/11/18 04:44 Albumin 2.8 g/dL (3.9-5) L 06/11/18 04:44 Albumin/Globulin Ratio 0.7 % 06/11/18 04:44 Lipase 21 units/L (13-60) 06/09/18 08:48 HCG, Qual Negative (Negative) 06/09/18 01:41 Urine Color Yellow (Yellow) 06/13/18 11:30 Urine Turbidity Clear (Clear) 06/13/18 11:30 Urine pH 7.0 (5.0-7.0) 06/13/18 11:30 Ur Specific [place] 1.020 (1.003-1.030) 06/13/18 11:30 Urine Protein <15 mg/dl mg/dL (Negative) 06/13/18 11:30 Urine Glucose (UA) Neg mg/dL (Negative) 06/13/18 11:30 Urine Ketones Neg mg/dL (Negative) 06/13/18 11:30 Urine Blood Sm (Negative) 06/13/18 11:30 Urine Nitrite Neg (Negative) 06/13/18 11:30 Urine Bilirubin Neg (Negative) 06/13/18 11:30 Urine Urobilinogen < 2.0 mg/dL (<2.0) 06/13/18 11:30 Ur Leukocyte Esterase Sm (Negative) 06/13/18 11:30 Urine WBC (Auto) 6.0 /HPF (0.0-6.0) 06/13/18 11:30 Urine RBC (Auto) 16.0 /HPF (0.0-6.0) 06/13/18 11:30 U Epithel Cells (Auto) < 1.0 /HPF (0-13.0) 06/13/18 11:30 Hyaline Casts 14 /LPF 06/09/18 04:41 Urine Mucus Few /HPF 06/13/18 11:30 Urine HCG, Qual Negative (Negative) 06/11/18 11:30 Proteinase 3 (PR3) Ab <1.0 AI (<1.0) 06/10/18 13:37 Myeloperoxidase Ab <1.0 AI (<1.0) 06/10/18 13:37 Complement C3 178 mg/dL (83-193) 06/10/18 13:37 Complement C4 30 mg/dL (15-57) 06/10/18 13:37 Miscellaneous Test Flexitest 1 H 06/11/18 08:27 Blood Type B POSITIVE 06/11/18 10:41 Antibody Screen Negative 06/11/18 10:41 Crossmatch See Detail 06/11/18 10:41 Active Medications - Current Medications Current Medications: Generic Name Dose Route Start Last Admin Trade Name Freq PRN Reason Stop Dose Admin Acetaminophen 650 mg 06/10/18 15:[address] Q4H PRN Fever >101 Acetaminophen/Hydrocodone [place] 1 each 06/17/18 12:57 [place] 5/325 PO Q4H PRN Pain, Moderate (4-6) Benzocaine/Menthol 1 each 06/11/18 20:17 06/16/18 20:53 Cepacol X Strength MM 1 each Q2HR PRN Administration Sore Throat Bisacodyl 10 mg 06/17/18 10:00 06/17/18 10:[address] 10 mg QDAY PRN Administration Constipation Enoxaparin Sodium 40 mg 06/10/18 22:00 06/16/18 21:01 Lovenox SUB-Q 40 mg QDAY@2200 DONNELL Administration Famotidine 20 mg 06/11/18 16:00 06/17/18 10:38 Pepcid IV 20 mg BID DONNELL Administration Hydralazine HCl 10 mg 06/12/18 12:02 06/13/18 13:33 Apresoline IV 10 mg Q4HR PRN Administration Blood Pressure Hydromorphone HCl 1 mg 06/12/18 12:13 06/17/18 09:52 Dilaudid IV 1 mg Q2H PRN Administration Pain , Severe (7-10) Metronidazole 500 mg in 100 mls @ 100 mls/hr 06/10/18 14:00 06/17/18 06:14 Flagyl 500 Mg/100 Ml IV 100 mls/hr Q8HR DONNELL Administration Protocol Ceftriaxone Sodium 2 gm in 100 mls @ 200 mls/hr 06/10/18 16:00 06/17/18 10:17 Rocephin/Ns 2 Gm/100 Ml IV 200 mls/hr Q24HR DONNELL Administration Protocol Fluconazole 200 mls @ 100 mls/hr 06/11/18 11:00 06/16/18 10:40 Diflucan IV 100 mls/hr Q24HR DONNELL Administration Protocol Amino Acids/Electrolytes/Dextrose 2,016 mls @ 84 mls/hr 06/16/18 20:00 06/16/18 21:02 Tpn Adult IV 06/17/18 19:59 84 mls/hr DAILY@1999 [facility] Administration Protocol Amino Acids/Electrolytes/Dextrose 2,016 mls @ 84 mls/hr 06/17/18 20:00 Tpn Adult IV 06/18/18 19:59 DAILY@1999 [facility] Protocol Labetalol HCl 10 mg 06/09/18 10:54 06/11/18 16:21 Normodyne IV 10 mg Q4H PRN Administration Hypertension Lidocaine HCl 15 ml 06/12/18 15:52 06/12/18 20:14 Lidocaine Viscous 2% PO 15 ml Q8HR PRN Administration Mouth Pain Morphine Sulfate 2 mg 06/09/18 10:54 06/12/18 08:09 Morphine IV 2 mg Q4H PRN Administration Pain, Moderate (4-6) Ondansetron HCl 4 mg 06/10/18 22:29 06/16/18 17:20 Zofran IV 4 mg Q4H PRN Administration Nausea And Vomiting Nutrition/Malnutrition Assess - Dietary Evaluation Nutrition/Malnutrition Findings: Nutrition Notes Start: 06/13/18 10:26 Freq: Status: Active Protocol: Document 06/17/18 11:52 VENECIA (Rec: 06/17/18 11:56 VENECIA [id number]) Nutrition Notes Other Pertinent Diagnosis Large Colon Mass s/p extended hemicolectomy Current Diet PPN at 84ml/hr Labs/Tests Reviewed Pertinent Medications Reviewed Height 5 ft 2 in Weight 60.555 kg [place] Body Weight (kg) 50.00 BMI 24.4 Subjective/Other Information Day 5 PPN. Percent of energy/protein needs met: 48% energy 100% pro Burn Absent Trauma Absent #1 Nutrition Diagnosis Inadequate oral intake Diagnosis Progress(for reassessment Continues documentation) Is patient on ventilator? No Is Patient Ambulatory and/or Out of Bed Yes REE-([facility]-ambulatory/OOB) [ [id number] [id number]] Calculation Used for Recommendations [facility] Additional Notes Pro needs 1.2-1.5g/k-91g/ day Fluid needs 1ml/kcal Nutrition Intervention Nutrition Support: Continue PPN at 84ml/hr: MVI, 3.7% amino acids, 7.4% dextrose. Osmolality: 839 Kcal 810 Protein (gm) 75 Carbohydrates (gm) 150 Fat (gm) 0 Fluid (mL) 2,016 Fiber (gm) 0 Goal #1 Meet at least 75% of kcal and pro needs via PPN or as best as possible Follow-Up By: 06/18/18 Additional Comments Labs in am: CMP, Mg, Phos
--- NOTE | 2018-06-17 12:09 | Progress Note ---
Assessment and Plan Cultures: Blood culture 06/09/2018 no growth today Intraperitoneal culture 06/11/2018 no growth today Assessment: 28 y/o female with history marihuana use; admitted on due to 3-day history of nausea, vomiting and abdominal pain: 1) Sepsis: fever/tachycardia resolved and leukocytosis better. CRP=14. Etiology most likely right colonic mass and perforation. 2) Right large cecal mass with perforation: of unclear etiology. Patient denies history of previous diverticulitis or inflammatory bowel disease. No history of trauma or ingestion of foreign bodies. CT abdomen showed perforated right colon approximately 6 cm superior to the ileocecal valve with trapped area of stool adjacent to the perforation measures 3.1 x 3 x 3.6 cm. Surrounding indurated fat. No jenn pneumoperitoneum. No evidence of intra-abdominal abscess or fistula. Among infectious diseases causes of right sided colonic perforation are typhoid (no history of diarrhea), schistosomiasis (no recent travels to tropical areas), CMV. Other non ID etiologies: malignancy, connective tissue disease, vasculitis. S/p exlap on 06/12/2018 found to have a very large cecal mass. Pathology report shows benign perforated colonic mucosa with ulcer, adjacent ischenic changes, few thrombosis vessels at ulcer bed and ischemic areas, marked acute and chronic inflammation, edema and congestion extending to entire wall with abscess formation. Will send immunoassays for IgG and I gM antibodies to cardiolipin and beta2-glycoprotein I and functional assay for lupus anticoagulant to r/o antiphospholipid syndrome C3/C4 negative. Procal 0.11. Recommendations: - follow-up intraperitoneal culture - follow-up CARLOS MANUEL with reflex, C3, C4, ANCA - follow-up HIV and CMV DNA PCR - continue ceftriaxone and flagyl D5 - discontinue fluconazole IV D4 - Order CRP - send immunoassays for IgG and I gM antibodies to cardiolipin and beta2- glycoprotein I and functional assay for lupus anticoagulant to r/o antiphospholipid syndrome [facility] M: [phone] O:[phone] Subjective Date of service: 06/17/18 Principal diagnosis: Acute abdomen/R. colonic perforation; SIRS; Leukocytosis; Abd. pain Interval history: Patient seen and examined. Reports no generalized pain or SOB. No fevers. Objective - Exam Narrative Exam: General appearance: Alert in NAD, conversant Eyes: anicteric sclerae, moist conjunctivae; no lid-lag; PERRLA HENT: Atraumatic; oropharynx clear with moist mucous membranes and no mucosal ulcerations/no oral thrush; normal hard and soft palate. Normal external ears. Neck: Trachea midline; supple, no thyromegaly or lymphadenopathy Lungs: CTA CV: tachy Abdomen: Soft,midline wound with surg dressings Extremities: No peripheral edema or extremity lymphadenopathy Skin: Normal temperature, turgor and texture; no rash, ulcers or subcutaneous nodules Psych: Appropriate affect, alert and oriented to person, place and time. Neuro: alert and oriented x 3. Moving all extermities - Constitutional Vitals: Vital Signs Temp Pulse Resp BP Pulse Ox 97.8 F 160 H 18 173/116 98 06/16/18 20:39 06/16/18 20:36 06/16/18 20:36 06/16/18 20:36 06/16/18 20:36 Temperature -Last 24 Hours Temperature 97.8 F Temperature 98 F Temperature 98.0 F - Labs CBC & Chem 7: 06/15/18 04:34 06/17/18 10:09 Labs: Abnormal lab results 06/17/18 Range/Units 10:09 Creatinine 0.6 L (0.7-1.2) mg/dL Glucose 102 H (65-100) mg/dL
[2018-06-17] MEDS ORDERED: NORCO 5/325 PO PRN (12:57)
--- NOTE | 2018-06-17 12:57 | Progress Note ---
Assessment and Plan POD # 6 Pt feeling well. + flatus. + BM Abd soft. incision clean & dry stable d/c ng today probable cl liq in am if d/c of ng dominguez well Selected Entries 06/16/18 06/16/18 20:36 20:39 Temperature 97.8 F Respiratory 18 Rate O2 Sat by Pulse 98 Oximetry Laboratory Tests 06/17/18 10:09 Sodium 140 Potassium 4.0 Chloride 99.2 Carbon Dioxide 28 Anion Gap 17 BUN 14 Creatinine 0.6 L Objective - Labs 06/15/18 04:34 06/17/18 10:09 Diabetes panel 06/17/18 Range/Units 10:09 Sodium 140 (137-145) mmol/L Potassium 4.0 (3.6-5.0) mmol/L Chloride 99.2 (98-107) mmol/L Carbon Dioxide 28 (22-30) mmol/L BUN 14 (7-17) mg/dL Creatinine 0.6 L (0.7-1.2) mg/dL Glucose 102 H (65-100) mg/dL Calcium 8.9 (8.4-10.2) mg/dL Calcium panel 06/17/18 Range/Units 10:09 Calcium 8.9 (8.4-10.2) mg/dL Phosphorus 3.60 (2.5-4.5) mg/dL Pituitary panel 06/17/18 Range/Units 10:09 Sodium 140 (137-145) mmol/L Potassium 4.0 (3.6-5.0) mmol/L Chloride 99.2 (98-107) mmol/L Carbon Dioxide 28 (22-30) mmol/L BUN 14 (7-17) mg/dL Creatinine 0.6 L (0.7-1.2) mg/dL Glucose 102 H (65-100) mg/dL Calcium 8.9 (8.4-10.2) mg/dL Adrenal panel 06/17/18 Range/Units 10:09 Sodium 140 (137-145) mmol/L Potassium 4.0 (3.6-5.0) mmol/L Chloride 99.2 (98-107) mmol/L Carbon Dioxide 28 (22-30) mmol/L BUN 14 (7-17) mg/dL Creatinine 0.6 L (0.7-1.2) mg/dL Glucose 102 H (65-100) mg/dL Calcium 8.9 (8.4-10.2) mg/dL
--- NOTE | 2018-06-17 14:09 | Progress Note ---
Assessment and Plan /Sepsis secondary to micro perforation of right colon On Rocephin 2gm daily, Flagyl 500mg daily, and Diflucan 400mg daily Leukocytosis resolving 13.5 ID Following and managing /Micro perforation of right colon S/P right hemicolectomy on 06/12 Continue NPO Receving TPN NG to LIS - d/c today, if tolerates well plan to start clear liquid from tomorrow Gen Surg following and managing /Right Cecal Mass S/P resection on 06/12 Gen Surg following and managing /Hypokalemia- resolved repleated /Constipation Dulcolax suppository PRN /DVT PPX On Lovenox Radiological data: CT abdomen/pelvis; Right colonic perforation with trapped area of stool measuring 3.6 x 3.1 x 3 cm. Abscess formation at this location is expected. No jenn pneumoperitoneum. No other focal abnormalities within the gastrointestinal tract are identified. Consider underlying immunocompromised state or inflammatory bowel disease as potential etiologies. Brief History: Ms. Alonso is a 28 y.o. -[place] woman who is a [employer] without chronic medical problems who presented to [facility] ED on 06/09/18 with n/v/ and abd pains. In the ED, temp 98.1, HR 118, R 19, O2 sat 99%, BP 132/91. WBC 19.5, Hg 13, Plat 373. Creat 0.7. LFTs normal. Lipase normal. UA neg. Blood culture 06/09/2018 no growth to date. CT abdomen showed perforated right colon approximately 6 cm superior to the ileocecal valve with trapped area of stool adjacent to the perforation measures 3.1 x 3 x 3.6 cm. Surrounding indurated fat. No jenn pneumoperitoneum. She went for sugery on 06/11/[address] Handley found a very large cecal mass obstructing the colon, extending out into the retroperitoneum as well as adjacent to the duodenum, kidney and superiorly adjacent to the stomach, so he did a Extended right hemicolectomy. The pathology came back as non-cancerous. Subjective Date of service: 06/17/18 Principal diagnosis: Acute abdomen/R. colonic perforation; SIRS; Leukocytosis; Abd. pain Interval history: Patient seen and examined improved abdominal pain and nausea no acute issue o/n , off NG, had BM and passing gas Objective - Exam Narrative Exam: General appearance: Present: mild distress - EENT Eyes: Present: PERRL ENT: hearing intact, clear oral mucosa - Neck Neck: Present: supple, normal ROM - Respiratory Respiratory effort: normal Respiratory: bilateral: CTA - Cardiovascular Heart Sounds: Present: S1 & S2. Absent: rub, click - Extremities Extremities: pulses symmetrical, No edema Peripheral Pulses: within normal limits - Abdominal General gastrointestinal: Present: surgical dressing on abdomen Localized gastrointestinal: guarding: RUQ - Integumentary Integumentary: Present: clear, warm, dry - Musculoskeletal Musculoskeletal: gait normal, strength equal bilaterally - Psychiatric Psychiatric: appropriate mood/affect, intact judgment & insight - Neurologic Neurologic: CNII-XII intact, moves all extremities - Labs CBC & Chem 7: 06/15/18 04:34 06/18/18 05:28 Labs: Abnormal lab results 06/17/18 Range/Units 10:09 Creatinine 0.6 L (0.7-1.2) mg/dL Glucose 102 H (65-100) mg/dL
--- NOTE | 2018-06-17 14:21 | Progress Note ---
Assessment and Plan Patient awake. Resting on room air. No complaint of chest pain, shortness of breath or cough.O2 saturation 95% on room air. Obtaining chest xray PA and Lateral and ABGs on room air. - Patient Problems (1) Colon perforation Current Visit: Yes Status: Acute Plan to address problem: Patient undergone exploratory laporotomy and extensive right hemicolectomy for perforated colon. Patient is on metronidazole and ceftrioxone. Continue S/C Lovenox for DVT prophylaxis. Continue famotidine. Subjective Date of service: 06/17/18 Principal diagnosis: Acute abdomen/R. colonic perforation; SIRS; Leukocytosis; Abd. pain Interval history: Patient awake. Resting on room air. No complaint of chest pain, shortness of breath or cough.O2 saturation 95% on room air. Objective Constitutional: no acute distress, alert Eyes: non-icteric ENT: oropharynx dry, other (Mallampati 2) Neck: supple, no lymphadenopathy, no JVD, other (no thyromegaly) Effort: normal Ascultation: Bilateral: diminished breath sounds (at the bases) Percussion: Bilateral: not dull Cardiovascular: regular rate and rhythm Gastrointestinal: hypoactive bowel sounds, soft, tender (mild), non-distended Integumentary: normal Extremities: no cyanosis, no edema, pulses normal, no ischemia or petechiae Neurologic: normal mental status, non-focal exam, pupils equal and round, CN II- XII normal, motor strength normal and Psychiatric: mood appropriate, affect normal CBC and BMP: 06/15/18 04:34 06/17/18 10:09 ABG, PT/INR, D-dimer: PT/INR, D-dimer PT 19.7 Sec. (12.2-14.9) H 06/11/18 10:41 INR 1.56 (0.87-1.13) H 06/11/18 10:41 Abnormal lab findings: Abnormal Labs 06/09/18 06/09/18 06/09/18 01:41 01:41 04:41 WBC 19.5 H RBC Hgb Hct MCH MCHC 35 H Plt Count Lymph % (Auto) 8.1 L Addison % (Auto) Addison # Seg Neutrophils % 87.4 H Seg Neuts % (Manual) Lymphocytes % (Manual) Seg Neutrophils # 17.0 H Seg Neutrophils # Man Lymphocytes # (Manual) PT INR VBG pH Sodium 135 L Potassium 3.4 L Chloride 96.7 L Carbon Dioxide 17 L BUN Creatinine Glucose POC Glucose Calcium Phosphorus ALT C-Reactive Protein Total Protein 8.8 H Albumin Ur Specific [place] 1.040 H Urine WBC (Auto) 9.0 H Miscellaneous Test Crossmatch 06/09/18 06/10/18 06/10/18 08:48 03:49 03:49 WBC 16.9 H RBC Hgb Hct 29.6 L D MCH MCHC 35 H Plt Count Lymph % (Auto) 9.9 L [place]ison % (Auto) [place]ison # Seg Neutrophils % 85.0 H Seg Neuts % (Manual) Lymphocytes % (Manual) Seg Neutrophils # 14.4 H Seg Neutrophils # Man Lymphocytes # (Manual) PT INR VBG pH 7.318 L Sodium Potassium 3.2 L Chloride 108.9 H Carbon Dioxide BUN 2 L Creatinine Glucose 127 H POC Glucose Calcium 8.0 L D Phosphorus ALT C-Reactive Protein Total Protein Albumin Ur Specific [place] Urine WBC (Auto) Miscellaneous Test Crossmatch 06/10/18 06/10/18 06/10/18 03:49 09:35 12:33 WBC 21.2 H RBC Hgb Hct 29.4 L MCH MCHC 35 H Plt Count Lymph % (Auto) [place]ison % (Auto) [place] # Seg Neutrophils % Seg Neuts % (Manual) 92.0 H Lymphocytes % (Manual) 4.0 L Seg Neutrophils # Seg Neutrophils # Man 19.5 H Lymphocytes # (Manual) 0.8 L PT INR VBG pH Sodium Potassium Chloride Carbon Dioxide BUN Creatinine Glucose POC Glucose 141 H Calcium Phosphorus ALT C-Reactive Protein 14.90 H Total Protein Albumin Ur Specific [place] Urine WBC (Auto) Miscellaneous Test Crossmatch 06/10/18 06/11/18 06/11/18 23:30 04:44 04:44 WBC 22.8 H RBC 3.62 L Hgb 10.0 L Hct 29.2 L MCH MCHC Plt Count Lymph % (Auto) [place]ison % (Auto) [place] # Seg Neutrophils % Seg Neuts % (Manual) 97.0 H Lymphocytes % (Manual) 2.0 L Seg Neutrophils # Seg Neutrophils # Man 22.1 H Lymphocytes # (Manual) 0.5 L PT INR VBG pH Sodium Potassium 3.2 L Chloride 108.3 H Carbon Dioxide 21 L BUN < 1 L Creatinine 0.6 L Glucose 128 H POC Glucose 106 H Calcium Phosphorus ALT 6 L C-Reactive Protein Total Protein Albumin 2.8 L Ur Specific [place] Urine WBC (Auto) Miscellaneous Test Crossmatch 06/11/18 06/11/18 06/11/18 08:27 10:41 10:41 WBC RBC Hgb Hct MCH MCHC Plt Count Lymph % (Auto) [place]ison % (Auto) [place] # Seg Neutrophils % Seg Neuts % (Manual) Lymphocytes % (Manual) Seg Neutrophils # Seg Neutrophils # Man Lymphocytes # (Manual) PT 19.7 H INR 1.56 H VBG pH Sodium Potassium Chloride Carbon Dioxide BUN Creatinine Glucose POC Glucose Calcium Phosphorus ALT C-Reactive Protein Total Protein Albumin Ur Specific [place] Urine WBC (Auto) Miscellaneous Test Flexitest 1 H Crossmatch See Detail 06/11/18 06/11/18 06/12/18 17:54 23:43 05:27 WBC RBC Hgb Hct MCH MCHC Plt Count Lymph % (Auto) [place] % (Auto) [place] # Seg Neutrophils % Seg Neuts % (Manual) Lymphocytes % (Manual) Seg Neutrophils # Seg Neutrophils # Man Lymphocytes # (Manual) PT INR VBG pH Sodium Potassium Chloride Carbon Dioxide BUN Creatinine Glucose POC Glucose 151 H 168 H 160 H Calcium Phosphorus ALT C-Reactive Protein Total Protein Albumin Ur Specific [place] Urine WBC (Auto) Miscellaneous Test Crossmatch 06/12/18 06/12/18 06/12/18 05:41 05:41 12:04 WBC 21.5 H RBC 3.50 L Hgb 9.8 L Hct 28.6 L MCH MCHC Plt Count Lymph % (Auto) [place]ison % (Auto) [place] # Seg Neutrophils % Seg Neuts % (Manual) 92.0 H Lymphocytes % (Manual) 4.0 L Seg Neutrophils # Seg Neutrophils # Man 19.8 H Lymphocytes # (Manual) 0.9 L PT INR VBG pH Sodium Potassium 3.5 L Chloride Carbon Dioxide BUN 3 L Creatinine 0.5 L Glucose 159 H POC Glucose 136 H Calcium 7.9 L Phosphorus ALT C-Reactive Protein Total Protein Albumin Ur Specific [place] Urine WBC (Auto) Miscellaneous Test Crossmatch 06/13/18 06/13/18 06/14/18 04:47 04:47 06:18 WBC 18.9 H 13.5 H RBC 3.09 L Hgb 8.7 L Hct 25.2 L MCH MCHC 35 H 35 H Plt Count Lymph % (Auto) 10.0 L Addison % (Auto) 9.9 H Addison # 1.1 H 1.3 H Seg Neutrophils % 84.1 H Seg Neuts % (Manual) Lymphocytes % (Manual) Seg Neutrophils # 15.9 H 8.1 H Seg Neutrophils # Man Lymphocytes # (Manual) PT INR VBG pH Sodium Potassium 3.5 L Chloride Carbon Dioxide BUN 4 L Creatinine Glucose 104 H POC Glucose Calcium 8.0 L Phosphorus ALT C-Reactive Protein Total Protein Albumin Ur Specific [place] Urine WBC (Auto) Miscellaneous Test Crossmatch 06/14/18 06/15/18 06/15/18 06:18 04:34 04:34 WBC 13.5 H RBC Hgb Hct MCH 27 L MCHC Plt Count 455 H Lymph % (Auto) [place]ison % (Auto) Addison # 1.0 H Seg Neutrophils % Seg Neuts % (Manual) Lymphocytes % (Manual) Seg Neutrophils # 9.0 H Seg Neutrophils # Man Lymphocytes # (Manual) PT INR VBG pH Sodium Potassium 3.2 L 3.3 L Chloride 97.8 L Carbon Dioxide BUN 5 L Creatinine 0.6 L 0.5 L Glucose POC Glucose Calcium 8.3 L Phosphorus 5.00 H D ALT C-Reactive Protein Total Protein Albumin Ur Specific [place] Urine WBC (Auto) Miscellaneous Test Crossmatch 06/16/18 06/17/18 04:32 10:09 WBC RBC Hgb Hct MCH MCHC Plt Count Lymph % (Auto) [place] % (Auto) Addison # Seg Neutrophils % Seg Neuts % (Manual) Lymphocytes % (Manual) Seg Neutrophils # Seg Neutrophils # Man Lymphocytes # (Manual) PT INR VBG pH Sodium Potassium Chloride Carbon Dioxide BUN Creatinine 0.6 L Glucose 102 H 102 H POC Glucose Calcium Phosphorus ALT C-Reactive Protein Total Protein Albumin Ur Specific [place] Urine WBC (Auto) Miscellaneous Test Crossmatch Allied health notes reviewed: nursing
[2018-06-17] MEDS: DIFLUCAN 200 ML IV SCH (14:45)
[2018-06-17] MEDS ORDERED: TPN ADULT 2,016 ML IV SCH (20:00)
[2018-06-17] MEDS: LOVENOX SUB-Q SCH (21:59)
[2018-06-18] MEDS: DILAUDID IV PRN ×4 (04:16→14:37)
[2018-06-18] MEDS: FLAGYL 500 MG/100 ML 500 MG/100 ML BAG IV SCH ×3 (05:35→21:23)
[2018-06-18 06:38] LABS: Alanine Aminotransferase 15 units/L (7-56); BUN/Creatinine Ratio 22; Blood Urea Nitrogen 13 mg/dL (7-17); Calcium 8.8 mg/dL (8.4-10.2); Hemolysis Index 79
--- NOTE | 2018-06-18 07:52 | XRay Report ---
ROUTINE CHEST, TWO VIEWS: HISTORY: Postop changes. The trachea, heart, mediastinal contour, lung chester and bony thorax are unremarkable. A right arm PICC is partially visualized and terminates in the right axillary vein. IMPRESSION: Normal chest x-ray.
--- NOTE | 2018-06-18 09:22 | Progress Note ---
Assessment and Plan POD # 7 Pt feeling well. dominguez d/c of ng without compl. + BM Abd soft stable begin cl liq diet Selected Entries 06/18/18 06/18/18 04:13 07:00 Temperature 98.0 F Pulse Rate 90 Respiratory 19 Rate Blood Pressure 137/92 [Left] Laboratory Tests 06/18/18 05:28 Potassium 4.7 Objective Vital Signs - 12hr 06/17/18 06/18/18 06/18/18 23:28 04:13 07:00 Temperature 98.0 F 98.0 F 98.0 F Pulse Rate 88 90 112 H Respiratory 18 18 19 Rate Blood Pressure 102/73 114/77 Blood Pressure 137/92 [Left] O2 Sat by Pulse 97 97 97 Oximetry - Labs 06/15/18 04:34 06/18/18 05:28 Diabetes panel 06/17/18 06/18/18 Range/Units 10:09 05:28 Sodium 140 138 (137-145) mmol/L Potassium 4.0 4.7 (3.6-5.0) mmol/L Chloride 99.2 101.2 (98-107) mmol/L Carbon Dioxide 28 24 (22-30) mmol/L BUN 14 13 (7-17) mg/dL Creatinine 0.6 L 0.6 L (0.7-1.2) mg/dL Glucose 102 H 94 (65-100) mg/dL Calcium 8.9 8.8 (8.4-10.2) mg/dL AST < 2.0 L (5-40) units/L ALT 15 (7-56) units/L Alkaline Phosphatase 40 (35-129) units/L Total Protein 7.6 (6.3-8.2) g/dL Albumin 3.0 L (3.9-5) g/dL Calcium panel 06/17/18 06/18/18 Range/Units 10:09 05:28 Calcium 8.9 8.8 (8.4-10.2) mg/dL Phosphorus 3.60 3.90 (2.5-4.5) mg/dL Albumin 3.0 L (3.9-5) g/dL Pituitary panel 06/17/18 06/18/18 Range/Units 10:09 05:28 Sodium 140 138 (137-145) mmol/L Potassium 4.0 4.7 (3.6-5.0) mmol/L Chloride 99.2 101.2 (98-107) mmol/L Carbon Dioxide 28 24 (22-30) mmol/L BUN 14 13 (7-17) mg/dL Creatinine 0.6 L 0.6 L (0.7-1.2) mg/dL Glucose 102 H 94 (65-100) mg/dL Calcium 8.9 8.8 (8.4-10.2) mg/dL Adrenal panel 06/17/18 06/18/18 Range/Units 10:09 05:28 Sodium 140 138 (137-145) mmol/L Potassium 4.0 4.7 (3.6-5.0) mmol/L Chloride 99.2 101.2 (98-107) mmol/L Carbon Dioxide 28 24 (22-30) mmol/L BUN 14 13 (7-17) mg/dL Creatinine 0.6 L 0.6 L (0.7-1.2) mg/dL Glucose 102 H 94 (65-100) mg/dL Calcium 8.9 8.8 (8.4-10.2) mg/dL Total Bilirubin 0.20 (0.1-1.2) mg/dL AST < 2.0 L (5-40) units/L ALT 15 (7-56) units/L Alkaline Phosphatase 40 (35-129) units/L Total Protein 7.6 (6.3-8.2) g/dL Albumin 3.0 L (3.9-5) g/dL
[2018-06-18] MEDS: PEPCID IV SCH ×2 (09:25→21:28)
[2018-06-18] MEDS: ROCEPHIN/NS 2 GM/100 ML 2 GM/100 ML BAG IV SCH (09:26)
--- NOTE | 2018-06-18 10:50 | Progress Note ---
Assessment and Plan Cultures: Blood culture 06/09/2018 no growth today Intraperitoneal culture 06/11/2018 no growth today Assessment: 28 y/o female with history marihuana use; admitted on due to 3-day history of nausea, vomiting and abdominal pain: 1) Sepsis: fever/tachycardia resolved and leukocytosis better. CRP=14. Repeat CRP 3.1. Etiology most likely right colonic mass and perforation. 2) Right large cecal mass with perforation: of unclear etiology. Patient denies history of previous diverticulitis or inflammatory bowel disease. No history of trauma or ingestion of foreign bodies. CT abdomen showed perforated right colon approximately 6 cm superior to the ileocecal valve with trapped area of stool adjacent to the perforation measures 3.1 x 3 x 3.6 cm. Surrounding indurated fat. No jenn pneumoperitoneum. No evidence of intra-abdominal abscess or fistula. Among infectious diseases causes of right sided colonic perforation are typhoid (no history of diarrhea), schistosomiasis (no recent travels to tropical areas), CMV. Other non ID etiologies: malignancy, connective tissue disease, vasculitis. S/p exlap on 06/12/2018 found to have a very large cecal mass. Pathology report shows benign perforated colonic mucosa with ulcer, adjacent ischenic changes, few thrombosis vessels at ulcer bed and ischemic areas, marked acute and chronic inflammation, edema and congestion extending to entire wall with abscess formation. Will send immunoassays for IgG and I gM antibodies to cardiolipin and beta2-glycoprotein I and functional assay for lupus anticoagulant to r/o antiphospholipid syndrome C3/C4 negative. Procal 0.11. Recommendations: - follow-up intraperitoneal culture - follow-up CARLOS MANUEL with reflex,, ANCA - follow-up HIV and CMV DNA PCR - continue ceftriaxone and flagyl D7- last dose today - f/u mmunoassays for IgG and I gM antibodies to cardiolipin and beta2-glycopr otein I and functional assay for lupus anticoagulant to r/o antiphospholipid syndrome [facility] M: [phone] O:[phone] Subjective Date of service: 06/18/18 Principal diagnosis: Acute abdomen/R. colonic perforation; SIRS; Leukocytosis; Abd. pain Interval history: Patient seen and examined. Reports no generalized pain or SOB. No fevers. Objective - Exam Narrative Exam: General appearance: Alert in NAD, conversant Eyes: anicteric sclerae, moist conjunctivae; no lid-lag; PERRLA HENT: Atraumatic; oropharynx clear with moist mucous membranes and no mucosal ulcerations/no oral thrush; normal hard and soft palate. Normal external ears. Neck: Trachea midline; supple, no thyromegaly or lymphadenopathy Lungs: CTA CV: RRR Abdomen: Soft,midline wound with surg dressings Extremities: No peripheral edema or extremity lymphadenopathy Skin: Normal temperature, turgor and texture; no rash, ulcers or subcutaneous nodules Psych: Appropriate affect, alert and oriented to person, place and time. Neuro: alert and oriented x 3. Moving all extermities - Constitutional Vitals: Vital Signs Temp Pulse Resp BP Pulse Ox 98.0 F 112 H 19 137/92 97 06/18/18 07:00 06/18/18 07:00 06/18/18 07:00 06/18/18 07:00 06/18/18 07:00 Temperature -Last 24 Hours Temperature 98.0 F Temperature 98.0 F Temperature 98.0 F Temperature 97.6 F Temperature 98.2 F - Labs CBC & Chem 7: 06/15/18 04:34 06/18/18 05:28 Labs: Abnormal lab results 06/18/18 06/18/18 Range/Units 00:34 05:28 Creatinine 0.6 L (0.7-1.2) mg/dL AST < 2.0 L (5-40) units/L C-Reactive Protein 3.10 H (0.00-1.30) mg/dL Albumin 3.0 L (3.9-5) g/dL
--- NOTE | 2018-06-18 11:44 | Progress Note ---
<DELLA CLARK - Last Filed: 06/18/18 11:44> Assessment and Plan Assessment and plan: Ms. Alonso is a 28 y.o. 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 In the ED, temp 98.1, HR 118, R 19, O2 sat 99%, BP 132/91. WBC 19.5, Hg 13, Plat 373. Creat 0.7. LFTs normal. Lipase normal. UA neg. Blood culture 06/09/2018 no growth to date. CT abdomen showed perforated right colon approximately 6 cm superior to the ileocecal valve with trapped area of stool adjacent to the perforation measures 3.1 x 3 x 3.6 cm. Surrounding indurated fat. No jenn pneumoperitoneum. She went for sugery on 06/11/[address] Handley found a very large cecal mass obstructing the colon, extending out into the retroperitoneum as well as adjacent to the duodenum, kidney and superiorly adjacent to the stomach, so he did a Extended right hemicolectomy. The pathology came back as non-cancerous. Sepsis secondary to micro perforation of right colon On Rocephin 2gm daily to end today Continue Flagyl 500mg daily per ID Diflucan 400mg daily last dose 06/17 Leukocytosis resolving 13.5 ID Following and managing Micro perforation of right colon S/P right hemicolectomy on 06/12 Started on clear diet Receiving TPN Discontinued NG to LIS Gen Surg following and managing Right Cecal Mass S/P resection on 06/12 Gen Surg following and managing Hypokalemia- resolved repleated Constipation- resolving Dulcolax suppository PRN Pt had large BMx2 DVT PPX On Lovenox History Interval history: Ms. Alonso is seen today on the surgical floor. She is in better spirits today. There were no acute overnight events. Hospitalist Physical - Physical exam Narrative exam: General appearance: Present: no acute distress - EENT Eyes: Present: PERRL, EOM intact ENT: hearing intact, clear oral mucosa, dentition normal - Neck Neck: Present: supple, normal ROM - Respiratory Respiratory effort: normal Respiratory: bilateral: CTA - Cardiovascular Heart rate: 90 (bpm) Rhythm: regular Heart Sounds: Present: S1 & S2. Absent: rub, clicks - Extremities Extremities: no ischemia, pulses intact - Abdominal General gastrointestinal: soft, tender, active bowel sounds, abd binder Localized gastrointestinal: tender: diffuse - Integumentary Integumentary: Present: warm, dry - Psychiatric Psychiatric: cooperative, depressed - Neurologic Neurologic: CNII-XII intact, moves all extremities - Constitutional Vitals: Temp Pulse Resp BP Pulse Ox 98.0 F 112 H 19 137/92 97 06/18/18 07:00 06/18/18 07:00 06/18/18 07:00 06/18/18 07:00 06/18/18 07:00 General appearance: Present: no acute distress, mild distress Results - Labs CBC & Chem 7: 06/15/18 04:34 06/18/18 05:28 Labs: Laboratory Last Values WBC 13.5 K/mm3 (4.5-11.0) H 06/15/18 04:34 RBC 4.25 M/mm3 (3.65-5.03) 06/15/18 04:34 Hgb 11.7 gm/dl (10.1-14.3) 06/15/18 04:34 Hct 34.2 % (30.3-42.9) 06/15/18 04:34 MCV 81 fl (79-97) 06/15/18 04:34 MCH 27 pg (28-32) L 06/15/18 04:34 MCHC 34 % (30-34) 06/15/18 04:34 RDW 14.6 % (13.2-15.2) 06/15/18 04:34 Plt Count 455 K/mm3 (140-440) H 06/15/18 04:34 Lymph % (Auto) 24.1 % (13.4-35.0) 06/15/18 04:34 Fountain % (Auto) 7.2 % (0.0-7.3) 06/15/18 04:34 Eos % (Auto) 1.0 % (0.0-4.3) 06/15/18 04:34 Baso % (Auto) 0.7 % (0.0-1.8) 06/15/18 04:34 Lymph # 3.2 K/mm3 (1.2-5.4) 06/15/18 04:34 Fountain # 1.0 K/mm3 (0.0-0.8) H 06/15/18 04:34 Eos # 0.1 K/mm3 (0.0-0.4) 06/15/18 04:34 Baso # 0.1 K/mm3 (0.0-0.1) 06/15/18 04:34 Add Manual Diff Complete 06/12/18 05:41 Total Counted 100 06/12/18 05:41 Seg Neutrophils % 67.0 % (40.0-70.0) 06/15/18 04:34 Seg Neuts % (Manual) 92.0 % (40.0-70.0) H 06/12/18 05:41 Band Neutrophils % 3.0 % 06/12/18 05:41 Lymphocytes % (Manual) 4.0 % (13.4-35.0) L 06/12/18 05:41 Reactive Lymphs % (Man) 0 % 06/12/18 05:41 Monocytes % (Manual) 1.0 % (0.0-7.3) 06/12/18 05:41 Eosinophils % (Manual) 0 % (0.0-4.3) 06/12/18 05:41 Basophils % (Manual) 0 % (0.0-1.8) 06/12/18 05:41 Metamyelocytes % 0 % 06/12/18 05:41 Myelocytes % 0 % 06/12/18 05:41 Promyelocytes % 0 % 06/12/18 05:41 Blast Cells % 0 % 06/12/18 05:41 Nucleated RBC % Not Reportable 06/12/18 05:41 Seg Neutrophils # 9.0 K/mm3 (1.8-7.7) H 06/15/18 04:34 Seg Neutrophils # Man 19.8 K/mm3 (1.8-7.7) H 06/12/18 05:41 Band Neutrophils # 0.6 K/mm3 06/12/18 05:41 Lymphocytes # (Manual) 0.9 K/mm3 (1.2-5.4) L 06/12/18 05:41 Abs React Lymphs (Man) 0.0 K/mm3 06/12/18 05:41 Monocytes # (Manual) 0.2 K/mm3 (0.0-0.8) 06/12/18 05:41 Eosinophils # (Manual) 0.0 K/mm3 (0.0-0.4) 06/12/18 05:41 Basophils # (Manual) 0.0 K/mm3 (0.0-0.1) 06/12/18 05:41 Metamyelocytes # 0.0 K/mm3 06/12/18 05:41 Myelocytes # 0.0 K/mm3 06/12/18 05:41 Promyelocytes # 0.0 K/mm3 06/12/18 05:41 Blast Cells # 0.0 K/mm3 06/12/18 05:41 WBC Morphology Not Reportable 06/12/18 05:41 Hypersegmented Neuts Not Reportable 06/12/18 05:41 Hyposegmented Neuts Not Reportable 06/12/18 05:41 Hypogranular Neuts Not Reportable 06/12/18 05:41 Smudge Cells Not Reportable 06/12/18 05:41 Toxic Granulation Not Reportable 06/12/18 05:41 Toxic Vacuolation Not Reportable 06/12/18 05:41 Dohle Bodies Not Reportable 06/12/18 05:41 Pelger-Huet Anomaly Not Reportable 06/12/18 05:41 Verenice Rods Not Reportable 06/12/18 05:41 Platelet Estimate Consistent w auto 06/12/18 05:41 Clumped Platelets Not Reportable 06/12/18 05:41 Plt Clumps, EDTA Not Reportable 06/12/18 05:41 Large Platelets Not Reportable 06/12/18 05:41 Giant Platelets Not Reportable 06/12/18 05:41 Platelet Satelliting Not Reportable 06/12/18 05:41 Plt Morphology Comment Not Reportable 06/12/18 05:41 RBC Morphology Not Reportable 06/12/18 05:41 Dimorphic RBCs Not Reportable 06/12/18 05:41 Polychromasia Not Reportable 06/12/18 05:41 Hypochromasia Not Reportable 06/12/18 05:41 Poikilocytosis Not Reportable 06/12/18 05:41 Anisocytosis Not Reportable 06/12/18 05:41 Microcytosis Not Reportable 06/12/18 05:41 Macrocytosis Not Reportable 06/12/18 05:41 Spherocytes Not Reportable 06/12/18 05:41 Pappenheimer Bodies Not Reportable 06/12/18 05:41 Sickle Cells Not Reportable 06/12/18 05:41 Target Cells 1+ 06/12/18 05:41 Tear Drop Cells Not Reportable 06/12/18 05:41 Ovalocytes Not Reportable 06/12/18 05:41 Helmet Cells Not Reportable 06/12/18 05:41 Mendoza-Macclenny Bodies Not Reportable 06/12/18 05:41 Outlook Rings Not Reportable 06/12/18 05:41 Alyssa Cells Not Reportable 06/12/18 05:41 Bite Cells Not Reportable 06/12/18 05:41 Crenated Cell Not Reportable 06/12/18 05:41 Elliptocytes Not Reportable 06/12/18 05:41 Acanthocytes (Spur) Not Reportable 06/12/18 05:41 Rouleaux Not Reportable 06/12/18 05:41 Hemoglobin C Crystals Not Reportable 06/12/18 05:41 Schistocytes Not Reportable 06/12/18 05:41 Malaria parasites Not Reportable 06/12/18 05:41 Tom Bodies Not Reportable 06/12/18 05:41 Hem Pathologist Commnt No 06/12/18 05:41 PT 19.7 Sec. (12.2-14.9) H 06/11/18 10:41 INR 1.56 (0.87-1.13) H 06/11/18 10:41 APTT 29.6 Sec. (24.2-36.6) 06/11/18 10:41 VBG pH 7.318 (7.320-7.420) L 06/09/18 08:48 Sodium 138 mmol/L (137-145) 06/18/18 05:28 Potassium 4.7 mmol/L (3.6-5.0) 06/18/18 05:28 Chloride 101.2 mmol/L (98-107) 06/18/18 05:28 Carbon Dioxide 24 mmol/L (22-30) 06/18/18 05:28 Anion Gap 18 mmol/L 06/18/18 05:28 BUN 13 mg/dL (7-17) 06/18/18 05:28 Creatinine 0.6 mg/dL (0.7-1.2) L 06/18/18 05:28 Estimated GFR > 60 ml/min 06/18/18 05:28 BUN/Creatinine Ratio 22 % 06/18/18 05:28 Glucose 94 mg/dL (65-100) 06/18/18 05:28 POC Glucose 90 (70-105) 06/18/18 11:05 Lactic Acid 0.80 mmol/L (0.7-2.0) 06/09/18 07:56 Calcium 8.8 mg/dL (8.4-10.2) 06/18/18 05:28 Phosphorus 3.90 mg/dL (2.5-4.5) 06/18/18 05:28 Magnesium 1.80 mg/dL (1.7-2.3) 06/18/18 05:28 Total Bilirubin 0.20 mg/dL (0.1-1.2) 06/18/18 05:28 AST < 2.0 units/L (5-40) L 06/18/18 05:28 ALT 15 units/L (7-56) 06/18/18 05:28 Alkaline Phosphatase 40 units/L (35-129) 06/18/18 05:28 C-Reactive Protein 3.10 mg/dL (0.00-1.30) H 06/18/18 00:34 Total Protein 7.6 g/dL (6.3-8.2) 06/18/18 05:28 Albumin 3.0 g/dL (3.9-5) L 06/18/18 05:28 Albumin/Globulin Ratio 0.7 % 06/18/18 05:28 Lipase 21 units/L (13-60) 06/09/18 08:48 HCG, Qual Negative (Negative) 06/09/18 01:41 Urine Color Yellow (Yellow) 06/13/18 11:30 Urine Turbidity Clear (Clear) 06/13/18 11:30 Urine pH 7.0 (5.0-7.0) 06/13/18 11:30 Ur Specific [place] 1.020 (1.003-1.030) 06/13/18 11:30 Urine Protein <15 mg/dl mg/dL (Negative) 06/13/18 11:30 Urine Glucose (UA) Neg mg/dL (Negative) 06/13/18 11:30 Urine Ketones Neg mg/dL (Negative) 06/13/18 11:30 Urine Blood Sm (Negative) 06/13/18 11:30 Urine Nitrite Neg (Negative) 06/13/18 11:30 Urine Bilirubin Neg (Negative) 06/13/18 11:30 Urine Urobilinogen < 2.0 mg/dL (<2.0) 06/13/18 11:30 Ur Leukocyte Esterase Sm (Negative) 06/13/18 11:30 Urine WBC (Auto) 6.0 /HPF (0.0-6.0) 06/13/18 11:30 Urine RBC (Auto) 16.0 /HPF (0.0-6.0) 06/13/18 11:30 U Epithel Cells (Auto) < 1.0 /HPF (0-13.0) 06/13/18 11:30 Hyaline Casts 14 /LPF 06/09/18 04:41 Urine Mucus Few /HPF 06/13/18 11:30 Urine HCG, Qual Negative (Negative) 06/11/18 11:30 Proteinase 3 (PR3) Ab <1.0 AI (<1.0) 06/10/18 13:37 Myeloperoxidase Ab <1.0 AI (<1.0) 06/10/18 13:37 Complement C3 178 mg/dL (83-193) 06/10/18 13:37 Complement C4 30 mg/dL (15-57) 06/10/18 13:37 Miscellaneous Test Flexitest 1 H 06/11/18 08:27 Blood Type B POSITIVE 06/11/18 10:41 Antibody Screen Negative 06/11/18 10:41 Crossmatch See Detail 06/11/18 10:41 Active Medications - Current Medications Current Medications: Generic Name Dose Route Start Last Admin Trade Name Freq PRN Reason Stop Dose Admin Acetaminophen 650 mg 06/10/18 15:39 Tylenol MT Q4H PRN Fever >101 Acetaminophen/Hydrocodone Bitart 1 each 06/17/18 12:57 Sallis 5/325 PO Q4H PRN Pain, Moderate (4-6) Benzocaine/Menthol 1 each 06/11/18 20:17 06/16/18 20:53 Cepacol X Strength MM 1 each Q2HR PRN Administration Sore Throat Bisacodyl 10 mg 06/17/18 10:00 06/17/18 10:38 Dulcolax MT 10 mg QDAY PRN Administration Constipation Enoxaparin Sodium 40 mg 06/10/18 22:00 06/17/18 21:59 Lovenox SUB-Q 40 mg QDAY@2200 DONNELL Administration Famotidine 20 mg 06/11/18 16:00 06/18/18 09:25 Pepcid IV 20 mg BID DONNELL Administration Hydralazine HCl 10 mg 06/12/18 12:02 06/13/18 13:33 Apresoline IV 10 mg Q4HR PRN Administration Blood Pressure Hydromorphone HCl 1 mg 06/12/18 12:13 06/18/18 11:27 Dilaudid IV 1 mg Q2H PRN Administration Pain , Severe (7-10) Metronidazole 500 mg in 100 mls @ 100 mls/hr 06/10/18 14:00 06/18/18 05:35 Flagyl 500 Mg/100 Ml IV 100 mls/hr Q8HR DONNELL Administration Protocol Ceftriaxone Sodium 2 gm in 100 mls @ 200 mls/hr 06/10/18 16:00 06/18/18 09:26 Rocephin/Ns 2 Gm/100 Ml IV 200 mls/hr Q24HR DONNELL Administration Protocol Amino Acids/Electrolytes/Dextrose 2,016 mls @ 84 mls/hr 06/17/18 20:00 06/17/18 20:52 Tpn Adult IV 06/18/18 19:59 84 mls/hr DAILY@2000 [facility] Administration Protocol Labetalol HCl 10 mg 06/09/18 10:54 06/11/18 16:21 Normodyne IV 10 mg Q4H PRN Administration Hypertension Lidocaine HCl 15 ml 06/12/18 15:52 06/12/18 20:14 Lidocaine Viscous 2% PO 15 ml Q8HR PRN Administration Mouth Pain Morphine Sulfate 2 mg 06/09/18 10:54 06/12/18 08:09 Morphine IV 2 mg Q4H PRN Administration Pain, Moderate (4-6) Ondansetron HCl 4 mg 06/10/18 22:29 06/16/18 17:20 Zofran IV 4 mg Q4H PRN Administration Nausea And Vomiting Nutrition/Malnutrition Assess - Dietary Evaluation Nutrition/Malnutrition Findings: Nutrition Notes Start: 06/13/18 10:26 Freq: Status: Active Protocol: Document 06/18/18 08:16 CP (Rec: 06/18/18 08:35 CP [id number]) Co-Sign 06/18/18 08:16 LP Nutrition Notes Other Pertinent Diagnosis Large Colon Mass s/p extended hemicolectomy Current Diet PPN at 84ml/hr Labs/Tests Reviewed Pertinent Medications Reviewed Height 5 ft 2 in Weight 60.555 kg [place] Body Weight (kg) 50.00 BMI 24.4 Subjective/Other Information Day 6 PPN. Pt reported that she had been eating ice chips, but had not recceived her clear liquid diet for breakfast as ordered in the chart. Percent of energy/protein needs met: 48%/100% Burn Absent Trauma Absent #1 Nutrition Diagnosis Inadequate oral intake Diagnosis Progress(for reassessment Continues documentation) Is patient on ventilator? No Is Patient Ambulatory and/or Out of Bed Yes REE-(Sidney-St. Jeor-ambulatory/OOB) [ 1675.440 NUTR.MSJOOB] Calculation Used for Recommendations Sidney-St Jeor Additional Notes Pro needs 1.2-1.5g/k-91g/ day Fluid needs 1ml/kcal Nutrition Intervention Change Diet Order: PPN Nutrition Support: Continue PPN at 84ml/hr: MVI, trace element, 8.7% dextrose. Osmolality: 852 Kcal 895 Protein (gm) 75 Carbohydrates (gm) 175 Fat (gm) 0 Fluid (mL) 2,016 Fiber (gm) 0 Goal #1 Meet at least 75% of kcal and pro needs via PPN or as best as possible Anticipated Discharge Needs: unable to determine at this time Follow-Up By: 06/19/18 Additional Comments F/U: Labs in am: CMP, Mg, Phos , PO tolerance/possible need for ONS. <AMBER PAUL M - Last Filed: 06/21/18 14:18> Assessment and Plan Assessment and plan: I saw and evaluated the patient. I agree with the findings and the plan of care as documented in the Nurse Practitioner's~note, with the following corrections and additions. Patient has completed antibiotics, advance diet per general surgery History Interval history: Abdominal pain is improved, no chest pain or fever, no shortness of breath she is tolerating diet Hospitalist Physical - Constitutional Vitals: Temp Pulse Resp BP Pulse Ox 98.8 F 118 H 18 121/82 98 06/20/18 20:02 06/20/18 16:00 06/20/18 20:02 06/20/18 20:02 06/20/18 16:00 Results - Labs CBC & Chem 7: 06/19/18 00:52 06/20/18 07:08 Labs: Laboratory Last Values WBC 10.1 K/mm3 (4.5-11.0) 06/19/18 00:52 RBC 4.00 M/mm3 (3.65-5.03) 06/19/18 00:52 Hgb 11.2 gm/dl (10.1-14.3) 06/19/18 00:52 Hct 32.3 % (30.3-42.9) 06/19/18 00:52 MCV 81 fl (79-97) 06/19/18 00:52 MCH 28 pg (28-32) 06/19/18 00:52 MCHC 35 % (30-34) H 06/19/18 00:52 RDW 15.4 % (13.2-15.2) H 06/19/18 00:52 Plt Count 535 K/mm3 (140-440) H 06/19/18 00:52 Lymph % (Auto) 25.5 % (13.4-35.0) 06/19/18 00:52 Fountain % (Auto) 8.0 % (0.0-7.3) H 06/19/18 00:52 Eos % (Auto) 2.9 % (0.0-4.3) 06/19/18 00:52 Baso % (Auto) 0.3 % (0.0-1.8) 06/19/18 00:52 Lymph # 2.6 K/mm3 (1.2-5.4) 06/19/18 00:52 Fountain # 0.8 K/mm3 (0.0-0.8) 06/19/18 00:52 Eos # 0.3 K/mm3 (0.0-0.4) 06/19/18 00:52 Baso # 0.0 K/mm3 (0.0-0.1) 06/19/18 00:52 Add Manual Diff Complete 06/12/18 05:41 Total Counted 100 06/12/18 05:41 Seg Neutrophils % 63.3 % (40.0-70.0) 06/19/18 00:52 Seg Neuts % (Manual) 92.0 % (40.0-70.0) H 06/12/18 05:41 Band Neutrophils % 3.0 % 06/12/18 05:41 Lymphocytes % (Manual) 4.0 % (13.4-35.0) L 06/12/18 05:41 Reactive Lymphs % (Man) 0 % 06/12/18 05:41 Monocytes % (Manual) 1.0 % (0.0-7.3) 06/12/18 05:41 Eosinophils % (Manual) 0 % (0.0-4.3) 06/12/18 05:41 Basophils % (Manual) 0 % (0.0-1.8) 06/12/18 05:41 Metamyelocytes % 0 % 06/12/18 05:41 Myelocytes % 0 % 06/12/18 05:41 Promyelocytes % 0 % 06/12/18 05:41 Blast Cells % 0 % 06/12/18 05:41 Nucleated RBC % Not Reportable 06/12/18 05:41 Seg Neutrophils # 6.4 K/mm3 (1.8-7.7) 06/19/18 00:52 Seg Neutrophils # Man 19.8 K/mm3 (1.8-7.7) H 06/12/18 05:41 Band Neutrophils # 0.6 K/mm3 06/12/18 05:41 Lymphocytes # (Manual) 0.9 K/mm3 (1.2-5.4) L 06/12/18 05:41 Abs React Lymphs (Man) 0.0 K/mm3 06/12/18 05:41 Monocytes # (Manual) 0.2 K/mm3 (0.0-0.8) 06/12/18 05:41 Eosinophils # (Manual) 0.0 K/mm3 (0.0-0.4) 06/12/18 05:41 Basophils # (Manual) 0.0 K/mm3 (0.0-0.1) 06/12/18 05:41 Metamyelocytes # 0.0 K/mm3 06/12/18 05:41 Myelocytes # 0.0 K/mm3 06/12/18 05:41 Promyelocytes # 0.0 K/mm3 06/12/18 05:41 Blast Cells # 0.0 K/mm3 06/12/18 05:41 WBC Morphology Not Reportable 06/12/18 05:41 Hypersegmented Neuts Not Reportable 06/12/18 05:41 Hyposegmented Neuts Not Reportable 06/12/18 05:41 Hypogranular Neuts Not Reportable 06/12/18 05:41 Smudge Cells Not Reportable 06/12/18 05:41 Toxic Granulation Not Reportable 06/12/18 05:41 Toxic Vacuolation Not Reportable 06/12/18 05:41 Dohle Bodies Not Reportable 06/12/18 05:41 Pelger-Huet Anomaly Not Reportable 06/12/18 05:41 Verenice Rods Not Reportable 06/12/18 05:41 Platelet Estimate Consistent w auto 06/12/18 05:41 Clumped Platelets Not Reportable 06/12/18 05:41 Plt Clumps, EDTA Not Reportable 06/12/18 05:41 Large Platelets Not Reportable 06/12/18 05:41 Giant Platelets Not Reportable 06/12/18 05:41 Platelet Satelliting Not Reportable 06/12/18 05:41 Plt Morphology Comment Not Reportable 06/12/18 05:41 RBC Morphology Not Reportable 06/12/18 05:41 Dimorphic RBCs Not Reportable 06/12/18 05:41 Polychromasia Not Reportable 06/12/18 05:41 Hypochromasia Not Reportable 06/12/18 05:41 Poikilocytosis Not Reportable 06/12/18 05:41 Anisocytosis Not Reportable 06/12/18 05:41 Microcytosis Not Reportable 06/12/18 05:41 Macrocytosis Not Reportable 06/12/18 05:41 Spherocytes Not Reportable 06/12/18 05:41 Pappenheimer Bodies Not Reportable 06/12/18 05:41 Sickle Cells Not Reportable 06/12/18 05:41 Target Cells 1+ 06/12/18 05:41 Tear Drop Cells Not Reportable 06/12/18 05:41 Ovalocytes Not Reportable 06/12/18 05:41 Helmet Cells Not Reportable 06/12/18 05:41 Mendoza-Macclenny Bodies Not Reportable 06/12/18 05:41 Outlook Rings Not Reportable 06/12/18 05:41 [place] Cells Not Reportable 06/12/18 05:41 Bite Cells Not Reportable 06/12/18 05:41 Crenated Cell Not Reportable 06/12/18 05:41 Elliptocytes Not Reportable 06/12/18 05:41 Acanthocytes (Spur) Not Reportable 06/12/18 05:41 Rouleaux Not Reportable 06/12/18 05:41 Hemoglobin C Crystals Not Reportable 06/12/18 05:41 Schistocytes Not Reportable 06/12/18 05:41 Malaria parasites Not Reportable 06/12/18 05:41 Tom Bodies Not Reportable 06/12/18 05:41 Hem Pathologist Commnt No 06/12/18 05:41 PT 19.7 Sec. (12.2-14.9) H 06/11/18 10:41 INR 1.56 (0.87-1.13) H 06/11/18 10:41 APTT 29.6 Sec. (24.2-36.6) 06/11/18 10:41 VBG pH 7.318 (7.320-7.420) L 06/09/18 08:48 Sodium 138 mmol/L (137-145) 06/20/18 07:08 Potassium 4.3 mmol/L (3.6-5.0) 06/20/18 07:08 Chloride 99.1 mmol/L (98-107) 06/20/18 07:08 Carbon Dioxide 27 mmol/L (22-30) 06/20/18 07:08 Anion Gap 16 mmol/L 06/20/18 07:08 BUN 9 mg/dL (7-17) 06/20/18 07:08 Creatinine 0.6 mg/dL (0.7-1.2) L 06/20/18 07:08 Estimated GFR > 60 ml/min 06/20/18 07:08 BUN/Creatinine Ratio 15 % 06/20/18 07:08 Glucose 87 mg/dL (65-100) 06/20/18 07:08 POC Glucose 93 (70-105) 06/20/18 18:00 Lactic Acid 0.80 mmol/L (0.7-2.0) 06/09/18 07:56 Calcium 8.9 mg/dL (8.4-10.2) 06/20/18 07:08 Phosphorus 3.80 mg/dL (2.5-4.5) 06/20/18 07:08 Magnesium 2.00 mg/dL (1.7-2.3) 06/20/18 07:08 Total Bilirubin 0.30 mg/dL (0.1-1.2) 06/19/18 04:35 AST 13 units/L (5-40) 06/19/18 04:35 ALT 13 units/L (7-56) 06/19/18 04:35 Alkaline Phosphatase 41 units/L (35-129) 06/19/18 04:35 C-Reactive Protein 3.10 mg/dL (0.00-1.30) H 06/18/18 00:34 Total Protein 7.7 g/dL (6.3-8.2) 06/19/18 04:35 Albumin 3.4 g/dL (3.9-5) L 06/19/18 04:35 Albumin/Globulin Ratio 0.8 % 06/19/18 04:35 Lipase 21 units/L (13-60) 06/09/18 08:48 HCG, Qual Negative (Negative) 06/09/18 01:41 Urine Color Yellow (Yellow) 06/13/18 11:30 Urine Turbidity Clear (Clear) 06/13/18 11:30 Urine pH 7.0 (5.0-7.0) 06/13/18 11:30 Ur Specific [place] 1.020 (1.003-1.030) 06/13/18 11:30 Urine Protein <15 mg/dl mg/dL (Negative) 06/13/18 11:30 Urine Glucose (UA) Neg mg/dL (Negative) 06/13/18 11:30 Urine Ketones Neg mg/dL (Negative) 06/13/18 11:30 Urine Blood Sm (Negative) 06/13/18 11:30 Urine Nitrite Neg (Negative) 06/13/18 11:30 Urine Bilirubin Neg (Negative) 06/13/18 11:30 Urine Urobilinogen < 2.0 mg/dL (<2.0) 06/13/18 11:30 Ur Leukocyte Esterase Sm (Negative) 06/13/18 11:30 Urine WBC (Auto) 6.0 /HPF (0.0-6.0) 06/13/18 11:30 Urine RBC (Auto) 16.0 /HPF (0.0-6.0) 06/13/18 11:30 U Epithel Cells (Auto) < 1.0 /HPF (0-13.0) 06/13/18 11:30 Hyaline Casts 14 /LPF 06/09/18 04:41 Urine Mucus Few /HPF 06/13/18 11:30 Urine HCG, Qual Negative (Negative) 06/11/18 11:30 CARLOS MANUEL Screen Negative (Negative) 06/10/18 13:37 Proteinase 3 (PR3) Ab <1.0 AI (<1.0) 06/10/18 13:37 Myeloperoxidase Ab <1.0 AI (<1.0) 06/10/18 13:37 Complement C3 178 mg/dL (83-193) 06/10/18 13:37 Complement C4 30 mg/dL (15-57) 06/10/18 13:37 CMV DNA PCR log atomic spectroscopist/mL See scanned result 06/10/18 13:37 HIV 1&2 Antibody Rapid Non react (Non React) 06/18/18 17:15 HIV P24 Antigen Non react (Non React) 06/18/18 17:15 Miscellaneous Test Flexitest 1 H 06/11/18 08:27 Blood Type B POSITIVE 06/11/18 10:41 Antibody Screen Negative 06/11/18 10:41 Crossmatch See Detail 06/11/18 10:41 Nutrition/Malnutrition Assess - Dietary Evaluation Nutrition/Malnutrition Findings: Nutrition Notes Start: 06/13/18 10:26 Freq: Status: Discharge Protocol: Document 06/20/18 10:10 CP (Rec: 06/20/18 10:20 CP [id number]) Co-Sign 06/20/18 10:10 LP Nutrition Notes Other Pertinent Diagnosis Large Colon Mass s/p extended hemicolectomy Current Diet PPN at 84ml/hr Labs/Tests Reviewed Pertinent Medications Reviewed Height 5 ft 2 in Weight 60.555 kg [place] Body Weight (kg) 50.00 BMI 24.4 Subjective/Other Information Day 7 PPN. Pt is on a full liquid diet and has been tolerating it. Per RN and case management note, pt is being discharged today. TPN will be tapered off per MD request. Noted TPN infusing at goal rate during time of visit. Percent of energy/protein needs met: 68%/100% Burn Absent Trauma Absent #1 Nutrition Diagnosis Inadequate oral intake Diagnosis Progress(for reassessment Continues documentation) Is patient on ventilator? No Is Patient Ambulatory and/or Out of Bed Yes REE-([facility]-ambulatory/OOB) [ [id number] [id number]] Calculation Used for Recommendations [facility] Additional Notes Pro needs 1.2-1.5g/k-91g/ day Fluid needs 1ml/kcal Nutrition Intervention Change Diet Order: PPN Nutrition Support: Continue PPN at 84ml/hr: MVI, trace element, K 50. Osmolality: 884 Kcal 895 Protein (gm) 75 Carbohydrates (gm) 175 Fat (gm) 0 Fluid (mL) 2,016 Fiber (gm) 0 Add Supplement/Snack (indicate name/kcal D/C Ensure clear /protein ) Ensure Enlive Daily Provides kCal: 350 Provides Protein (gm) 20 Goal #1 Meet at least 75% of kcal and pro needs via PPN or as best as possible Anticipated Discharge Needs: unable to determine at this time Follow-Up By: 06/21/18 Additional Comments F/U: Labs in am: BMP, Mg, Phos , PO/ONS tolerance
--- NOTE | 2018-06-18 14:29 | Progress Note ---
Assessment and Plan Patient awake. Resting on room air. No complaint of chest pain, shortness of breath or cough. O2 saturation 98% on room air. Chest xray reported normal. ABG results pending. - Patient Problems (1) Colon perforation Current Visit: Yes Status: Acute Plan to address problem: Patient undergone exploratory laporotomy and extensive right hemicolectomy for perforated colon. Patient is on metronidazole and ceftrioxone. Continue S/C Lovenox for DVT prophylaxis. Continue famotidine. Subjective Date of service: 06/18/18 Principal diagnosis: Acute abdomen/R. colonic perforation; SIRS; Leukocytosis; Abd. pain Interval history: Patient awake. Resting on room air. No complaint of chest pain, shortness of breath or cough.O2 saturation 98% on room air. Chest xray reported normal. ABG results pending. Objective Vital Signs - 12hr 06/18/18 06/18/18 06/18/18 04:13 07:00 12:10 Temperature 98.0 F 98.0 F 97.4 F L Pulse Rate 90 112 H 85 Respiratory 18 19 18 Rate Blood Pressure 114/77 Blood Pressure 137/92 140/104 [Left] O2 Sat by Pulse 97 97 97 Oximetry Constitutional: no acute distress, alert Eyes: non-icteric ENT: oropharynx dry, other (Mallampati 2) Neck: supple, no lymphadenopathy, no JVD, other (no thyromegaly) Effort: normal Ascultation: Bilateral: diminished breath sounds (at the bases) Percussion: Bilateral: not dull Cardiovascular: regular rate and rhythm Gastrointestinal: hypoactive bowel sounds, soft, tender (mild), non-distended Integumentary: normal Extremities: no cyanosis, no edema, pulses normal, no ischemia or petechiae Neurologic: normal mental status, non-focal exam, pupils equal and round, CN II- XII normal, motor strength normal and Psychiatric: mood appropriate, affect normal CBC and BMP: 06/15/18 04:34 06/18/18 05:28 ABG, PT/INR, D-dimer: PT/INR, D-dimer PT 19.7 Sec. (12.2-14.9) H 06/11/18 10:41 INR 1.56 (0.87-1.13) H 06/11/18 10:41 Abnormal lab findings: Abnormal Labs 06/09/18 06/09/18 06/09/18 01:41 01:41 04:41 WBC 19.5 H RBC Hgb Hct MCH MCHC 35 H Plt Count Lymph % (Auto) 8.1 L [place] % (Auto) [place] # Seg Neutrophils % 87.4 H Seg Neuts % (Manual) Lymphocytes % (Manual) Seg Neutrophils # 17.0 H Seg Neutrophils # Man Lymphocytes # (Manual) PT INR VBG pH Sodium 135 L Potassium 3.4 L Chloride 96.7 L Carbon Dioxide 17 L BUN Creatinine Glucose POC Glucose Calcium Phosphorus AST ALT C-Reactive Protein Total Protein 8.8 H Albumin Ur Specific [employer] 1.040 H Urine WBC (Auto) 9.0 H Miscellaneous Test Crossmatch 06/09/18 06/10/18 06/10/18 08:48 03:49 03:49 WBC 16.9 H RBC Hgb Hct 29.6 L D MCH MCHC 35 H Plt Count Lymph % (Auto) 9.9 L [place] % (Auto) [place] # Seg Neutrophils % 85.0 H Seg Neuts % (Manual) Lymphocytes % (Manual) Seg Neutrophils # 14.4 H Seg Neutrophils # Man Lymphocytes # (Manual) PT INR VBG pH 7.318 L Sodium Potassium 3.2 L Chloride 108.9 H Carbon Dioxide BUN 2 L Creatinine Glucose 127 H POC Glucose Calcium 8.0 L D Phosphorus AST ALT C-Reactive Protein Total Protein Albumin Ur Specific [employer] Urine WBC (Auto) Miscellaneous Test Crossmatch 06/10/18 06/10/18 06/10/18 03:49 09:35 12:33 WBC 21.2 H RBC Hgb Hct 29.4 L MCH MCHC 35 H Plt Count Lymph % (Auto) [place] % (Auto) [place] # Seg Neutrophils % Seg Neuts % (Manual) 92.0 H Lymphocytes % (Manual) 4.0 L Seg Neutrophils # Seg Neutrophils # Man 19.5 H Lymphocytes # (Manual) 0.8 L PT INR VBG pH Sodium Potassium Chloride Carbon Dioxide BUN Creatinine Glucose POC Glucose 141 H Calcium Phosphorus AST ALT C-Reactive Protein 14.90 H Total Protein Albumin Ur Specific [employer] Urine WBC (Auto) Miscellaneous Test Crossmatch 06/10/18 06/11/18 06/11/18 23:30 04:44 04:44 WBC 22.8 H RBC 3.62 L Hgb 10.0 L Hct 29.2 L MCH MCHC Plt Count Lymph % (Auto) [place] % (Auto) [place] # Seg Neutrophils % Seg Neuts % (Manual) 97.0 H Lymphocytes % (Manual) 2.0 L Seg Neutrophils # Seg Neutrophils # Man 22.1 H Lymphocytes # (Manual) 0.5 L PT INR VBG pH Sodium Potassium 3.2 L Chloride 108.3 H Carbon Dioxide 21 L BUN < 1 L Creatinine 0.6 L Glucose 128 H POC Glucose 106 H Calcium Phosphorus AST ALT 6 L C-Reactive Protein Total Protein Albumin 2.8 L Ur Specific [employer] Urine WBC (Auto) Miscellaneous Test Crossmatch 06/11/18 06/11/18 06/11/18 08:27 10:41 10:41 WBC RBC Hgb Hct MCH MCHC Plt Count Lymph % (Auto) [place] % (Auto) [place] # Seg Neutrophils % Seg Neuts % (Manual) Lymphocytes % (Manual) Seg Neutrophils # Seg Neutrophils # Man Lymphocytes # (Manual) PT 19.7 H INR 1.56 H VBG pH Sodium Potassium Chloride Carbon Dioxide BUN Creatinine Glucose POC Glucose Calcium Phosphorus AST ALT C-Reactive Protein Total Protein Albumin Ur Specific [employer] Urine WBC (Auto) Miscellaneous Test Flexitest 1 H Crossmatch See Detail 06/11/18 06/11/18 06/12/18 17:54 23:43 05:27 WBC RBC Hgb Hct MCH MCHC Plt Count Lymph % (Auto) [place] % (Auto) [place] # Seg Neutrophils % Seg Neuts % (Manual) Lymphocytes % (Manual) Seg Neutrophils # Seg Neutrophils # Man Lymphocytes # (Manual) PT INR VBG pH Sodium Potassium Chloride Carbon Dioxide BUN Creatinine Glucose POC Glucose 151 H 168 H 160 H Calcium Phosphorus AST ALT C-Reactive Protein Total Protein Albumin Ur Specific [employer] Urine WBC (Auto) Miscellaneous Test Crossmatch 06/12/18 06/12/18 06/12/18 05:41 05:41 12:04 WBC 21.5 H RBC 3.50 L Hgb 9.8 L Hct 28.6 L MCH MCHC Plt Count Lymph % (Auto) [place] % (Auto) [place] # Seg Neutrophils % Seg Neuts % (Manual) 92.0 H Lymphocytes % (Manual) 4.0 L Seg Neutrophils # Seg Neutrophils # Man 19.8 H Lymphocytes # (Manual) 0.9 L PT INR VBG pH Sodium Potassium 3.5 L Chloride Carbon Dioxide BUN 3 L Creatinine 0.5 L Glucose 159 H POC Glucose 136 H Calcium 7.9 L Phosphorus AST ALT C-Reactive Protein Total Protein Albumin Ur Specific [employer] Urine WBC (Auto) Miscellaneous Test Crossmatch 06/13/18 06/13/18 06/14/18 04:47 04:47 06:18 WBC 18.9 H 13.5 H RBC 3.09 L Hgb 8.7 L Hct 25.2 L MCH MCHC 35 H 35 H Plt Count Lymph % (Auto) 10.0 L [place] % (Auto) 9.9 H [place] # 1.1 H 1.3 H Seg Neutrophils % 84.1 H Seg Neuts % (Manual) Lymphocytes % (Manual) Seg Neutrophils # 15.9 H 8.1 H Seg Neutrophils # Man Lymphocytes # (Manual) PT INR VBG pH Sodium Potassium 3.5 L Chloride Carbon Dioxide BUN 4 L Creatinine Glucose 104 H POC Glucose Calcium 8.0 L Phosphorus AST ALT C-Reactive Protein Total Protein Albumin Ur Specific [employer] Urine WBC (Auto) Miscellaneous Test Crossmatch 06/14/18 06/15/18 06/15/18 06:18 04:34 04:34 WBC 13.5 H RBC Hgb Hct MCH 27 L MCHC Plt Count 455 H Lymph % (Auto) [place] % (Auto) [place] # 1.0 H Seg Neutrophils % Seg Neuts % (Manual) Lymphocytes % (Manual) Seg Neutrophils # 9.0 H Seg Neutrophils # Man Lymphocytes # (Manual) PT INR VBG pH Sodium Potassium 3.2 L 3.3 L Chloride 97.8 L Carbon Dioxide BUN 5 L Creatinine 0.6 L 0.5 L Glucose POC Glucose Calcium 8.3 L Phosphorus 5.00 H D AST ALT C-Reactive Protein Total Protein Albumin Ur Specific [employer] Urine WBC (Auto) Miscellaneous Test Crossmatch 06/16/18 06/17/18 06/18/18 04:32 10:09 00:34 WBC RBC Hgb Hct MCH MCHC Plt Count Lymph % (Auto) [place] % (Auto) [place] # Seg Neutrophils % Seg Neuts % (Manual) Lymphocytes % (Manual) Seg Neutrophils # Seg Neutrophils # Man Lymphocytes # (Manual) PT INR VBG pH Sodium Potassium Chloride Carbon Dioxide BUN Creatinine 0.6 L Glucose 102 H 102 H POC Glucose Calcium Phosphorus AST ALT C-Reactive Protein 3.10 H Total Protein Albumin Ur Specific [employer] Urine WBC (Auto) Miscellaneous Test Crossmatch 06/18/18 05:28 WBC RBC Hgb Hct MCH MCHC Plt Count Lymph % (Auto) [place] % (Auto) [place] # Seg Neutrophils % Seg Neuts % (Manual) Lymphocytes % (Manual) Seg Neutrophils # Seg Neutrophils # Man Lymphocytes # (Manual) PT INR VBG pH Sodium Potassium Chloride Carbon Dioxide BUN Creatinine 0.6 L Glucose POC Glucose Calcium Phosphorus AST < 2.0 L ALT C-Reactive Protein Total Protein Albumin 3.0 L Ur Specific [employer] Urine WBC (Auto) Miscellaneous Test Crossmatch Chest x-ray: report reviewed (Normal chest xray.), image reviewed Allied health notes reviewed: nursing
[2018-06-18] MEDS ORDERED: TPN ADULT 2,016 ML IV SCH (20:00)
[2018-06-18] MEDS: MORPHINE IV PRN (20:22)
[2018-06-18] MEDS: LOVENOX SUB-Q SCH (21:28)
[2018-06-18] MEDS: ZOFRAN IV PRN (21:28)
[2018-06-18 21:49] LABS: ANA Screen, IFA Negative (Negative)
[2018-06-19 01:05] LABS: Basophils % (Auto) 0.3 % (0.0-1.8); Eosinophils # (Auto) 0.3 K/mm3 (0.0-0.4); Eosinophils % (Auto) 2.9 % (0.0-4.3); Hematocrit 32.3 % (30.3-42.9); Hemoglobin 11.2 gm/dl (10.1-14.3); Lymphocytes # (Auto) 2.6 K/mm3 (1.2-5.4); Lymphocytes % (Auto) 25.5 % (13.4-35.0); Mean Corpuscular HGB Conc 35 % (30-34); Mean Corpuscular Volume 81 fl (79-97); Monocytes # (Auto) 0.8 K/mm3 (0.0-0.8); Platelet Count 535 K/mm3 (140-440); Red Cell Distribution Width 15.4 % (13.2-15.2)
[2018-06-19] MEDS: DILAUDID IV PRN ×4 (04:17→21:01)
[2018-06-19 05:28] LABS: Alanine Aminotransferase 13 units/L (7-56); Albumin 3.4 g/dL (3.9-5); BUN/Creatinine Ratio 13; Blood Urea Nitrogen 8 mg/dL (7-17); Calcium 8.6 mg/dL (8.4-10.2); Hemolysis Index 3
[2018-06-19] MEDS: FLAGYL 500 MG/100 ML 500 MG/100 ML BAG IV SCH (05:48)
--- NOTE | 2018-06-19 08:48 | Progress Note ---
Assessment and Plan Cultures: Blood culture 06/09/2018 no growth today Intraperitoneal culture 06/11/2018 no growth today Assessment: 28 y/o female with history marihuana use; admitted on due to 3-day history of nausea, vomiting and abdominal pain: 1) Sepsis: fever/tachycardia resolved and leukocytosis better. CRP=14. Repeat CRP 3.1. Etiology most likely right colonic mass and perforation. 2) Right large cecal mass with perforation: of unclear etiology. Patient denies history of previous diverticulitis or inflammatory bowel disease. No history of trauma or ingestion of foreign bodies. CT abdomen showed perforated right colon approximately 6 cm superior to the ileocecal valve with trapped area of stool adjacent to the perforation measures 3.1 x 3 x 3.6 cm. Surrounding indurated fat. No jenn pneumoperitoneum. No evidence of intra-abdominal abscess or fistula. Among infectious diseases causes of right sided colonic perforation are typhoid (no history of diarrhea), schistosomiasis (no recent travels to tropical areas), CMV. Other non ID etiologies: malignancy, connective tissue disease, vasculitis. S/p exlap on 06/12/2018 found to have a very large cecal mass. Pathology report shows benign perforated colonic mucosa with ulcer, adjacent ischenic changes, few thrombosis vessels at ulcer bed and ischemic areas, marked acute and chronic inflammation, edema and congestion extending to entire wall with abscess formation. Will send immunoassays for IgG and I gM antibodies to cardiolipin and beta2-glycoprotein I and functional assay for lupus anticoagulant to r/o antiphospholipid syndrome C3/C4 negative. Procal 0.11. CARLOS MANUEL negative, CMV DNA PCR negative. HIV negative. Recommendations: - follow-up intraperitoneal culture - discontinue ceftriaxone and flagyl - clinically stable -monitor off antibiotics - f/u mmunoassays for IgG and I gM antibodies to cardiolipin and beta2- glycoprotein I and functional assay for lupus anticoagulant to r/o antiphospholipid syndrome -f/u office in 3 weeks ID is signing off [facility] M: [id number] O:[phone] Subjective Date of service: 06/19/18 Principal diagnosis: Acute abdomen/R. colonic perforation; SIRS; Leukocytosis; Abd. pain Interval history: Patient seen and examined. Reports no generalized pain or SOB. No fevers. Tolerating clears. Objective - Exam Narrative Exam: General appearance: Alert in NAD, conversant Eyes: anicteric sclerae, moist conjunctivae; no lid-lag; PERRLA HENT: Atraumatic; oropharynx clear with moist mucous membranes and no mucosal ulcerations/no oral thrush; normal hard and soft palate. Normal external ears. Neck: Trachea midline; supple, no thyromegaly or lymphadenopathy Lungs: CTA CV: RRR Abdomen: Soft,midline wound with surg dressings Extremities: No peripheral edema or extremity lymphadenopathy Skin: Normal temperature, turgor and texture; no rash, ulcers or subcutaneous nodules Psych: Appropriate affect, alert and oriented to person, place and time. Neuro: alert and oriented x 3. Moving all extermities - Constitutional Vitals: Vital Signs Temp Pulse Resp BP Pulse Ox 97.7 F 73 18 121/66 100 06/19/18 04:44 06/19/18 07:15 06/19/18 07:15 06/19/18 07:15 06/19/18 07:15 Temperature -Last 24 Hours Temperature 97.7 F Temperature 98.9 F Temperature 98.0 F Temperature 98.2 F Temperature 97.8 F Temperature 97.4 F - Labs CBC & Chem 7: 06/19/18 00:52 06/19/18 04:35 Labs: Abnormal lab results 06/19/18 06/19/18 Range/Units 00:52 04:35 MCHC 35 H (30-34) % RDW 15.4 H (13.2-15.2) % Plt Count 535 H (140-440) K/mm3 [place] % (Auto) 8.0 H (0.0-7.3) % Sodium 135 L (137-145) mmol/L Creatinine 0.6 L (0.7-1.2) mg/dL Albumin 3.4 L (3.9-5) g/dL
--- NOTE | 2018-06-19 10:07 | Progress Note ---
<DELLA CLARK - Last Filed: 06/19/18 14:02> Assessment and Plan Assessment and plan: Ms. Alonso is a 28 y.o. 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 ED on 06/09/18 with n/v/ and abd pains. In the ED, temp 98.1, HR 118, R 19, O2 sat 99%, BP 132/91. WBC 19.5, Hg 13, Plat 373. Creat 0.7. LFTs normal. Lipase normal. UA neg. Blood culture 06/09/2018 no growth to date. CT abdomen showed perforated right colon approximately 6 cm superior to the ileocecal valve with trapped area of stool adjacent to the perforation measures 3.1 x 3 x 3.6 cm. Surrounding indurated fat. No jenn pneumoperitoneum. She went for sugery on 06/11/[address] Handley found a very large cecal mass obstructing the colon, extending out into the retroperitoneum as well as adjacent to the duodenum, kidney and superiorly adjacent to the stomach, so he did a Extended right hemicolectomy. The pathology came back as non-cancerous. Sepsis secondary to micro perforation of right colon Completed Rocephin, Flagyl, and Diflucan 500mg Leukocytosis resolved; 10.1 ID Following and managing Micro perforation of right colon S/P right hemicolectomy on 06/12 Discontinued NG to LIS Remains of TPN with plans to d/c if able to tolerate full liquid deit Started on clear diet; advanced to full liquids today as per Gen Surg Gen Surg following and managing Right Cecal Mass S/P resection on 06/12 Gen Surg following and managing Hypokalemia- resolved repleated Constipation-resolved Dulcolax suppository PRN DVT PPX On Lovenox Disposition Plan: d/c to home once medically cleared History Interval history: Ms. Alonso is seen today on the surgical floor. She was able to tolerate liquid diet. There were no acute overnight events. Hospitalist Physical - Physical exam Narrative exam: General appearance: Present: no acute distress - EENT Eyes: Present: PERRL, EOM intact ENT: hearing intact, clear oral mucosa, dentition normal - Neck Neck: Present: supple, normal ROM - Respiratory Respiratory effort: normal Respiratory: bilateral: CTA - Cardiovascular Heart rate: 73 (bpm) Rhythm: regular Heart Sounds: Present: S1 & S2. Absent: rub, clicks - Extremities Extremities: no ischemia, pulses intact - Abdominal General gastrointestinal: soft, tender, active bowel sounds, abd binder Localized gastrointestinal: tender: diffuse - Integumentary Integumentary: Present: warm, dry - Psychiatric Psychiatric: cooperative, depressed - Neurologic Neurologic: CNII-XII intact, moves all extremities - Constitutional Vitals: Temp Pulse Resp BP Pulse Ox 97.7 F 73 18 121/66 100 06/19/18 04:44 06/19/18 07:15 06/19/18 07:15 06/19/18 07:15 06/19/18 07:15 Results - Labs CBC & Chem 7: 06/19/18 00:52 06/19/18 04:35 Labs: Laboratory Last Values WBC 10.1 K/mm3 (4.5-11.0) 06/19/18 00:52 RBC 4.00 M/mm3 (3.65-5.03) 06/19/18 00:52 Hgb 11.2 gm/dl (10.1-14.3) 06/19/18 00:52 Hct 32.3 % (30.3-42.9) 06/19/18 00:52 MCV 81 fl (79-97) 06/19/18 00:52 MCH 28 pg (28-32) 06/19/18 00:52 MCHC 35 % (30-34) H 06/19/18 00:52 RDW 15.4 % (13.2-15.2) H 06/19/18 00:52 Plt Count 535 K/mm3 (140-440) H 06/19/18 00:52 Lymph % (Auto) 25.5 % (13.4-35.0) 06/19/18 00:52 Wheeler % (Auto) 8.0 % (0.0-7.3) H 06/19/18 00:52 Eos % (Auto) 2.9 % (0.0-4.3) 06/19/18 00:52 Baso % (Auto) 0.3 % (0.0-1.8) 06/19/18 00:52 Lymph # 2.6 K/mm3 (1.2-5.4) 06/19/18 00:52 Wheeler # 0.8 K/mm3 (0.0-0.8) 06/19/18 00:52 Eos # 0.3 K/mm3 (0.0-0.4) 06/19/18 00:52 Baso # 0.0 K/mm3 (0.0-0.1) 06/19/18 00:52 Add Manual Diff Complete 06/12/18 05:41 Total Counted 100 06/12/18 05:41 Seg Neutrophils % 63.3 % (40.0-70.0) 06/19/18 00:52 Seg Neuts % (Manual) 92.0 % (40.0-70.0) H 06/12/18 05:41 Band Neutrophils % 3.0 % 06/12/18 05:41 Lymphocytes % (Manual) 4.0 % (13.4-35.0) L 06/12/18 05:41 Reactive Lymphs % (Man) 0 % 06/12/18 05:41 Monocytes % (Manual) 1.0 % (0.0-7.3) 06/12/18 05:41 Eosinophils % (Manual) 0 % (0.0-4.3) 06/12/18 05:41 Basophils % (Manual) 0 % (0.0-1.8) 06/12/18 05:41 Metamyelocytes % 0 % 06/12/18 05:41 Myelocytes % 0 % 06/12/18 05:41 Promyelocytes % 0 % 06/12/18 05:41 Blast Cells % 0 % 06/12/18 05:41 Nucleated RBC % Not Reportable 06/12/18 05:41 Seg Neutrophils # 6.4 K/mm3 (1.8-7.7) 06/19/18 00:52 Seg Neutrophils # Man 19.8 K/mm3 (1.8-7.7) H 06/12/18 05:41 Band Neutrophils # 0.6 K/mm3 06/12/18 05:41 Lymphocytes # (Manual) 0.9 K/mm3 (1.2-5.4) L 06/12/18 05:41 Abs React Lymphs (Man) 0.0 K/mm3 06/12/18 05:41 Monocytes # (Manual) 0.2 K/mm3 (0.0-0.8) 06/12/18 05:41 Eosinophils # (Manual) 0.0 K/mm3 (0.0-0.4) 06/12/18 05:41 Basophils # (Manual) 0.0 K/mm3 (0.0-0.1) 06/12/18 05:41 Metamyelocytes # 0.0 K/mm3 06/12/18 05:41 Myelocytes # 0.0 K/mm3 06/12/18 05:41 Promyelocytes # 0.0 K/mm3 06/12/18 05:41 Blast Cells # 0.0 K/mm3 06/12/18 05:41 WBC Morphology Not Reportable 06/12/18 05:41 Hypersegmented Neuts Not Reportable 06/12/18 05:41 Hyposegmented Neuts Not Reportable 06/12/18 05:41 Hypogranular Neuts Not Reportable 06/12/18 05:41 Smudge Cells Not Reportable 06/12/18 05:41 Toxic Granulation Not Reportable 06/12/18 05:41 Toxic Vacuolation Not Reportable 06/12/18 05:41 Dohle Bodies Not Reportable 06/12/18 05:41 Pelger-Huet Anomaly Not Reportable 06/12/18 05:41 Verenice Rods Not Reportable 06/12/18 05:41 Platelet Estimate Consistent w auto 06/12/18 05:41 Clumped Platelets Not Reportable 06/12/18 05:41 Plt Clumps, EDTA Not Reportable 06/12/18 05:41 Large Platelets Not Reportable 06/12/18 05:41 Giant Platelets Not Reportable 06/12/18 05:41 Platelet Satelliting Not Reportable 06/12/18 05:41 Plt Morphology Comment Not Reportable 06/12/18 05:41 RBC Morphology Not Reportable 06/12/18 05:41 Dimorphic RBCs Not Reportable 06/12/18 05:41 Polychromasia Not Reportable 06/12/18 05:41 Hypochromasia Not Reportable 06/12/18 05:41 Poikilocytosis Not Reportable 06/12/18 05:41 Anisocytosis Not Reportable 06/12/18 05:41 Microcytosis Not Reportable 06/12/18 05:41 Macrocytosis Not Reportable 06/12/18 05:41 Spherocytes Not Reportable 06/12/18 05:41 Pappenheimer Bodies Not Reportable 06/12/18 05:41 Sickle Cells Not Reportable 06/12/18 05:41 Target Cells 1+ 06/12/18 05:41 Tear Drop Cells Not Reportable 06/12/18 05:41 Ovalocytes Not Reportable 06/12/18 05:41 Helmet Cells Not Reportable 06/12/18 05:41 Mendoza-Indios Bodies Not Reportable 06/12/18 05:41 [place] Rings Not Reportable 06/12/18 05:41 Alyssa Cells Not Reportable 06/12/18 05:41 Bite Cells Not Reportable 06/12/18 05:41 Crenated Cell Not Reportable 06/12/18 05:41 Elliptocytes Not Reportable 06/12/18 05:41 Acanthocytes (Spur) Not Reportable 06/12/18 05:41 Rouleaux Not Reportable 06/12/18 05:41 Hemoglobin C Crystals Not Reportable 06/12/18 05:41 Schistocytes Not Reportable 06/12/18 05:41 Malaria parasites Not Reportable 06/12/18 05:41 Tom Bodies Not Reportable 06/12/18 05:41 Hem Pathologist Commnt No 06/12/18 05:41 PT 19.7 Sec. (12.2-14.9) H 06/11/18 10:41 INR 1.56 (0.87-1.13) H 06/11/18 10:41 APTT 29.6 Sec. (24.2-36.6) 06/11/18 10:41 VBG pH 7.318 (7.320-7.420) L 06/09/18 08:48 Sodium 135 mmol/L (137-145) L 06/19/18 04:35 Potassium 3.7 mmol/L (3.6-5.0) D 06/19/18 04:35 Chloride 99.5 mmol/L (98-107) 06/19/18 04:35 Carbon Dioxide 24 mmol/L (22-30) 06/19/18 04:35 Anion Gap 15 mmol/L 06/19/18 04:35 BUN 8 mg/dL (7-17) 06/19/18 04:35 Creatinine 0.6 mg/dL (0.7-1.2) L 06/19/18 04:35 Estimated GFR > 60 ml/min 06/19/18 04:35 BUN/Creatinine Ratio 13 % 06/19/18 04:35 Glucose 98 mg/dL (65-100) 06/19/18 04:35 POC Glucose 86 (70-105) 06/19/18 06:24 Lactic Acid 0.80 mmol/L (0.7-2.0) 06/09/18 07:56 Calcium 8.6 mg/dL (8.4-10.2) 06/19/18 04:35 Phosphorus 4.30 mg/dL (2.5-4.5) 06/19/18 04:35 Magnesium 1.70 mg/dL (1.7-2.3) 06/19/18 04:35 Total Bilirubin 0.30 mg/dL (0.1-1.2) 06/19/18 04:35 AST 13 units/L (5-40) 06/19/18 04:35 ALT 13 units/L (7-56) 06/19/18 04:35 Alkaline Phosphatase 41 units/L (35-129) 06/19/18 04:35 C-Reactive Protein 3.10 mg/dL (0.00-1.30) H 06/18/18 00:34 Total Protein 7.7 g/dL (6.3-8.2) 06/19/18 04:35 Albumin 3.4 g/dL (3.9-5) L 06/19/18 04:35 Albumin/Globulin Ratio 0.8 % 06/19/18 04:35 Lipase 21 units/L (13-60) 06/09/18 08:48 HCG, Qual Negative (Negative) 06/09/18 01:41 Urine Color Yellow (Yellow) 06/13/18 11:30 Urine Turbidity Clear (Clear) 06/13/18 11:30 Urine pH 7.0 (5.0-7.0) 06/13/18 11:30 Ur Specific [place] 1.020 (1.003-1.030) 06/13/18 11:30 Urine Protein <15 mg/dl mg/dL (Negative) 06/13/18 11:30 Urine Glucose (UA) Neg mg/dL (Negative) 06/13/18 11:30 Urine Ketones Neg mg/dL (Negative) 06/13/18 11:30 Urine Blood Sm (Negative) 06/13/18 11:30 Urine Nitrite Neg (Negative) 06/13/18 11:30 Urine Bilirubin Neg (Negative) 06/13/18 11:30 Urine Urobilinogen < 2.0 mg/dL (<2.0) 06/13/18 11:30 Ur Leukocyte Esterase Sm (Negative) 06/13/18 11:30 Urine WBC (Auto) 6.0 /HPF (0.0-6.0) 06/13/18 11:30 Urine RBC (Auto) 16.0 /HPF (0.0-6.0) 06/13/18 11:30 U Epithel Cells (Auto) < 1.0 /HPF (0-13.0) 06/13/18 11:30 Hyaline Casts 14 /LPF 06/09/18 04:41 Urine Mucus Few /HPF 06/13/18 11:30 Urine HCG, Qual Negative (Negative) 06/11/18 11:30 CARLOS MANUEL Screen Negative (Negative) 06/10/18 13:37 Proteinase 3 (PR3) Ab <1.0 AI (<1.0) 06/10/18 13:37 Myeloperoxidase Ab <1.0 AI (<1.0) 06/10/18 13:37 Complement C3 178 mg/dL (83-193) 06/10/18 13:37 Complement C4 30 mg/dL (15-57) 06/10/18 13:37 CMV DNA PCR log coppersmith helper/mL See scanned result 06/10/18 13:37 HIV 1&2 Antibody Rapid Non react (Non React) 06/18/18 17:15 HIV P24 Antigen Non react (Non React) 06/18/18 17:15 Miscellaneous Test Flexitest 1 H 06/11/18 08:27 Blood Type B POSITIVE 06/11/18 10:41 Antibody Screen Negative 06/11/18 10:41 Crossmatch See Detail 06/11/18 10:41 Active Medications - Current Medications Current Medications: Generic Name Dose Route Start Last Admin Trade Name Freq PRN Reason Stop Dose Admin Acetaminophen 650 mg 06/10/18 15:39 Tylenol OH Q4H PRN Fever >101 Acetaminophen/Hydrocodone Bitart 1 each 06/17/18 12:57 06/18/18 21:28 [place] 5/325 PO 1 each Q4H PRN Administration Pain, Moderate (4-6) Benzocaine/Menthol 1 each 06/11/18 20:17 06/16/18 20:53 Cepacol X Strength MM 1 each Q2HR PRN Administration Sore Throat Bisacodyl 10 mg 06/17/18 10:00 06/17/18 10:38 Dulcolax OH 10 mg QDAY PRN Administration Constipation Enoxaparin Sodium 40 mg 06/10/18 22:00 06/18/18 21:28 Lovenox SUB-Q 40 mg QDAY@2200 DONNELL Administration Famotidine 20 mg 06/11/18 16:00 06/18/18 21:28 Pepcid IV 20 mg BID DONNELL Administration Hydralazine HCl 10 mg 06/12/18 12:02 06/13/18 13:33 Apresoline IV 10 mg Q4HR PRN Administration Blood Pressure Hydromorphone HCl 1 mg 06/12/18 12:13 06/19/18 04:17 Dilaudid IV 1 mg Q2H PRN Administration Pain , Severe (7-10) Amino Acids/Electrolytes/Dextrose 2,016 mls @ 84 mls/hr 06/18/18 20:00 06/18/18 20:35 Tpn Adult IV 06/19/18 19:59 84 mls/hr DAILY@2000 [facility] Administration Protocol Labetalol HCl 10 mg 06/09/18 10:54 06/11/18 16:21 Normodyne IV 10 mg Q4H PRN Administration Hypertension Lidocaine HCl 15 ml 06/12/18 15:52 06/12/18 20:14 Lidocaine Viscous 2% PO 15 ml Q8HR PRN Administration Mouth Pain Morphine Sulfate 2 mg 06/09/18 10:54 06/18/18 20:22 Morphine IV 2 mg Q4H PRN Administration Pain, Moderate (4-6) Ondansetron HCl 4 mg 06/10/18 22:29 06/18/18 21:28 Zofran IV 4 mg Q4H PRN Administration Nausea And Vomiting Nutrition/Malnutrition Assess - Dietary Evaluation Nutrition/Malnutrition Findings: Nutrition Notes Start: 06/13/18 10:26 Freq: Status: Active Protocol: Document 06/19/18 09:36 CP (Rec: 06/19/18 09:44 CP [id number]) Co-Sign 06/19/18 09:36 LP Nutrition Notes Other Pertinent Diagnosis Large Colon Mass s/p extended hemicolectomy Current Diet PPN at 84ml/hr Labs/Tests Na: 135 Pertinent Medications Reviewed Height 5 ft 2 in Weight 60.555 kg [place] Body Weight (kg) 50.00 BMI 24.4 Subjective/Other Information Day 7 PPN. Pt reported receiving Clear liquid diet yesterday for lunch and dinner and ate 20% of it. She stated that she is still producing stool and did not have any N/V /D/C. Noted TPN infusing at goal rate during time of visit . Pt was open to Ensure Clear daily. Percent of energy/protein needs met: 60%/100% Burn Absent Trauma Absent #1 Nutrition Diagnosis Inadequate oral intake Diagnosis Progress(for reassessment Continues documentation) Is patient on ventilator? No Is Patient Ambulatory and/or Out of Bed Yes REE-([place]-ambulatory/OOB) [ 1675.440 [id number]] Calculation [facility] Additional Notes Pro needs 1.2-1.5g/k-91g/ day Fluid needs 1ml/kcal Nutrition Intervention Change Diet Order: PPN Nutrition Support: Continue PPN at 84ml/hr: MVI, Na 99, K 81. Kcal 895 Protein (gm) 75 Carbohydrates (gm) 175 Fat (gm) 0 Fluid (mL) 2,018 Fiber (gm) 0 Add Supplement/Snack (indicate name/kcal Ensure clear daily /protein ) Provides kCal: 240 Provides Protein (gm) 8 Goal #1 Meet at least 75% of kcal and pro needs via PPN or as best as possible Anticipated Discharge Needs: unable to determine at this time Additional Comments F/U: Labs in am: BMP, Mg, Phos , PO/ONS tolerance <AMBER PAUL M - Last Filed: 06/22/18 18:39> Assessment and Plan Assessment and plan: I saw and evaluated the patient. I agree with the findings and the plan of care as documented in the Nurse Practitioner's~note, with the following corrections and additions. Right cecal mass, Path reviewed, and it was an abscess- History Interval history: abdominal pain has resolved, no fever, no vomiting, having BMs denies CP, denies sob Hospitalist Physical - Constitutional Vitals: Temp Pulse Resp BP Pulse Ox 98.8 F 118 H 18 121/82 98 06/20/18 20:02 06/20/18 16:00 06/20/18 20:02 06/20/18 20:02 06/20/18 16:00 Results - Labs CBC & Chem 7: 06/19/18 00:52 06/20/18 07:08 Labs: Laboratory Last Values WBC 10.1 K/mm3 (4.5-11.0) 06/19/18 00:52 RBC 4.00 M/mm3 (3.65-5.03) 06/19/18 00:52 Hgb 11.2 gm/dl (10.1-14.3) 06/19/18 00:52 Hct 32.3 % (30.3-42.9) 06/19/18 00:52 MCV 81 fl (79-97) 06/19/18 00:52 MCH 28 pg (28-32) 06/19/18 00:52 MCHC 35 % (30-34) H 06/19/18 00:52 RDW 15.4 % (13.2-15.2) H 06/19/18 00:52 Plt Count 535 K/mm3 (140-440) H 06/19/18 00:52 Lymph % (Auto) 25.5 % (13.4-35.0) 06/19/18 00:52 Wheeler % (Auto) 8.0 % (0.0-7.3) H 06/19/18 00:52 Eos % (Auto) 2.9 % (0.0-4.3) 06/19/18 00:52 Baso % (Auto) 0.3 % (0.0-1.8) 06/19/18 00:52 Lymph # 2.6 K/mm3 (1.2-5.4) 06/19/18 00:52 Wheeler # 0.8 K/mm3 (0.0-0.8) 06/19/18 00:52 Eos # 0.3 K/mm3 (0.0-0.4) 06/19/18 00:52 Baso # 0.0 K/mm3 (0.0-0.1) 06/19/18 00:52 Add Manual Diff Complete 06/12/18 05:41 Total Counted 100 06/12/18 05:41 Seg Neutrophils % 63.3 % (40.0-70.0) 06/19/18 00:52 Seg Neuts % (Manual) 92.0 % (40.0-70.0) H 06/12/18 05:41 Band Neutrophils % 3.0 % 06/12/18 05:41 Lymphocytes % (Manual) 4.0 % (13.4-35.0) L 06/12/18 05:41 Reactive Lymphs % (Man) 0 % 06/12/18 05:41 Monocytes % (Manual) 1.0 % (0.0-7.3) 06/12/18 05:41 Eosinophils % (Manual) 0 % (0.0-4.3) 06/12/18 05:41 Basophils % (Manual) 0 % (0.0-1.8) 06/12/18 05:41 Metamyelocytes % 0 % 06/12/18 05:41 Myelocytes % 0 % 06/12/18 05:41 Promyelocytes % 0 % 06/12/18 05:41 Blast Cells % 0 % 06/12/18 05:41 Nucleated RBC % Not Reportable 06/12/18 05:41 Seg Neutrophils # 6.4 K/mm3 (1.8-7.7) 06/19/18 00:52 Seg Neutrophils # Man 19.8 K/mm3 (1.8-7.7) H 06/12/18 05:41 Band Neutrophils # 0.6 K/mm3 06/12/18 05:41 Lymphocytes # (Manual) 0.9 K/mm3 (1.2-5.4) L 06/12/18 05:41 Abs React Lymphs (Man) 0.0 K/mm3 06/12/18 05:41 Monocytes # (Manual) 0.2 K/mm3 (0.0-0.8) 06/12/18 05:41 Eosinophils # (Manual) 0.0 K/mm3 (0.0-0.4) 06/12/18 05:41 Basophils # (Manual) 0.0 K/mm3 (0.0-0.1) 06/12/18 05:41 Metamyelocytes # 0.0 K/mm3 06/12/18 05:41 Myelocytes # 0.0 K/mm3 06/12/18 05:41 Promyelocytes # 0.0 K/mm3 06/12/18 05:41 Blast Cells # 0.0 K/mm3 06/12/18 05:41 WBC Morphology Not Reportable 06/12/18 05:41 Hypersegmented Neuts Not Reportable 06/12/18 05:41 Hyposegmented Neuts Not Reportable 06/12/18 05:41 Hypogranular Neuts Not Reportable 06/12/18 05:41 Smudge Cells Not Reportable 06/12/18 05:41 Toxic Granulation Not Reportable 06/12/18 05:41 Toxic Vacuolation Not Reportable 06/12/18 05:41 Dohle Bodies Not Reportable 06/12/18 05:41 Pelger-Huet Anomaly Not Reportable 06/12/18 05:41 Verenice Rods Not Reportable 06/12/18 05:41 Platelet Estimate Consistent w auto 06/12/18 05:41 Clumped Platelets Not Reportable 06/12/18 05:41 Plt Clumps, EDTA Not Reportable 06/12/18 05:41 Large Platelets Not Reportable 06/12/18 05:41 Giant Platelets Not Reportable 06/12/18 05:41 Platelet Satelliting Not Reportable 06/12/18 05:41 Plt Morphology Comment Not Reportable 06/12/18 05:41 RBC Morphology Not Reportable 06/12/18 05:41 Dimorphic RBCs Not Reportable 06/12/18 05:41 Polychromasia Not Reportable 06/12/18 05:41 Hypochromasia Not Reportable 06/12/18 05:41 Poikilocytosis Not Reportable 06/12/18 05:41 Anisocytosis Not Reportable 06/12/18 05:41 Microcytosis Not Reportable 06/12/18 05:41 Macrocytosis Not Reportable 06/12/18 05:41 Spherocytes Not Reportable 06/12/18 05:41 Pappenheimer Bodies Not Reportable 06/12/18 05:41 Sickle Cells Not Reportable 06/12/18 05:41 Target Cells 1+ 06/12/18 05:41 Tear Drop Cells Not Reportable 06/12/18 05:41 Ovalocytes Not Reportable 06/12/18 05:41 Helmet Cells Not Reportable 06/12/18 05:41 Mendoza-Indios Bodies Not Reportable 06/12/18 05:41 [place] Rings Not Reportable 06/12/18 05:41 Alyssa Cells Not Reportable 06/12/18 05:41 Bite Cells Not Reportable 06/12/18 05:41 Crenated Cell Not Reportable 06/12/18 05:41 Elliptocytes Not Reportable 06/12/18 05:41 Acanthocytes (Spur) Not Reportable 06/12/18 05:41 Rouleaux Not Reportable 06/12/18 05:41 Hemoglobin C Crystals Not Reportable 06/12/18 05:41 Schistocytes Not Reportable 06/12/18 05:41 Malaria parasites Not Reportable 06/12/18 05:41 Tom Bodies Not Reportable 06/12/18 05:41 Hem Pathologist Commnt No 06/12/18 05:41 PT 19.7 Sec. (12.2-14.9) H 06/11/18 10:41 INR 1.56 (0.87-1.13) H 06/11/18 10:41 APTT 29.6 Sec. (24.2-36.6) 06/11/18 10:41 VBG pH 7.318 (7.320-7.420) L 06/09/18 08:48 Sodium 138 mmol/L (137-145) 06/20/18 07:08 Potassium 4.3 mmol/L (3.6-5.0) 06/20/18 07:08 Chloride 99.1 mmol/L (98-107) 06/20/18 07:08 Carbon Dioxide 27 mmol/L (22-30) 06/20/18 07:08 Anion Gap 16 mmol/L 06/20/18 07:08 BUN 9 mg/dL (7-17) 06/20/18 07:08 Creatinine 0.6 mg/dL (0.7-1.2) L 06/20/18 07:08 Estimated GFR > 60 ml/min 06/20/18 07:08 BUN/Creatinine Ratio 15 % 06/20/18 07:08 Glucose 87 mg/dL (65-100) 06/20/18 07:08 POC Glucose 93 (70-105) 06/20/18 18:00 Lactic Acid 0.80 mmol/L (0.7-2.0) 06/09/18 07:56 Calcium 8.9 mg/dL (8.4-10.2) 06/20/18 07:08 Phosphorus 3.80 mg/dL (2.5-4.5) 06/20/18 07:08 Magnesium 2.00 mg/dL (1.7-2.3) 06/20/18 07:08 Total Bilirubin 0.30 mg/dL (0.1-1.2) 06/19/18 04:35 AST 13 units/L (5-40) 06/19/18 04:35 ALT 13 units/L (7-56) 06/19/18 04:35 Alkaline Phosphatase 41 units/L (35-129) 06/19/18 04:35 C-Reactive Protein 3.10 mg/dL (0.00-1.30) H 06/18/18 00:34 Total Protein 7.7 g/dL (6.3-8.2) 06/19/18 04:35 Albumin 3.4 g/dL (3.9-5) L 06/19/18 04:35 Albumin/Globulin Ratio 0.8 % 06/19/18 04:35 Lipase 21 units/L (13-60) 06/09/18 08:48 HCG, Qual Negative (Negative) 06/09/18 01:41 Urine Color Yellow (Yellow) 06/13/18 11:30 Urine Turbidity Clear (Clear) 06/13/18 11:30 Urine pH 7.0 (5.0-7.0) 06/13/18 11:30 Ur Specific [place] 1.020 (1.003-1.030) 06/13/18 11:30 Urine Protein <15 mg/dl mg/dL (Negative) 06/13/18 11:30 Urine Glucose (UA) Neg mg/dL (Negative) 06/13/18 11:30 Urine Ketones Neg mg/dL (Negative) 06/13/18 11:30 Urine Blood Sm (Negative) 06/13/18 11:30 Urine Nitrite Neg (Negative) 06/13/18 11:30 Urine Bilirubin Neg (Negative) 06/13/18 11:30 Urine Urobilinogen < 2.0 mg/dL (<2.0) 06/13/18 11:30 Ur Leukocyte Esterase Sm (Negative) 06/13/18 11:30 Urine WBC (Auto) 6.0 /HPF (0.0-6.0) 06/13/18 11:30 Urine RBC (Auto) 16.0 /HPF (0.0-6.0) 06/13/18 11:30 U Epithel Cells (Auto) < 1.0 /HPF (0-13.0) 06/13/18 11:30 Hyaline Casts 14 /LPF 06/09/18 04:41 Urine Mucus Few /HPF 06/13/18 11:30 Urine HCG, Qual Negative (Negative) 06/11/18 11:30 CARLOS MANUEL Screen Negative (Negative) 06/10/18 13:37 Proteinase 3 (PR3) Ab <1.0 AI (<1.0) 06/10/18 13:37 Myeloperoxidase Ab <1.0 AI (<1.0) 06/10/18 13:37 Complement C3 178 mg/dL (83-193) 06/10/18 13:37 Complement C4 30 mg/dL (15-57) 06/10/18 13:37 CMV DNA PCR log coppersmith helper/mL See scanned result 06/10/18 13:37 HIV 1&2 Antibody Rapid Non react (Non React) 06/18/18 17:15 HIV P24 Antigen Non react (Non React) 06/18/18 17:15 Miscellaneous Test Flexitest 1 H 06/11/18 08:27 Blood Type B POSITIVE 06/11/18 10:41 Antibody Screen Negative 06/11/18 10:41 Crossmatch See Detail 06/11/18 10:41 Nutrition/Malnutrition Assess - Dietary Evaluation Nutrition/Malnutrition Findings: Nutrition Notes Start: 06/13/18 10:26 Freq: Status: Discharge Protocol: Document 06/20/18 10:10 CP (Rec: 06/20/18 10:20 CP [id number]) Co-Sign 06/20/18 10:10 LP Nutrition Notes Other Pertinent Diagnosis Large Colon Mass s/p extended hemicolectomy Current Diet PPN at 84ml/hr Labs/Tests Reviewed Pertinent Medications Reviewed Height 5 ft 2 in Weight 60.555 kg [place] Body Weight (kg) 50.00 BMI 24.4 Subjective/Other Information Day 7 PPN. Pt is on a full liquid diet and has been tolerating it. Per RN and case management note, pt is being discharged today. TPN will be tapered off per MD request. Noted TPN infusing at goal rate during time of visit. Percent of energy/protein needs met: 68%/100% Burn Absent Trauma Absent #1 Nutrition Diagnosis Inadequate oral intake Diagnosis Progress(for reassessment Continues documentation) Is patient on ventilator? No Is Patient Ambulatory and/or Out of Bed Yes REE-([facility]-ambulatory/OOB) [ [id number] [id number]] Calculation Used for Recommendations [facility] Additional Notes Pro needs 1.2-1.5g/k-91g/ day Fluid needs 1ml/kcal Nutrition Intervention Change Diet Order: PPN Nutrition Support: Continue PPN at 84ml/hr: MVI, trace element, K 50. Osmolality: 884 Kcal 895 Protein (gm) 75 Carbohydrates (gm) 175 Fat (gm) 0 Fluid (mL) 2,016 Fiber (gm) 0 Add Supplement/Snack (indicate name/kcal D/C Ensure clear /protein ) Ensure Enlive Daily Provides kCal: 350 Provides Protein (gm) 20 Goal #1 Meet at least 75% of kcal and pro needs via PPN or as best as possible Anticipated Discharge Needs: unable to determine at this time Follow-Up By: 06/21/18 Additional Comments F/U: Labs in am: BMP, Mg, Phos , PO/ONS tolerance
--- NOTE | 2018-06-19 10:08 | Progress Note ---
Assessment and Plan POD # 8 Pt feeling well without compl. dominguez cl liq diet Abd soft, non tender surgically stable d/c estuardo full liq diet may d/c PPN if full liq dominguez Selected Entries 06/19/18 06/19/18 04:44 07:15 Temperature 97.7 F Respiratory 18 Rate Blood Pressure 121/66 [Left] Objective Vital Signs - 12hr 06/18/18 06/19/18 06/19/18 23:45 04:44 07:15 Temperature 98.9 F 97.7 F Pulse Rate 86 84 73 Respiratory 17 17 18 Rate Blood Pressure 102/74 104/68 Blood Pressure 121/66 [Left] O2 Sat by Pulse 98 96 100 Oximetry - Labs 06/19/18 00:52 06/19/18 04:35 Diabetes panel 06/19/18 Range/Units 04:35 Sodium 135 L (137-145) mmol/L Potassium 3.7 D (3.6-5.0) mmol/L Chloride 99.5 (98-107) mmol/L Carbon Dioxide 24 (22-30) mmol/L BUN 8 (7-17) mg/dL Creatinine 0.6 L (0.7-1.2) mg/dL Glucose 98 (65-100) mg/dL Calcium 8.6 (8.4-10.2) mg/dL AST 13 (5-40) units/L ALT 13 (7-56) units/L Alkaline Phosphatase 41 (35-129) units/L Total Protein 7.7 (6.3-8.2) g/dL Albumin 3.4 L (3.9-5) g/dL Calcium panel 06/19/18 Range/Units 04:35 Calcium 8.6 (8.4-10.2) mg/dL Phosphorus 4.30 (2.5-4.5) mg/dL Albumin 3.4 L (3.9-5) g/dL Pituitary panel 06/19/18 Range/Units 04:35 Sodium 135 L (137-145) mmol/L Potassium 3.7 D (3.6-5.0) mmol/L Chloride 99.5 (98-107) mmol/L Carbon Dioxide 24 (22-30) mmol/L BUN 8 (7-17) mg/dL Creatinine 0.6 L (0.7-1.2) mg/dL Glucose 98 (65-100) mg/dL Calcium 8.6 (8.4-10.2) mg/dL Adrenal panel 06/19/18 Range/Units 04:35 Sodium 135 L (137-145) mmol/L Potassium 3.7 D (3.6-5.0) mmol/L Chloride 99.5 (98-107) mmol/L Carbon Dioxide 24 (22-30) mmol/L BUN 8 (7-17) mg/dL Creatinine 0.6 L (0.7-1.2) mg/dL Glucose 98 (65-100) mg/dL Calcium 8.6 (8.4-10.2) mg/dL Total Bilirubin 0.30 (0.1-1.2) mg/dL AST 13 (5-40) units/L ALT 13 (7-56) units/L Alkaline Phosphatase 41 (35-129) units/L Total Protein 7.7 (6.3-8.2) g/dL Albumin 3.4 L (3.9-5) g/dL
[2018-06-19] MEDS: PEPCID IV SCH ×2 (11:09→21:01)
--- NOTE | 2018-06-19 19:50 | Progress Note ---
Assessment and Plan Patient awake. On room air. O2 saturation 97%. No complaint of chest pain, shortness of breath or cough. Complaining some abdominal discomfort. Chest xray reported normal. ABG not done yet.. - Patient Problems (1) Colon perforation Current Visit: Yes Status: Acute Plan to address problem: Patient undergone exploratory laporotomy and extensive right hemicolectomy for perforated colon. Patient is on metronidazole and ceftrioxone. Continue S/C Lovenox for DVT prophylaxis. Continue famotidine. Subjective Date of service: 06/19/18 Principal diagnosis: Acute abdomen/R. colonic perforation; SIRS; Leukocytosis; Abd. pain Interval history: Patient awake. On room air. O2 saturation 97%. No complaint of chest pain, shortness of breath or cough. Complaining some abdominal discomfort. Chest xray reported normal. ABG not done yet.. Objective Vital Signs - 12hr 06/19/18 06/19/18 06/19/18 11:38 12:30 16:26 Temperature 97.7 F Pulse Rate 88 Respiratory 18 18 18 Rate Blood Pressure 112/71 [Left] O2 Sat by Pulse 98 Oximetry 06/19/18 06/19/18 16:55 16:56 Temperature 98.0 F Pulse Rate 81 Respiratory 19 19 Rate Blood Pressure 115/73 [Left] O2 Sat by Pulse 97 Oximetry Constitutional: no acute distress, alert Eyes: non-icteric ENT: oropharynx dry, other (Mallampati 2) Neck: supple, no lymphadenopathy, no JVD, other (no thyromegaly) Effort: normal Ascultation: Bilateral: diminished breath sounds (at the bases) Percussion: Bilateral: not dull Cardiovascular: regular rate and rhythm Gastrointestinal: hypoactive bowel sounds, soft, tender (mild), non-distended Integumentary: normal Extremities: no cyanosis, no edema, pulses normal, no ischemia or petechiae Neurologic: normal mental status, non-focal exam, pupils equal and round, CN II- XII normal, motor strength normal and Psychiatric: mood appropriate, affect normal CBC and BMP: 06/19/18 00:52 06/19/18 04:35 ABG, PT/INR, D-dimer: PT/INR, D-dimer PT 19.7 Sec. (12.2-14.9) H 06/11/18 10:41 INR 1.56 (0.87-1.13) H 06/11/18 10:41 Abnormal lab findings: Abnormal Labs 06/09/18 06/09/18 06/09/18 01:41 01:41 04:41 WBC 19.5 H RBC Hgb Hct MCH MCHC 35 H RDW Plt Count Lymph % (Auto) 8.1 L Stokes % (Auto) Stokes # Seg Neutrophils % 87.4 H Seg Neuts % (Manual) Lymphocytes % (Manual) Seg Neutrophils # 17.0 H Seg Neutrophils # Man Lymphocytes # (Manual) PT INR VBG pH Sodium 135 L Potassium 3.4 L Chloride 96.7 L Carbon Dioxide 17 L BUN Creatinine Glucose POC Glucose Calcium Phosphorus AST ALT C-Reactive Protein Total Protein 8.8 H Albumin Ur Specific [place] 1.040 H Urine WBC (Auto) 9.0 H Miscellaneous Test Crossmatch 06/09/18 06/10/18 06/10/18 08:48 03:49 03:49 WBC 16.9 H RBC Hgb Hct 29.6 L D MCH MCHC 35 H RDW Plt Count Lymph % (Auto) 9.9 L Stokes % (Auto) Stokes # Seg Neutrophils % 85.0 H Seg Neuts % (Manual) Lymphocytes % (Manual) Seg Neutrophils # 14.4 H Seg Neutrophils # Man Lymphocytes # (Manual) PT INR VBG pH 7.318 L Sodium Potassium 3.2 L Chloride 108.9 H Carbon Dioxide BUN 2 L Creatinine Glucose 127 H POC Glucose Calcium 8.0 L D Phosphorus AST ALT C-Reactive Protein Total Protein Albumin Ur Specific [place] Urine WBC (Auto) Miscellaneous Test Crossmatch 06/10/18 06/10/18 06/10/18 03:49 09:35 12:33 WBC 21.2 H RBC Hgb Hct 29.4 L MCH MCHC 35 H RDW Plt Count Lymph % (Auto) Stokes % (Auto) Stokes # Seg Neutrophils % Seg Neuts % (Manual) 92.0 H Lymphocytes % (Manual) 4.0 L Seg Neutrophils # Seg Neutrophils # Man 19.5 H Lymphocytes # (Manual) 0.8 L PT INR VBG pH Sodium Potassium Chloride Carbon Dioxide BUN Creatinine Glucose POC Glucose 141 H Calcium Phosphorus AST ALT C-Reactive Protein 14.90 H Total Protein Albumin Ur Specific [place] Urine WBC (Auto) Miscellaneous Test Crossmatch 04/06/11/18 06/11/18 23:30 04:44 04:44 WBC 22.8 H RBC 3.62 L Hgb 10.0 L Hct 29.2 L MCH MCHC RDW Plt Count Lymph % (Auto) Stokes % (Auto) Stokes # Seg Neutrophils % Seg Neuts % (Manual) 97.0 H Lymphocytes % (Manual) 2.0 L Seg Neutrophils # Seg Neutrophils # Man 22.1 H Lymphocytes # (Manual) 0.5 L PT INR VBG pH Sodium Potassium 3.2 L Chloride 108.3 H Carbon Dioxide 21 L BUN < 1 L Creatinine 0.6 L Glucose 128 H POC Glucose 106 H Calcium Phosphorus AST ALT 6 L C-Reactive Protein Total Protein Albumin 2.8 L Ur Specific [place] Urine WBC (Auto) Miscellaneous Test Crossmatch 06/11/18 06/11/18 06/11/18 08:27 10:41 10:41 WBC RBC Hgb Hct MCH MCHC RDW Plt Count Lymph % (Auto) Stokes % (Auto) Stokes # Seg Neutrophils % Seg Neuts % (Manual) Lymphocytes % (Manual) Seg Neutrophils # Seg Neutrophils # Man Lymphocytes # (Manual) PT 19.7 H INR 1.56 H VBG pH Sodium Potassium Chloride Carbon Dioxide BUN Creatinine Glucose POC Glucose Calcium Phosphorus AST ALT C-Reactive Protein Total Protein Albumin Ur Specific [place] Urine WBC (Auto) Miscellaneous Test Flexitest 1 H Crossmatch See Detail 06/11/18 06/11/18 06/12/18 17:54 23:43 05:27 WBC RBC Hgb Hct MCH MCHC RDW Plt Count Lymph % (Auto) Stokes % (Auto) Stokes # Seg Neutrophils % Seg Neuts % (Manual) Lymphocytes % (Manual) Seg Neutrophils # Seg Neutrophils # Man Lymphocytes # (Manual) PT INR VBG pH Sodium Potassium Chloride Carbon Dioxide BUN Creatinine Glucose POC Glucose 151 H 168 H 160 H Calcium Phosphorus AST ALT C-Reactive Protein Total Protein Albumin Ur Specific [place] Urine WBC (Auto) Miscellaneous Test Crossmatch 06/12/18 06/12/18 06/12/18 05:41 05:41 12:04 WBC 21.5 H RBC 3.50 L Hgb 9.8 L Hct 28.6 L MCH MCHC RDW Plt Count Lymph % (Auto) Stokes % (Auto) Stokes # Seg Neutrophils % Seg Neuts % (Manual) 92.0 H Lymphocytes % (Manual) 4.0 L Seg Neutrophils # Seg Neutrophils # Man 19.8 H Lymphocytes # (Manual) 0.9 L PT INR VBG pH Sodium Potassium 3.5 L Chloride Carbon Dioxide BUN 3 L Creatinine 0.5 L Glucose 159 H POC Glucose 136 H Calcium 7.9 L Phosphorus AST ALT C-Reactive Protein Total Protein Albumin Ur Specific [place] Urine WBC (Auto) Miscellaneous Test Crossmatch 06/13/18 06/13/18 06/14/18 04:47 04:47 06:18 WBC 18.9 H 13.5 H RBC 3.09 L Hgb 8.7 L Hct 25.2 L MCH MCHC 35 H 35 H RDW Plt Count Lymph % (Auto) 10.0 L Stokes % (Auto) 9.9 H Stokes # 1.1 H 1.3 H Seg Neutrophils % 84.1 H Seg Neuts % (Manual) Lymphocytes % (Manual) Seg Neutrophils # 15.9 H 8.1 H Seg Neutrophils # Man Lymphocytes # (Manual) PT INR VBG pH Sodium Potassium 3.5 L Chloride Carbon Dioxide BUN 4 L Creatinine Glucose 104 H POC Glucose Calcium 8.0 L Phosphorus AST ALT C-Reactive Protein Total Protein Albumin Ur Specific [place] Urine WBC (Auto) Miscellaneous Test Crossmatch 06/14/18 06/15/18 06/15/18 06:18 04:34 04:34 WBC 13.5 H RBC Hgb Hct MCH 27 L MCHC RDW Plt Count 455 H Lymph % (Auto) Stokes % (Auto) Stokes # 1.0 H Seg Neutrophils % Seg Neuts % (Manual) Lymphocytes % (Manual) Seg Neutrophils # 9.0 H Seg Neutrophils # Man Lymphocytes # (Manual) PT INR VBG pH Sodium Potassium 3.2 L 3.3 L Chloride 97.8 L Carbon Dioxide BUN 5 L Creatinine 0.6 L 0.5 L Glucose POC Glucose Calcium 8.3 L Phosphorus 5.00 H D AST ALT C-Reactive Protein Total Protein Albumin Ur Specific [place] Urine WBC (Auto) Miscellaneous Test Crossmatch 06/16/18 06/17/18 06/18/18 04:32 10:09 00:34 WBC RBC Hgb Hct MCH MCHC RDW Plt Count Lymph % (Auto) Stokes % (Auto) Stokes # Seg Neutrophils % Seg Neuts % (Manual) Lymphocytes % (Manual) Seg Neutrophils # Seg Neutrophils # Man Lymphocytes # (Manual) PT INR VBG pH Sodium Potassium Chloride Carbon Dioxide BUN Creatinine 0.6 L Glucose 102 H 102 H POC Glucose Calcium Phosphorus AST ALT C-Reactive Protein 3.10 H Total Protein Albumin Ur Specific [place] Urine WBC (Auto) Miscellaneous Test Crossmatch 06/18/18 06/19/18 06/19/18 05:28 00:52 04:35 WBC RBC Hgb Hct MCH MCHC 35 H RDW 15.4 H Plt Count 535 H Lymph % (Auto) Stokes % (Auto) 8.0 H Stokes # Seg Neutrophils % Seg Neuts % (Manual) Lymphocytes % (Manual) Seg Neutrophils # Seg Neutrophils # Man Lymphocytes # (Manual) PT INR VBG pH Sodium 135 L Potassium Chloride Carbon Dioxide BUN Creatinine 0.6 L 0.6 L Glucose POC Glucose Calcium Phosphorus AST < 2.0 L ALT C-Reactive Protein Total Protein Albumin 3.0 L 3.4 L Ur Specific [place] Urine WBC (Auto) Miscellaneous Test Crossmatch Allied health notes reviewed: nursing
[2018-06-19] MEDS ORDERED: TPN ADULT 2,016 ML IV SCH (20:00)
[2018-06-19] MEDS: LOVENOX SUB-Q SCH (21:00)
[2018-06-20] MEDS: DILAUDID IV PRN (04:02)
[2018-06-20 08:02] LABS: BUN/Creatinine Ratio 15; Blood Urea Nitrogen 9 mg/dL (7-17); Calcium 8.9 mg/dL (8.4-10.2); Hemolysis Index 6
[2018-06-20] MEDS: PEPCID IV SCH (10:09)
--- NOTE | 2018-06-20 11:01 | Progress Note ---
Assessment and Plan Pt feeling well without compl. dominguez full liq diet Abd soft, non tender surgically stable advance to reg diet may d/c today from surg perspective if diet dominguez rto I wk Selected Entries 06/20/18 06/20/18 04:52 07:23 Temperature 97.6 F Pulse Rate 84 Respiratory 18 Rate Blood Pressure 129/86 Objective Vital Signs - 12hr 06/20/18 06/20/18 06/20/18 00:26 04:02 04:52 Temperature 97.7 F 98.1 F Pulse Rate 85 84 Respiratory 16 17 17 Rate Blood Pressure 90/64 94/55 Blood Pressure [Left] O2 Sat by Pulse 97 99 Oximetry 06/20/18 06/20/18 07:00 07:23 Temperature 97.6 F 97.6 F Pulse Rate 91 H Respiratory 16 18 Rate Blood Pressure 129/86 Blood Pressure 129/86 [Left] O2 Sat by Pulse 97 Oximetry - Labs 06/19/18 00:52 06/20/18 07:08 Diabetes panel 06/20/18 Range/Units 07:08 Sodium 138 (137-145) mmol/L Potassium 4.3 (3.6-5.0) mmol/L Chloride 99.1 (98-107) mmol/L Carbon Dioxide 27 (22-30) mmol/L BUN 9 (7-17) mg/dL Creatinine 0.6 L (0.7-1.2) mg/dL Glucose 87 (65-100) mg/dL Calcium 8.9 (8.4-10.2) mg/dL Calcium panel 06/20/18 Range/Units 07:08 Calcium 8.9 (8.4-10.2) mg/dL Phosphorus 3.80 (2.5-4.5) mg/dL Pituitary panel 06/20/18 Range/Units 07:08 Sodium 138 (137-145) mmol/L Potassium 4.3 (3.6-5.0) mmol/L Chloride 99.1 (98-107) mmol/L Carbon Dioxide 27 (22-30) mmol/L BUN 9 (7-17) mg/dL Creatinine 0.6 L (0.7-1.2) mg/dL Glucose 87 (65-100) mg/dL Calcium 8.9 (8.4-10.2) mg/dL Adrenal panel 06/20/18 Range/Units 07:08 Sodium 138 (137-145) mmol/L Potassium 4.3 (3.6-5.0) mmol/L Chloride 99.1 (98-107) mmol/L Carbon Dioxide 27 (22-30) mmol/L BUN 9 (7-17) mg/dL Creatinine 0.6 L (0.7-1.2) mg/dL Glucose 87 (65-100) mg/dL Calcium 8.9 (8.4-10.2) mg/dL
--- NOTE | 2018-06-20 11:35 | Progress Note ---
Hospitalist Physical - Constitutional Vitals: Temp Pulse Resp BP Pulse Ox 97.6 F 91 H 18 129/86 97 06/20/18 07:23 06/20/18 07:00 06/20/18 07:23 06/20/18 07:23 06/20/18 07:00 General appearance: Present: no acute distress, mild distress Results - Labs CBC & Chem 7: 06/19/18 00:52 06/20/18 07:08 Labs: Laboratory Last Values WBC 10.1 K/mm3 (4.5-11.0) 06/19/18 00:52 RBC 4.00 M/mm3 (3.65-5.03) 06/19/18 00:52 Hgb 11.2 gm/dl (10.1-14.3) 06/19/18 00:52 Hct 32.3 % (30.3-42.9) 06/19/18 00:52 MCV 81 fl (79-97) 06/19/18 00:52 MCH 28 pg (28-32) 06/19/18 00:52 MCHC 35 % (30-34) H 06/19/18 00:52 RDW 15.4 % (13.2-15.2) H 06/19/18 00:52 Plt Count 535 K/mm3 (140-440) H 06/19/18 00:52 Lymph % (Auto) 25.5 % (13.4-35.0) 06/19/18 00:52 [place] % (Auto) 8.0 % (0.0-7.3) H 06/19/18 00:52 Eos % (Auto) 2.9 % (0.0-4.3) 06/19/18 00:52 Baso % (Auto) 0.3 % (0.0-1.8) 06/19/18 00:52 Lymph # 2.6 K/mm3 (1.2-5.4) 06/19/18 00:52 [place] # 0.8 K/mm3 (0.0-0.8) 06/19/18 00:52 Eos # 0.3 K/mm3 (0.0-0.4) 06/19/18 00:52 Baso # 0.0 K/mm3 (0.0-0.1) 06/19/18 00:52 Add Manual Diff Complete 06/12/18 05:41 Total Counted 100 06/12/18 05:41 Seg Neutrophils % 63.3 % (40.0-70.0) 06/19/18 00:52 Seg Neuts % (Manual) 92.0 % (40.0-70.0) H 06/12/18 05:41 Band Neutrophils % 3.0 % 06/12/18 05:41 Lymphocytes % (Manual) 4.0 % (13.4-35.0) L 06/12/18 05:41 Reactive Lymphs % (Man) 0 % 06/12/18 05:41 Monocytes % (Manual) 1.0 % (0.0-7.3) 06/12/18 05:41 Eosinophils % (Manual) 0 % (0.0-4.3) 06/12/18 05:41 Basophils % (Manual) 0 % (0.0-1.8) 06/12/18 05:41 Metamyelocytes % 0 % 06/12/18 05:41 Myelocytes % 0 % 06/12/18 05:41 Promyelocytes % 0 % 06/12/18 05:41 Blast Cells % 0 % 06/12/18 05:41 Nucleated RBC % Not Reportable 06/12/18 05:41 Seg Neutrophils # 6.4 K/mm3 (1.8-7.7) 06/19/18 00:52 Seg Neutrophils # Man 19.8 K/mm3 (1.8-7.7) H 06/12/18 05:41 Band Neutrophils # 0.6 K/mm3 06/12/18 05:41 Lymphocytes # (Manual) 0.9 K/mm3 (1.2-5.4) L 06/12/18 05:41 Abs React Lymphs (Man) 0.0 K/mm3 06/12/18 05:41 Monocytes # (Manual) 0.2 K/mm3 (0.0-0.8) 06/12/18 05:41 Eosinophils # (Manual) 0.0 K/mm3 (0.0-0.4) 06/12/18 05:41 Basophils # (Manual) 0.0 K/mm3 (0.0-0.1) 06/12/18 05:41 Metamyelocytes # 0.0 K/mm3 06/12/18 05:41 Myelocytes # 0.0 K/mm3 06/12/18 05:41 Promyelocytes # 0.0 K/mm3 06/12/18 05:41 Blast Cells # 0.0 K/mm3 06/12/18 05:41 WBC Morphology Not Reportable 06/12/18 05:41 Hypersegmented Neuts Not Reportable 06/12/18 05:41 Hyposegmented Neuts Not Reportable 06/12/18 05:41 Hypogranular Neuts Not Reportable 06/12/18 05:41 Smudge Cells Not Reportable 06/12/18 05:41 Toxic Granulation Not Reportable 06/12/18 05:41 Toxic Vacuolation Not Reportable 06/12/18 05:41 Dohle Bodies Not Reportable 06/12/18 05:41 Pelger-Huet Anomaly Not Reportable 06/12/18 05:41 Verenice Rods Not Reportable 06/12/18 05:41 Platelet Estimate Consistent w auto 06/12/18 05:41 Clumped Platelets Not Reportable 06/12/18 05:41 Plt Clumps, EDTA Not Reportable 06/12/18 05:41 Large Platelets Not Reportable 06/12/18 05:41 Giant Platelets Not Reportable 06/12/18 05:41 Platelet Satelliting Not Reportable 06/12/18 05:41 Plt Morphology Comment Not Reportable 06/12/18 05:41 RBC Morphology Not Reportable 06/12/18 05:41 Dimorphic RBCs Not Reportable 06/12/18 05:41 Polychromasia Not Reportable 06/12/18 05:41 Hypochromasia Not Reportable 06/12/18 05:41 Poikilocytosis Not Reportable 06/12/18 05:41 Anisocytosis Not Reportable 06/12/18 05:41 Microcytosis Not Reportable 06/12/18 05:41 Macrocytosis Not Reportable 06/12/18 05:41 Spherocytes Not Reportable 06/12/18 05:41 Pappenheimer Bodies Not Reportable 06/12/18 05:41 Sickle Cells Not Reportable 06/12/18 05:41 Target Cells 1+ 06/12/18 05:41 Tear Drop Cells Not Reportable 06/12/18 05:41 Ovalocytes Not Reportable 06/12/18 05:41 Helmet Cells Not Reportable 06/12/18 05:41 [place] Bodies Not Reportable 06/12/18 05:41 [place] Rings Not Reportable 06/12/18 05:41 [place] Cells Not Reportable 06/12/18 05:41 Bite Cells Not Reportable 06/12/18 05:41 Crenated Cell Not Reportable 06/12/18 05:41 Elliptocytes Not Reportable 06/12/18 05:41 Acanthocytes (Spur) Not Reportable 06/12/18 05:41 Rouleaux Not Reportable 06/12/18 05:41 Hemoglobin C Crystals Not Reportable 06/12/18 05:41 Schistocytes Not Reportable 06/12/18 05:41 Malaria parasites Not Reportable 06/12/18 05:41 Tom Bodies Not Reportable 06/12/18 05:41 Hem Pathologist Commnt No 06/12/18 05:41 PT 19.7 Sec. (12.2-14.9) H 06/11/18 10:41 INR 1.56 (0.87-1.13) H 06/11/18 10:41 APTT 29.6 Sec. (24.2-36.6) 06/11/18 10:41 VBG pH 7.318 (7.320-7.420) L 06/09/18 08:48 Sodium 138 mmol/L (137-145) 06/20/18 07:08 Potassium 4.3 mmol/L (3.6-5.0) 06/20/18 07:08 Chloride 99.1 mmol/L (98-107) 06/20/18 07:08 Carbon Dioxide 27 mmol/L (22-30) 06/20/18 07:08 Anion Gap 16 mmol/L 06/20/18 07:08 BUN 9 mg/dL (7-17) 06/20/18 07:08 Creatinine 0.6 mg/dL (0.7-1.2) L 06/20/18 07:08 Estimated GFR > 60 ml/min 06/20/18 07:08 BUN/Creatinine Ratio 15 % 06/20/18 07:08 Glucose 87 mg/dL (65-100) 06/20/18 07:08 POC Glucose 78 (70-105) 06/20/18 11:24 Lactic Acid 0.80 mmol/L (0.7-2.0) 06/09/18 07:56 Calcium 8.9 mg/dL (8.4-10.2) 06/20/18 07:08 Phosphorus 3.80 mg/dL (2.5-4.5) 06/20/18 07:08 Magnesium 2.00 mg/dL (1.7-2.3) 06/20/18 07:08 Total Bilirubin 0.30 mg/dL (0.1-1.2) 06/19/18 04:35 AST 13 units/L (5-40) 06/19/18 04:35 ALT 13 units/L (7-56) 06/19/18 04:35 Alkaline Phosphatase 41 units/L (35-129) 06/19/18 04:35 C-Reactive Protein 3.10 mg/dL (0.00-1.30) H 06/18/18 00:34 Total Protein 7.7 g/dL (6.3-8.2) 06/19/18 04:35 Albumin 3.4 g/dL (3.9-5) L 06/19/18 04:35 Albumin/Globulin Ratio 0.8 % 06/19/18 04:35 Lipase 21 units/L (13-60) 06/09/18 08:48 HCG, Qual Negative (Negative) 06/09/18 01:41 Urine Color Yellow (Yellow) 06/13/18 11:30 Urine Turbidity Clear (Clear) 06/13/18 11:30 Urine pH 7.0 (5.0-7.0) 06/13/18 11:30 Ur Specific [place] 1.020 (1.003-1.030) 06/13/18 11:30 Urine Protein <15 mg/dl mg/dL (Negative) 06/13/18 11:30 Urine Glucose (UA) Neg mg/dL (Negative) 06/13/18 11:30 Urine Ketones Neg mg/dL (Negative) 06/13/18 11:30 Urine Blood Sm (Negative) 06/13/18 11:30 Urine Nitrite Neg (Negative) 06/13/18 11:30 Urine Bilirubin Neg (Negative) 06/13/18 11:30 Urine Urobilinogen < 2.0 mg/dL (<2.0) 06/13/18 11:30 Ur Leukocyte Esterase Sm (Negative) 06/13/18 11:30 Urine WBC (Auto) 6.0 /HPF (0.0-6.0) 06/13/18 11:30 Urine RBC (Auto) 16.0 /HPF (0.0-6.0) 06/13/18 11:30 U Epithel Cells (Auto) < 1.0 /HPF (0-13.0) 06/13/18 11:30 Hyaline Casts 14 /LPF 06/09/18 04:41 Urine Mucus Few /HPF 06/13/18 11:30 Urine HCG, Qual Negative (Negative) 06/11/18 11:30 CARLOS MANUEL Screen Negative (Negative) 06/10/18 13:37 Proteinase 3 (PR3) Ab <1.0 AI (<1.0) 06/10/18 13:37 Myeloperoxidase Ab <1.0 AI (<1.0) 06/10/18 13:37 Complement C3 178 mg/dL (83-193) 06/10/18 13:37 Complement C4 30 mg/dL (15-57) 06/10/18 13:37 CMV DNA PCR log cop winder/mL See scanned result 06/10/18 13:37 HIV 1&2 Antibody Rapid Non react (Non React) 06/18/18 17:15 HIV P24 Antigen Non react (Non React) 06/18/18 17:15 Miscellaneous Test Flexitest 1 H 06/11/18 08:27 Blood Type B POSITIVE 06/11/18 10:41 Antibody Screen Negative 06/11/18 10:41 Crossmatch See Detail 06/11/18 10:41 Active Medications - Current Medications Current Medications: Generic Name Dose Route Start Last Admin Trade Name Freq PRN Reason Stop Dose Admin Acetaminophen 650 mg 06/10/18 15:39 Tylenol MD Q4H PRN Fever >101 Acetaminophen/Hydrocodone Bitart 1 each 06/17/18 12:57 06/18/18 21:28 [place] 5/325 PO 1 each Q4H PRN Administration Pain, Moderate (4-6) Benzocaine/Menthol 1 each 06/11/18 20:17 06/16/18 20:53 Cepacol X Strength MM 1 each Q2HR PRN Administration Sore Throat Bisacodyl 10 mg 06/17/18 10:00 06/17/18 10:38 Dulcolax MD 10 mg QDAY PRN Administration Constipation Enoxaparin Sodium 40 mg 06/10/18 22:00 06/19/18 21:00 Lovenox SUB-Q 40 mg QDAY@2200 DONNELL Administration Famotidine 20 mg 06/11/18 16:00 06/20/18 10:09 Pepcid IV 20 mg BID DONNELL Administration Hydralazine HCl 10 mg 06/12/18 12:02 06/13/18 13:33 Apresoline IV 10 mg Q4HR PRN Administration Blood Pressure Hydromorphone HCl 1 mg 06/12/18 12:13 06/20/18 04:02 Dilaudid IV 1 mg Q2H PRN Administration Pain , Severe (7-10) Amino Acids/Electrolytes/Dextrose 2,016 mls @ 84 mls/hr 06/19/18 20:00 06/19/18 20:48 Tpn Adult IV 06/20/18 19:59 84 mls/hr DAILY@2000 DONNELL Administration Protocol Labetalol HCl 10 mg 06/09/18 10:54 06/11/18 16:21 Normodyne IV 10 mg Q4H PRN Administration Hypertension Lidocaine HCl 15 ml 06/12/18 15:52 06/12/18 20:14 Lidocaine Viscous 2% PO 15 ml Q8HR PRN Administration Mouth Pain Morphine Sulfate 2 mg 06/09/18 10:54 06/18/18 20:22 Morphine IV 2 mg Q4H PRN Administration Pain, Moderate (4-6) Ondansetron HCl 4 mg 06/10/18 22:29 06/18/18 21:28 Zofran IV 4 mg Q4H PRN Administration Nausea And Vomiting Nutrition/Malnutrition Assess - Dietary Evaluation Nutrition/Malnutrition Findings: Nutrition Notes Start: 06/13/18 1 0:26 Freq: Status: Active Protocol: Document 06/20/18 10:10 CP (Rec: 06/20/18 10:20 CP [id number]) Co-Sign 06/20/18 10:10 LP Nutrition Notes Other Pertinent Diagnosis Large Colon Mass s/p extended hemicolectomy Current Diet PPN at 84ml/hr Labs/Tests Reviewed Pertinent Medications Reviewed Height 5 ft 2 in Weight 60.555 kg Leonard Body Weight (kg) 50.00 BMI 24.4 Subjective/Other Information Day 7 PPN. Pt is on a full liquid diet and has been tolerating it. Per RN and case management note, pt is being discharged today. TPN will be tapered off per MD request. Noted TPN infusing at goal rate during time of visit. Percent of energy/protein needs met: 68%/100% Burn Absent Trauma Absent #1 Nutrition Diagnosis Inadequate oral intake Diagnosis Progress(for reassessment Continues documentation) Is patient on ventilator? No Is Patient Ambulatory and/or Out of Bed Yes REE-([facility]-ambulatory/OOB) [ [id number] [id number]] Calculation Used for Recommendations [facility] Additional Notes Pro needs 1.2-1.5g/k-91g/ day Fluid needs 1ml/kcal Nutrition Intervention Change Diet Order: PPN Nutrition Support: Continue PPN at 84ml/hr: MVI, trace element, K 50. Osmolality: 884 Kcal 895 Protein (gm) 75 Carbohydrates (gm) 175 Fat (gm) 0 Fluid (mL) 2,016 Fiber (gm) 0 Add Supplement/Snack (indicate name/kcal D/C Ensure clear /protein ) Ensure Enlive Daily Provides kCal: 350 Provides Protein (gm) 20 Goal #1 Meet at least 75% of kcal and pro needs via PPN or as best as possible Anticipated Discharge Needs: unable to determine at this time Follow-Up By: 06/21/18 Additional Comments F/U: Labs in am: BMP, Mg, Phos , PO/ONS tolerance
--- NOTE | 2018-06-20 11:45 | Discharge Summary ---
<AMBERDELLA Zaynab - Last Filed: 06/20/18 14:39> Providers - Providers Date of Admission: 06/09/18 11:32 Date of discharge: 06/20/18 Attending physician: AMBER PAUL MD 06/09/18 09:35 Consult to Physician [CONS] Stat Comment: Camilo spoke with Dr. Handley @ [id number] Consulting Provider: ABELINO HANDLEY Physician Instructions: Reason For Exam: colon perofration 06/09/18 12:30 Consult to Physician [CONS] Urgent Comment: Consulting Provider: EUNICE LADD Physician Instructions: Reason For Exam: critical care management 06/09/18 14:26 Consult to Physician [CONS] Routine Comment: Consulting Provider: LUZ MARIA COHEN Physician Instructions: Reason For Exam: contained colon perforation sepsis 06/12/18 12:21 Consult to PICC Line RN [CONS] Routine Reason For Exam: need iv fluid and abx Type Line:: Midline 06/13/18 08:51 Physical Therapy Evaluation and Treat [CONS] Routine Comment: Reason For Exam: s/p abdominal surgery 06/13/18 09:17 Consult to Dietitian/Nutrition [CONS] Stat Physician Instructions: Reason For Exam: s/p abdominal surgery Reason for Consult: Write/Manage TPN/PPN Primary care physician: WEB DEVELOPER PROGRAMMER Hospitalization Reason for admission: Micro perforation of right colon Condition: Good Hospital course: Ms. Alonso is a 28 y.o. -[place] woman who is a [employer]ARD [employer] without chronic medical problems who presented to [facility] ED on 06/09/18 with n/v/ and abd pains. In the ED, temp 98.1, HR 118, R 19, O2 sat 99%, BP 132/91. WBC 19.5, Hg 13, Plat 373. Creat 0.7. LFTs normal. Lipase normal. UA neg. Blood culture 06/09/2018 no growth to date. CT abdomen showed perforated right colon approximately 6 cm superior to the ileocecal valve with trapped area of stool adjacent to the perforation measures 3.1 x 3 x 3.6 cm. Surrounding indurated fat. No jenn pneumoperitoneum. She was admitted to [facility] unit. She went for sugery on 06/11/[address] Handley found a very large cecal mass obstructing the colon, extending out into the retroperitoneum as well as adjacent to the duodenum, kidney and superiorly adjacent to the stomach, so he did a Extended right hemicolectomy. The pathology came back as non-cancerous. She completed course of Abx treatment. Electrolytes were repleted. She was placed on TPN for nutritional support, and her diet was slowly advanced to full liquid diet. Pt instructed to continue to advance diet to solids. Pt advised to follow up with Dr. Handley in one week. Discussed discharge planning with pt and she is in agreement. Diagnosis Sepsis secondary to micro perforation of right colon Micro perforation of right colon Hypokalemia Constipation Disposition: DC-01 TO HOME OR SELFCARE Time spent for discharge: 33 minutes Core Measure Documentation - Palliative Care Palliative Care/ Comfort Measures: Not Applicable - Core Measures Any of the following diagnoses?: none - VTE Discharge Requirements Deep Vein Thrombosis/Pulmonary Embolism Present on Admission: No Contraindication No Overlap Therapy order at DC: Not Indicated Exam - Physical Exam Narrative exam: General appearance: Present: no acute distress - EENT Eyes: Present: PERRL, EOM intact ENT: hearing intact, clear oral mucosa, dentition normal - Neck Neck: Present: supple, normal ROM - Respiratory Respiratory effort: normal Respiratory: bilateral: CTA - Cardiovascular Heart rate: 73 (bpm) Rhythm: regular Heart Sounds: Present: S1 & S2. Absent: rub, clicks - Extremities Extremities: no ischemia, pulses intact - Abdominal General gastrointestinal: soft, tender, active bowel sounds, abd binder Localized gastrointestinal: tender: diffuse - Integumentary Integumentary: Present: warm, dry - Psychiatric Psychiatric: cooperative, depressed - Neurologic Neurologic: CNII-XII intact, moves all extremities - Constitutional Vitals: Temp Pulse Resp BP Pulse Ox 97.6 F 91 H 18 129/86 97 06/20/18 07:23 06/20/18 07:00 06/20/18 07:23 06/20/18 07:23 06/20/18 07:00 Plan Activity: advance as tolerated Diet: other (full liquid and advance as tolerated) Follow up with: PRIMARY MD JAY [Primary Care Provider] - 3-5 Days ABELINO HANDLEY MD [Staff Physician] - 7 Days Prescriptions: HYDROcodone/APAP 5-325 [[place] 5-325 mg TAB] 1 each PO Q4H PRN #14 tablet PRN Reason: Pain, Moderate (4-6) <AMBER PAUL - Last Filed: 06/22/18 20:06> Providers - Providers Date of Admission: 06/09/18 11:32 Attending physician: AMBER PAUL MD 06/09/18 09:35 Consult to Physician [CONS] Stat Comment: Camilo spoke with Dr. Handley @ [phone] Consulting Provider: ABELINO HANDLEY Physician Instructions: Reason For Exam: colon perofration 06/09/18 12:30 Consult to Physician [CONS] Urgent Comment: Consulting Provider: EUNICE LADD Physician Instructions: Reason For Exam: critical care management 06/09/18 14:26 Consult to Physician [CONS] Routine Comment: Consulting Provider: LUZ MARIA COHEN Physician Instructions: Reason For Exam: contained colon perforation sepsis 06/12/18 12:21 Consult to PICC Line RN [CONS] Routine Reason For Exam: need iv fluid and abx Type Line:: Midline 06/13/18 08:51 Physical Therapy Evaluation and Treat [CONS] Routine Comment: Reason For Exam: s/p abdominal surgery 06/13/18 09:17 Consult to Dietitian/Nutrition [CONS] Stat Physician Instructions: Reason For Exam: s/p abdominal surgery Reason for Consult: Write/Manage TPN/PPN Primary care physician: WEB DEVELOPER PROGRAMMER Hospitalization Hospital course: I saw and evaluated the patient. I agree with the findings and the plan of care as documented in the Nurse Practitioner's~note, with the following corrections and additions. path reviewed, cecal mass was an abscess peritonitis Exam - Constitutional Vitals: Temp Pulse Resp BP Pulse Ox 98.8 F 118 H 18 121/82 98 06/20/18 20:02 06/20/18 16:00 06/20/18 20:02 06/20/18 20:02 06/20/18 16:00
--- NOTE | 2018-06-20 15:14 | Progress Note ---
Assessment and Plan Acute abdomen with right colonic micro-perforation. Systemic inflammatory response syndrome. Leukocytosis. Abdominal pain. Sickle cell trait Mild metabolic acidosis at presentation. Hyponatremia, present on arrival. Hypokalemia, present on arrival. Abnormal urinalysis. - advance diet per surgery - continue incentive spirometry - cecal mass pathology negative for malignancy - continue prn supplemental oxygen to keep sat's > 90% - PT/OT/OOB to chair / increase ambulation as tolerated - continue prn analgesia - continue VTE prophylaxis lovenox - complete antiinfective's per ID rec's - continue GI & VTE prophylaxis with Pepcid & lovenox - continue other care per attending / other consultants - discharge planning ok pulmonary-pires ... re-evaluate in am & prn Subjective Date of service: 06/20/18 Principal diagnosis: Acute abdomen/R. colonic perforation; SIRS; Leukocytosis; Abd. pain Interval history: Patient is seen today for: Acute abdomen with right colonic perforation; Systemic inflammatory response syndrome; Leukocytosis; Abdominal pain; Mild metabolic acidosis at presentation. Seen and examined at bedside; 24hour events reviewed; nursing and respiratory care staff consulted; no adverse overnight events reported to me; resting peacefully in bed; smiling; happy to be going home; keeping her food down; No N/V/F/C Objective Vital Signs - 12hr 06/20/18 06/20/18 06/20/18 04:02 04:52 07:00 Temperature 98.1 F 97.6 F Pulse Rate 84 91 H Respiratory 17 17 16 Rate Blood Pressure 94/55 Blood Pressure 129/86 [Left] O2 Sat by Pulse 99 97 Oximetry 06/20/18 06/20/18 07:23 12:27 Temperature 97.6 F 97.7 F Pulse Rate 88 Respiratory 18 18 Rate Blood Pressure 129/86 Blood Pressure 115/94 [Left] O2 Sat by Pulse 97 Oximetry Constitutional: no acute distress, alert Eyes: non-icteric ENT: oropharynx dry, other (Mallampati 2) Neck: supple, no lymphadenopathy, no JVD, other (no thyromegaly) Effort: normal Ascultation: Bilateral: clear Percussion: Bilateral: not dull Cardiovascular: regular rate and rhythm Gastrointestinal: normoactive bowel sounds, soft, non-tender, non-distended Integumentary: normal Extremities: no cyanosis, no edema, pulses normal, no ischemia or petechiae Neurologic: normal mental status, non-focal exam, pupils equal and round, CN II- XII normal, motor strength normal and Psychiatric: mood appropriate, affect normal CBC and BMP: 06/19/18 00:52 06/20/18 07:08 ABG, PT/INR, D-dimer: PT/INR, D-dimer PT 19.7 Sec. (12.2-14.9) H 06/11/18 10:41 INR 1.56 (0.87-1.13) H 06/11/18 10:41 Abnormal lab findings: Abnormal Labs 06/09/18 06/09/18 06/09/18 01:41 01:41 04:41 WBC 19.5 H RBC Hgb Hct MCH MCHC 35 H RDW Plt Count Lymph % (Auto) 8.1 L [place] % (Auto) [place] # Seg Neutrophils % 87.4 H Seg Neuts % (Manual) Lymphocytes % (Manual) Seg Neutrophils # 17.0 H Seg Neutrophils # Man Lymphocytes # (Manual) PT INR VBG pH Sodium 135 L Potassium 3.4 L Chloride 96.7 L Carbon Dioxide 17 L BUN Creatinine Glucose POC Glucose Calcium Phosphorus AST ALT C-Reactive Protein Total Protein 8.8 H Albumin Ur Specific [place] 1.040 H Urine WBC (Auto) 9.0 H Miscellaneous Test Crossmatch 06/09/18 06/10/18 06/10/18 08:48 03:49 03:49 WBC 16.9 H RBC Hgb Hct 29.6 L D MCH MCHC 35 H RDW Plt Count Lymph % (Auto) 9.9 L [place] % (Auto) [place] # Seg Neutrophils % 85.0 H Seg Neuts % (Manual) Lymphocytes % (Manual) Seg Neutrophils # 14.4 H Seg Neutrophils # Man Lymphocytes # (Manual) PT INR VBG pH 7.318 L Sodium Potassium 3.2 L Chloride 108.9 H Carbon Dioxide BUN 2 L Creatinine Glucose 127 H POC Glucose Calcium 8.0 L D Phosphorus AST ALT C-Reactive Protein Total Protein Albumin Ur Specific [place] Urine WBC (Auto) Miscellaneous Test Crossmatch 06/10/18 06/10/18 06/10/18 03:49 09:35 12:33 WBC 21.2 H RBC Hgb Hct 29.4 L MCH MCHC 35 H RDW Plt Count Lymph % (Auto) [place] % (Auto) [place] # Seg Neutrophils % Seg Neuts % (Manual) 92.0 H Lymphocytes % (Manual) 4.0 L Seg Neutrophils # Seg Neutrophils # Man 19.5 H Lymphocytes # (Manual) 0.8 L PT INR VBG pH Sodium Potassium Chloride Carbon Dioxide BUN Creatinine Glucose POC Glucose 141 H Calcium Phosphorus AST ALT C-Reactive Protein 14.90 H Total Protein Albumin Ur Specific [place] Urine WBC (Auto) Miscellaneous Test Crossmatch 06/10/18 06/11/18 06/11/18 23:30 04:44 04:44 WBC 22.8 H RBC 3.62 L Hgb 10.0 L Hct 29.2 L MCH MCHC RDW Plt Count Lymph % (Auto) [place] % (Auto) [place] # Seg Neutrophils % Seg Neuts % (Manual) 97.0 H Lymphocytes % (Manual) 2.0 L Seg Neutrophils # Seg Neutrophils # Man 22.1 H Lymphocytes # (Manual) 0.5 L PT INR VBG pH Sodium Potassium 3.2 L Chloride 108.3 H Carbon Dioxide 21 L BUN < 1 L Creatinine 0.6 L Glucose 128 H POC Glucose 106 H Calcium Phosphorus AST ALT 6 L C-Reactive Protein Total Protein Albumin 2.8 L Ur Specific [place] Urine WBC (Auto) Miscellaneous Test Crossmatch 06/11/18 06/11/18 06/11/18 08:27 10:41 10:41 WBC RBC Hgb Hct MCH MCHC RDW Plt Count Lymph % (Auto) [place] % (Auto) [place] # Seg Neutrophils % Seg Neuts % (Manual) Lymphocytes % (Manual) Seg Neutrophils # Seg Neutrophils # Man Lymphocytes # (Manual) PT 19.7 H INR 1.56 H VBG pH Sodium Potassium Chloride Carbon Dioxide BUN Creatinine Glucose POC Glucose Calcium Phosphorus AST ALT C-Reactive Protein Total Protein Albumin Ur Specific [place] Urine WBC (Auto) Miscellaneous Test Flexitest 1 H Crossmatch See Detail 06/11/18 06/11/18 06/12/18 17:54 23:43 05:27 WBC RBC Hgb Hct MCH MCHC RDW Plt Count Lymph % (Auto) [place] % (Auto) [place] # Seg Neutrophils % Seg Neuts % (Manual) Lymphocytes % (Manual) Seg Neutrophils # Seg Neutrophils # Man Lymphocytes # (Manual) PT INR VBG pH Sodium Potassium Chloride Carbon Dioxide BUN Creatinine Glucose POC Glucose 151 H 168 H 160 H Calcium Phosphorus AST ALT C-Reactive Protein Total Protein Albumin Ur Specific [place] Urine WBC (Auto) Miscellaneous Test Crossmatch 06/12/18 06/12/18 06/12/18 05:41 05:41 12:04 WBC 21.5 H RBC 3.50 L Hgb 9.8 L Hct 28.6 L MCH MCHC RDW Plt Count Lymph % (Auto) [place] % (Auto) [place] # Seg Neutrophils % Seg Neuts % (Manual) 92.0 H Lymphocytes % (Manual) 4.0 L Seg Neutrophils # Seg Neutrophils # Man 19.8 H Lymphocytes # (Manual) 0.9 L PT INR VBG pH Sodium Potassium 3.5 L Chloride Carbon Dioxide BUN 3 L Creatinine 0.5 L Glucose 159 H POC Glucose 136 H Calcium 7.9 L Phosphorus AST ALT C-Reactive Protein Total Protein Albumin Ur Specific [place] Urine WBC (Auto) Miscellaneous Test Crossmatch 06/13/18 06/13/18 06/14/18 04:47 04:47 06:18 WBC 18.9 H 13.5 H RBC 3.09 L Hgb 8.7 L Hct 25.2 L MCH MCHC 35 H 35 H RDW Plt Count Lymph % (Auto) 10.0 L [place] % (Auto) 9.9 H [place] # 1.1 H 1.3 H Seg Neutrophils % 84.1 H Seg Neuts % (Manual) Lymphocytes % (Manual) Seg Neutrophils # 15.9 H 8.1 H Seg Neutrophils # Man Lymphocytes # (Manual) PT INR VBG pH Sodium Potassium 3.5 L Chloride Carbon Dioxide BUN 4 L Creatinine Glucose 104 H POC Glucose Calcium 8.0 L Phosphorus AST ALT C-Reactive Protein Total Protein Albumin Ur Specific [place] Urine WBC (Auto) Miscellaneous Test Crossmatch 06/14/18 06/15/18 06/15/18 06:18 04:34 04:34 WBC 13.5 H RBC Hgb Hct MCH 27 L MCHC RDW Plt Count 455 H Lymph % (Auto) [place] % (Auto) [place] # 1.0 H Seg Neutrophils % Seg Neuts % (Manual) Lymphocytes % (Manual) Seg Neutrophils # 9.0 H Seg Neutrophils # Man Lymphocytes # (Manual) PT INR VBG pH Sodium Potassium 3.2 L 3.3 L Chloride 97.8 L Carbon Dioxide BUN 5 L Creatinine 0.6 L 0.5 L Glucose POC Glucose Calcium 8.3 L Phosphorus 5.00 H D AST ALT C-Reactive Protein Total Protein Albumin Ur Specific [place] Urine WBC (Auto) Miscellaneous Test Crossmatch 06/16/18 06/17/18 06/18/18 04:32 10:09 00:34 WBC RBC Hgb Hct MCH MCHC RDW Plt Count Lymph % (Auto) [place] % (Auto) [place] # Seg Neutrophils % Seg Neuts % (Manual) Lymphocytes % (Manual) Seg Neutrophils # Seg Neutrophils # Man Lymphocytes # (Manual) PT INR VBG pH Sodium Potassium Chloride Carbon Dioxide BUN Creatinine 0.6 L Glucose 102 H 102 H POC Glucose Calcium Phosphorus AST ALT C-Reactive Protein 3.10 H Total Protein Albumin Ur Specific [place] Urine WBC (Auto) Miscellaneous Test Crossmatch 06/18/18 06/19/18 06/19/18 05:28 00:52 04:35 WBC RBC Hgb Hct MCH MCHC 35 H RDW 15.4 H Plt Count 535 H Lymph % (Auto) [place] % (Auto) 8.0 H [place] # Seg Neutrophils % Seg Neuts % (Manual) Lymphocytes % (Manual) Seg Neutrophils # Seg Neutrophils # Man Lymphocytes # (Manual) PT INR VBG pH Sodium 135 L Potassium Chloride Carbon Dioxide BUN Creatinine 0.6 L 0.6 L Glucose POC Glucose Calcium Phosphorus AST < 2.0 L ALT C-Reactive Protein Total Protein Albumin 3.0 L 3.4 L Ur Specific [place] Urine WBC (Auto) Miscellaneous Test Crossmatch 06/20/18 07:08 WBC RBC Hgb Hct MCH MCHC RDW Plt Count Lymph % (Auto) [place] % (Auto) [place] # Seg Neutrophils % Seg Neuts % (Manual) Lymphocytes % (Manual) Seg Neutrophils # Seg Neutrophils # Man Lymphocytes # (Manual) PT INR VBG pH Sodium Potassium Chloride Carbon Dioxide BUN Creatinine 0.6 L Glucose POC Glucose Calcium Phosphorus AST ALT C-Reactive Protein Total Protein Albumin Ur Specific [place] Urine WBC (Auto) Miscellaneous Test Crossmatch Allied health notes reviewed: nursing
[2018-06-20] MEDS ORDERED: TPN ADULT 2,016 ML IV SCH (20:00)
[2018-06-20 20:24] VITALS: BP 121/82
== END 2018-06-20 20:28 | disposition home or self-care (01) | DRG 853 ==
LOC: ED 01:00 → CC1 11:32 → 3B-SURG 06-13 22:37
PROVIDERS: ADMIT Internal Medicine; ATTEND Internal Medicine
PROC: 0DTF4ZZ Resection of Right Large Intestine, Percutaneous Endoscopic Approach (ICD-10-PCS; principal; 2018-06-11)
PROC: 05HY33Z Insertion of Infusion Device into Upper Vein, Percutaneous Approach (ICD-10-PCS; 2018-06-12)
PROC: 30233N1 Transfusion of Nonautologous Red Blood Cells into Peripheral Vein, Percutaneous Approach (ICD-10-PCS; 2018-06-13)
PROC: 3E0336Z Introduction of Nutritional Substance into Peripheral Vein, Percutaneous Approach (ICD-10-PCS; 2018-06-14)
PROC: 4A033R1 Measurement of Arterial Saturation, Peripheral, Percutaneous Approach (ICD-10-PCS; 2018-06-18)
DX: A41.9 Sepsis, unspecified organism (principal); K63.1 Perforation of intestine (nontraumatic); K35.32 Acute appendicitis with perforation, localized peritonitis, and gangrene, without abscess; K56.609 Unspecified intestinal obstruction, unspecified as to partial versus complete obstruction; E87.6 Hypokalemia; E87.2 Acidosis; E87.1 Hypo-osmolality and hyponatremia; D57.3 Sickle-cell trait; K59.00 Constipation, unspecified
CPT/HCPCS: 36415; 36600; 71046; 74018; 74177; 80048; 80053; 81001; 81025; 82140; 82805; 82962; 83690; 83735; 84100; 84703; 85007; 85025; 85610; 85730; 86021; 86038; 86140; 86160; 86850; 86900; 86901; 86920; 87040; 87075; 87086; 87116; 87497; 87806; 88307; 88312; 94760; 96365; 96375; G0378; J0360; J0696; J1170; J1450; J1650; J2250; J2270; J2405; J2543; J2704; J3010; J3480; J7030; J7040; J7120; P9016; Q9967